=== PATIENT | male | born 1955 | race Caucasian/White ===

== ENCOUNTER → 2016-06-14 | Outpatient (CLI) | payer BC, OTHER ==
[~2016-06-14] MED LIST: ASPI81TA21 PO; BACL10TA PO; BUPR150T7 PO; CHOL100010 PO; CLOP1TAB15 PO; CYCL10TA6 PO; DOXE10CA PO; FAMO1TAB71 PO; HYDR-4079 PO; LOSA1TAB38 PO; LOSA50TA6 PO; LSN5 PO; METO50TA7 PO; MULTTAB58 PO; NTRGSL/4 UT; SIMV80TA2 PO
== END | disposition home or self-care (01) ==
LOC: C.RDSM 08:50
PROVIDERS: ATTEND Orthopaedic Surgery
DX: R52 Pain, unspecified (principal)

== ENCOUNTER 2016-10-24 07:43 | Inpatient (IN) | payer OTHER, BC ==
[~2016-10-24] VITALS: Ht 167.6 cm; Wt 72.9 kg
[~2016-10-24 07:43] MED LIST changes: -LOSA1TAB38 PO; -LOSA50TA6 PO
[2016-10-24] MEDS ORDERED: NITROGLYCERIN OINT 2% 1GM PACKET EXT STA (08:14)
[2016-10-24] MEDS ORDERED: ASPIRIN 81 MG CHEW PO STA (08:14)
[2016-10-24] MEDS ORDERED: NITROGLYCERIN OINT 2% 1GM PACKET ONE (08:19)
--- NOTE | 2016-10-24 08:21 | EMERGENCY ROOM VISIT NOTE ---
History Report prepared by Pete: Kathy England Under the Supervision of: Dr. Jaswant Payne M.D. First contact with patient: 07:56 Chief Complaint: CHEST PAIN Stated Complaint: CHEST PAINS Nursing Triage Summary: left sided chest pain > 1 week, evaluated by Dr Zamora with Cardiology for this - thought to be angina and given nitro. Took yesterday with some relief. No other symptoms with pain. Rating chest pain 3/10 at this time. On daily aspirin. hx HTN and 3 cardiac stents placed in January 2016, and one stent to leg in 2012 (Dr Fairchild) Quit smoking 1 month ago, has nicotene patch on back. History of Present Illness The patient is a 61 year old male who presents to the Emergency Room with complaints of chest pain that began over 1 week ago. The patient rates the pain at a 3/10. He reports that the pain waxes and wanes and that one time he felt relief from Nitroglycerin. The patient reports that exertion does not exacerbate his pain. He states that he is on Plavix and has [address] Source of History: patient Onset: over 1 week ago Position: chest Symptom Intensity: rated at a 3/10 Timing: waxes/wanes Modifying Factors (Relieving): other (nitroglycerin) Review of Systems See HPI for pertinent positives & negatives. A total of 10 systems reviewed and were otherwise negative. Past Medical & Surgical Medical Problems: (1) Angina pectoris (2) Arterial blockages (3) Benign hypertension (4) C. difficile colitis (5) coronary heart disease (6) Dupuytren's contracture of hand (7) Hypertension (8) Hypolipidemia Surgical Problems: (1) History of heart artery stent Family History Abdominal pain FH: heart disease FH: lung disease FHx: gallbladder disease Hypertension Social History Smoking Status: Former Smoker Alcohol Use: occasionally Marital Status: Housing Status: lives with significant other Occupation Status: employed Current/Historical Medications Scheduled Aspirin Enteric Coated (Ecotrin Or Generic), 81 MG PO DAILY Baclofen (Lioresal), 10 MG PO TID Bupropion Hcl (Wellbutrin Sr), 150 MG PO BID Cholecalciferol (Vitamin D), 2,000 INTER.UNIT PO DAILY Clopidogrel (Plavix), 75 MG PO DAILY Cyclobenzaprine Hcl (Flexeril), 10 MG PO DAILY Famotidine (Pepcid), 20 MG PO BID Losartan Potassium (Cozaar), 50 MG PO DAILY Metoprolol Succ (Toprol Xl) (Toprol-Xl), 50 MG PO DAILY Multiple Vitamin (Multivitamin), 1 TABLET PO DAILY Nitroglycerin (Nitrostat), 0.4 MG UT PRN Simvastatin (Zocor), 80 MG PO QPM Scheduled PRN Hydrocodone/Acetaminophen 10MG/325MG ([place] 10MG/325MG), 1 TABLET PO Q4H PRN for Pain Allergies Coded Allergies: Penicillins (Verified Allergy, Severe, "CIRCULATORY SHUTDOWN", 10/24/16) Physical Exam Vital Signs Date Time Temp Pulse Resp B/P (MAP) Pulse Ox O2 Delivery O2 Flow Rate FiO2 10/24/16 10:07 66 18 147/88 98 Room Air 10/24/16 09:05 71 18 136/73 98 Room Air 10/24/16 08:28 98 Room Air 10/24/16 08:28 98 Room Air 10/24/16 08:11 62 10/24/16 08:02 Room Air 10/24/16 07:51 36.9 66 19 181/83 99 Room Air Physical Exam GENERAL: Patient is a healthy-appearing well-nourished male HEAD: Normocephalic atraumatic EYES: Ocular movements intact pupils equal and react to light OROPHARYNX mucous membranes are moist no exudates present no erythema or edema present NECK: Supple no nuchal rigidity CHEST: Good equal expansion LUNGS: Clear and equal to auscultation CARDIAC: Normal S1 and S2 ABDOMEN: Soft nontender no guarding BACK: No CVA tenderness EXTREMITIES: No pain upon palpation normal muscle strength in all groups no clubbing cyanosis or edema NEURO: Patient is following commands and answering questions appropriately. Alert and oriented x3 Cranial Nerves 2-12 grossly intact Medical Decision & Procedures ER Provider Diagnostic Interpretation: X-ray results as stated below per interpretation by me and the radiologist: CHEST ONE VIEW PORTABLE CLINICAL HISTORY: 61 years-old Male presenting with CHEST PAIN. TECHNIQUE: Portable upright AP view of the chest was obtained. COMPARISON: 09/17/2012. FINDINGS: Atherosclerosis of aortic arch. Normal cardiac silhouette. Lungs and pleural spaces clear. Osseous structures normal. Upper abdomen normal. IMPRESSION: 1. No acute cardiopulmonary disease. Electronically signed by: Sudeep Cooper M.D. 10/24/2016 8:19 AM Dictated Date/Time: 10/24/2016 8:18 AM Laboratory Results 10/24/16 08:05 Red Blood Count 4.43, Mean Corpuscular Volume 92.6, Mean Corpuscular Hemoglobin 32.5, Mean Corpuscular Hemoglobin Concent 35.1, Mean Platelet Volume 10.0, Neutrophils (%) (Auto) 73.4, Lymphocytes (%) (Auto) 14.7, Monocytes (%) (Auto) 9.6, Eosinophils (%) (Auto) 1.5, Basophils (%) (Auto) 0.6, Neutrophils # (Auto) 10.27, Lymphocytes # (Auto) 2.05, Monocytes # (Auto) 1.35, Eosinophils # (Auto) 0.21, Basophils # (Auto) 0.08 10/24/16 08:05 Test 10/24/16 08:05 10/24/16 09:55 White Blood Count 13.99 K/uL (4.8-10.8) Red Blood Count 4.43 M/uL (4.7-6.1) Hemoglobin 14.4 g/dL (14.0-18.0) Hematocrit 41.0 % (42-52) Mean Corpuscular Volume 92.6 fL (80-100) Mean Corpuscular Hemoglobin 32.5 pg (25-34) Mean Corpuscular Hemoglobin Concent 35.1 g/dl (32-36) Platelet Count 381 K/uL (130-400) Mean Platelet Volume 10.0 fL (7.4-10.4) Neutrophils (%) (Auto) 73.4 % Lymphocytes (%) (Auto) 14.7 % Monocytes (%) (Auto) 9.6 % Eosinophils (%) (Auto) 1.5 % Basophils (%) (Auto) 0.6 % Neutrophils # (Auto) 10.27 K/uL (1.4-6.5) Lymphocytes # (Auto) 2.05 K/uL (1.2-3.4) Monocytes # (Auto) 1.35 K/uL (0.11-0.59) Eosinophils # (Auto) 0.21 K/uL (0-0.5) Basophils # (Auto) 0.08 K/uL (0-0.2) RDW Standard Deviation 42.6 fL (36.4-46.3) RDW Coefficient of Variation 12.5 % (11.5-14.5) Immature Granulocyte % (Auto) 0.2 % Immature Granulocyte # (Auto) 0.03 K/uL (0.00-0.02) Anion Gap 8.0 mmol/L (3-11) Est Creatinine Clear Calc Drug Dose 88.6 ml/min Estimated GFR () 112.5 Estimated GFR (Non- 97.1 BUN/Creatinine Ratio 16.0 (10-20) Calcium Level 9.2 mg/dl (8.5-10.1) Total Bilirubin 0.5 mg/dl (0.2-1) Direct Bilirubin 0.2 mg/dl (0-0.2) Aspartate Amino Transf (AST/SGOT) 33 U/L (15-37) Alanine Aminotransferase (ALT/SGPT) 57 U/L (12-78) Alkaline Phosphatase 108 U/L (45-117) Total Creatine Kinase 68 U/L (39-308) Creatine Kinase MB 1.1 ng/ml (0.5-3.6) Creatine Kinase MB Ratio 1.6 (0-3.0) Troponin I 0.457 ng/ml (0-0.045) Total Protein 7.6 gm/dl (6.4-8.2) Albumin 3.6 gm/dl (3.4-5.0) Lipase 188 U/L (73-393) Prothrombin Time 10.5 SECONDS (9.0-12.0) Prothromb Time International Ratio 1.0 (0.9-1.1) Activated Partial Thromboplast Time 25.1 SECONDS (21.0-31.0) Partial Thromboplastin Ratio 1.0 Labs reviewed by ED physician. Medications Administered Medications (Trade) Dose Ordered Sig/Katheryn Route Start Time Stop Time Status Last Admin Dose Admin Nitroglycerin (Nitroglycerin 2% Oint) 1 inch NOW STAT EXT 10/24/16 08:14 10/24/16 08:16 DC 10/24/16 08:22 1 INCH Aspirin (Aspirin Chew) 243 mg NOW STAT PO 10/24/16 08:14 10/24/16 08:16 DC 10/24/16 08:21 243 MG ECG Indication: chest pain Rate (beats per minute): 64 Rhythm: normal sinus Findings: no acute ischemic change, no ectopy, other (old septal infarct) ED Course 0818: Past medical records reviewed. The patient was evaluated in room B2. A complete history and physical examination was performed. 0814: Ordered Aspirin 243 mg PO, Nitroglycerin 1 inch EXT. 912: Ordered Heparin Sodium/Dextrose 1 ea. 0916: I discussed the patient's case with Dr. Vanessa, she has agreed to evaluate the patient for further management and care. Medical Decision Differential diagnosis: Etiologies such as cardiac ischemia, aortic dissection, pulmonary embolism, pneumonia, pneumothorax, musculoskeletal, infections, pericarditis, myocarditis , esophageal rupture, gastrointestinal, as well as others were entertained. This is a 61-year-old male who presents emergency department complaining of chest discomfort that has been ongoing for the past week. The pain has been relieved by nitroglycerin at home. The patient has a history of [address] Upon arrival to the emergency department the patient is pain-free. His EKG shows no evidence of a STEMI however his troponin is elevated. He was given nitro paste in the emergency department and will be started on heparin. I did discuss the case with the hospitalist service who agreed to admit the patient. Medication Reconcilliation Current Medication List: was personally reviewed by me Blood Pressure Screening Patient's blood pressure: Elevated blood pressure Blood pressure disposition: Referred to PCP Consults Time Called: [phone] Consulting Physician: Dr. Vanessa, [facility] Hospitalist Returned Call: [phone] I discussed the patient's case with Dr. Vanessa, she has agreed to evaluate the patient for further management and care. Impression Primary Impression: Non-STEMI (non-ST elevated myocardial infarction) Scribe Attestation The scribe's documentation has been prepared under my direction and personally reviewed by me in its entirety. I confirm that the note above accurately reflects all work, treatment, procedures, and medical decision making performed by me. Departure Information Dispostion Being Evaluated By Hospitalist Referrals Chaka Rico II MD (PCP) Patient Instructions My [facility]
[2016-10-24 08:22] LABS: BASO % 0.6 %; BASO ABS # 0.08 K/uL (0-0.2); COMPLETE YES; EOS % 1.5 %; IG% 0.2 %; LYMPH % 14.7 %; LYMPH ABS # 2.05 K/uL (1.2-3.4); MEAN CELL VOLUME 92.6 fL (80-100); MEAN CORPUSCULAR HEMOGLOBIN 32.5 pg (25-34); MEAN CORPUSCULAR HGB CONC 35.1 g/dl (32-36); MONO % 9.6 %; NEUT % 73.4 %; PLATELET COUNT 381 K/uL (130-400); RED BLOOD COUNT 4.43 M/uL (4.7-6.1); WHITE BLOOD COUNT 13.99 K/uL (4.8-10.8)
[2016-10-24] MEDS ORDERED: LOSA50TA6 PO (08:40)
[2016-10-24 09:07] LABS: CALCIUM 9.2 mg/dl (8.5-10.1); CKMB/CK RATIO 1.6 (0-3.0); CREATININE 0.8 mg/dl (0.60-1.40); POTASSIUM 4.7 mmol/L (3.5-5.1)
[2016-10-24 10:00] VITALS: O2SAT 98; Ht 167.6 cm; Wt 72.9 kg
[2016-10-24 10:33] LABS: PROTHROMBIN TIME (PATIENT) 10.5 SECONDS (9.0-12.0)
[2016-10-24] MEDS ORDERED: HEPARIN 25000 UNIT/500 ML D5W ONE (10:52)
[2016-10-24] MEDS ORDERED: MoRPHine SULFATE 2 MG/ML CARP IV PRN (11:15)
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
[2016-10-24] MEDS ORDERED: HEPARIN IV BOLUS 5,000 UNIT in SYRINGE 0 ML IV SCH (12:30)
[2016-10-24] MEDS ORDERED: HEPARIN SOD 5000 UNIT/0.5 ML CARP IV ONE (12:30)
[2016-10-24 14:49] LABS: CKMB/CK RATIO 1.8 (0-3.0)
[2016-10-24] MEDS: SODIUM CHLORIDE 0.9% 1000ML 1,000 ML IV SCH (15:01)
[2016-10-24] MEDS: BACLOFEN 10 MG TAB PO SCH ×2 (15:34→19:56)
[2016-10-24] MEDS: HYDROCODONE/ACETAMI 10/325 TAB PO PRN ×2 (15:34→20:00)
[2016-10-24] MEDS: NITROGLYCERIN OINT 2% 1GM PACKET EXT SCH ×2 (15:35→21:11)
[2016-10-24 15:36] VITALS: PULSE 73; TEMP 37; O2SAT 99
[2016-10-24 15:44] VITALS: BP 172/84
[2016-10-24] MEDS: LOSARTAN POTASSIUM 50 MG TAB PO SCH ×2 (15:56→16:00)
[2016-10-24 16:00] VITALS: O2SAT 99
[2016-10-24 17:46] LABS: PARTIAL THROMBOPLASTIN RATIO 2.9
[2016-10-24] MEDS: HEPARIN 25,000 UNIT/500ML D5W 500 ML IV PRN (18:05)
--- NOTE | 2016-10-24 18:06 | ECHOCARDIOGRAM REPORT ---
*NOTICE TO RECEIVING REPUBLICAN AGENCY This information is strictly Confidential and protected under [place] law. [place] law prohibits you from making any further disclosure of this information unless further disclosure is expressly permitted by the written consent of the person to whom it pertains or is authorized by law. A general authorization for the release of medical or other information is not sufficient for this purpose. Hospital accepts no responsibility if the information is made available to any other person, INCLUDING THE PATIENT. Interpretation Summary * Name: MARIANNA ARMAS Study Date: 10/24/2016 02:59 PM BP: 147/88 mmHg * Patient Location: C.2T\S\S241\S\1 HR: 63 * : 1955 (M/d/yyyy) Gender: Male Height: 66 in * Age: 61 yrs Ethnicity: CA Weight: 156 lb * Ordering Physician: Mely Vanessa * Referring Physician: Self, Referred * Performed By: Margarette Gutierrez RCS * * Reason For Study: CHEST PAIN * BSA: 1.8 m2 * -- Conclusions -- * 1. Normal LV size. Mild concentric LVH. * 2. Normal LV systolic function. LVEF 60-65%. Hypokinesis of the inferior wall at the base. * 3. Normal RV size and function. * 4. Mild mitral regurgitation. * 5. Aortic valve sclerosis without stenosis. * 6. Compared with prior study on 01/26/2016: No significant change. Procedure Details * A complete two-dimensional transthoracic echocardiogram was performed (2D, M-mode, Doppler and color flow Doppler). * A saline contrast injection was performed to assess for cardiac shunting. * The injection was performed through an intravenous line in the right arm. * The attending nurse who injected the saline contrast was SHANNON VILLALOBOS RN. * A total of 20 cc of agitated saline was given. Left Ventricle * The left ventricle is grossly normal size. * There is mild concentric left ventricular hypertrophy. * Ejection Fraction = 60-65%. * Hypokinetic basilar inferiror wall Right Ventricle * The right ventricle is grossly normal size. * The right ventricular systolic function is normal as assessed by tricuspid annular plane systolic excursion (TAPSE) (normal >1.5 cm). Atria * The left atrium is mildly dilated. * Right atrial size is normal. * Injection of contrast documented no interatrial shunt. Mitral Valve * There is mild mitral annular calcification. * There is no mitral valve stenosis. * There is mild mitral regurgitation. Tricuspid Valve * The tricuspid valve is not well visualized, but is grossly normal. * There is no tricuspid stenosis. * There is trace tricuspid regurgitation. Aortic Valve * The aortic valve opens well. * Aortic valve sclerosis mild, without significant aortic valvular stenosis. * No hemodynamically significant valvular aortic stenosis. * There is no significant aortic regurgitation. Pulmonic Valve * The pulmonary valve is inadequately visualized, but the Doppler data is adequate for interpretation. * Pulmonic stenosis is absent. * There is no pulmonic valvular regurgitation. Great Vessels * The aortic root and proximal ascending aorta are normal sized. Pericardium/Pleural * There is no pericardial effusion. Great Vessels * IVC < 2.1, <50% change with respiration. Estimated RA 8 mmHg Left Ventricular Diastolic Function * Grade I diastolic dysfunction, (abnormal relaxation pattern). MMode 2D Measurements and Calculations IVSd 1.4 cm IVSs 1.8 cm LVIDd 3.6 cm LVIDs 2.2 cm LVPWd 1.3 cm LVPWs 1.7 cm IVS/LVPW 1.1 FS 38.3 % EDV(Teich) 55.7 ml ESV(Teich) 17.0 ml EF(Teich) 69.5 % EDV(cubed) 48.1 ml ESV(cubed) 11.3 ml EF(cubed) 76.5 % % IVS thick 26.1 % % LVPW thick 24.0 % LV mass(C)d 178.6 grams LV mass(C)dI 99.3 grams/m\S\2 LV mass(C)s 145.3 grams LV mass(C)sI 80.7 grams/m\S\2 SV(Teich) 38.7 ml SI(Teich) 21.5 ml/m\S\2 SV(cubed) 36.8 ml SI(cubed) 20.4 ml/m\S\2 Ao root diam 2.7 cm Ao root area 5.7 cm\S\2 LA dimension 4.1 cm LA/Ao 1.5 LVOT diam 2.0 cm LVOT area 3.0 cm\S\2 LVAd ap4 32.5 cm\S\2 LVLd ap4 8.1 cm EDV(MOD-sp4) 107.3 ml EDV(sp4-el) 110.1 ml LVAs ap4 19.2 cm\S\2 LVLs ap4 6.9 cm ESV(MOD-sp4) 44.5 ml ESV(sp4-el) 45.5 ml EF(MOD-sp4) 58.5 % EF(sp4-el) 58.7 % LVAd ap2 33.4 cm\S\2 LVLd ap2 7.9 cm EDV(MOD-sp2) 117.0 ml EDV(sp2-el) 120.3 ml LVAs ap2 19.4 cm\S\2 LVLs ap2 6.2 cm ESV(MOD-sp2) 51.7 ml ESV(sp2-el) 51.0 ml EF(MOD-sp2) 55.8 % EF(sp2-el) 57.6 % LVLd %diff -3.14 % EDV(MOD-bp) 112.1 ml LVLs %diff -10.50 % ESV(MOD-bp) 48.4 ml EF(MOD-bp) 56.8 % SV(MOD-sp4) 62.7 ml SI(MOD-sp4) 34.9 ml/m\S\2 SV(MOD-sp2) 65.2 ml SI(MOD-sp2) 36.2 ml/m\S\2 SV(MOD-bp) 63.7 ml SI(MOD-bp) 35.4 ml/m\S\2 SV(sp4-el) 64.6 ml SI(sp4-el) 35.9 ml/m\S\2 SV(sp2-el) 69.3 ml SI(sp2-el) 38.5 ml/m\S\2 Doppler Measurements and Calculations MV E max jerardo 77.6 cm/sec MV A max jerardo 97.6 cm/sec MV E/A 0.80 MV P1/2t max jerardo 90.6 cm/sec MV P1/2t 101.7 msec MVA(P1/2t) 2.2 cm\S\2 MV dec slope 261.0 cm/sec\S\2 MV dec time 0.27 sec MR max jerardo 578.2 cm/sec MR max PG 133.7 mmHg PA V2 max 110.6 cm/sec PA max PG 4.9 mmHg TR max jerardo 161.3 cm/sec
--- NOTE | 2016-10-24 19:22 | Cardiology Consultation ---
Cardiology Consultation Date of Consultation: Oct 24, 2016. Attending Physician: Otf Reason for Consultation: Chest Pain/NSTEMI Pt evaluation today including: conversation w/ patient, conversation w/ family , physical exam, chart review, lab review, review of studies, review of inpatient medication list, conversation w/ attending History of Present Illness Mr. Alcantara a pleasant 61-year-old man with a history of hypertension, hyperlipidemia, peripheral vascular disease with prior common iliac stent and coronary artery disease with known subtotally occluded RCA and status post multiple prior PCI to his circumflex artery most recently with SERENE in January of 2016 here today with complaints of worsening chest pain. Patient is followed by Dr. Zamora for his cardiovascular care and was last seen by him on October 10. At that time he noted stable typical anginal symptoms relieved with occasional sublingual nitroglycerin. Over the last 2-3 weeks patient endorses new chest tightness which radiates to his arms bilaterally. This pain can occur at any time has been most notable in the evenings. It has occurred at most 6 times a day, lasting sometimes for 15 minutes. Pain is partially relieved with slntg and is somewhat different than what he has experienced prior to previous stents but seems to be increasing more in frequency and intensity. 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 He received a nitroglycerin patch in the ED with resolution of pain. At time of interview patient chest pain-free. His initial EKG showed nonspecific ST abnormalities but noted new dynamic ST changes. His initial troponin was 0.46 and has trended up to 0.75. Echocardiogram this afternoon showed preserved LV function with what looked to be old basilar inferior wall hypokinesis. Past Medical/Surgical History PMH: CAD -- 09/2009--overlapping 2.5 by 20 millimeter, 2.25 x 12 millimeter Taxus SERENE 01/2016--2.75 x 12 millimeter resolute SERENE to proximal circumflex, post dilated to 3 millimeters HTN PAD with right common iliac stent per Dr. Granger in 2013 Recurrent C. difficile colitis Dupuytren's contracture of hand HL Chronic lower back pain with sciatica s/p traumatic accident Chronic opioid dependence PSH: RLE hematoma evacuation and wound debridement s/p trauma Left inguinal mass biopsy-benign Family History Abdominal pain FH: heart disease FH: lung disease FHx: gallbladder disease Hypertension Social History Smoking Status: Former Smoker (smoked 1 PPD x 40 yrs, quit 1 month ago) History of Alcohol Use: Yes (beer few cans/ week "occasionally" ) Review of Systems 10 point review of systems was completed and was otherwise negative unless stated in HPI All Other Systems: Reviewed and Negative Allergies Coded Allergies: Penicillins (Verified Allergy, Severe, "CIRCULATORY SHUTDOWN", 10/24/16) Medications Current Inpatient Medications Medications (Trade) Dose Ordered Sig/Katheryn Route Start Time Stop Time Status Last Admin Dose Admin Sodium Chloride 1,000 ml @ 75 mls/hr [id number] IV 10/24/16 11:06 11/23/16 11:05 10/24/16 15:01 75 MLS/HR Nitroglycerin (Nitroglycerin 2% Oint) 1 inch Q6H EXT 10/24/16 16:00 11/23/16 15:59 10/24/16 15:35 1 INCH Morphine Sulfate (MoRPHine SULFATE INJ) 2 mg Q30M PRN IV 10/24/16 11:15 11/07/16 11:14 Aspirin (Ecotrin Tab) 81 mg DAILY PO 10/25/16 09:00 11/24/16 08:59 Baclofen (Lioresal Tab) 10 mg TID PO 10/24/16 14:00 11/23/16 13:59 10/24/16 15:34 10 MG Bupropion HCl (Wellbutrin-Sr Tab) 150 mg BID PO 10/24/16 21:00 11/23/16 20:59 Cholecalciferol (Vitamin D Tab) 2,000 inter.unit DAILY PO 10/25/16 09:00 11/24/16 08:59 Clopidogrel Bisulfate (plAVix TAB) 75 mg DAILY PO 10/25/16 09:00 11/24/16 08:59 Cyclobenzaprine HCl (Flexeril Tab) 10 mg DAILY PRN PO 10/24/16 11:15 11/23/16 11:14 Famotidine (Pepcid Tab) 20 mg BID PO 10/24/16 21:00 11/23/16 20:59 Acetaminophen/ Hydrocodone Bitart ([place] 10/325 Tab) 1 tab Q4H PRN PO 10/24/16 11:15 11/07/16 11:14 10/24/16 15:34 1 TAB Losartan Potassium (coZAAR TAB) 50 mg DAILY PO 10/25/16 09:00 11/24/16 08:59 10/24/16 16:00 50 MG Metoprolol Succinate (Toprol Xl Tab) 50 mg DAILY PO 10/25/16 09:00 11/24/16 08:59 Multivitamins (Multivitamin Tab) 1 tab DAILY PO 10/25/16 09:00 11/24/16 08:59 Simvastatin (Zocor Tab) 80 mg QPM PO 10/24/16 21:00 11/23/16 20:59 Heparin Sodium/ Dextrose 500 ml @ 23 mls/hr [id number] PRN IV 10/24/16 12:00 11/23/16 11:59 10/24/16 18:05 23 MLS/HR Physical Exam Vital Signs Past 12 Hours Date Time Temp Pulse Resp B/P (MAP) Pulse Ox O2 Delivery O2 Flow Rate FiO2 10/24/16 16:00 99 Room Air 10/24/16 15:44 172/84 (113) 10/24/16 15:36 37.0 73 20 99 Room Air 10/24/16 13:11 73 18 98 10/24/16 13:01 70 18 140/73 97 Room Air 10/24/16 11:50 71 18 164/86 98 Room Air 10/24/16 11:30 68 10/24/16 10:07 66 18 147/88 98 Room Air 10/24/16 10:00 98 Room Air 10/24/16 09:05 71 18 136/73 98 Room Air 10/24/16 08:28 98 Room Air 10/24/16 08:28 98 Room Air 10/24/16 08:11 62 10/24/16 08:02 Room Air 10/24/16 07:51 36.9 66 19 181/83 99 Room Air General: Comfortable, no acute distress Eyes: Sclerae anicteric, extraocular movements intact HENT: Oropharynx clear mucous membranes moist Neck: Supple, no lymphadenopathy, no thyromegaly. Lungs: Clear to auscultation bilaterally, no rhonchi or wheezes Cardiac: Regular rate and rhythm, 2/6 systolic murmur at left upper sternal border, rubs or gallops. No JVD. No peripheral edema. Extremities well perfused. Vascular: Normal carotid upstrokes, no bruits. 2+ radial, femoral, DP and PT pulses. No varicosities. Abdomen: Soft, nontender, nondistended positive bowel sounds. No hepatosplenomegaly Musculoskeletal: Normal gait. No joint deformities Skin: No rashes or lesions. Neuro: Cranial nerves 2-12 grossly intact, remainder exam nonfocal Psych: Alert orient x3, normal affect and mood Data Laboratory Results: Last 24 Hours Test 10/24/16 08:05 10/24/16 09:55 10/24/16 13:52 10/24/16 16:53 White Blood Count 13.99 K/uL Red Blood Count 4.43 M/uL Hemoglobin 14.4 g/dL Hematocrit 41.0 % Mean Corpuscular Volume 92.6 fL Mean Corpuscular Hemoglobin 32.5 pg Mean Corpuscular Hemoglobin Concent 35.1 g/dl Platelet Count 381 K/uL Mean Platelet Volume 10.0 fL Neutrophils (%) (Auto) 73.4 % Lymphocytes (%) (Auto) 14.7 % Monocytes (%) (Auto) 9.6 % Eosinophils (%) (Auto) 1.5 % Basophils (%) (Auto) 0.6 % Neutrophils # (Auto) 10.27 K/uL Lymphocytes # (Auto) 2.05 K/uL Monocytes # (Auto) 1.35 K/uL Eosinophils # (Auto) 0.21 K/uL Basophils # (Auto) 0.08 K/uL RDW Standard Deviation 42.6 fL RDW Coefficient of Variation 12.5 % Immature Granulocyte % (Auto) 0.2 % Immature Granulocyte # (Auto) 0.03 K/uL Sodium Level 131 mmol/L Potassium Level 4.7 mmol/L Chloride Level 98 mmol/L Carbon Dioxide Level 25 mmol/L Anion Gap 8.0 mmol/L Blood Urea Nitrogen 13 mg/dl Creatinine 0.80 mg/dl Est Creatinine Clear Calc Drug Dose 88.6 ml/min Estimated GFR () 112.5 Estimated GFR (Non- 97.1 BUN/Creatinine Ratio 16.0 Random Glucose 75 mg/dl Calcium Level 9.2 mg/dl Total Bilirubin 0.5 mg/dl Direct Bilirubin 0.2 mg/dl Aspartate Amino Transf (AST/SGOT) 33 U/L Alanine Aminotransferase (ALT/SGPT) 57 U/L Alkaline Phosphatase 108 U/L Total Creatine Kinase 68 U/L 56 U/L Creatine Kinase MB 1.1 ng/ml 1.0 ng/ml Creatine Kinase MB Ratio 1.6 1.8 Troponin I 0.457 ng/ml 0.749 ng/ml Total Protein 7.6 gm/dl Albumin 3.6 gm/dl Lipase 188 U/L Prothrombin Time 10.5 SECONDS Prothromb Time International Ratio 1.0 Activated Partial Thromboplast Time 25.1 SECONDS 76.0 SECONDS Partial Thromboplastin Ratio 1.0 2.9 Imaging: Chest x-ray no acute cardiopulmonary process EKG: Sinus rhythm, nonspecific ST changes, questionable septal infarct Telemetry reviewed: No events Assessment & Plan 1. Suspected acute coronary syndrome 2. History of coronary artery disease status post multiple stents to circumflex most recently with SERENE to proximal segment in January of 2016 3. Peripheral artery disease status post common iliac stent 4. Hypertension 5.Dyslipidemia Patient here with worsened intermittent chest pain over the last 2-3 weeks. Elevated troponin trending up concerning for acute coronary syndrome. With unremarkable EKG concern for possible recurrent circumflex disease. For now patient is chest pain-free, hemodynamically and electrically stable. repeat echo unremarkable and no need for urgent intervention Going forward agree with continued heparin infusion, continue dual antiplatelet therapy with aspirin and Plavix. Continue nitro patch and home beta-anuja, ARB, statin. Will discuss case further with patient's chemical dependency professional, Dr. Zamora tomorrow but tentatively plan for additional risk stratification with cardiac catheterization tomorrow via right radial artery. Thank you for allowing us to participate in the care of this patient. Please contact with any questions.
[2016-10-24 19:40] VITALS: BP 143/75; PULSE 64; TEMP 37.1; O2SAT 96
[2016-10-24] MEDS: FAMOTIDINE 20 MG TAB PO SCH (19:55)
[2016-10-24] MEDS: SIMVASTATIN 80 MG TAB PO SCH (19:55)
[2016-10-24] MEDS: BuPROPion SR 150 MG TABCR PO SCH (19:56)
[2016-10-24 20:41] LABS: CKMB/CK RATIO 1.6 (0-3.0)
[2016-10-24] MEDS: CYCLOBENZAPRINE HCL 10 MG TAB PO PRN (21:09)
[2016-10-24 22:45] VITALS: BP 122/62; PULSE 65; TEMP 37; O2SAT 96
[2016-10-25] VITALS (11 sets, daily range): BP systolic 120–175; BP diastolic 64–90; PULSE 57–74; TEMP 36.5–37; O2SAT 96–98
[2016-10-25 01:14] LABS: PARTIAL THROMBOPLASTIN RATIO 1.9
[2016-10-25 02:23] LABS: CKMB/CK RATIO 1.4 (0-3.0)
[2016-10-25] MEDS: SODIUM CHLORIDE 0.9% 1000ML 1,000 ML IV SCH ×2 (02:37→15:02)
[2016-10-25] MEDS: NITROGLYCERIN OINT 2% 1GM PACKET EXT SCH ×4 (04:16→22:13)
[2016-10-25] MEDS: HYDROCODONE/ACETAMI 10/325 TAB PO PRN ×4 (07:46→23:54)
[2016-10-25] MEDS: METOPROLOL SUCC 50MG EXT REL TAB PO SCH (07:48)
[2016-10-25] MEDS: BuPROPion SR 150 MG TABCR PO SCH ×2 (07:48→19:43)
[2016-10-25] MEDS: CLOPIDOGREL BISULFATE 75 MG TAB PO SCH (07:49)
[2016-10-25] MEDS: CHOLECALCIFEROL 1000 INTER.UNIT TAB PO SCH (07:50)
[2016-10-25] MEDS: MULTIVITAMIN TAB PO SCH (07:50)
[2016-10-25] MEDS: ASPIRIN 81 MG ECTAB PO SCH (07:50)
[2016-10-25] MEDS: LOSARTAN POTASSIUM 50 MG TAB PO SCH (07:51)
[2016-10-25] MEDS: BACLOFEN 10 MG TAB PO SCH ×3 (07:51→19:42)
[2016-10-25] MEDS: FAMOTIDINE 20 MG TAB PO SCH ×2 (07:51→19:43)
[2016-10-25 08:15] LABS: BASO % 0.8 %; BASO ABS # 0.08 K/uL (0-0.2); COMPLETE YES; EOS % 4.9 %; IG% 0.3 %; LYMPH % 24.8 %; LYMPH ABS # 2.47 K/uL (1.2-3.4); MEAN CELL VOLUME 92.2 fL (80-100); MEAN CORPUSCULAR HEMOGLOBIN 32.5 pg (25-34); MEAN CORPUSCULAR HGB CONC 35.3 g/dl (32-36); MONO % 16.5 %; NEUT % 52.7 %; PLATELET COUNT 344 K/uL (130-400); RED BLOOD COUNT 4.34 M/uL (4.7-6.1); WHITE BLOOD COUNT 9.97 K/uL (4.8-10.8)
[2016-10-25 08:51] LABS: BUN/CREATININE RATIO 18.7 (10-20); CALCIUM 8.8 mg/dl (8.5-10.1); CREATININE 0.75 mg/dl (0.60-1.40); POTASSIUM 4.5 mmol/L (3.5-5.1)
--- NOTE | 2016-10-25 09:24 | CARDIOLOGY PROGRESS NOTE ---
DATE: 10/25/2016 SUBJECTIVE: Mr. Whitaker is resting comfortably in bed without complaints of chest pain or dyspnea. OBJECTIVE: VITAL SIGNS: Blood pressure 150/80 with a regular pulse of 60. Respiratory rate is 20. The patient is afebrile at 36.6 degrees Celsius. Saturation is 97% on 2 liters nasal cannula. NECK: Supple with full carotid upstrokes. No carotid bruits. Jugular venous pressure is flat at 90 degrees. There is no thyromegaly. CARDIOVASCULAR: Reveals a regular rhythm with normal S1 and S2. No S3, S4, or murmurs are noted. LUNGS: Clear without rales, rhonchi, or wheezes. ABDOMEN: Soft and nontender without bruits. EXTREMITIES: Reveal intact radial artery pulses bilaterally. There is no peripheral edema. DATA: CBC notes hemoglobin 14.1, hematocrit 40.0, white count 9.9, and platelet count 344,000. Electrolytes note a sodium of 142, potassium 4.5, chloride 109, bicarb 29, BUN 14, creatinine 0.75, and glucose 102. Troponin I level was 0.561 this morning, down from a peak of 0.749. CKs are normal. EKG notes normal sinus rhythm with an old septal infarction. No acute ST or T-wave changes identified. IMPRESSION AND PLAN: 1. Unstable angina pectoris -- the patient was seen in consultation by Dr. Uribe yesterday. Cardiac catheterization is planned for today. 2. Coronary artery disease -- the patient had drug-eluting stents to the LAD in September of 2009 and a drug-eluting stent placed in the proximal LCX in January 2016. 3. Hypertension -- borderline control. 4. Peripheral vascular disease -- status post right common iliac stent with Dr. Granger in 2012. 5. Hypercholesterolemia.
[2016-10-25] MEDS: HEPARIN 25,000 UNIT/500ML D5W 500 ML IV PRN (09:37)
[2016-10-25] MEDS ORDERED: HEPARIN SOD (PORCINE) 1000 UNIT/ML 10 ML VIAL ONE (15:05)
[2016-10-25] MEDS ORDERED: FENTANYL CITRATE INJ 50 MCG/1 ML 2 ML VIAL ONE ×2 (15:05→15:57)
[2016-10-25] MEDS ORDERED: NiCARDipine HCL INJ 2.5 MG/ML 10 ML AMP ONE (15:05)
[2016-10-25] MEDS ORDERED: NITROGLYCERIN/D5W 100MCG/ML 20ML SYR ONE (15:05)
[2016-10-25] MEDS ORDERED: MIDAZOLAM HCL 1 MG/ML 2ML VIAL ONE ×3 (15:05→16:13)
[2016-10-25] MEDS ORDERED: CLOPIDOGREL BISULFATE 300 MG TAB PO ONE (16:44)
--- NOTE | 2016-10-25 17:26 | Procedure Note ---
Post-Mod Sedation Assessment General Date of Moderate Sedation Oct 25, 2016. Vital Signs: Vital Signs Past 12 Hours Date Time Temp Pulse Resp B/P (MAP) Pulse Ox O2 Delivery O2 Flow Rate FiO2 10/25/16 16:55 60 18 145/91 (109) 95 Room Air 10/25/16 16:45 57 18 157/91 (113) 95 Room Air 10/25/16 12:12 175/80 (111) 10/25/16 12:00 98 Room Air 10/25/16 10:28 36.9 59 20 160/90 (113) 98 Room Air 10/25/16 08:00 97 Room Air 10/25/16 07:04 36.6 57 20 152/81 (104) 97 Room Air Review - Discharge Criteria Vital Signs Stable: Yes Alert/Oriented/Conversant: Yes Returned to Baseline Mental St: Yes Nausea Absent/Minimal: Yes Pain/Discomfort/Absent/Minimal: Yes Normal/Baseline Respirations: Yes Active Bleeding?: No Pt Received D/C Instructions: No Specific Proced. D/C Criteria Distal Pulses Present (Cardiac: Yes Groin site assessed-Card Cath: N/A Voided Prior To Discharge: N/A Discharged Patients Adult Escort/Transportation: Yes
--- NOTE | 2016-10-25 17:26 | Procedure Note ---
Pre-Mod Sedation Assessment General Date of Moderate Sedation: Oct 25, 2016. Vital Signs: Vital Signs Past 12 Hours Date Time Temp Pulse Resp B/P (MAP) Pulse Ox O2 Delivery O2 Flow Rate FiO2 10/25/16 16:55 60 18 145/91 (109) 95 Room Air 10/25/16 16:45 57 18 157/91 (113) 95 Room Air 10/25/16 12:12 175/80 (111) 10/25/16 12:00 98 Room Air 10/25/16 10:28 36.9 59 20 160/90 (113) 98 Room Air 10/25/16 08:00 97 Room Air 10/25/16 07:04 36.6 57 20 152/81 (104) 97 Room Air Review Cardiovascular: regular rate, rhythm, no edema Abdomen: normal bowel sounds, non tender Lungs: chest non-tender, lungs clear Airway Class: III Pre-Sedation Airway Assessment Oral Cavity: WNL Able to Visualize Vocal Cords: No Short Thick Neck: No Hx of Sleep Apnea: No Smoking Status: Former Smoker (smoked 1 PPD x 40 yrs, quit 1 month ago) Mallampati Classification: Class III ASA Classification: Class III Procedure Planning Contraindications-for Mod Sed: None Yes Notes The planned sedation has been discussed with the patient and consent obtained. I have identified the patient, determined the appropriateness of sedation and have assessed the patient immediately prior to the procedure. All medicine(s) and interventions are by my order.
--- NOTE | 2016-10-25 17:49 | Cardiac Catheterization ---
Procedure Note Procedure Date Oct 25, 2016. Pre-Procedure Diagnosis Non STEMI AUC Score 8 Post-Procedure Diagnosis Severe CAD, Successful PCI, Normal Intracardiac Pressures Procedure(s) Performed Coronary Angiography, Left Heart Cath, Drug Eluting Stent Brick Cleaner Rony Final Application Reviewer(s) Saman Estimated Blood Loss 15 Medication(s) Fentanyl, Heparin, Nitroglycerin, Versed, Lidocaine 1% Summary of Findings Indication: NSTEMI Access: 6Fr Right radial artery Catheters: [place]; EBU 3.5 guide Findings: LM - Angiographically normal LAD - 50% mid segment disease at 1st septal, distal segment tortuous with luminal irregularities to apex. Left to right collaterals. Circumflex - 90% ostial/proximal stenosis, patent prior stents with 40-50% instent restenosis in mid segment after take-off of OM2. Ramus - small vessel, with 95% ostial stenosis RCA - Dominant, 70% proximal stenosis, diffuse 60-70% mid segment disease, 95% distal RCA diffuse stenosis. Competitive flow in PDA LVEDP - 17 -- PCI -- Antithrombotic therapy: Heparin, Clopidogrel Procedure: LM cannulated with EBU 3.5 guide BMW wire passed across circumflex lesion into distal OM3 Whisper wire placed into distal ramus Ostial ramus lesion predilated with 2.0 compliant balloon Ostial circumflex lesion predilated with 2.0 compliant balloon Dilated circumflex lesion stented with 2.75 x 22 Soldier SERENE which overlapped distally with prior stent Stent post-dilated with stent balloon. IC vasodilators administered for spasm Post procedure DAYRON 3 flow, stent well expanded with minimal residual stenosis and no apparent cardiac complications. Arterial Closure: TR Band Summary: 1. Severe 2 vessel coronary artery disease - Acute 90% ostial circumflex stenosis. Small ramus with 95% ostial stenosis - Chronic subtotal distal RCA occlusion - Stable moderate 50% mid LAD stenosis. 2. Borderline intracardiac filling pressures 3. Successful PCI of ostial LAD with 2.75 x 22 Soldier SERENE. 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 Can consider holding plavix in 6 months for planned surgery on contractures. Continue statin and ASCVD risk factor modification including improved blood pressure control Consult cardiac Rehab Distal RCA subtotal occlusion appears potentially amenable to PCI. If refractory angina despite medical management as an outpatient can bring back for attempted intervention. Hemodynamics Rest Ao: 160/76/108 Final Ao: 143/64/93 LV: 173/17 Recommendations PCI without planned CABG Specimens None Radiation Exposure (mGy) 3345 Contrast (mls) 190 Visi Fluids (cc crystalloids) 138 Drains None Anesthesia Moderate Procedural Complication(s) None Disposition PCU ACC Data Cardiac Status Clinical evaluation leading to the procedure CAD Presntation: Non STEMI Anginal Classification: CCS IV Heart Failure: No, NYHA Class: CCS I Cardiogenic Shock w/in 24Hrs: No Cardiac Arrest w/in 24Hrs: No Imaging studies past 6 months: No Stress studies past 6 months: No Coronary Anatomy Dominant: Right Left Main (% Stenosis): Normal LAD (% Stenosis): Mid (50) Circumflex (% Stenosis): Ostial (90), Mid (40) RCA (% Stenosis): Proximal (70), Mid (60), Distal (95) Ramus (% Stenosis): Ostial (95) Closure Device Percutaneous Entry Location: Radial Closure Device: Radial Band Recommendations: PCI without planned CABG PCI Indication: PCI for high risk Non-STEMI Lesion Segment Name: Ostial circumflex Culprit Artery: Yes Stenosis Prior to Rx (%): 90 Chronic Total Occlusion: No IVUS: No FFR: No Pre-Procedure DAYRON Flow: 3 Previously Treated Lesion: No Lesion Complexity: Non-High/Non-C Lesion Length (mm): 15 Thrombus Present: Yes Bifurcation Lesion: No Guidewire Across Lesion: Yes Guidewire: Stenosis Post-Procedure (%): 0 Post-Procedure DAYRON Flow: 3 Device(s) Deployed: Yes Intraprocedure Events Significant Dissection: No Perforation: No
[2016-10-25] MEDS ORDERED: SODIUM CHLORIDE 0.9% 1000ML 1,000 ML IV SCH (18:00)
[2016-10-25] MEDS: SIMVASTATIN 80 MG TAB PO SCH (19:43)
--- NOTE | 2016-10-25 22:14 | Hospitalist Progress Note ---
Hospitalist Progress Note Date of Service Oct 25, 2016. Subjective Pt evaluation today including: conversation w/ patient, conversation w/ analysis consultant (Artificial Snow Making Machine Operator) Pt returned from earth science laboratory technician, had a SERENE placed in prox circumflex/ostium. Loaded with Plavix and now in room. Denies any chest pain, is feeling well. No SOB All Other Systems: Reviewed and Negative Objective Vital Signs Date Time Temp Pulse Resp B/P (MAP) Pulse Ox O2 Delivery O2 Flow Rate FiO2 10/25/16 21:00 36.8 68 20 143/78 (99) 96 Room Air 10/25/16 19:31 36.7 57 21 166/81 (109) 96 Room Air 10/25/16 16:55 60 18 145/91 (109) 95 Room Air 10/25/16 16:45 57 18 157/91 (113) 95 Room Air 10/25/16 16:30 98 Room Air 10/25/16 12:12 175/80 (111) 10/25/16 12:00 98 Room Air 10/25/16 10:28 36.9 59 20 160/90 (113) 98 Room Air 10/25/16 08:00 97 Room Air 10/25/16 07:04 36.6 57 20 152/81 (104) 97 Room Air 10/25/16 04:00 Nasal Cannula 2.0 10/25/16 03:37 36.5 58 16 120/64 (82) 96 Room Air 10/25/16 00:01 Nasal Cannula 2.0 10/24/16 22:45 37.0 65 16 122/62 (82) 96 Room Air Physical Exam General Appearance: WD/WN, no apparent distress Eyes: normal inspection, sclerae normal ENT: hearing grossly normal Neck: trachea midline Respiratory/Chest: lungs clear, normal breath sounds, no respiratory distress, no accessory muscle use Cardiovascular: regular rate, rhythm, no edema, no gallop, no murmur Abdomen: normal bowel sounds, non tender, soft, no organomegaly Extremities: non-tender, normal inspection, no pedal edema, no calf tenderness Neurologic/Psychiatric: alert, normal mood/affect, oriented x 3 Skin: normal color, warm/dry, no rash Laboratory Results Last 24 Hours Test 10/25/16 00:20 10/25/16 01:47 10/25/16 07:59 8/17/17 16:17 Activated Partial Thromboplast Time 49.0 SECONDS Partial Thromboplastin Ratio 1.9 Total Creatine Kinase 50 U/L Creatine Kinase MB 0.7 ng/ml Creatine Kinase MB Ratio 1.4 Troponin I 0.561 ng/ml White Blood Count 9.97 K/uL Red Blood Count 4.34 M/uL Hemoglobin 14.1 g/dL Hematocrit 40.0 % Mean Corpuscular Volume 92.2 fL Mean Corpuscular Hemoglobin 32.5 pg Mean Corpuscular Hemoglobin Concent 35.3 g/dl Platelet Count 344 K/uL Mean Platelet Volume 10.0 fL Neutrophils (%) (Auto) 52.7 % Lymphocytes (%) (Auto) 24.8 % Monocytes (%) (Auto) 16.5 % Eosinophils (%) (Auto) 4.9 % Basophils (%) (Auto) 0.8 % Neutrophils # (Auto) 5.25 K/uL Lymphocytes # (Auto) 2.47 K/uL Monocytes # (Auto) 1.65 K/uL Eosinophils # (Auto) 0.49 K/uL Basophils # (Auto) 0.08 K/uL RDW Standard Deviation 42.7 fL RDW Coefficient of Variation 12.6 % Immature Granulocyte % (Auto) 0.3 % Immature Granulocyte # (Auto) 0.03 K/uL Sodium Level 142 mmol/L Potassium Level 4.5 mmol/L Chloride Level 109 mmol/L Carbon Dioxide Level 29 mmol/L Anion Gap 4.0 mmol/L Blood Urea Nitrogen 14 mg/dl Creatinine 0.75 mg/dl Est Creatinine Clear Calc Drug Dose 94.5 ml/min Estimated GFR () 115.6 Estimated GFR (Non- 99.7 BUN/Creatinine Ratio 18.7 Random Glucose 102 mg/dl Calcium Level 8.8 mg/dl Magnesium Level 2.0 mg/dl Kaolin Activated Coagulation Time 224 SECONDS Assessment and Plan Pt is a 61 yo male with a h/o CAD s/p 3 total stents placed in LAD and Cx, most recent was SERENE 01/[address] Reynoso, HTN, HL, PAD with rt iliac stent , chronic back pain, h/o recurrent C. diff, and smoker with recent cessation 1 month ago, who presents with chest pain. He has been having stable angina which he reported to his Artificial Snow Making Machine Operator at last visit 2 weeks ago, but since then has developed CP even at rest that is substernal, radiates mostly to the left arm with numbness, sometimes to the right arm. It lasts 10-15 min and is relieved with NTG. He does think it is positional though and tends to be worse with lying flat and improves at times with sitting upright. It is a constant ache in description, and is a 9/10 in severity, associated with some diaphoresis and SOB , but no nausea. He thought maybe it was related to his recent switch to losartan (from lisinopril due to persistent cough) on 10/14 so he stopped the losartan 2 days ago. He does think that perhaps it is not as severe since stopping the losartan. In the ER, he had a stable ECG without ischemic changes acutely, and his Troponin was slightly elevated at 0.4. His pain was relieved with nitro and is currently chest pain-free with nitropatch on. He was admitted with unstable angina. 1) Unstable angina/CAD s/p SERENE/HTN/HL/PAD/Recent smoker--> ECG without ischemic changes, CXR without mediastinal widening or any other acute changes. Troponins remained mildly elevated but not trending upward. Was initiated on a heparin gtt and taken to earth science laboratory technician the next day. Cardiac cath showed: Severe 2 vessel coronary artery disease - Acute 90% ostial circumflex stenosis. Small ramus with 95% ostial stenosis - Chronic subtotal distal RCA occlusion - Stable moderate 50% mid LAD stenosis. Had successful PCI of ostial LAD with 2.75 x 22 Tito SERENE and POBA of small ramus ostium ECHO with normal EF, mild MR, hypokinesis of inferior wall at base unchanged from previous -Continue dual-antiplatelet therapy with ASA/Clopidogrel for 1 year. Can consider holding plavix in 6 months for planned surgery on contractures. -Continue statin and ASCVD risk factor modification including improved blood pressure control -continue Toprol XL, losartan -Consult cardiac Rehab -Distal RCA subtotal occlusion appears potentially amenable to PCI. If refractory angina despite medical management as an outpatient can bring back for attempted intervention. -continue telemetry monitoring -morphine prn pain -continue to encourage smoking cessation Chronic back pain, opioid dependence-stable -continue Linch, Baclofen, Flexeril prn Proph-heparin gtt, now stopped Dispo-to home in 1 day if stable FULL CODE
[2016-10-26] MEDS: CYCLOBENZAPRINE HCL 10 MG TAB PO PRN (01:34)
[2016-10-26] MEDS: SODIUM CHLORIDE 0.9% 1000ML 1,000 ML IV SCH ×2 (01:35→11:11)
[2016-10-26 04:00] VITALS: BP 128/78; PULSE 69; TEMP 36.6; O2SAT 96
[2016-10-26] MEDS: NITROGLYCERIN OINT 2% 1GM PACKET EXT SCH ×2 (04:02→10:15)
[2016-10-26 07:25] LABS: BASO % 0.6 %; BASO ABS # 0.06 K/uL (0-0.2); COMPLETE YES; EOS % 5.3 %; HEMATOCRIT 38.6 % (42-52); IG% 0.1 %; LYMPH % 21.4 %; MEAN CELL VOLUME 94.6 fL (80-100); MEAN CORPUSCULAR HEMOGLOBIN 31.9 pg (25-34); MEAN CORPUSCULAR HGB CONC 33.7 g/dl (32-36); MEAN PLATELET VOLUME 10.2 fL (7.4-10.4); MONO % 16.9 %; NEUT % 55.7 %; PLATELET COUNT 332 K/uL (130-400); RED BLOOD COUNT 4.08 M/uL (4.7-6.1); WHITE BLOOD COUNT 9.33 K/uL (4.8-10.8)
[2016-10-26] MEDS: ASPIRIN 81 MG ECTAB PO SCH (07:36)
[2016-10-26] MEDS: CLOPIDOGREL BISULFATE 75 MG TAB PO SCH (07:36)
[2016-10-26] MEDS: CHOLECALCIFEROL 1000 INTER.UNIT TAB PO SCH (07:37)
[2016-10-26] MEDS: BACLOFEN 10 MG TAB PO SCH ×2 (07:37→13:24)
[2016-10-26] MEDS: BuPROPion SR 150 MG TABCR PO SCH (07:37)
[2016-10-26] MEDS: METOPROLOL SUCC 50MG EXT REL TAB PO SCH (07:38)
[2016-10-26] MEDS: FAMOTIDINE 20 MG TAB PO SCH (07:40)
[2016-10-26] MEDS: MULTIVITAMIN TAB PO SCH (07:40)
[2016-10-26] MEDS: LOSARTAN POTASSIUM 50 MG TAB PO SCH (07:40)
[2016-10-26 07:41] VITALS: BP 174/78; PULSE 60; TEMP 36.5; O2SAT 97
[2016-10-26 07:57] LABS: BUN/CREATININE RATIO 17.4 (10-20); CALCIUM 8.2 mg/dl (8.5-10.1); CREATININE 0.8 mg/dl (0.60-1.40); MAGNESIUM 1.8 mg/dl (1.8-2.4); POTASSIUM 4.2 mmol/L (3.5-5.1)
[2016-10-26 08:02] VITALS: O2SAT 97
[2016-10-26] MEDS: HYDROCODONE/ACETAMI 10/325 TAB PO PRN (10:08)
[2016-10-26] MEDS ORDERED: NITROGLYCERIN 2% OINTMENT 30GM TUBE ONE (10:14)
[2016-10-26 10:52] VITALS: BP 144/84; PULSE 61; TEMP 37; O2SAT 97
[2016-10-26] MEDS ORDERED: LOSARTAN POTASSIUM 50 MG TAB PO ONE (11:30)
[2016-10-26] MEDS ORDERED: CYCL10TA6 PO (11:35)
[2016-10-26] MEDS ORDERED: LOSA1TAB38 PO (11:35)
[2016-10-26] MEDS ORDERED: NTRGSL/4 UT (11:35)
--- NOTE | 2016-10-26 11:37 | Discharge Instructions ---
Discharge Instructions Date of Service Oct 26, 2016. Admission Reason for Admission: Unstable Angina Discharge Discharge Diagnosis / Problem: Severe CAD, Cardiac stent placement Discharge Goals Goal(s): Improve disease control, Diagnostic testing, Therapeutic intervention Activity Recommendations Activity Limitations: as noted below Exercise/Sports Limitations: rest today, gradually increase as tolerated (as per Cardiac Rehab recommendations) Shower/Bathe: no limitations . Instructions / Follow-Up Instructions / Follow-Up Home Care: * Take your medications exactly as directed. Don't skip doses. * Remember that recovery after a heart attack takes time. Plan to rest for at lease 4-8 weeks while you recover. Then return to normal activity when your doctor says it's okay. * Ask your doctor about joining a heart rehabilitation program. * Tell your doctor if you are feeling depressed. Feelings of sadness are common after a heart attack, but it is important that you speak to someone if you are feeling overwhelmed by these feelings. * If you are having chest pain, call 911 for an ambulance. Do NOT drive yourself to the hospital. * Ask your family members to learn CPR. * Learn to take your own blood pressure and pulse. Keep a record of your results. Ask your doctor when you should seek emergency medical attention. He or she will tell you which blood pressure reading is dangerous. Lifestyle Changes: * Maintain a healthy weight. Get help to lose any extra pounds. * Cut back on salt. * Limit canned, dried, packaged, and fast foods. * Don't add salt to your food. * Season foods with herbs instead of salt when you cook. * Break the smoking habit. Enroll in a stop-smoking program to improve your chances of success. * Limit fatty foods. * Ask your doctor about having your lipid levels checked regularly. * Build up your activity according to your doctor's recommendation. * Ask your doctor when it's okay to resume sexual activity. * Tell your doctor about any erectile dysfunction (ED) medication you are taking. Some ED medications are not safe if you take certain heart medications. * Try to manage stress. Follow Up: It is important for you to keep your follow up appointments with your medical provider. Current Hospital Diet Patient's current hospital diet: AHA Diet (Heart Healthy) Discharge Diet Recommended Diet: AHA Diet (Heart Healthy) Procedures Procedures Performed: Cardiac catheterization Echocardiogram Chest xray Pending Studies Studies pending at discharge: no Medical Emergencies . Who to Call and When: Medical Emergencies: If at any time you feel your situation is an emergency, please call 911 immediately. Call 911 immediately or go to your nearest Emergency Room if you experience any of the following: Warning Signs and Symptoms of a Heart Attack * Chest pain that is not relieved by medication * Shortness of breath . Non-Emergent Contact Non-Emergency issues call your: Primary Care Provider, Manager Shop Call Non-Emergent contact if: your pain is not controlled, your pain is worsening, your pain is unusual for you, your pain is concerning you, wound has increased drainage, wound has increased redness, wound has increased pain, you have any medication questions . . "Provider Documentation" section prepared by Mely Vanessa. . AMI Core Measures Reason no ASA as I/P: Treatment provided - N/A Reason no ASA at D/C: Treatment provided - N/A Reason no statin as I/P: Treatment provided - N/A Reason no statin at D/C: Treatment provided - N/A VTE Core Measure Inpt VTE Proph given/why not?: Unfractionated heparin SQ
[2016-10-26 12:00] VITALS: O2SAT 97
[2016-10-26 13:02] VITALS: BP 144/84; PULSE 61; TEMP 37; O2SAT 97
--- NOTE | 2016-10-26 13:18 | Cardiology Follow-Up ---
Subjective Subjective Date of Service: Oct 26, 2016. Pt evaluation today including: conversation w/ family, physical exam, chart review, lab review, review of studies, review of inpatient medication list Additional Details: Patient feeling well today. No recurrent chest pain, tightness. No significant shortness of breath. No apparent access site complications. No events on telemetry Problem List Medical Problems: (1) Non-STEMI (non-ST elevated myocardial infarction) Status: Acute Review of Systems Constitutional: No fever, No chills Respiratory: No cough, No sputum Abdomen: No pain, No nausea Heme: No abnormal bleeding/bruising Skin: No rash Objective Vital Signs Last Vital Signs Documentation Date Time Temp Pulse Resp B/P (MAP) Pulse Ox O2 Delivery O2 Flow Rate FiO2 10/26/16 13:02 37.0 61 18 97 Room Air 10/26/16 10:52 144/84 (104) 10/25/16 04:00 2.0 Physical Exam: General Appearance: no apparent distress ENT: hearing grossly normal Neck: trachea midline Respiratory/Chest: lungs clear, normal breath sounds Cardiovascular: regular rate, rhythm, no edema, no gallop, no murmur Abdomen: normal bowel sounds, non tender, soft Extremities: no pedal edema, no calf tenderness, + pertinent finding (Right radial artery access site, no hematoma, ecchymosis. Intact distal pulses and sensation) Neurologic/Psychiatric: alert, normal mood/affect, oriented x 3 Skin: normal color, warm/dry, no rash Assessment and Plan 1. NSTEMI status post PCI with drug-eluting stent to ostial circumflex 2. Hypertension 3. Dyslipidemia 4. Peripheral artery disease Patient is chest pain-free, hemodynamically and electrically stable overnight. No apparent access site complications. From a cardiac standpoint okay for discharge today Continue on dual antiplatelet therapy with aspirin and Plavix for at least 1 year Continue current ARB, beta-anuja and statin on discharge. Follow up with Cardiology in 2-3 weeks. Recurrent angina as an outpatient consider distal RCA intervention. Medications: Current Inpatient Medications Medications (Trade) Dose Ordered Sig/Katheryn Route Start Time Stop Time Status Last Admin Dose Admin Sodium Chloride 1,000 ml @ 75 mls/hr [id number] IV 10/24/16 11:06 11/23/16 11:05 10/26/16 11:11 75 MLS/HR Nitroglycerin (Nitroglycerin 2% Oint) 1 inch Q6H EXT 10/24/16 16:00 11/23/16 15:59 10/26/16 10:15 1 INCH Morphine Sulfate (MoRPHine SULFATE INJ) 2 mg Q30M PRN IV 10/24/16 11:15 11/07/16 11:14 10/24/16 23:49 2 MG Aspirin (Ecotrin Tab) 81 mg DAILY PO 10/25/16 09:00 11/24/16 08:59 10/26/16 07:36 81 MG Baclofen (Lioresal Tab) 10 mg TID PO 10/24/16 14:00 11/23/16 13:59 10/26/16 07:37 10 MG Bupropion HCl (Wellbutrin-Sr Tab) 150 mg BID PO 10/24/16 21:00 11/23/16 20:59 10/26/16 07:37 150 MG Cholecalciferol (Vitamin D Tab) 2,000 inter.unit DAILY PO 10/25/16 09:00 11/24/16 08:59 10/26/16 07:37 2,000 INTER.UNIT Clopidogrel Bisulfate (plAVix TAB) 75 mg DAILY PO 10/25/16 09:00 11/24/16 08:59 10/26/16 07:36 75 MG Cyclobenzaprine HCl (Flexeril Tab) 10 mg DAILY PRN PO 10/24/16 11:15 11/23/16 11:14 10/26/16 01:34 10 MG Famotidine (Pepcid Tab) 20 mg BID PO 10/24/16 21:00 11/23/16 20:59 10/26/16 07:40 20 MG Acetaminophen/ Hydrocodone Bitart ([place] 10/325 Tab) 1 tab Q4H PRN PO 10/24/16 11:15 11/07/16 11:14 10/26/16 10:08 1 TAB Losartan Potassium (coZAAR TAB) 50 mg DAILY PO 10/25/16 09:00 11/24/16 08:59 10/26/16 07:40 50 MG Metoprolol Succinate (Toprol Xl Tab) 50 mg DAILY PO 10/25/16 09:00 11/24/16 08:59 10/26/16 07:38 50 MG Multivitamins (Multivitamin Tab) 1 tab DAILY PO 10/25/16 09:00 11/24/16 08:59 10/26/16 07:40 1 TAB Simvastatin (Zocor Tab) 80 mg QPM PO 10/24/16 21:00 11/23/16 20:59 10/25/16 19:43 80 MG
--- NOTE | 2016-10-26 19:47 | Discharge Summary ---
Discharge Summary Date of Service Oct 26, 2016. Discharge Summary Admission Date: Oct 24, 2016 at 11:21 Discharge Date: Oct 26, 2016 Discharge Disposition: Home Principal Diagnosis: NSTEMI, Unstable Angina, s/p SERENE placement Problems/Secondary Diagnoses: CAD HTN HL PAD with rt iliac stent Chronic back pain H/o recurrent C. difficile infection History of smoking Mild Mitral regurgitation Opioid dependence Immunizations: Have You Had Influenza Vaccine: Unknown Influenza Vaccine Date: Feb 03, 2012 History of Tetanus Vaccine?: Yes History of Pneumococcal: Yes Pneumococcal Date: Feb 03, 2012 History of Hepatitis B Vaccine: Unknown Procedures: Cardiac catheterization ECHO Chest xray Consultations: Cardiology Medication Reconciliation New Medications: Losartan Potassium (Cozaar) 100 Mg Tab 1 TAB PO DAILY for 30 Days, #30 TAB 0 Refills Changed Medications: Cyclobenzaprine Hcl (Flexeril) 10 Mg Tab 10 MG PO DAILY PRN for muscle spasm for 30 Days (Medication details modified) Nitroglycerin (Nitrostat) 0.4 Mg Tab 0.4 MG UT UD, #1 BTL (Changed from: PRN) 1 tab every 5 min as needed for chest pain and call 911 Continued Medications: Aspirin Enteric Coated (Ecotrin Or Generic) 81 Mg Tab 81 MG PO DAILY, TAB Baclofen (Lioresal) 10 Mg Tab 10 MG PO TID, TAB Bupropion Hcl (Wellbutrin Sr) 150 Mg Tab 150 MG PO BID, TAB Cholecalciferol (Vitamin D) 1,000 Inter.unit Tab 2000 INTER.UNIT PO DAILY, 0 Refills Clopidogrel (Plavix) 75 Mg Tab 75 MG PO DAILY, 0 Refills Famotidine (Pepcid) 20 Mg Tab 20 MG PO BID, TAB Hydrocodone/Acetaminophen 10MG/325MG ([place] 10MG/325MG) Tab 1 TABLET PO Q4H PRN for Pain, TAB NEEDED FOR PAIN. Metoprolol Succ (Toprol Xl) (Toprol-Xl) 50 Mg Tabcr 50 MG PO DAILY, 0 Refills Multiple Vitamin (Multivitamin) 1 Tab Tab 1 TABLET PO DAILY, TAB Simvastatin (Zocor) 80 Mg Tab 80 MG PO QPM, 0 Refills Discontinued Medications: Losartan Potassium (Cozaar) 50 Mg Tab 50 MG PO DAILY Discharge Exam DOing well, BPs elevated. No CP, no SOB, eating and ready for discharge Physical Exam General Appearance: WD/WN, no apparent distress Eyes: normal inspection, sclerae normal ENT: hearing grossly normal Neck: trachea midline Respiratory/Chest: lungs clear, normal breath sounds, no respiratory distress, no accessory muscle use Cardiovascular: regular rate, rhythm, no edema, no gallop, no murmur Abdomen: normal bowel sounds, non tender, soft, no organomegaly Extremities: non-tender, normal inspection, no pedal edema, no calf tenderness Neurologic/Psychiatric: alert, normal mood/affect, oriented x 3 Skin: normal color, warm/dry, no rash Review of Systems: Constitutional: No fever Eyes: No problem reported ENT: No problem reported Respiratory: No shortness of breath, No problem reported Cardiovascular: No chest pain Abdomen: No pain, No nausea, No vomiting Musculoskeletal: No problem reported Genitourinary - Male: No problem reported Neurologic: No problem reported Psychiatric: No problem reported Endocrine: No problem reported Hematologic / Lymphatic: No problem reported Integumentary: No problem reported Hospital Course Pt is a 61 yo male with a h/o CAD s/p 3 total stents placed in LAD and Cx, most recent was SERENE 01/[address] Reynoso, HTN, HL, PAD with rt iliac stent , chronic back pain, h/o recurrent C. diff, and smoker with recent cessation 1 month ago, who presents with chest pain. He has been having stable angina which he reported to his Warehouse Driver at last visit 2 weeks ago, but since then has developed CP even at rest that is substernal, radiates mostly to the left arm with numbness, sometimes to the right arm. It lasts 10-15 min and is relieved with NTG. He does think it is positional though and tends to be worse with lying flat and improves at times with sitting upright. It is a constant ache in description, and is a 9/10 in severity, associated with some diaphoresis and SOB , but no nausea. He thought maybe it was related to his recent switch to losartan (from lisinopril due to persistent cough) on 10/14 so he stopped the losartan 2 days ago. He does think that perhaps it is not as severe since stopping the losartan. In the ER, he had a stable ECG without ischemic changes acutely, and his Troponin was slightly elevated at 0.4. His pain was relieved with nitro and is currently chest pain-free with nitropatch on. He was admitted with unstable angina. 1) Unstable angina/CAD s/p SERENE/HTN/HL/PAD/Recent smoker--> ECG without ischemic changes, CXR without mediastinal widening or any other acute changes. Troponins remained mildly elevated but not trending upward. Was initiated on a heparin gtt and taken to labor representative the next day. Cardiac cath showed: Severe 2 vessel coronary artery disease - Acute 90% ostial circumflex stenosis. Small ramus with 95% ostial stenosis - Chronic subtotal distal RCA occlusion - Stable moderate 50% mid LAD stenosis. Had successful PCI of ostial LAD with 2.75 x 22 Tito SERENE and POBA of small ramus ostium ECHO with normal EF, mild MR, hypokinesis of inferior wall at base unchanged from previous BPs remain uncontrolled throughout hospitalization No events on telemetry -Continue dual-antiplatelet therapy with ASA/Clopidogrel for 1 year. Can consider holding plavix in 6 months for planned surgery on Dupuytren's contractures. -Continue statin and ASCVD risk factor modification including improved blood pressure control -continue Toprol XL, losartan but increase dose of losartan to 100mg for uncontrolled HTN -Consult cardiac Rehab -Distal RCA subtotal occlusion appears potentially amenable to PCI. If refractory angina despite medical management as an outpatient can bring back for attempted intervention. -continue to encourage smoking cessation Chronic back pain, opioid dependence-stable -continue [place], Baclofen, Flexeril prn Proph-heparin gtt, now stopped Dispo-to home FULL CODE Total Time Spent: Greater than 30 minutes This includes examination of the patient, discharge planning, medication reconciliation, and communication with other providers. Discharge Instructions Please refer to the electronic Patient Visit Report (Discharge Instructions) for additional information. Follow-Up PCP within 1 week Cardiology within 2 weeks Additional Copies To Jose G Zamora M.D.; Chaka Rico II MD
== END 2016-10-26 13:40 | disposition home or self-care (01) | DRG 247 ==
LOC: C.EDB 07:44 → C.2T 11:21 → ENRESERV 12:12
PROVIDERS: ADMIT Family Medicine; ATTEND Family Medicine
PROC: B2151ZZ Fluoroscopy of Left Heart using Low Osmolar Contrast (ICD-10-PCS; principal; 2016-10-25 15:49)
PROC: 4A023N7 Measurement of Cardiac Sampling and Pressure, Left Heart, Percutaneous Approach (ICD-10-PCS; principal; 2016-10-25 15:49)
PROC: B2111ZZ Fluoroscopy of Multiple Coronary Arteries using Low Osmolar Contrast (ICD-10-PCS; principal; 2016-10-25 15:49)
PROC: 027034Z Dilation of Coronary Artery, One Artery with Drug-eluting Intraluminal Device, Percutaneous Approach (ICD-10-PCS; principal; 2016-10-25 15:49)
DX: I21.4 Non-ST elevation (NSTEMI) myocardial infarction (principal); F11.20 Opioid dependence, uncomplicated; I25.10 Atherosclerotic heart disease of native coronary artery without angina pectoris; I34.0 Nonrheumatic mitral (valve) insufficiency; I10 Essential (primary) hypertension; E78.00 Pure hypercholesterolemia, unspecified; E78.5 Hyperlipidemia, unspecified; I73.9 Peripheral vascular disease, unspecified; G89.29 Other chronic pain; M54.40 Lumbago with sciatica, unspecified side; M72.0 Palmar fascial fibromatosis [Dupuytren]; T40.2X5A Adverse effect of other opioids, initial encounter; Z95.5 Presence of coronary angioplasty implant and graft; Z95.820 Peripheral vascular angioplasty status with implants and grafts; Z87.891 Personal history of nicotine dependence; Z82.49 Family history of ischemic heart disease and other diseases of the circulatory system; Z79.02 Long term (current) use of antithrombotics/antiplatelets; Z79.82 Long term (current) use of aspirin; Z79.899 Other long term (current) drug therapy

== ENCOUNTER 2019-02-21 15:34 | Inpatient (IN) ==
[2019-02-21] MEDS ORDERED: MoRPHine SULFATE 4 MG/ML 1 ML CARP\\VIAL IV STA (15:57)
[2019-02-21] MEDS ORDERED: ONDANSETRON INJ 2 MG/ML 2 ML VIAL IV STA (15:57)
[2019-02-21 16:33] LABS: Basophils # (auto) 0.03 K/uL (0-0.2); Basophils % (auto) 0.2 %; Eosinophils # (auto) 0.08 K/uL (0-0.5); Eosinophils % (auto) 0.5 %; Hematocrit (blood only) 40.5 % (42-52); Hemoglobin 14.4 g/dL (14.0-18.0); Immature Granulocytes # (auto) 0.04 K/uL (0.00-0.02); Immature Granulocytes % (auto) 0.3 %; Lymphocytes # (auto) 1.12 K/uL (1.2-3.4); Lymphocytes % (auto) 7.1 %; Mean Corpuscular Hgb Conc 35.6 g/dL (32-36); Mean Corpuscular Volume 92.7 fL (80-100); Mean Platelet Volume 10.5 fL (7.4-10.4); Monocytes # (auto) 0.98 K/uL (0.11-0.59); Monocytes % (auto) 6.2 %; Neutrophils # (auto) 13.46 K/uL (1.4-6.5); Neutrophils % (auto) 85.7 %; Platelet Count 492 K/uL (130-400); RDW Coefficient of Variation 12.9 % (11.5-14.5); RDW Standard Deviation 43.7 fL (36.4-46.3); Red Blood Count 4.37 M/uL (4.7-6.1); White Blood Count 15.71 K/uL (4.8-10.8)
[2019-02-21 16:53] LABS: Albumin Level 3.9 gm/dl (3.4-5.0); BUN Creatinine Ratio 13.8 (10-20); Calcium 9.5 mg/dl (8.5-10.1); Creatinine Clr Calc Pharmacy 47.6 ml/min; Est GFR (Non-African American) 53.5; Potassium 4.1 mmol/L (3.5-5.1)
[2019-02-21 16:56] LABS: Albumin Globulin Ratio 0.9 (0.9-2); Bilirubin,Total 0.4 mg/dl (0.2-1); Globulin 4.3 gm/dl (2.5-4.0); Total Protein 8.2 gm/dl (6.4-8.2)
--- NOTE | 2019-02-21 17:18 | CT Scan Report ---
CT OF THE HEAD WITHOUT CONTRAST CLINICAL HISTORY: Confusion. Evaluate for bleed. COMPARISON STUDY: Head CT November 13, 2017. CT DOSE: 2941.17 mGy.cm TECHNIQUE: Helical axial images of the head were obtained without IV contrast. Automated exposure con trol was utilized for the study. A dose lowering technique was utilized adhering to the principles o f ALARA. FINDINGS: This exam is mildly compromised by motion artifact. No acute intracranial hemorrhage, midli ne shift or mass effect is present. Ventricular system is normal. Basilar cisterns are patent. There are no extra axial collections. There are no findings to suggest acute dural sinus thrombosis or acut e territorial infarct. A polyp versus mucous retention cyst within the posterior left ethmoid air lalit ls is unchanged. There is mild ethmoid sinus mucosal thickening. IMPRESSION: No acute intracranial findings. Exam mildly compromised by motion artifact. Electronically signed by: Otilio Marvin M.D. 02/21/2019 5:16 PM
--- NOTE | 2019-02-21 17:33 | CT Scan Report ---
CT OF THE ABDOMEN AND PELVIS WITHOUT CONTRAST CLINICAL HISTORY: Left lower quadrant pain. Evaluate for acute diverticulitis. COMPARISON STUDY: CT of the abdomen November 26, 2017. CTA of the abdomen and pelvis February 19. TECHNIQUE: Axial images of the abdomen and pelvis were obtained without IV contrast. Images were revi ewed in the axial, sagittal, and coronal planes. Automated exposure control was utilized for the ruby dy. A dose lowering technique was utilized adhering to the principles of ALARA. FINDINGS: Lung bases are unremarkable. The heart is mildly enlarged. No pneumatosis, free air or port al venous gas is present. Right hepatic lobe hemangiomas shown on prior MRI are not well visualized o n this unenhanced CT. There is moderate gallbladder distention without pericholecystic infiltration. Unenhanced images of the spleen, adrenal glands, kidneys. There is no biliary or pancreatic ductal di latation dictation. There is no evidence for a bowel obstruction. There is sigmoid diverticulosis. Th ere is mild adjacent infiltration. No free air or abscess is present. The appendix is normal. Right c ommon iliac artery stent is in place. No suspicious osseous lesions are noted. Old L4 compression fra ctures present. IMPRESSION: 1. Sigmoid diverticulosis with minimal adjacent infiltration. Mild acute sigmoid diverticulitis is fa vored. No free air or abscess. 2. Moderate gallbladder distention. No pericholecystic fluid. If right upper quadrant pain, a right u pper quadrant ultrasound is recommended. 3. Moderate amount of stool within the colon. Electronically signed by: Otilio Marvin M.D. 02/21/2019 5:31 PM
[2019-02-21] MEDS ORDERED: metroNIDAZOLE 500 MG TAB PO STA (18:09)
[2019-02-21] MEDS ORDERED: CIPROFLOXACIN 400 MG/200 ML BAG IV STA (18:09)
[2019-02-21] MEDS ORDERED: MoRPHine SULFATE 4 MG/ML 1 ML CARP\\VIAL IV PRN (20:24)
[2019-02-21] MEDS ORDERED: ONDANSETRON INJ 2 MG/ML 2 ML VIAL IV PRN (20:24)
[2019-02-21] MEDS ORDERED: ACETAMINOPHEN 325 MG TAB PO PRN (20:24)
[2019-02-21] MEDS: SODIUM CHLORIDE 0.9% 1000ML 1,000 ML IV SCH (20:49)
--- NOTE | 2019-02-21 20:58 | History & Physical Report ---
Date of Service February 21, 2019 Assessment & Plan (1) Sigmoid diverticulitis: Admit GMF IV Flagyl IV Cipro Full liquid diet Pain and nausea control IVF DVT prophylaxis = Lovenox and SCDs. (2) Hypertension: Continue amlodipine and losartan (3) Leukocytosis: Will monitor [place] to be due to acute diverticulitis (4) CAD (coronary artery disease): Continue aspirin, Plavix, simvastatin, metoprolol and prn NTG. History of Present Illness 63 y/o male presented to the ED with a 3 day history of lower abdominal pain and nausea. He has also noted feeling "a bit confused" over the past 24 hours. He tells me that he feels like his legs are restless. He has a history of C.diff colitis and is worried about receiving antibiotics. As I saw the patient he is feeling hungry. No Chest pain, SOB, cough, Vomiting, or diarrhea. Primary Care Provider: Lloyd Rosenthal MD Allergies Allergy/AdvReac Type Severity Reaction Status Date / Time Penicillins Allergy Severe "CIRCULATORY Verified 02/21/19 17:34 SHUTDOWN" Home Medications Home Medications Medication Instructions Recorded Confirmed Type baclofen 10 mg PO TID 11/13/17 02/21/19 History hydrocodone-acetaminophen 1 tab PO Q4H PRN 11/13/17 02/21/19 History aspirin 81 mg PO QAM 02/18/18 02/21/19 History cholecalciferol (vitamin D3) 5,000 unit PO QAM 02/18/18 02/21/19 History [Vitamin D3] lidocaine 1 patch TOPICAL DAILY PRN 02/18/18 02/21/19 History multivitamin 1 tab PO QAM 02/18/18 02/21/19 History nitroglycerin 1 dose SUBLINGUAL UD PRN 02/18/18 02/21/19 History clopidogrel 75 mg tablet 75 mg PO QAM #90 tab 11/11/18 02/21/19 Rx losartan 100 mg tablet 100 mg PO QAM #90 tab 11/11/18 02/21/19 Rx metoprolol tartrate 100 mg tablet 100 mg PO QAM #90 tab 11/11/18 02/21/19 Rx simvastatin 80 mg tablet 80 mg PO PM #90 tab 11/11/18 02/21/19 Rx amlodipine 10 mg PO QAM 01/29/19 02/21/19 History Past Med/Surg History Medical History Anxiety BPH (benign prostatic hyperplasia) Chronic back pain GERD (gastroesophageal reflux disease) Hx of Clostridium difficile infection Hyperlipidemia Hypertension On anticoagulant therapy plavix d/t stents Surgical History History of cardiac cath x3 @ [facility] follow with Dr. Zamora History of hand surgery x6 (4 on right, 2 on left) d/t Dupuytren's History of heart artery stent 2009 x2, 2015 x1, 2017 x1--@ [facility] History of intravascular stent placement RIGHT LEG History of procedure for peripheral vascular disease 2012 Dr. Granger History of removal of cyst from groin History of surgery RIGHT LEG R/T TRAUMA History of tooth extraction wisdom teeth Family History Sister Family history of reaction to anesthesia difficulty waking and nausea Mother Family history of reaction to anesthesia difficulty waking and nausea Social History Preferred Language: Salvadorean Communication Ability: Effective Pressure Testing Technician Required: No Beliefs That Will Affect Care: None Current Living Situation: Spouse Other Information That Helps Us Care for You: No Feels Safe at Home: Yes Smoking Status: Former smoker Tobacco Type: cigarettes ; Do You Dip or Chew Tobacco: No ; Second Hand Exposure: No ; Tobacco Cessation Education Requested by Patient: No Hx Alcohol Use: Yes Alcohol type: beer Hx Substance Use: No Review of Systems Review of Systems: Constitutional- no fever; no weight loss Eyes- no acute visual changes ENT- no sinus drainage; no pharyngitis Pulmonary- no cough, no wheezing, no shortness of breath Cardiac- no chest pain, no palpitations, no orthopnea, no dependent edema GI- As in HPI - no dysuria, no hematuria Musculoskeletal- no arthralgias, no myalgias Derm- no rashes, no new skin lesions. Hematologic- no unusual bruising, no unusual bleeding Lymphatics- no adenopathy Endocrine- no polyuria or polydipsia; no heat or cold intolerance Neuro- no headaches, no focal neurologic symptoms Psych- no anxiety, no depression Physical Exam Physical Exam: General- adult male, NAD Head- atraumatic Eyes- PERRL, EOMI, anicteric ENT- oropharynx clear Neck- supple, no JVD, no adenopathy, no thyromegaly. Lungs- CTA b/l no R/R/W. Heart- regular rhythm; no murmur, no gallop, no rub appreciated Abdomen- normal bowel sounds, soft, Tender to palpation in the LLQ, + BS. Extremities- no pretibial edema, no calf tenderness; peripheral pulses intact Neuro- alert, oriented x 3; PERRL, EOMI; eye surgeon II-XII grossly intact, non-focal. Skin- warm & dry Results & Data Vital Signs (Past 12 Hours) Vital Signs Temp Pulse Pulse Resp BP BP Pulse Ox 02/21/19 20:26 36.4 C L 63 20 128/67 92 02/21/19 19:00 59 L 20 96 02/21/19 18:30 61 19 02/21/19 18:00 62 15 117/60 98 02/21/19 17:30 25 H 99 02/21/19 17:29 22 120/57 L 96 02/21/19 17:01 64 20 120/57 L 96 02/21/19 17:00 62 13 98 02/21/19 16:59 58 L 13 97 02/21/19 16:56 64 17 123/65 96 02/21/19 15:35 36.4 C L 70 18 150/75 H 98 Laboratory Results Laboratory Results WBC 15.71 K/uL (4.8-10.8) H 02/21/19 16:15 RBC 4.37 M/uL (4.7-6.1) L 02/21/19 16:15 Hgb 14.4 g/dL (14.0-18.0) 02/21/19 16:15 Hct 40.5 % (42-52) L 02/21/19 16:15 MCV 92.7 fL (80-100) 02/21/19 16:15 MCH 33.0 pg (25-34) 02/21/19 16:15 MCHC 35.6 g/dL (32-36) 02/21/19 16:15 RDW Std Deviation 43.7 fL (36.4-46.3) 02/21/19 16:15 RDW Coeff of [place] 12.9 % (11.5-14.5) 02/21/19 16:15 Plt Count 492 K/uL (130-400) H 02/21/19 16:15 MPV 10.5 fL (7.4-10.4) H 02/21/19 16:15 Immature Gran % (Auto) 0.3 % 02/21/19 16:15 Neut % (Auto) 85.7 % 02/21/19 16:15 Lymph % (Auto) 7.1 % 02/21/19 16:15 Falls % (Auto) 6.2 % 02/21/19 16:15 Eos % (Auto) 0.5 % 02/21/19 16:15 Baso % (Auto) 0.2 % 02/21/19 16:15 Immature Gran # (Auto) 0.04 K/uL (0.00-0.02) H 02/21/19 16:15 Neut # (Auto) 13.46 K/uL (1.4-6.5) H 02/21/19 16:15 Lymph # (Auto) 1.12 K/uL (1.2-3.4) L 02/21/19 16:15 Falls # (Auto) 0.98 K/uL (0.11-0.59) H 02/21/19 16:15 Eos # (Auto) 0.08 K/uL (0-0.5) 02/21/19 16:15 Baso # (Auto) 0.03 K/uL (0-0.2) 02/21/19 16:15 Sodium 133 mmol/L (136-145) L 02/21/19 16:15 Potassium 4.1 mmol/L (3.5-5.1) 02/21/19 16:15 Chloride 103 mmol/L (98-107) 02/21/19 16:15 Carbon Dioxide 22 mmol/L (21-32) 02/21/19 16:15 Anion Gap 8.0 (3-11) 02/21/19 16:15 BUN 19 mg/dl (7-18) H 02/21/19 16:15 Creatinine 1.40 mg/dl (0.6-1.4) 02/21/19 16:15 Est Cr Clr Drug Dosing 47.6 ml/min 02/21/19 16:15 Est GFR ( Amer) 62.0 02/21/19 16:15 Est GFR (Non-Af Amer) 53.5 02/21/19 16:15 BUN/Creatinine Ratio 13.8 (10-20) 02/21/19 16:15 Glucose 91 mg/dl (70-99) 02/21/19 16:15 Calcium 9.5 mg/dl (8.5-10.1) 02/21/19 16:15 Total Bilirubin 0.4 mg/dl (0.2-1) 02/21/19 16:15 AST 23 U/L (15-37) 02/21/19 16:15 ALT 26 U/L (12-78) 02/21/19 16:15 Alkaline Phosphatase 107 U/L (45-117) 02/21/19 16:15 Ammonia 21.2 umol/L (11-32) 02/21/19 16:15 Total Protein 8.2 gm/dl (6.4-8.2) 02/21/19 16:15 Albumin 3.9 gm/dl (3.4-5.0) 02/21/19 16:15 Globulin 4.3 gm/dl (2.5-4.0) H 02/21/19 16:15 Albumin/Globulin Ratio 0.9 (0.9-2) 02/21/19 16:15 Lipase 84 U/L (73-393) 02/21/19 16:15 Ethyl Alcohol mg/dL < 3.0 mg/dl (0-3) 02/21/19 16:15 Diagnostic Findings [facility], [place] [phone] CT Scan Report Patient: MARIANNA ARMAS Date: 02/21/19 MR#: [id number] [facility] [address] Acct ID:[id number]: Date: 1955[facility] Zip: [place] [id number] Age: 63Location: ED Sex: M Room/Bed: Att Phy:Diagnosis: STOMACH PAINS - DISORIENTED - TIRED Ghazal Phy: Melecio Rosenthal, MDService Date: 02/21/19 Fam Phy:Interpreting Phy: Otilio Marvin MD Admit Phy: Ordering Phy: Blaise Grimaldo MD cc: ~ CT OF THE ABDOMEN AND PELVIS WITHOUT CONTRAST CLINICAL HISTORY: Left lower quadrant pain. Evaluate for acute diverticulitis. COMPARISON STUDY: CT of the abdomen November 26, 2017. CTA of the abdomen and pelvis February 19, 2019. TECHNIQUE: Axial images of the abdomen and pelvis were obtained without IV contrast. Images were reviewed in the axial, sagittal, and coronal planes. Automated exposure control was utilized for the study. A dose lowering technique was utilized adhering to the principles of ALARA. FINDINGS: Lung bases are unremarkable. The heart is mildly enlarged. No pneumatosis, free air or portal venous gas is present. 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 There is moderate gallbladder distention without pericholecystic infiltration. Unenhanced images of the spleen, adrenal glands, kidneys. There is no biliary or pancreatic ductal dilatation dictation. There is no evidence for a bowel obstruction. There is sigmoid diverticulosis. There is mild adjacent infiltration. No free air or abscess is present. The appendix is normal. Right common iliac artery stent is in place. No suspicious osseous lesions are noted. Old L4 compression fractures present. IMPRESSION: 1. Sigmoid diverticulosis with minimal adjacent infiltration. Mild acute sigmoid diverticulitis is favored. No free air or abscess. 2. Moderate gallbladder distention. No pericholecystic fluid. If right upper quadrant pain, a right upper quadrant ultrasound is recommended. 3. Moderate amount of stool within the colon. Electronically signed by: Otilio Marvin M.D. 02/21/2019 5:31 PM Dictated: 02/21/19 1721 Transcribed: 02/21/19 1721 Code Status & VTE Plan VTE Prophylaxis Plan VTE Prophylaxis will be ordered: Yes PG Care Time/CCT Total # of Minutes Spent Total Time Spent: 55 Total Time Spent with Patient: Total time spent is greater than 50% in coordination of care (as documented) at patient's floor/unit and/or counseling patient:
[2019-02-21] MEDS: ENOXAPARIN INJ 40 MG/0.4 ML SYR SQ SCH (21:19)
[2019-02-21] MEDS: SIMVASTATIN 80 MG TAB PO SCH (21:21)
[2019-02-21] MEDS: BACLOFEN 10 MG TAB PO SCH (21:21)
[2019-02-21] MEDS: FAMOTIDINE 20 MG TAB PO SCH (21:22)
--- NOTE | 2019-02-21 22:00 | Emergency Department Note ---
Entered by Trang Lopez acting as a scribe for Blaise Grimaldo MD History of Present Illness General Chief complaint: Abdominal Pain Stated complaint: STOMACH PAINS - DISORIENTED - TIRED Time Seen by Provider: 02/21/19 15:42 Source: patient, family and old records reviewed History of Present Illness Onset (ago): day(s) 4 Location: abdomen (diffuse lower) Severity: severe (per pt) Pain Consistency: + constant Maximum Pain Intensity: 3 Quality: + other (cramping) Associated symptoms: + denies other symptoms (diarrhea, urinary sx, hematochez ia) and + other (loose "flaky" stool, tiredness, family reports pt seems "off"); no fever/chills and no headaches The patient is a 63 year old male with a history of diverticulitis, C-diff, low back pain, elevated ammonia levels, and confusion who presents to the Emergency Room with complaints of abdominal pain. The patient began to experience diffuse lower abdominal pain 4 days ago. Additionally he has been experiencing loose (states not diarrhea) and "flaky" stool associated with "severe" abdominal cr amping during bowel movements. The patient has been taking Imodium 2-3 times per day for relief. Family also reports that he does not seem himself today and seems "off". The patient states that he feels very tired and that he had a fall a few days ago but did not his his head. He states that he hurt his back during the fall. Of note, family states that today he is acting similar to the way he did when his ammonia levels were elevated over 1 year ago. He denies fever, urinary sx, headache, hematochezia, and recent antibiotic use. The patient offers no additional concerns at this time. Home Medications Home Medications Medication Instructions Recorded Confirmed Type baclofen 10 mg PO TID 11/13/17 02/21/19 History hydrocodone-acetaminophen 1 tab PO Q4H PRN 11/13/17 02/21/19 History aspirin 81 mg PO QAM 02/18/18 02/21/19 History cholecalciferol (vitamin D3) 5,000 unit PO QAM 02/18/18 02/21/19 History [Vitamin D3] lidocaine 1 patch TOPICAL DAILY PRN 02/18/18 02/21/19 History multivitamin 1 tab PO QAM 02/18/18 02/21/19 History nitroglycerin 1 dose SUBLINGUAL UD PRN 02/18/18 02/21/19 History clopidogrel 75 mg tablet 75 mg PO QAM #90 tab 11/11/18 02/21/19 Rx losartan 100 mg tablet 100 mg PO QAM #90 tab 11/11/18 02/21/19 Rx metoprolol tartrate 100 mg tablet 100 mg PO QAM #90 tab 11/11/18 02/21/19 Rx simvastatin 80 mg tablet 80 mg PO PM #90 tab 11/11/18 02/21/19 Rx amlodipine 10 mg PO QAM 01/29/19 02/21/19 History Allergies Allergy/AdvReac Type Severity Reaction Status Date / Time Penicillins Allergy Severe "CIRCULATORY Verified 02/21/19 17:34 SHUTDOWN" Past Med/Surg History Medical History Anxiety BPH (benign prostatic hyperplasia) CAD (coronary artery disease) Chronic back pain GERD (gastroesophageal reflux disease) Hx of Clostridium difficile infection Hyperlipidemia Hypertension On anticoagulant therapy plavix d/t stents Surgical History History of cardiac cath x3 @ [facility] follow with Dr. Zamora History of hand surgery x6 (4 on right, 2 on left) d/t [facility] History of heart artery stent 2009 x2, 2016 x1, 2017 x1--@ [facility] History of intravascular stent placement RIGHT LEG History of procedure for peripheral vascular disease 2012 Dr. Granger History of removal of cyst from groin History of surgery RIGHT LEG R/T TRAUMA History of tooth extraction wisdom teeth Family History Sister Family history of reaction to anesthesia difficulty waking and nausea Mother Family history of reaction to anesthesia difficulty waking and nausea Social History Preferred Language: Thai Communication Ability: Effective Community Mental Health Social Worker Required: No Beliefs That Will Affect Care: None Current Living Situation: Spouse Other Information That Helps Us Care for You: No Feels Safe at Home: Yes Smoking Status: Former smoker Tobacco Type: cigarettes ; Do You Dip or Chew Tobacco: No ; Second Hand Exposure: No ; Tobacco Cessation Education Requested by Patient: No Hx Alcohol Use: Yes Alcohol type: beer Hx Substance Use: No Review of Systems See HPI for pertinent positives & negatives. and A total of 10 systems reviewed and were otherwise negative Physical Exam Vital Signs Vital Signs - 24 hr 02/21/19 15:35 02/21/19 16:56 02/21/19 16:59 Temperature 36.4 C L Temperature Source Oral Pulse Rate 70 64 58 L Pulse Rate from SpO2 Sensor 64 59 L Respiratory Rate 18 17 13 Respiratory Effort / Characteristics Non-Labored Respiratory Depth Normal Blood Pressure 150/75 H 123/65 Blood Pressure Mean 100 71 Pulse Oximetry 98 96 97 Oxygen Delivery Method Room Air Sepsis Recent Fever Within 48 Hours No Sepsis Action Taken by Nursing No Action Required 02/21/19 17:00 02/21/19 17:01 02/21/19 17:29 Temperature Temperature Source Pulse Rate 62 64 Pulse Rate from SpO2 Sensor 63 65 71 Respiratory Rate 13 20 22 Respiratory Effort / Characteristics Respiratory Depth Blood Pressure 120/57 L 120/57 L Blood Pressure Mean 76 76 Pulse Oximetry 98 96 96 Oxygen Delivery Method Sepsis Recent Fever Within 48 Hours Sepsis Action Taken by Nursing 02/21/19 17:30 02/21/19 18:00 02/21/19 18:30 Temperature Temperature Source Pulse Rate 62 61 Pulse Rate from SpO2 Sensor 69 62 Respiratory Rate 25 H 15 19 Respiratory Effort / Characteristics Respiratory Depth Blood Pressure 117/60 Blood Pressure Mean 67 Pulse Oximetry 99 98 Oxygen Delivery Method Sepsis Recent Fever Within 48 Hours Sepsis Action Taken by Nursing Constitutional: Vital signs reviewed. Eyes: Pupils are equal round reactive to light. Conjunctiva are noninjected. ENT: Pharynx is clear without erythema or exudate. Mucous membranes are moist. Neck supple without meningeal signs. Respiratory: Clear to auscultation bilaterally. Breath sounds are equal bilaterally. Cardiovascular: Regular rate and rhythm. No rubs or gallops. GI: Soft, nondistended. Mild LLQ tenderness. No guarding. Bowel sounds are present. Musculoskeletal: No peripheral edema. No lower extremity tenderness. Integumentary: No cyanosis. Neurological: The patient is awake and alert. Cranial nerves II-XII are intact. Motor is 5 out of 5 all extremities. Sensation is intact to light touch all extremities. Normal speech. No pronator drift. Psychiatric: Normal affect. No asterixis. Course Course 1545: Past medical records reviewed. The patient was evaluated in room B06. A complete history and physical exam was performed. 180: I talked to the patient and his about test results. After discussion, his states that he still appears confused. The patient is agreeable to hospitalization for IV antibiotics. [facility]. The patient verbally expre ssed understanding and agreement of the treatment plan. The patient will be evaluated for further treatment. Administered Medications Baclofen (Lioresal) 10 mg PO TID ALAN Stop: 03/23/19 20:59 Last Admin: 02/21/19 21:21 Dose: 10 mg Documented by: [id number] Enoxaparin Sodium (Lovenox) 40 mg SQ Q24H ALAN Stop: 03/23/19 20:59 Last Admin: 02/21/19 21:19 Dose: 40 mg Documented by: [id number] Famotidine (Pepcid) 20 mg PO BID ALAN Stop: 03/23/19 20:59 Last Admin: 02/21/19 21:22 Dose: 20 mg Documented by: [id number] Sodium Chloride (Nss 1000ml) 1,000 mls @ 125 mls/hr IV .Q8H ALAN Stop: 03/23/19 20:34 Last Admin: 02/21/19 20:49 Dose: 125 mls/hr Documented by: [id number] Simvastatin (Zocor) 80 mg PO PM ALAN Stop: 03/23/19 20:59 Last Admin: 02/21/19 21:21 Dose: 80 mg Documented by: [id number] Discontinued Medications Ciprofloxacin (Cipro) 400 mg in 200 mls @ 200 mls/hr IV NOW STA Stop: 02/21/19 19:08 Last Infusion: 02/21/19 19:56 Dose: 0 mls/hr Documented by: [id number] Admin: 02/21/19 18:44 Dose: 200 mls/hr Documented by: [id number] Metronidazole (Flagyl) 500 mg PO NOW STA Stop: 02/21/19 18:10 Last Admin: 02/21/19 18:44 Dose: 500 mg Documented by: [id number] Morphine Sulfate (Morphine Sulfate) 4 mg IV NOW STA Stop: 02/21/19 15:58 Last Admin: 02/21/19 16:24 Dose: 4 mg Documented by: [id number] Ondansetron HCl (Zofran) 4 mg IV NOW STA Stop: 02/21/19 15:58 Last Admin: 02/21/19 16:24 Dose: 4 mg Documented by: [id number] Medical Decision Making Differential Diagnosis Differential diagnosis includes but is not limited to diverticulitis, colitis, UTI, kidney stone, fatigue, ICH, encephalopathy. Medical Records Attestation: I reviewed the patient's medical records. The patient was seen on 01/13/19 by pain management for lower back pain. He was also seen here in the ED in November 2017 for confusion and was noted to have a slightly elevated ammonia level at 50 then discharged. Home Medications Current Medication List: was personally reviewed by me Laboratory Data Attestation: I reviewed the patient's lab results. Result diagrams: 02/21/19 16:15 02/21/19 16:15 Lab Results 02/21/19 02/21/19 02/21/19 Range/Units 16:15 16:15 16:15 WBC (4.8-10.8) K/uL RBC (4.7-6.1) M/uL Hgb (14.0-18.0) g/dL Hct (42-52) % MCV (80-100) fL MCH (25-34) pg MCHC (32-36) g/dL RDW Std Deviation (36.4-46.3) fL RDW Coeff of [place] (11.5-14.5) % Plt Count (130-400) K/uL MPV (7.4-10.4) fL Immature Gran % (Auto) % Neut % (Auto) % Lymph % (Auto) % [place] % (Auto) % Eos % (Auto) % Baso % (Auto) % Immature Gran # (Auto) (0.00-0.02) K/uL Neut # (Auto) (1.4-6.5) K/uL Lymph # (Auto) (1.2-3.4) K/uL [place] # (Auto) (0.11-0.59) K/uL Eos # (Auto) (0-0.5) K/uL Baso # (Auto) (0-0.2) K/uL Sodium 133 L (136-145) mmol/L Potassium 4.1 (3.5-5.1) mmol/L Chloride 103 (98-107) mmol/L Carbon Dioxide 22 (21-32) mmol/L Anion Gap 8.0 (3-11) BUN 19 H (7-18) mg/dl Creatinine 1.40 (0.6-1.4) mg/dl Est Cr Clr Drug Dosing 47.6 ml/min Est GFR ( Amer) 62.0 Est GFR (Non-Af Amer) 53.5 BUN/Creatinine Ratio 13.8 (10-20) Glucose 91 (70-99) mg/dl Calcium 9.5 (8.5-10.1) mg/dl Total Bilirubin 0.4 (0.2-1) mg/dl AST 23 (15-37) U/L ALT 26 (12-78) U/L Alkaline Phosphatase 107 (45-117) U/L Ammonia 21.2 (11-32) umol/L Total Protein 8.2 (6.4-8.2) gm/dl Albumin 3.9 (3.4-5.0) gm/dl Globulin 4.3 H (2.5-4.0) gm/dl Albumin/Globulin Ratio 0.9 (0.9-2) Lipase 84 (73-393) U/L Ethyl Alcohol mg/dL < 3.0 (0-3) mg/dl 02/21/19 Range/Units 16:15 WBC 15.71 H (4.8-10.8) K/uL RBC 4.37 L (4.7-6.1) M/uL Hgb 14.4 (14.0-18.0) g/dL Hct 40.5 L (42-52) % MCV 92.7 (80-100) fL MCH 33.0 (25-34) pg MCHC 35.6 (32-36) g/dL RDW Std Deviation 43.7 (36.4-46.3) fL RDW Coeff of [place] 12.9 (11.5-14.5) % Plt Count 492 H (130-400) K/uL MPV 10.5 H (7.4-10.4) fL Immature Gran % (Auto) 0.3 % Neut % (Auto) 85.7 % Lymph % (Auto) 7.1 % [place] % (Auto) 6.2 % Eos % (Auto) 0.5 % Baso % (Auto) 0.2 % Immature Gran # (Auto) 0.04 H (0.00-0.02) K/uL Neut # (Auto) 13.46 H (1.4-6.5) K/uL Lymph # (Auto) 1.12 L (1.2-3.4) K/uL [place] # (Auto) 0.98 H (0.11-0.59) K/uL Eos # (Auto) 0.08 (0-0.5) K/uL Baso # (Auto) 0.03 (0-0.2) K/uL Sodium (136-145) mmol/L Potassium (3.5-5.1) mmol/L Chloride (98-107) mmol/L Carbon Dioxide (21-32) mmol/L Anion Gap (3-11) BUN (7-18) mg/dl Creatinine (0.6-1.4) mg/dl Est Cr Clr Drug Dosing ml/min Est GFR ( Amer) Est GFR (Non-Af Amer) BUN/Creatinine Ratio (10-20) Glucose (70-99) mg/dl Calcium (8.5-10.1) mg/dl Total Bilirubin (0.2-1) mg/dl AST (15-37) U/L ALT (12-78) U/L Alkaline Phosphatase (45-117) U/L Ammonia (11-32) umol/L Total Protein (6.4-8.2) gm/dl Albumin (3.4-5.0) gm/dl Globulin (2.5-4.0) gm/dl Albumin/Globulin Ratio (0.9-2) Lipase (73-393) U/L Ethyl Alcohol mg/dL (0-3) mg/dl Imaging Data Radiologist's Impression: Radiology results as stated below per my review and the radiologist's interpretation: CT OF THE ABDOMEN AND PELVIS WITHOUT CONTRAST CLINICAL HISTORY: Left lower quadrant pain. Evaluate for acute diverticulitis. COMPARISON STUDY: CT of the abdomen November 26, 2017. CTA of the abdomen and pelvis February 19, 2019. TECHNIQUE: Axial images of the abdomen and pelvis were obtained without IV contrast. Images were reviewed in the axial, sagittal, and coronal planes. Automated exposure control was utilized for the study. A dose lowering techniqu e was utilized adhering to the principles of ALARA. FINDINGS: Lung bases are unremarkable. The heart is mildly enlarged. No pneumatosis, free air or portal venous gas is present. 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 There is moderate gallbladder distention without pericholecystic infiltration. Unenhanced images of the spleen, adrenal glands, kidneys. There is no biliary or pancreatic ductal dilatation dictation. There is no evidence for a bowel obstruction. There is sigmoid diverticulosis. There is mild adjacent infiltration. No free air or abscess is present. The appendix is normal. Right common iliac artery stent is in place. No suspicious osseous lesions are noted. Old L4 compression fractures present. IMPRESSION: 1. Sigmoid diverticulosis with minimal adjacent infiltration. Mild acute sigmoid diverticulitis is favored. No free air or abscess. 2. Moderate gallbladder distention. No pericholecystic fluid. If right upper quadrant pain, a right upper quadrant ultrasound is recommended. 3. Moderate amount of stool within the colon. Electronically signed by: Otilio Marvin M.D. 02/21/2019 5:[address] OF THE HEAD WITHOUT CONTRAST CLINICAL HISTORY: Confusion. Evaluate for bleed. COMPARISON STUDY: Head CT November 13, 2017. CT DOSE: 2941.17 mGy.cm TECHNIQUE: Helical axial images of the head were obtained without IV contrast. Automated exposure control was utilized for the study. A dose lowering technique was utilized adhering to the principles of ALARA. FINDINGS: This exam is mildly compromised by motion artifact. No acute intracranial hemorrhage, midline shift or mass effect is present. Ventricular system is normal. Basilar cisterns are patent. There are no extra axial collections. There are no findings to suggest acute dural sinus thrombosis or acute territorial infarct. A polyp versus mucous retention cyst within the posterior left ethmoid air cells is unchanged. There is mild ethmoid sinus mucosal thickening. IMPRESSION: No acute intracranial findings. Exam mildly compromised by motion artifact. Electronically signed by: Otilio Marvin M.D. 02/21/2019 5:16 PM Blood Pressure Blood Pressure Findings: Elevated blood pressure Blood Pressure Disposition: further management by hospitalist JULIANNA Dumont I did evaluate the patient as noted above. The patient is presenting with change in mental status as well as abdominal pain. The patient is alert and oriented x4 here but seems not quite himself according to his . He seems confused at times and he does answer questions that I do not ask him at times but overall seems to understand what is going on. He did have a previous elevated ammonia level in 2018 when he came in for change in mental status. Nothing was done about this and it resolved spontaneously. He does not have any liver disease that he knows of. IV access was established. The patient was placed on a continuous campus monitor. I did treat him with IV morphine and Zo mike. I did order a urine analysis. I did order and review the patient's blood work as noted in the electronic medical record. His white blood cell count is over 15,000. Electrolytes showed mild hyponatremia but is otherwise unremarkable. Serum ammonia is 21. I did order a CT of the head and abdomen and pelvis. I did review the images myself as well as the radiology report as described above. The patient does have sigmoid diverticulitis. There is no free air or abscess. No acute intracranial process. I did discuss the test results with the patient and his . His states that he still appears confused. He does complain of flulike symptoms and I was concerned about the possibility of bacteremia given his elevated white count and confusion. I did convince them to have antibiotic treatment. He was reluctant initially because of his previous episode of C. difficile. I therefore treated him with Cipro and Flagyl IV. I did order blood cultures prior to this. I did discuss case with the hospitalist and test case developer. Impression & Plan Acute diverticulitis, AMS (altered mental status) Discharge Plan Visit Data *Final* Discharge Date/Time: 02/21/19 20:01 Chief Complaint: Abdominal Pain Stated Complaint: STOMACH PAINS - DISORIENTED - TIRED ED Provider: Blaise Grimaldo Discharge Problem: Acute diverticulitis, AMS (altered mental status) Patient Disposition: Admitted As Inpatient Discharge Instructions Interventions: ED Discharge Assessment Last Done: 02/21/19 20:01 Discharge Problem: AMS (altered mental status) Qualifiers: Altered mental status type: unspecified Qualified Code(s): R41.82 - Altered mental status, unspecified The deirdreibtayler's documentation has been prepared under my direction and personally reviewed by me in its entirety. I confirm that the note above accurately reflects all work, treatment, procedures, and medical decision making performed by me.
[2019-02-22] MEDS: HYDROCODONE/ACETAMINOPHEN 10/325 TAB PO PRN ×4 (00:20→22:36)
[2019-02-22] MEDS: metroNIDAZOLE 500 MG/100 ML BAG IV SCH ×3 (03:43→18:56)
[2019-02-22 04:05] LABS: Appearance Urine Slightly Cloudy (Clear); Bilirubin Urine Negative (Negative); Blood Urine Negative (Negative); Color Urine Yellow; Glucose Urine UA Negative (Negative); Ketones Urine 1+ (Negative); Leukocyte Esterase Urine Negative (Negative); Nitrite Urine Negative (Negative); Protein Urine Negative (Negative); Urobilinogen Urine Negative (Negative)
[2019-02-22 04:33] LABS: Amphetamines+Metham, Urine Neg (Neg); Barbiturates, Urine Neg (Neg); Benzodiazepine, Urine Neg (Neg); Cocaine, Urine Neg (Neg); MDMA (Ecstacy), Urine Pos (Neg); Methadone, Urine Neg (Neg); Opiate, Urine Pos (Neg); Phencyclidine, Urine Neg (Neg)
[2019-02-22] MEDS: CIPROFLOXACIN 400 MG/200 ML BAG IV SCH ×2 (05:47→18:49)
[2019-02-22] MEDS: SODIUM CHLORIDE 0.9% 1000ML 1,000 ML IV SCH ×2 (05:47→16:41)
[2019-02-22 06:29] LABS: Hematocrit (blood only) 37.3 % (42-52); Hemoglobin 12.8 g/dL (14.0-18.0); Mean Corpuscular Hemoglobin 32.2 pg (25-34); Mean Corpuscular Hgb Conc 34.3 g/dL (32-36); Mean Corpuscular Volume 93.7 fL (80-100); Mean Platelet Volume 10.6 fL (7.4-10.4); Platelet Count 451 K/uL (130-400); RDW Coefficient of Variation 12.9 % (11.5-14.5); RDW Standard Deviation 44.7 fL (36.4-46.3); Red Blood Count 3.98 M/uL (4.7-6.1); White Blood Count 14.35 K/uL (4.8-10.8)
[2019-02-22 07:12] LABS: BUN Creatinine Ratio 13.9 (10-20); Calcium 8.5 mg/dl (8.5-10.1); Creatinine Clr Calc Pharmacy 66.6 ml/min; Est GFR (African American) 93.1; Est GFR (Non-African American) 80.3
[2019-02-22] MEDS: LOSARTAN POTASSIUM 50 MG TAB PO SCH (08:36)
[2019-02-22] MEDS: BACLOFEN 10 MG TAB PO SCH ×3 (08:37→22:16)
[2019-02-22] MEDS: FAMOTIDINE 20 MG TAB PO SCH ×2 (08:37→22:16)
[2019-02-22] MEDS: AMLODIPINE BESYLATE 5 MG TAB PO SCH (08:37)
[2019-02-22] MEDS: METOPROLOL TARTRATE 100 MG TAB PO SCH (08:37)
[2019-02-22] MEDS: ASPIRIN 81 MG ECTAB PO SCH (08:37)
[2019-02-22] MEDS: MULTIVITAMIN TAB PO SCH (08:37)
[2019-02-22] MEDS: CHOLECALCIFEROL 1,000 UNITS 25 MCG TAB PO SCH (08:38)
[2019-02-22] MEDS: CLOPIDOGREL BISULFATE 75 MG TAB PO SCH (08:38)
--- NOTE | 2019-02-22 17:10 | Hospitalist Progress Note ---
Date of Service February 22, 2019 Assessment & Plan (1) Sigmoid diverticulitis: - CT - sigmoid diverticulosis with minimal adjacent infiltration suggesting mild acute diverticulitis - no free air/abscess; moderate stool within colon -- Moderate GB distention without pericholecystic fluid - very mild pain on assessment and neg Gloria's sign but will obtain RUQ U/S - Continue Cipro 400 mg IV BID and Flagyl 500 mg TID - given good response can likely convert to po medications tomorrow to complete 10 day course - Documented mild confusion and not acting his normal self - has had elevated ammonia levels with elevated LFTs approx. one year ago but ammonia normal on admission - back to baseline mentation per -- Possibly infection vs dehydration related - Can continue fluid tonight but given so far diet tolerance can D/C tomorrow - Will advance to low fiber diet and monitor tolerance (2) Hypertension: - Amlodipine 10 mg daily, Losartan 100 mg daily, and Metoprolol 100 mg daily (3) CAD (coronary artery disease): - ASA 81 mg daily and Plavix 75 mg daily; Simvastatin 80 mg HS (4) C. difficile colitis: - H/O approx. 1-2 years ago but not active infection - He reports requiring prolonged treatment/taper with po Vanc; per Case considering fecal transplant if recurrence occurs DVT: Lovenox Disposition: Advance to low fiber diet and if tolerating could convert to po antibiotics to finish 10 day course and possible D/C home tomorrow. Updated per patient request Supervising Physician Co-Signing Physician Notes I have seen and examined patient with Miriam Eubanks PA-C and I agree with assessment and plan. Physical Exam Constitutional: WD/WN, vitals as above Eyes: PERRLA, EOMI, + anicteric sclerae ENMT: Ears: no hearing impairment Neck: trachea midline Respiratory: normal respiratory effort, lungs clear to auscultation Cardiovascular: RRR, no murmur, no edema Gastrointestinal (Abdomen): Inspection/Auscultation: normal bowel sounds Percussion/Palpation: + abdomen tender (mild LLQ; very mild in RUQ but neg Gloria's sign) and abdomen soft Musculoskeletal: Head/Neck/Chest: normocephalic and head atraumatic Skin: no rashes, warm and dry Neurologic: moves all extremities Psychiatric: A+Ox3, euthymic affect Subjective Reports feeling better today. States he feels a bit bloated but pain is better. States it was going on a couple days but didn't get it checked out. He is nervous about antibiotics given his H/O C. Diff. Discussed his GB findings but denies symptoms. Did have some mild discomfort when pressing in RUQ but neg Gloria's sign. Mentation is back to baseline per . Appetite is good and would like to try a low fiber diet. Verbalizes no new complaints. Review of Systems Constitutional: no fever and no chills Respiratory: no cough and no dyspnea Cardiovascular: no chest pain, no palpitations, no lightheadedness and no edema Gastrointestinal: + diarrhea/loose stools; no abdominal pain, no nausea, no vomiting and no constipation Genitourinary: no dysuria Musculoskeletal: no body aches Integumentary: no rash Neurologic: no generalized weakness, no headache(s) and no confusion Physical Exam Constitutional: WD/WN, vitals as above Eyes: + anicteric sclerae ENMT: Ears: no hearing impairment Neck: trachea midline Respiratory: normal respiratory effort, lungs clear to auscultation Cardiovascular: RRR, no murmur, no edema Gastrointestinal (Abdomen): Inspection/Auscultation: normal bowel sounds Percussion/Palpation: + abdomen tender (mild LLQ; very mild in RUQ but neg Gloria's sign) and abdomen soft Musculoskeletal: Head/Neck/Chest: normocephalic and head atraumatic Skin: no rashes, warm and dry Neurologic: moves all extremities Psychiatric: A+Ox3, euthymic affect Results & Data Vital Signs (Past 12 Hours) Vital Signs Temp Pulse Resp BP BP Pulse Ox 02/22/19 15:16 36.4 C L 53 L 16 121/66 96 02/22/19 07:37 36.4 C L 61 16 137/69 99 PG Care Time/CCT Total # of Minutes Spent Total Time Spent with Patient: Total time spent is greater than 50% in coordination of care (as documented) at patient's floor/unit and/or counseling patient:
--- NOTE | 2019-02-22 22:05 | Ultrasound Report ---
US gallbladder CLINICAL HISTORY: 63 years-old Male presenting with Distended; mild pain on palpation. TECHNIQUE: Real-time grayscale and limited color Doppler ultrasound imaging of the abdomen limited to the right upper quadrant was performed. COMPARISON: CT from yesterday. FINDINGS: Pancreas: Largely obscured due to overlying bowel gas. Liver: Normal echogenicity and echotexture. The liver measures 14.6 cm in maximal sagittal dimension. No sonographic evidence of hepatic mass. Main portal vein patent with normal directional flow. Biliary: No intrahepatic biliary ductal dilatation. Common bile duct measures up to 5 mm in diameter. Gallbladder: The gallbladder is distended. No evidence of gallstones, gallbladder wall thickening, or pericholecystic fluid or inflammatory change. Sonographic Gloria's sign negative. Right kidney: Normal in appearance without evidence of hydronephrosis. Ascites: None. Other: None. IMPRESSION: Gallbladder distention. No cholelithiasis or biliary ductal dilatation. The degree of gallbladder dis tention is at the upper limits of physiologic. Consider further evaluation with HIDA scan. Electronically signed by: Sudeep Cooper M.D. 02/22/2019 10:03 PM
[2019-02-22] MEDS: SACCHAROMYCES BOULARDII 250 MG CAP PO SCH (22:16)
[2019-02-22] MEDS: ENOXAPARIN INJ 40 MG/0.4 ML SYR SQ SCH (22:16)
[2019-02-22] MEDS: SIMVASTATIN 80 MG TAB PO SCH (22:16)
[2019-02-23] MEDS: SODIUM CHLORIDE 0.9% 1000ML 1,000 ML IV SCH ×3 (02:06→13:57)
[2019-02-23] MEDS: metroNIDAZOLE 500 MG/100 ML BAG IV SCH ×2 (02:09→10:48)
[2019-02-23] MEDS: CIPROFLOXACIN 400 MG/200 ML BAG IV SCH (05:52)
[2019-02-23 05:56] LABS: Hematocrit (blood only) 35.9 % (42-52); Mean Corpuscular Hemoglobin 31.8 pg (25-34); Mean Corpuscular Hgb Conc 33.4 g/dL (32-36); Mean Corpuscular Volume 95.2 fL (80-100); Mean Platelet Volume 10.2 fL (7.4-10.4); Platelet Count 395 K/uL (130-400); RDW Coefficient of Variation 12.9 % (11.5-14.5); Red Blood Count 3.77 M/uL (4.7-6.1); White Blood Count 9.15 K/uL (4.8-10.8)
[2019-02-23 06:24] LABS: Alanine Aminotransferase 26 U/L (12-78); Albumin Level 2.6 gm/dl (3.4-5.0); Aspartate Aminotransferase 21 U/L (15-37); BUN Creatinine Ratio 11.6 (10-20); Bilirubin Direct < 0.1 mg/dl (0-0.2); Blood Urea Nitrogen 11 mg/dl (7-18); Calcium 8.1 mg/dl (8.5-10.1); Carbon Dioxide 25 mmol/L (21-32); Chloride 113 mmol/L (98-107); Creatinine Clr Calc Pharmacy 73.2 ml/min; Est GFR (African American) 104.3; Glucose 96 mg/dl (70-99); Potassium 4.1 mmol/L (3.5-5.1); Sodium 139 mmol/L (136-145)
[2019-02-23 06:29] LABS: Alkaline Phosphatase 79 U/L (45-117); Bilirubin,Total 0.2 mg/dl (0.2-1); Total Protein 5.8 gm/dl (6.4-8.2)
[2019-02-23 07:08] VITALS: PULSE 58; TEMP 98.4; O2SAT 97
[2019-02-23] MEDS: CHOLECALCIFEROL 1,000 UNITS 25 MCG TAB PO SCH (07:35)
[2019-02-23] MEDS: BACLOFEN 10 MG TAB PO SCH (07:35)
[2019-02-23] MEDS: AMLODIPINE BESYLATE 5 MG TAB PO SCH (07:35)
[2019-02-23] MEDS: HYDROCODONE/ACETAMINOPHEN 10/325 TAB PO PRN (07:35)
[2019-02-23] MEDS: CLOPIDOGREL BISULFATE 75 MG TAB PO SCH (07:36)
[2019-02-23] MEDS: MULTIVITAMIN TAB PO SCH (07:36)
[2019-02-23] MEDS: ASPIRIN 81 MG ECTAB PO SCH (07:36)
[2019-02-23] MEDS: FAMOTIDINE 20 MG TAB PO SCH (07:36)
[2019-02-23] MEDS: METOPROLOL TARTRATE 100 MG TAB PO SCH (07:36)
[2019-02-23] MEDS: SACCHAROMYCES BOULARDII 250 MG CAP PO SCH (07:37)
[2019-02-23] MEDS: LOSARTAN POTASSIUM 50 MG TAB PO SCH (07:37)
--- NOTE | 2019-02-23 08:43 | Hospitalist Progress Note ---
Date of Service February 23, 2019 Assessment & Plan (1) Sigmoid diverticulitis: -Abdominal pain caused by sigmoid diverticulitis is improving. Patient requested to go home. He does not complain of any right upper quadrant pain and he states that he can follow-up with GI as an outpatient with HIDA scan. Discussed gallbladder distention that was seen on ultrasound of the gallbladder. No cholelithiasis or biliary ductal dilatation. The degree of gallbladder distention is at the upper limits of physiologic. Consider further evaluation with HIDA scan. Patient is willing to follow-up with GI in 1 week and address their this problem if his pain persists. - CT - sigmoid diverticulosis with minimal adjacent infiltration suggesting mild acute diverticulitis - no free air/abscess; moderate stool within colon - Continue Cipro 500 mg twice daily and Flagyl 500 mg 3 times a day for total 10 days, followed by vancomycin 125 mg p.o. every 6 hours for 10 days to prevent possibility of C. difficile since patient had that before on several occasions. Tolerating diet well-GI soft. Follow-up with PCP within 1 week and follow-up with GI within 1-2 weeks with HIDA scan, if determined to be necessary. (2) Hypertension: - Amlodipine 10 mg daily, Losartan 100 mg daily, and Metoprolol 100 mg daily (3) CAD (coronary artery disease): - ASA 81 mg daily and Plavix 75 mg daily; Simvastatin 80 mg HS (4) C. difficile colitis: - H/O approx. 1-2 years ago but not active infection - He reports requiring prolonged treatment/taper with po Vanc; per Dr. Evans considering fecal transplant if recurrence occurs DVT: Lovenox Disposition: Home Subjective Patient seen and examined at the bedside. He reports doing much better and his abdominal pain is improved. He reports having bouts of C. difficile usually after use of antibiotics of any kind. Patient was anxious to go home without additional dose of vancomycin p.o. that he would start after he complete therapy for diverticulitis. Patient denies fever, chills, chest pain, shortness of breath, nausea, vomiting, abdominal pain, frequency, urgency, melena, hematuria, dysuria. Patient has good p.o. intake. Afebrile. Review of Systems Review of Systems: All systems reviewed & are unremarkable except as noted in HPI & below Physical Exam Constitutional: WD/WN, vitals as above Eyes: + anicteric sclerae ENMT: Ears: no hearing impairment Neck: trachea midline Respiratory: normal respiratory effort, lungs clear to auscultation Cardiovascular: RRR, no murmur, no edema Gastrointestinal (Abdomen): Inspection/Auscultation: normal bowel sounds Percussion/Palpation: + abdomen tender (mild LLQ; very mild in RUQ but neg Gloria's sign) and abdomen soft Musculoskeletal: Head/Neck/Chest: normocephalic and head atraumatic Skin: no rashes, warm and dry Neurologic: moves all extremities Psychiatric: A+Ox3, euthymic affect Results & Data Vital Signs (Past 12 Hours) Vital Signs Temp Pulse Resp BP BP Pulse Ox 02/23/19 07:05 36.9 C 58 L 18 156/75 H 97 02/22/19 23:15 36.8 C 59 L 16 115/68 98 PG Care Time/CCT Total # of Minutes Spent Total Time Spent with Patient: Total time spent is greater than 50% in coordination of care (as documented) at patient's floor/unit and/or counseling patient:
[2019-02-23 13:28] VITALS: BP 115/68
--- NOTE | 2019-02-23 19:15 | Discharge Summary ---
Date of Service February 23, 2019 Principal Diagnosis none Discharge Exam Constitutional WD/WN, vitals as above Eyes + anicteric sclerae ENMT Ears: no hearing impairment Neck trachea midline Respiratory normal respiratory effort, lungs clear to auscultation Cardiovascular RRR, no murmur, no edema Gastrointestinal (Abdomen) Inspection/Auscultation: normal bowel sounds Percussion/Palpation: + abdomen tender (mild LLQ; very mild in RUQ but neg Gloria's sign) and abdomen soft Musculoskeletal Head/Neck/Chest: normocephalic and head atraumatic Skin no rashes, warm and dry Neurologic moves all extremities Psychiatric A+Ox3, euthymic affect Discharge Data Allergies Allergy/AdvReac Type Severity Reaction Status Date / Time Penicillins Allergy Severe "CIRCULATORY Verified 02/21/19 17:34 SHUTDOWN" Consultations 02/21/19 18:09 ED Decision to Admit Stat Ordered Studies 02/21/19 15:57 CT abd pelvis wo con Stat CT head/brain wo con Stat 02/22/19 16:31 US gallbladder Routine Hospital Course (1) Sigmoid diverticulitis: -Abdominal pain caused by sigmoid diverticulitis is improving. Patient requested to go home. He does not complain of any right upper quadrant pain and he states that he can follow-up with GI as an outpatient with HIDA scan. Discussed gallbladder distention that was seen on ultrasound of the gallbladder. No cholelithiasis or biliary ductal dilatation. The degree of gallbladder distention is at the upper limits of physiologic. Consider further evaluation with HIDA scan. Patient is willing to follow-up with GI in 1 week and address their this problem if his pain persists. - CT - sigmoid diverticulosis with minimal adjacent infiltration suggesting mild acute diverticulitis - no free air/abscess; moderate stool within colon - Continue Cipro 500 mg twice daily and Flagyl 500 mg 3 times a day for total 10 days, followed by vancomycin 125 mg p.o. every 6 hours for 10 days to prevent possibility of C. difficile since patient had that before on several occasions. Tolerating diet well-GI soft. Follow-up with PCP within 1 week and follow-up with GI within 1-2 weeks with HIDA scan, if determined to be necessary. (2) Hypertension: - Amlodipine 10 mg daily, Losartan 100 mg daily, and Metoprolol 100 mg daily (3) CAD (coronary artery disease): - ASA 81 mg daily and Plavix 75 mg daily; Simvastatin 80 mg HS (4) C. difficile colitis: - H/O approx. 1-2 years ago but not active infection - He reports requiring prolonged treatment/taper with po Vanc; per Dr. Evans considering fecal transplant if recurrence occurs DVT: Lovenox Disposition: Home Total Time Total Time Spent Total Time Spent (In Minutes): over 30 min Discharge Plan Discharge Items Patient Disposition: Home - Self-Care Reason For Visit: DIVERTICULITIS Discharge Diagnosis: Diverticulitis Condition on Discharge: Good Activity: Resume your previous activity Non-emergency contact: Primary Care Provider Call non-emergency contact if: you have any medication questions, your symptoms worsen, your pain is not controlled, your pain is worsening, your pain is unusual for you, your pain is concerning for you, you have a fever, your temperature is above 101 and your temperature is above 101.5 Follow-up/Referrals: Lloyd Rosenthal MD [Primary Care Provider] - 03/02/19 1:30 pm (Please, follow up at Dr. Rosenthal's office with his associate, Dr. De Paz, on SaturdayMarch 02 at 1:30 pm. *If you need to change this appointment, call the office at [phone].) Diet: Heart Healthy Addtl Attending Provider Instructions: Continue taking Ciprofloxacin 500 mg PO twice daily for 8 days and metronidazole 500 mg 3 times a day for 8 days. Followed by vancomycin per mouth for 10 additional days to prevent C. difficile.Schedule follow up appointment with gastroenterology within a 2 weeks for distended gallbladder and possibly need for HIDA scan. Would consult strength neurology first as outpatient to determine if HIDA scan necessary. Gallbladder distended within physiological limits. Pending Studies at Discharge: No Stand-Alone Forms: Call Back Authorization, [facility], Smoking Cessation Medications and DC Order Prescriptions: New Florastor 250 mg Capsule 250 mg PO DAILY Qty: 30 RF: 0 ciprofloxacin HCl 500 mg tablet 500 mg PO BID Qty: 16 RF: 0 metronidazole 500 mg tablet 500 mg PO TID Qty: 24 RF: 0 vancomycin 125 mg capsule 125 mg PO Q6H Qty: 40 RF: 0 Continued clopidogrel [Plavix] 75 mg tablet 75 mg PO QAM Qty: 90 RF: 3 losartan 100 mg tablet 100 mg PO QAM Qty: 90 RF: 3 metoprolol tartrate 100 mg tablet 100 mg PO QAM Qty: 90 RF: 3 simvastatin 80 mg tablet 80 mg PO PM Qty: 90 RF: 3 aspirin 81 mg Tablet,Delayed Release (Dr/Ec) 81 mg PO QAM RF: 0 lidocaine 5 % Adhesive Patch,Medicated 1 patch TOPICAL DAILY PRN (Reason: Pain) RF: 0 nitroglycerin 0.4 mg Tablet, Sublingual 1 dose Sublingual UD PRN (Reason: Angina) RF: 0 cholecalciferol (vitamin D3) [Vitamin D3] 5,000 unit Tablet 5,000 unit PO QAM RF: 0 multivitamin Tablet 1 tab PO QAM RF: 0 amlodipine 10 mg tablet 10 mg PO QAM RF: 0 baclofen 10 mg Tablet 10 mg PO TID RF: 0 hydrocodone-acetaminophen 10-325 mg Tablet 1 tab PO Q4H PRN (Reason: Pain) RF: 0 Discharge Orders: Discharge Order (Routine); Ordered 02/23/19 Ordered By: Vladislav Wise/Other Patient Handouts: Diet Low Residue, Diverticulosis Diverticulitis, DASH Plan Eat Heart Healthy Food Admission Data Admit Date/Time: 02/21/19 18:41 Attending Provider: Vladislav Veronica Admit Provider: Armando Thomason Primary Care Provider: Lloyd Rosenthal Other Providers: Armando Thomason Other Interventions: Discharge Summary Assessment (RN) Last Done: 02/23/19 13:27 DC Date/Time DO NOT enter until pt leaves facility: 02/23/19 14:24
[2019-02-25 11:29] LABS: Codeine Urine NEGATIVE ng/mL (<50); Hydrocodone Urine 451 ng/mL (<50); Hydromor Urine NEGATIVE ng/mL (<50); MDA negative; MDEA negative; MDMA (Ecstasy) Urine, Confirm negative; Morphine Urine 633 ng/mL (<50); Norhydrocodone Conf Ur 400 ng/mL (<50); Noroxycodone Urine NEGATIVE ng/mL (<50); Oxycodone Urine NEGATIVE ng/mL (<50); Oxymorph Urine NEGATIVE ng/mL (<50)
== END 2019-02-23 14:24 | disposition home or self-care (01) | DRG 392 ==
LOC: ED 15:34 → 3N 18:41 → SUATTDRO 18:41 → 3N 20:01

== ENCOUNTER 2019-07-11 05:49 | Inpatient (IN) ==
[2019-07-11] MEDS ORDERED: PANTOprazole 40 MG in SYRINGE 0 ML IV ONE (06:11)
[2019-07-11] MEDS ORDERED: ONDANSETRON INJ 2 MG/ML 2 ML VIAL IV STA (06:11)
[2019-07-11] MEDS ORDERED: SODIUM CHLORIDE 0.9% 1000ML 2,000 ML IV SCH (06:15)
[2019-07-11 06:20] LABS: Hematocrit (blood only) 28.9 % (42-52); Hemoglobin 9.8 g/dL (14.0-18.0); Mean Corpuscular Hgb Conc 33.9 g/dL (32-36); Mean Corpuscular Volume 94.4 fL (80-100); Mean Platelet Volume 11.2 fL (7.4-10.4); Platelet Count 332 K/uL (130-400); RDW Standard Deviation 44.6 fL (36.4-46.3); Red Blood Count 3.06 M/uL (4.7-6.1); White Blood Count 16.87 K/uL (4.8-10.8)
[2019-07-11 06:29] LABS: INR 1.1 (0.9-1.1); Partial Thromboplastin Ratio 0.8; Partial Thromboplastin Time 21.7 Seconds (21.0-31.0); Prothrombin Time 11.4 Seconds (9.0-12.0)
[2019-07-11 06:33] LABS: iSTAT Creatinine 1.2 mg/dl (0.6-1.3); iSTAT Hemoglobin 10.2 g/dl (14.0-18.0); iSTAT Ionized Calcium 1.18 mmol/l (1.12-1.32); iSTAT Potassium 4.4 mmol/L (3.3-5.0)
[2019-07-11 06:37] LABS: Alanine Aminotransferase 27 U/L (12-78); Albumin Level 3.2 gm/dl (3.4-5.0); Aspartate Aminotransferase 13 U/L (15-37); BUN Creatinine Ratio 57.6 (10-20); Blood Urea Nitrogen 70 mg/dl (7-18); Calcium 8.4 mg/dl (8.5-10.1); Carbon Dioxide 21 mmol/L (21-32); Chloride 106 mmol/L (98-107); Est GFR (African American) 72.7; Est GFR (Non-African American) 62.7; Glucose 215 mg/dl (70-99); Potassium 4.4 mmol/L (3.5-5.1); Sodium 138 mmol/L (136-145)
[2019-07-11 06:42] LABS: Alkaline Phosphatase 83 U/L (45-117); Bilirubin,Total 0.2 mg/dl (0.2-1); Globulin 3.3 gm/dl (2.5-4.0); Total Protein 6.5 gm/dl (6.4-8.2); Troponin I < 0.015 ng/ml (0-0.045)
--- NOTE | 2019-07-11 06:48 | Emergency Department Note ---
Impression & Plan Acute GI bleeding, Acute blood loss anemia, Acute hypotension, Pancolitis ED Provider Note NAME: MARIANNA ARMAS AGE: 64 SEX: M ARRIVES VIA: Walk-In INFORMANT: Patient ED PROVIDER(S): Blanca Willams DO CHIEF COMPLAINT: GI bleeding PLAN: Disposition: Admitted to [facility] Condition: Guarded MEDICAL DECISION MAKING: This is a 64-year-old male patient who presents to the emergency department with GI bleeding and hypotension. The patient was in his usual state of health today when he developed some epigastric abdominal pain, hematemesis and melena. The patient has a history of cardiac stents and takes aspirin and Plavix. The patient presented to the emergency department very weak and was found to be hypotensive. He was bolused with IV crystalloid therapy. He was typed and screened. He was bolused with Protonix. His blood pressure rebounded and he was hemodynamically stable. On CT scan, the patient had evidence of colonic thickening consistent with a pancolitis. In reviewing the patient's medical records, he does have a history of C. difficile. Of note, the patient's hemoglobin had dropped approximately 3 g from February 2019 until now. He denies any specific history of GI bleeding that he was aware of over the past couple of months. He does state that he has been taking some NSAIDs for back pain. Triage Nursing notes reviewed and agree them. Prior medical records reviewed Vital Signs: reviewed and remarkable for hypotension Differential diagnosis: Diverticulitis, GI bleeding, hypovolemic shock, dehydration ER treatment provided: IV fluid resuscitation; IV Protonix Diagnostics interpreted by me: ECG:Normal sinus rhythm at a rate of 86. There is no ischemia or ectopy. There is no ST segment elevation or T wave inversion. Cardiac Monitoring: Normal sinus rhythm at a rate of 75 Laboratory studies: See below Imaging studies: CT abd pelvis IV con only CLINICAL HISTORY: Lower abdominal pain. Suspected diverticulitis. COMPARISON STUDY: 02/21/2019, ultrasound dated 02/22/2019, CT scan dated 06/25/2012 TECHNIQUE: The patient was scanned in a dynamic helical fashion during intravenous administration of 94 cc of Optiray 320. A dose lowering technique was utilized adhering to the principles of ALARA. CT DOSE: 327.37 mGy.cm FINDINGS: Lower chest: The heart is normal in size and configuration, without pericardial effusion. The lung bases and pleural spaces are clear. Liver: There is a stable 3 cm hypervascular right hepatic lobe mass. The lack of change since the prior 2013 study, indicates a benign lesions as a hemangioma. There is also a stable 14 mm left lobe hepatic cyst. Gallbladder: Unremarkable. Spleen: There are several hypodense splenic lesions, the largest of which measures 7 mm. There is only minimal interval growth when compared the prior 2013 study, finding which favors a benign process. Pancreas: Unremarkable. Adrenal glands: Unremarkable. Kidneys: There is symmetric renal cortical enhancement. The kidneys are normal in size without hydronephrosis. Bowel: There are no transition zones indicate bowel obstruction. There is colonic diverticulosis. There is mild daniels colonic thickening consistent with pancolitis. The appendix appears normal.. Peritoneum: There is no intraperitoneal free air or abdominal ascites. Vasculature: There is no evidence of abdominal aortic aneurysm. There are aortoiliac atheromatous changes. There is a right common iliac artery stent. Adenopathy: None. Pelvic viscera: The bladder, and pelvic viscera are unremarkable. Skeletal structures: There are old ischio pubic ring fractures. There are old T12, L1 and L4 compression deformities. IMPRESSION: 1. No evidence of bowel obstruction. No evidence of free air 2. Diverticulosis. No evidence of acute diverticulitis. 3. Diffuse colonic wall thickening, indicative of a pancolitis. 4. Normal appendix HPI: 64/M arrives for evaluation of GI bleeding. This is a 64-year-old male patient who presents to the emergency department with extreme weakness after developing crampy abdominal pain, black tarry stools and dark-colored vomit. The patient had extreme weakness this morning. His drove him here to the hospital and he had difficulty making it from the car to the waiting room. He denies ever having symptoms like this in the past. He does have routine colonoscopies which have been unremarkable according to the patient. He does have a history of C. difficile. The patient does take aspirin antiplatelet therapy because of a history of cardiac stents. ROS: See above HPI for pertinent positives & negatives. A total of 10 systems reviewed and were otherwise negative. PAST MEDICAL HISTORY:See Below PAST SURGICAL HISTORY:See Below FAMILY HISTORY:See Below SOCIAL HISTORY:See Below HOME MEDICATIONS:list ALLERGIES:See Below VITALS:See Below PHYSICAL EXAMINATION: HEENT: Head - normocephalic and atraumatic Pupils are equal, round, and reactive to light. Extraocular eye muscles are intact, and sclera are anicteric. Nose - moist nasal mucosa without discharge. Mouth - moist buccal mucosa. Oropharynx is nonerythematous and there is no tonsillar exudate or edema noted. Neck: Supple; no JVD, nuchal rigidity, cervical lymphadenopathy Heart: Regular rate and rhythm. There is a normal S1 and S2 with no murmurs, clicks, or gallops appreciated. Lungs: Clear to auscultation bilaterally with no wheezes, rales, or rhonchi. Abdomen: Soft, mild tenderness to palpation in the epigastrium, nondistended, with good bowel sounds. There are no palpable pulsatile masses or hepatosplenom egaly. There is no guarding, rigidity, or rebound noted. Extremities: No evidence of cyanosis, clubbing, or edema. There are easily palpable peripheral pulses. Skin: Pale, harden, and dry with good turgor and no rashes. ED COURSE: Times/Reassessments: 0600: The patient was evaluated in room a 9. A complete history and physical was performed. Nursing staff was securing 2 large-bore IVs as the patient was significantly hypotensive. An order was placed for continuous cardiac monitoring. The patient was in a normal sinus rhythm at a rate of 83. A twelve-lead EKG was obtained. The patient was typed and screened. He was bolused with 2 L of normal saline solution which brought his blood pressure up to 108/67. 0615: The patient was more hemodynamically stable and his overall skin color improved. Nursing staff were preparing to take the patient for CT scan of the abdomen/pelvis. Patient was given a 40 mg bolus of IV Protonix. I reviewed the results of the labs and CT scan with the patient. I discussed the case with the hospitalist service I have personally spent greater than 50 minutes of critical care time in the direct management of this patient. This includes bedside care, interpretation of diagnostic studies, and testing, discussion with consultants, patient, and family members, and other required patient management activities. This 50 minutes is in excess of all separately billable procedures. Blanca Willams DO Past Med/Surg History Medical History AMS (altered mental status) (Inactive) Anxiety BPH (benign prostatic hyperplasia) BPH with obstruction/lower urinary tract symptoms (Inactive) CAD (coronary artery disease) Chronic back pain Dupuytren's contracture of hand (Resolved) GERD (gastroesophageal reflux disease) Hx of Clostridium difficile infection Hyperlipidemia Hypertension Left ventricular hypertrophy (Inactive) Methicillin susceptible Staphylococcus aureus infection (Inactive) On anticoagulant therapy plavix d/t stents Peripheral neuropathy (Inactive) Sigmoid diverticulitis Vitamin D deficiency (Inactive) Surgical History History of cardiac cath x3 @ [facility] follow with Dr. Zamora History of hand surgery x6 (4 on right, 2 on left) d/t Dupuytren's History of heart artery stent 2009 x2, 2015 x1, 2017 x1--@ [facility] History of intravascular stent placement RIGHT LEG History of procedure for peripheral vascular disease 2012 Dr. 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 Beliefs That Will Affect Care: None Current Living Situation: Family Feels Safe at Home: Yes Smoking Status: Former smoker Tobacco Type: cigarettes ; Second Hand Exposure: No ; Hx Alcohol Use: Yes Alcohol type: beer Hx Substance Use: No Allergies Allergies Allergy/AdvReac Type Severity Reaction Status Date / Time Penicillins Allergy Severe "CIRCULATORY Verified 07/11/19 06:31 SHUTDOWN" Home Meds Home Medications Medication Instructions Recorded Confirmed baclofen 20 mg PO TID 11/13/17 07/11/19 hydrocodone-acetaminophen 1 tab PO Q4H PRN 11/13/17 07/11/19 aspirin 81 mg PO QAM 02/18/18 07/11/19 cholecalciferol (vitamin D3) 5,000 unit PO QAM 02/18/18 07/11/19 [Vitamin D3] lidocaine 1 patch TOPICAL DAILY PRN 02/18/18 07/11/19 multivitamin 1 tab PO QAM 02/18/18 07/11/19 nitroglycerin 1 dose SUBLINGUAL UD PRN 02/18/18 07/11/19 amlodipine 10 mg PO QAM 01/29/19 07/11/19 famotidine 20 mg PO DAILY 07/11/19 07/11/19 Previous Rx's Medication Instructions Recorded clopidogrel 75 mg tablet 75 mg PO QAM #90 tab 11/11/18 losartan 100 mg tablet 100 mg PO QAM #90 tab 11/11/18 metoprolol tartrate 100 mg tablet 100 mg PO QAM #90 tab 11/11/18 simvastatin 80 mg tablet 80 mg PO PM #90 tab 11/11/18 Saccharomyces boulardii [Florastor] 250 mg PO DAILY #30 cap 02/23/19 Results & Data (ED) Vital Signs Vital Signs - 24 hr 07/11/19 05:55 07/11/19 06:15 07/11/19 06:31 Temperature 36.4 C L Temperature Source Oral Pulse Rate 87 Pulse Rate [Left Finger] 82 83 Respiratory Rate 22 20 20 Respiratory Depth Normal Blood Pressure 73/52 L Blood Pressure [Left Arm] 81/62 L 108/67 Blood Pressure Mean 59 Blood Pressure Mean [Left Arm] 68 80 Pulse Oximetry 100 100 100 Oxygen Delivery Method Room Air Room Air Room Air Sepsis Recent Fever Within 48 Hours No Sepsis New/Unexplained Change in Mental Status No Sepsis Action Taken by Nursing No Action Required 07/11/19 07:44 Temperature Temperature Source Pulse Rate Pulse Rate [Left Finger] 86 Respiratory Rate 16 Respiratory Depth Blood Pressure Blood Pressure [Left Arm] 131/84 Blood Pressure Mean Blood Pressure Mean [Left Arm] 99 Pulse Oximetry 100 Oxygen Delivery Method Room Air Sepsis Recent Fever Within 48 Hours Sepsis New/Unexplained Change in Mental Status Sepsis Action Taken by Nursing Laboratory Data Result diagrams: 07/11/19 20:11 07/11/19 06:08 Lab Results 07/11/19 07/11/19 07/11/19 Range/Units 06:08 06:08 06:08 WBC 16.87 H (4.8-10.8) K/uL RBC 3.06 L (4.7-6.1) M/uL Hgb 9.8 L (14.0-18.0) g/dL POC Hgb (14.0-18.0) g/dl Hct 28.9 L (42-52) % POC Hct (42-52) % MCV 94.4 (80-100) fL MCH 32.0 (25-34) pg MCHC 33.9 (32-36) g/dL RDW Std Deviation 44.6 (36.4-46.3) fL RDW Coeff of [place]our[place] 13.0 (11.5-14.5) % Plt Count 332 (130-400) K/uL MPV 11.2 H (7.4-10.4) fL Immature Gran % (Auto) 0.2 % Neut % (Auto) 76.2 % Lymph % (Auto) 15.6 % [place] % (Auto) 7.6 % Eos % (Auto) 0.2 % Baso % (Auto) 0.2 % Immature Gran # (Auto) 0.04 H (0.00-0.02) K/uL Neut # (Auto) 12.84 H (1.4-6.5) K/uL Lymph # (Auto) 2.63 (1.2-3.4) K/uL [place] # (Auto) 1.29 H (0.11-0.59) K/uL Eos # (Auto) 0.04 (0-0.5) K/uL Baso # (Auto) 0.03 (0-0.2) K/uL RBC Morphology Unremarkable PT 11.4 (9.0-12.0) Seconds INR 1.1 (0.9-1.1) APTT 21.7 (21.0-31.0) Seconds PTT Ratio 0.8 POC Sodium (135-144) mmol/L Sodium 138 (136-145) mmol/L POC Potassium (3.3-5.0) mmol/L Potassium 4.4 (3.5-5.1) mmol/L POC Chloride (101-112) mmol/L Chloride 106 (98-107) mmol/L Carbon Dioxide 21 (21-32) mmol/L POC Total CO2 (24-31) mEq/l Anion Gap 11.0 (3-11) POC Anion Gap (16-25) mmol/L POC BUN (7-18) mg/dl BUN 70 H (7-18) mg/dl Creatinine 1.22 (0.6-1.4) mg/dl POC Creatinine (0.6-1.3) mg/dl Est Cr Clr Drug Dosing Not Reportable Est GFR ( Amer) 72.7 Est GFR (Non-Af Amer) 62.7 BUN/Creatinine Ratio 57.6 H (10-20) Glucose 215 H (70-99) mg/dl POC Glucose (other) (70-99) mg/dl Calcium 8.4 L (8.5-10.1) mg/dl POC Ioniz Calcium Uriel (1.12-1.32) mmol/l Total Bilirubin 0.2 (0.2-1) mg/dl AST 13 L (15-37) U/L ALT 27 (12-78) U/L Alkaline Phosphatase 83 (45-117) U/L Troponin I < 0.015 (0-0.045) ng/ml Total Protein 6.5 (6.4-8.2) gm/dl Albumin 3.2 L (3.4-5.0) gm/dl Globulin 3.3 (2.5-4.0) gm/dl Albumin/Globulin Ratio 1.0 (0.9-2) POC Stool Occult Blood (Negative) Blood Type Antibody Screen Crossmatch 07/11/19 07/11/19 07/11/19 Range/Units 06:08 06:20 06:29 WBC (4.8-10.8) K/uL RBC (4.7-6.1) M/uL Hgb (14.0-18.0) g/dL POC Hgb 10.2 L (14.0-18.0) g/dl Hct (42-52) % POC Hct 30 L (42-52) % MCV (80-100) fL MCH (25-34) pg MCHC (32-36) g/dL RDW Std Deviation (36.4-46.3) fL RDW Coeff of [place]our[place] (11.5-14.5) % Plt Count (130-400) K/uL MPV (7.4-10.4) fL Immature Gran % (Auto) % Neut % (Auto) % Lymph % (Auto) % [place] % (Auto) % Eos % (Auto) % Baso % (Auto) % Immature Gran # (Auto) (0.00-0.02) K/uL Neut # (Auto) (1.4-6.5) K/uL Lymph # (Auto) (1.2-3.4) K/uL [place] # (Auto) (0.11-0.59) K/uL Eos # (Auto) (0-0.5) K/uL Baso # (Auto) (0-0.2) K/uL RBC Morphology PT (9.0-12.0) Seconds INR (0.9-1.1) APTT (21.0-31.0) Seconds PTT Ratio POC Sodium 137 (135-144) mmol/L Sodium (136-145) mmol/L POC Potassium 4.4 (3.3-5.0) mmol/L Potassium (3.5-5.1) mmol/L POC Chloride 105 (101-112) mmol/L Chloride (98-107) mmol/L Carbon Dioxide (21-32) mmol/L POC Total CO2 20 L (24-31) mEq/l Anion Gap (3-11) POC Anion Gap 18.0 (16-25) mmol/L POC BUN 73 H (7-18) mg/dl BUN (7-18) mg/dl Creatinine (0.6-1.4) mg/dl POC Creatinine 1.2 (0.6-1.3) mg/dl Est Cr Clr Drug Dosing Est GFR ( Amer) Est GFR (Non-Af Amer) BUN/Creatinine Ratio (10-20) Glucose (70-99) mg/dl POC Glucose (other) 204 H (70-99) mg/dl Calcium (8.5-10.1) mg/dl POC Ioniz Calcium Uriel 1.18 (1.12-1.32) mmol/l Total Bilirubin (0.2-1) mg/dl AST (15-37) U/L ALT (12-78) U/L Alkaline Phosphatase (45-117) U/L Troponin I (0-0.045) ng/ml Total Protein (6.4-8.2) gm/dl Albumin (3.4-5.0) gm/dl Globulin (2.5-4.0) gm/dl Albumin/Globulin Ratio (0.9-2) POC Stool Occult Blood Positive A (Negative) Blood Type O Positive Antibody Screen NEGATIVE Crossmatch See Detail Administered Medications Hydrocodone Bitart/Acetaminophen (Abrams 10/325) 1 tab PO Q4H PRN PRN Reason: Pain Stop: 07/25/19 09:44 Last Admin: 07/11/19 21:06 Dose: 1 tab Documented by: [id number] Admin: 07/11/19 11:38 Dose: 1 tab Documented by: [id number] Sodium Chloride (Nss 1000ml) 1,000 mls @ 80 mls/hr IV .[id number] [facility] Stop: 08/10/19 09:44 Last Infusion: 07/11/19 21:40 Dose: 0 mls/hr Documented by: [id number] Admin: 07/11/19 10:28 Dose: 80 mls/hr Documented by: [id number] Pantoprazole Sodium 40 mg/ (Syringe) 10 mls @ 5 mls/min IV BID ALAN Stop: 08/10/19 20:59 Last Admin: 07/11/19 21:03 Dose: 5 mls/min Documented by: [id number] Sodium Chloride (Nss) 250 mls @ 15 mls/hr IV .[id number] PRN PRN Reason: For Transfusion Stop: 07/12/19 06:59 Last Infusion: 07/12/19 00:24 Dose: 0 mls/hr Documented by: [id number] Admin: 07/11/19 21:39 Dose: 15 mls/hr Documented by: [id number] Miscellaneous (Remove Lidoderm Patch) 1 ea N/A DAILY@2100 [facility] Stop: 08/10/19 20:59 Last Admin: 07/11/19 21:05 Dose: Not Given Documented by: [id number] Discontinued Medications Epinephrine HCl (Epinephrine) Confirm Administered Dose 1 mg IV .STK-MED ONE Stop: 07/11/19 14:00 Last Admin: 07/11/19 15:52 Dose: Not Given Documented by: [id number] Sodium Chloride (Nss 1000ml) 2,000 mls @ 999 mls/hr IV .Q2H1M ALAN Stop: 07/11/19 08:15 Last Infusion: 07/11/19 08:12 Dose: 0 mls/hr Documented by: [id number] Admin: 07/11/19 06:19 Dose: 999 mls/hr Documented by: [id number] Pantoprazole Sodium 40 mg/ (Syringe) 10 mls @ 5 mls/min IV NOW ONE Stop: 07/11/19 06:12 Last Admin: 07/11/19 06:40 Dose: 5 mls/min Documented by: [id number] Pantoprazole Sodium 40 mg/ (Dextrose) 100 mls @ 20 mls/hr IV Q5H ALAN Stop: 08/10/19 10:29 Last Infusion: 07/11/19 16:54 Dose: 0 mg/hr, 0 mls/hr Documented by: [id number] Admin: 07/11/19 15:53 Dose: 8 mg/hr, 20 mls/hr Documented by: [id number] Infusion: 07/11/19 15:31 Dose: 8 mg/hr, 20 mls/hr Documented by: [id number] Admin: 07/11/19 10:31 Dose: 8 mg/hr, 20 mls/hr Documented by: [id number] Ioversol (Optiray 320 100ml) 94 ml IV ONCE PRN PRN Reason: Interaction Checking Stop: 07/15/19 07:23 Last Admin: 07/11/19 07:25 Dose: 94 ml Documented by: [id number] Metoclopramide HCl (Reglan) 10 mg IV NOW STA Stop: 07/11/19 13:19 Last Admin: 07/11/19 16:08 Dose: Not Given Documented by: [id number] Ondansetron HCl (Zofran) 4 mg IV ONE STA Stop: 07/11/19 06:12 Last Admin: 07/11/19 06:23 Dose: 4 mg Documented by: [id number] Discharge Plan Visit Data *Final* Discharge Date/Time: 07/11/19 09:30 Chief Complaint: GI Assessment Stated Complaint: vomiting blood,tired,RECTAL BLEEDING ED Provider: Blanca Willams Discharge Problem: Acute GI bleeding, Acute blood loss anemia, Acute hypotension, Pancolitis Patient Disposition: Admitted As Inpatient Discharge Instructions Interventions: ED Discharge Assessment Last Done: 07/11/19 09:30
[2019-07-11 06:56] LABS: Basophils # (auto) 0.03 K/uL (0-0.2); Basophils % (auto) 0.2 %; Eosinophils # (auto) 0.04 K/uL (0-0.5); Eosinophils % (auto) 0.2 %; Immature Granulocytes # (auto) 0.04 K/uL (0.00-0.02); Immature Granulocytes % (auto) 0.2 %; Lymphocytes # (auto) 2.63 K/uL (1.2-3.4); Lymphocytes % (auto) 15.6 %; Monocytes # (auto) 1.29 K/uL (0.11-0.59); Monocytes % (auto) 7.6 %; Neutrophils # (auto) 12.84 K/uL (1.4-6.5); Neutrophils % (auto) 76.2 %; RBC Morphology Unremarkable
[2019-07-11] MEDS ORDERED: IOVERSOL 100ml IV PRN (07:24)
--- NOTE | 2019-07-11 07:44 | CT Scan Report ---
CT abd pelvis IV con only CLINICAL HISTORY: Lower abdominal pain. Suspected diverticulitis. COMPARISON STUDY: 02/21/2019, ultrasound dated 02/22/2019, CT scan dated 06/25/2012 TECHNIQUE: The patient was scanned in a dynamic helical fashion during intravenous administration of 94 cc of Optiray 320. A dose lowering technique was utilized adhering to the principles of ALARA. CT DOSE: 327.37 mGy.cm FINDINGS: Lower chest: The heart is normal in size and configuration, without pericardial effusion. The lung ba ses and pleural spaces are clear. Liver: There is a stable 3 cm hypervascular right hepatic lobe mass. The lack of change since the or 2012 study, indicates a benign lesions as a hemangioma. There is also a stable 14 mm left lobe hep atic cyst. Gallbladder: Unremarkable. Spleen: There are several hypodense splenic lesions, the largest of which measures 7 mm. There is onl y minimal interval growth when compared the prior 2012 study, finding which favors a benign process. Pancreas: Unremarkable. Adrenal glands: Unremarkable. Kidneys: There is symmetric renal cortical enhancement. The kidneys are normal in size without hydron ephrosis. Bowel: There are no transition zones indicate bowel obstruction. There is colonic diverticulosis. The re is mild daniels colonic thickening consistent with pancolitis. The appendix appears normal.. Peritoneum: There is no intraperitoneal free air or abdominal ascites. Vasculature: There is no evidence of abdominal aortic aneurysm. There are aortoiliac atheromatous shaan nges. There is a right common iliac artery stent. Adenopathy: None. Pelvic viscera: The bladder, and pelvic viscera are unremarkable. Skeletal structures: There are old ischio pubic ring fractures. There are old T12, L1 and L4 compress ion deformities. IMPRESSION: 1. No evidence of bowel obstruction. No evidence of free air 2. Diverticulosis. No evidence of acute diverticulitis. 3. Diffuse colonic wall thickening, indicative of a pancolitis. 4. Normal appendix ACT 112: Negative or not required by law. Electronically signed by: Darvin Mckenzie M.D. 07/11/2019 7:43 AM
--- NOTE | 2019-07-11 08:32 | History & Physical Report ---
Date of Service July 11, 2019 Assessment & Plan (1) Upper GI bleed: Likely NSAID-induced worsened by ASA/Plavix for his CAD. - Protonix gtt - Serial H&H - Already has T&S -> Willing to have transfusion if needed - GI consulted -> Discussed with Dr. Eavns who will see him. Self-isolated, no cough, shortness of breath, loss of smell/taste. Low Covid risk. (2) History of Clostridioides difficile colitis: History of recurrent C. diff infections with thought of fecal transplant if he has another. CT a/p on admission showed pancolitis, though until this morning, he was having no symptoms of C. diff infection. - Will test stool for C. diff and consider treatment if positive (3) CAD (coronary artery disease): History of multiple PCI, last in 2016. No present chest pain to indicate cardiac ischemia. - Hold ASA/Plavix in setting of concern for active bleed - Hold beta-anuja for now given initial hypotension (SBP ~60 per ED provider), but re-institute as able. (4) Hypertension: Presently more concerned with hypotension. - Hold HTN meds; restart as needed (5) Chronic back pain: On chronic [place] and ibuprofen. Due to prior injury. - Continue pain regimen without any NSAID (6) DVT prophylaxis: SCDs - No heparin in the setting of GI bleed History of Present Illness Primary Care Provider: Lloyd Rosenthal MD 64yo M w/ hx of CAD s/p stents (last in 2016), HTN, diverticulitis, recurrent C. diff, and chronic lower back pain who presents with likely upper GI bleed. Has been on ibuprofen 800 mg daily x 1 year for his lower back pain. Was in normal state of health until around 1am this morning when he had nausea and 3-4 bouts of black, tarry diarrhea. Around 5am, he also had 2 episodes of coffee grounds emesis. [place] lightheaded and dizzy, and was brought to the ED by his . In the ED, his systolic BP was as low as 60 but responded to 2L IV fluids. Presently, he does not feel lightheaded or dizzy. No abdominal pain. No further emesis or dark stools. No nausea or vomiting. He and his have been self- isolating and do not have any signs/symptoms of Covid. Allergies Allergy/AdvReac Type Severity Reaction Status Date / Time Penicillins Allergy Severe "CIRCULATORY Verified 07/11/19 06:31 SHUTDOWN" Home Medications Home Medications Medication Instructions Recorded Confirmed Type baclofen 20 mg PO TID 11/13/17 07/11/19 History hydrocodone-acetaminophen 1 tab PO Q4H PRN 11/13/17 07/11/19 History aspirin 81 mg PO QAM 02/18/18 07/11/19 History cholecalciferol (vitamin D3) 5,000 unit PO QAM 02/18/18 07/11/19 History [Vitamin D3] lidocaine 1 patch TOPICAL DAILY PRN 02/18/18 07/11/19 History multivitamin 1 tab PO QAM 02/18/18 07/11/19 History nitroglycerin 1 dose SUBLINGUAL UD PRN 02/18/18 07/11/19 History clopidogrel 75 mg tablet 75 mg PO QAM #90 tab 11/11/18 07/11/19 Rx losartan 100 mg tablet 100 mg PO QAM #90 tab 11/11/18 07/11/19 Rx metoprolol tartrate 100 mg tablet 100 mg PO QAM #90 tab 11/11/18 07/11/19 Rx simvastatin 80 mg tablet 80 mg PO PM #90 tab 11/11/18 07/11/19 Rx amlodipine 10 mg PO QAM 01/29/19 07/11/19 History Saccharomyces boulardii [Florastor] 250 mg PO DAILY #30 cap 02/23/19 07/11/19 Rx famotidine 20 mg PO DAILY 07/11/19 07/11/19 History Past Med/Surg History Medical History AMS (altered mental status) (Inactive) Anxiety BPH (benign prostatic hyperplasia) BPH with obstruction/lower urinary tract symptoms (Inactive) CAD (coronary artery disease) Chronic back pain Dupuytren's contracture of hand (Resolved) GERD (gastroesophageal reflux disease) Hx of Clostridium difficile infection Hyperlipidemia Hypertension Left ventricular hypertrophy (Inactive) Methicillin susceptible Staphylococcus aureus infection (Inactive) On anticoagulant therapy plavix d/t stents Peripheral neuropathy (Inactive) Sigmoid diverticulitis Vitamin D deficiency (Inactive) Surgical History History of cardiac cath x3 @ [facility] follow with Dr. Zamora History of hand surgery x6 (4 on right, 2 on left) d/t Dupuytren's History of heart artery stent 2009 x2, 2016 x1, 2017 x1--@ [facility] History of intravascular stent placement RIGHT LEG History of procedure for peripheral vascular disease 2012 Dr. Granger History of removal of cyst from groin History of surgery RIGHT LEG R/T TRAUMA History of tooth extraction wisdom teeth Family History Sister Family history of reaction to anesthesia difficulty waking and nausea Mother Family history of reaction to anesthesia difficulty waking and nausea Social History Preferred Language: Ukrainian Communication Ability: Effective Geomorphologist Required: No Beliefs That Will Affect Care: None Current Living Situation: Family Feels Safe at Home: Yes Smoking Status: Former smoker Tobacco Type: cigarettes ; Second Hand Exposure: No ; Hx Alcohol Use: Yes Alcohol type: beer Hx Substance Use: No Review of Systems Review of Systems: All systems reviewed & are unremarkable except as noted in HPI & below Physical Exam Constitutional: WD/WN, vitals as above + acute distress Eyes: EOM intact bilaterally; no conjunctival abnormality ENMT: external ear and nose normal, oropharynx normal Neck: trachea midline, no thyromegaly normal visual inspection Respiratory: normal respiratory effort, lungs clear to auscultation no respiratory distress Cardiovascular: RRR, no murmur, no edema Gastrointestinal (Abdomen): Inspection/Auscultation: abdomen normal to inspection and normal bowel sounds; abdomen not distended Percussion/Palpation: abdomen soft; abdomen nontender, no guarding and abdomen not rigid Musculoskeletal: no cyanosis or clubbing, extremities motor strength 5/5 Skin: no rashes, warm and dry Neurologic: moves all extremities and awake Psychiatric: Orientation: alert, oriented to person and cooperative Results & Data Results & Data ([facility]) Vital Signs (Past 12 Hours) Vital Signs Temp Pulse Pulse Resp BP BP Pulse Ox 07/11/19 07:44 86 16 131/84 100 07/11/19 06:31 83 20 108/67 100 07/11/19 06:15 82 20 81/62 L 100 07/11/19 05:55 36.4 C L 87 22 73/52 L 100 Code Status & VTE Plan VTE Prophylaxis Plan VTE Prophylaxis will be ordered: Yes PG Care Time/CCT Total # of Minutes Spent Total Time Spent with Patient: Total time spent is greater than 50% in coordination of care (as documented) at patient's floor/unit and/or counseling patient: Coding Level of Care Code 26386 Initial Inpt Care Lvl 3 Diagnoses Upper GI bleed K92.2 History of Clostridioides difficile colitis Z86.19 CAD (coronary artery disease) I25.10 Hypertension I10 Chronic back pain M54.9; G89.29 DVT prophylaxis Z29.9
--- NOTE | 2019-07-11 09:39 | History & Physical Report ---
Date of Service July 11, 2019 Assessment & Plan (1) Upper GI bleed: (2) Abdominal pain: (3) History of Clostridioides difficile colitis: (4) Acute blood loss anemia: At present, he is hemodynamically stable. I would recommend a Protonix gtt at 8 mg/hour following an 80 mg bolus Continue IVF Transfuse PRN as per hospitalist team to maintain H/H around 10/30 If he remains hemodynamically stable, I would hold off on EGD as long as he does not have any further hematemesis and remains hemodynamically stable. I would also recommend holding off on EGD until negative C-diff testing Clear liquid diet now History of Present Illness Chief Complaint: Acute blood loss anemia Upper GI bleed Primary Care Provider: Lloyd Rosenthal MD Deshawn Whitaker is a 64 yo CM with a PMHx of CAD, PVD, Chronic antiplatelet therapy, Chronic back pain with NSAID use, Diverticulitis and recurrent C-diff who presented to the ER early this AM with abdominal pain, nausea and reported hematemesis. He states that last evening he developed abdominal pain in the epigastric area, 6/10 in intensity, non-radiating with associated nausea. He states that he developed bloody vomiting, prompting his arrival to the ER. He states that up until yesterday, he was feeling fine. On arrival to the ER, his H/H was noted to be 9.8 and 28.9. His Hgb had fallen by almost 3 g from his hospitalization in February for Diverticulitis. He states that he does take Aspirin, Plavix and approximately [id number] mg of Ibuprofen daily for back pain. He does take Pepcid 20 mg by mouth daily at home, but had not been having worsening symptoms in the prior days-weeks. A CT scan in the ER showed diffuse colonic wall thickening indicative of pancolitis. On questioning, he reports approximately 4-5 loose stools over the past 12 hours. He is hemodynamically stable at present, and will be admitted on a protonix gtt. He has no further complaints. Allergies Allergy/AdvReac Type Severity Reaction Status Date / Time Penicillins Allergy Severe "CIRCULATORY Verified 07/11/19 06:31 SHUTDOWN" Home Medications Home Medications Medication Instructions Recorded Confirmed Type baclofen 20 mg PO TID 11/13/17 07/11/19 History hydrocodone-acetaminophen 1 tab PO Q4H PRN 11/13/17 07/11/19 History aspirin 81 mg PO QAM 02/18/18 07/11/19 History cholecalciferol (vitamin D3) 5,000 unit PO QAM 02/18/18 07/11/19 History [Vitamin D3] lidocaine 1 patch TOPICAL DAILY PRN 02/18/18 07/11/19 History multivitamin 1 tab PO QAM 02/18/18 07/11/19 History nitroglycerin 1 dose SUBLINGUAL UD PRN 02/18/18 07/11/19 History clopidogrel 75 mg tablet 75 mg PO QAM #90 tab 11/11/18 07/11/19 Rx losartan 100 mg tablet 100 mg PO QAM #90 tab 11/11/18 07/11/19 Rx metoprolol tartrate 100 mg tablet 100 mg PO QAM #90 tab 11/11/18 07/11/19 Rx simvastatin 80 mg tablet 80 mg PO PM #90 tab 11/11/18 07/11/19 Rx amlodipine 10 mg PO QAM 01/29/19 07/11/19 History Saccharomyces boulardii [Florastor] 250 mg PO DAILY #30 cap 02/23/19 07/11/19 Rx famotidine 20 mg PO DAILY 07/11/19 07/11/19 History Past Med/Surg History Medical History AMS (altered mental status) (Inactive) Anxiety BPH (benign prostatic hyperplasia) BPH with obstruction/lower urinary tract symptoms (Inactive) CAD (coronary artery disease) Chronic back pain Dupuytren's contracture of hand (Resolved) GERD (gastroesophageal reflux disease) Hx of Clostridium difficile infection Hyperlipidemia Hypertension Left ventricular hypertrophy (Inactive) Methicillin susceptible Staphylococcus aureus infection (Inactive) On anticoagulant therapy plavix d/t stents Peripheral neuropathy (Inactive) Sigmoid diverticulitis Vitamin D deficiency (Inactive) Surgical History History of cardiac cath x3 @ [facility] follow with Dr. Zamora History of hand surgery x6 (4 on right, 2 on left) d/t Dupuytren's History of heart artery stent 2009 x2, 2015 x1, 2017 x1--@ [facility] History of intravascular stent placement RIGHT LEG History of procedure for peripheral vascular disease 2012 Dr. Granger History of removal of cyst from groin History of surgery RIGHT LEG R/T TRAUMA History of tooth extraction wisdom teeth Family History Sister Family history of reaction to anesthesia difficulty waking and nausea Mother Family history of reaction to anesthesia difficulty waking and nausea Social History Preferred Language: Belarusian Communication Ability: Effective Turner Machine Required: No Beliefs That Will Affect Care: None Current Living Situation: Spouse Feels Safe at Home: Yes Smoking Status: Former smoker Tobacco Type: cigarettes ; Second Hand Exposure: No ; Hx Alcohol Use: Yes Alcohol type: beer Hx Substance Use: No Review of Systems All systems reviewed & are unremarkable except as noted in HPI & below Physical Exam Constitutional: WD/WN, vitals as above Eyes: PERRL, conjunctivae normal, anicteric sclerae ENMT: external ear and nose normal, oropharynx normal Neck: trachea midline, no thyromegaly Respiratory: normal respiratory effort, lungs clear to auscultation Cardiovascular: RRR, no murmur, no edema Gastrointestinal (Abdomen): normal bowel sounds, soft, nontender, no hepatosplenomegaly Skin: no rashes, warm and dry Psychiatric: A+Ox3, euthymic affect Results & Data Vital Signs (Past 12 Hours) Vital Signs Temp Pulse Pulse Resp BP BP Pulse Ox 07/11/19 07:44 86 16 131/84 100 07/11/19 06:31 83 20 108/67 100 07/11/19 06:15 82 20 81/62 L 100 07/11/19 05:55 36.4 C L 87 22 73/52 L 100 Code Status & VTE Plan VTE Prophylaxis Plan VTE Prophylaxis will be ordered: Yes Coding Level of Care Code 54521 Initial Inpt Care Lvl 3 Diagnoses Upper GI bleed K92.2 Abdominal pain R10.9 History of Clostridioides difficile colitis Z86.19 Acute blood loss anemia D62 Time Spent (min) 35
[2019-07-11] MEDS ORDERED: BACLOFEN 10 MG TAB PO PRN (09:45)
[2019-07-11] MEDS ORDERED: LIDOCAINE 5% 1 PATCH TD PRN (09:45)
[2019-07-11] MEDS ORDERED: ONDANSETRON INJ 2 MG/ML 2 ML VIAL IV PRN (09:45)
[2019-07-11 10:25] LABS: Hematocrit (blood only) 25.1 % (42-52); Hemoglobin 8.5 g/dL (14.0-18.0)
[2019-07-11] MEDS: SODIUM CHLORIDE 0.9% 1000ML 1,000 ML IV SCH (10:28)
[2019-07-11] MEDS: PANTOprazole 40 MG in DEXTROSE 5% 100 ML IV SCH ×2 (10:31→15:53)
[2019-07-11] MEDS: HYDROCODONE/ACETAMINOPHEN 10/325 TAB PO PRN ×2 (11:38→21:06)
[2019-07-11] MEDS ORDERED: METOCLOPRAMIDE HCL INJ 5 MG/ML 2 ML VIAL IV STA (13:18)
[2019-07-11] MEDS ORDERED: PROPOFOL IV EMULSION 10 MG/ML 20 ML VIAL IV ONE (13:52)
[2019-07-11] MEDS ORDERED: LIDOCAINE HCL 2% 2 ML VIAL/AMP(20MG/ML) INFIL ONE (13:52)
[2019-07-11] MEDS ORDERED: SUCCINYLCHOLINE CHLORIDE 20 MG/ML 10 ML VIAL ONE (13:52)
[2019-07-11] MEDS ORDERED: LARYING-O-JET KIT (LTA) ONE (13:52)
[2019-07-11] MEDS ORDERED: DEXAMETHASONE SOD INJ 4 MG/ML VIAL ONE (13:52)
[2019-07-11] MEDS ORDERED: fentaNYL citrate 100 MCG/2 ML VIAL ONE (13:52)
[2019-07-11] MEDS ORDERED: ONDANSETRON INJ 2 MG/ML 2 ML VIAL ONE (13:52)
[2019-07-11] MEDS ORDERED: SODIUM CHLORIDE 0.9% 250 ML IV PRN ×3 (14:05→20:59)
--- NOTE | 2019-07-11 14:07 | Anesthesiology Consultation ---
Date of Service July 11, 2019 Assessment & Plan (1) Encounter for pre-operative examination: Chart Review Chart Review: Acceptable Risk for Surgery and Patient NOT seen in Pre Admission Testing Consults Requested none ASA [id number] Proposed Anesthesia Anesthesia Type: General Risk / Benefits Reviewed With: PT / POA / Parent / Guardian, Accepts Plan and Informed Consent Obtained History Surgery Operation Date: 07/11/19 13:55 Proposed Procedures p Esophagogastroduodenoscopy - Stephen G. Case, DO Height/Weight Height: 5 ft 6 in Weight: 67.2 kg Allergies Allergy/AdvReac Type Severity Reaction Status Date / Time Penicillins Allergy Severe "CIRCULATORY Verified 07/11/19 06:31 SHUTDOWN" Medications Home Medications Medication Instructions Recorded Confirmed Last Taken baclofen 20 mg PO TID 11/13/17 07/11/19 07/10/19 hydrocodone-acetaminophen 1 tab PO Q4H PRN 11/13/17 07/11/19 02/23/18 08:00 aspirin 81 mg PO QAM 02/18/18 07/11/19 07/10/19 cholecalciferol (vitamin D3) 5,000 unit PO QAM 02/18/18 07/11/19 07/10/19 [Vitamin D3] lidocaine 1 patch TOPICAL DAILY PRN 02/18/18 07/11/19 07/10/19 multivitamin 1 tab PO QAM 02/18/18 07/11/19 07/10/19 nitroglycerin 1 dose SUBLINGUAL UD PRN 02/18/18 07/11/19 Unknown clopidogrel 75 mg tablet 75 mg PO QAM #90 tab 11/11/18 07/11/19 07/10/19 losartan 100 mg tablet 100 mg PO QAM #90 tab 11/11/18 07/11/19 07/10/19 metoprolol tartrate 100 mg tablet 100 mg PO QAM #90 tab 11/11/18 07/11/19 07/10/19 simvastatin 80 mg tablet 80 mg PO PM #90 tab 11/11/18 07/11/19 07/10/19 amlodipine 10 mg PO QAM 01/29/19 07/11/19 07/10/19 Saccharomyces boulardii [Florastor] 250 mg PO DAILY #30 cap 02/23/19 07/11/19 07/10/19 famotidine 20 mg PO DAILY 07/11/19 07/11/19 07/10/19 Active Medications Generic Name Dose Route Start Last Admin Trade Name Freq PRN Reason Stop Dose Admin Hydrocodone Bitart/Acetaminophen 1 tab 07/11/19 09:45 07/11/19 11:38 [place] 10/325 PO 07/25/19 09:44 1 tab Q4H PRN Administration Pain Sodium Chloride 1,000 mls @ 80 mls/hr 07/11/19 09:45 07/11/19 10:28 Nss 1000ml IV 08/10/19 09:44 80 mls/hr .[id number] ALAN Administration Pantoprazole Sodium 40 mg/ 100 mls @ 20 mls/hr 07/11/19 10:30 07/11/19 10:31 Dextrose IV 08/10/19 10:29 8 mg/hr Q5H ALAN 20 mls/hr Administration 8 MG/HR NPO Date Last Intake of Fluids: 07/11/19 Time Last Intake of Fluids: 01:00 Date Last Intake of Solids: 07/10/19 Time Last Intake of Solids: 18:00 Past Medical History Medical History AMS (altered mental status) (Inactive) Anxiety BPH (benign prostatic hyperplasia) BPH with obstruction/lower urinary tract symptoms (Inactive) CAD (coronary artery disease) Chronic back pain Dupuytren's contracture of hand (Resolved) GERD (gastroesophageal reflux disease) Hx of Clostridium difficile infection Hyperlipidemia Hypertension Left ventricular hypertrophy (Inactive) Methicillin susceptible Staphylococcus aureus infection (Inactive) On anticoagulant therapy plavix d/t stents Peripheral neuropathy (Inactive) Sigmoid diverticulitis Vitamin D deficiency (Inactive) Exercise / Class Metabolic Activity III < 4 Walking/Shop/Light housework Negative for chest pain or shortness of breath. Past Family History Family History Sister Family history of reaction to anesthesia difficulty waking and nausea Mother Family history of reaction to anesthesia difficulty waking and nausea Past Surgical History Surgical History History of cardiac cath x3 @ [facility] follow with Dr. Zamora History of hand surgery x6 (4 on right, 2 on left) d/t Dupuytren's History of heart artery stent 2010 x2, 2016 x1, 2017 x1--@ [facility] History of intravascular stent placement RIGHT LEG History of procedure for peripheral vascular disease 2012 Dr. Granger History of removal of cyst from groin History of surgery RIGHT LEG R/T TRAUMA History of tooth extraction wisdom teeth Past Anesthesia History No Hx of Anesthesia Complications History of PONV No Hx of PONV Social History Smoking Status: Former smoker tobacco type: cigarettes Hx Alcohol Use: Yes Alcohol type: beer alcohol intake frequency: a few times a week Hx Substance Use: No substance use type: does not use Review of Systems Positive for nausea and vomiting blood Physical Exam Vital Signs Last Vital Signs Temp 37.2 C 07/11/19 12:18 Pulse 85 07/11/19 12:18 Resp 18 07/11/19 12:18 BP 133/66 07/11/19 12:18 Pulse Ox 98 07/11/19 12:18 ENMT Mouth: no TMJ abnormality and oral opening not small Neck normal visual inspection; neck extension not limited Respiratory normal respiratory effort Auscultation: lungs clear to auscultation bilaterally Cardiovascular Rate/Rhythm: regular rate and regular rhythm Heart Sounds: no murmur Neurologic moves all extremities Psychiatric Orientation: alert and oriented x 3 Testing Laboratory Results 07/11/19 10:14 07/11/19 06:08 PT 11.4 Seconds (9.0-12.0) 07/11/19 06:08 INR 1.1 (0.9-1.1) 07/11/19 06:08 APTT 21.7 Seconds (21.0-31.0) 07/11/19 06:08 Blood Type O Positive 07/11/19 06:08 Antibody Screen NEGATIVE 07/11/19 06:08 07/11/19 06:20 POC Glucose (other) 204 H
--- NOTE | 2019-07-11 14:59 | GI REPORT ---
Patient Name: Deshawn Whitaker Procedure Date: 07/11/2019 2:29 PM Date of : 1955 Admit Type: Inpatient Age: 64 Gender: Male Attending MD: Stephen Evans DO Procedure: Upper GI endoscopy Providers: Stephen Evans DO Referring MD: Say Cornell Md Indications: Acute post hemorrhagic anemia, Hematemesis Medicines: General Anesthesia Complications: No immediate complications. Estimated Blood Loss: Estimated blood loss: none. Procedure: Pre-Anesthesia Assessment: - Prior to the procedure, a History and Physical was performed, and patient medications and allergies were reviewed. The patient's tolerance of previous anesthesia was also reviewed. The risks and benefits of the procedure and the sedation options and risks were discussed with the patient. All questions were answered, and informed consent was obtained. Prior Anticoagulants: The patient last took aspirin 1 day, ibuprofen 1 day and Plavix (clopidogrel) 1 day prior to the procedure. ASA Grade Assessment: E - Emergency. After reviewing the risks and benefits, the patient was deemed in satisfactory condition to undergo the procedure. After obtaining informed consent, the endoscope was passed under direct vision. Throughout the procedure, the patient's blood pressure, pulse, and oxygen saturations were monitored continuously. The Endoscope was introduced through the mouth, and advanced to the second part of duodenum. The upper GI endoscopy was accomplished without difficulty. The patient tolerated the procedure well. Findings: The esophagus was normal. A small hiatal hernia was present. Localized severe inflammation characterized by erosions and erythema was found in the gastric antrum. Biopsies were taken with a cold forceps for histology. Two non-bleeding cratered gastric ulcers with no stigmata of bleeding were found in the gastric antrum. The largest lesion was 15 mm in largest dimension. The examined duodenum was normal. Impression: - Normal esophagus. - Small hiatal hernia. - Gastritis. Biopsied. - Non-bleeding gastric ulcers with no stigmata of bleeding. - Normal examined duodenum. Recommendation: - Return patient to [facility] for ongoing care. - Clear liquid diet. - Resume aspirin in 5 days, ibuprofen in 2 weeks and Plavix (clopidogrel) in 5 days at prior doses. - Use Protonix (pantoprazole) 40 mg PO BID. - Await pathology results. - Repeat upper endoscopy in 8 weeks to check healing. Stephen Evans DO 07/11/2019 2:59:05 PM This report has been signed electronically. Note Initiated On: 07/11/2019 2:29 PM Number of Addenda: 0 I attest to the content of the Intraoperative Record and orders documented therein, exceptions below {[id number]}
[2019-07-11] MEDS ORDERED: ePHEDrine sulfate 50 MG/ML AMP IV PRN (15:25)
[2019-07-11] MEDS ORDERED: ATROPINE SULFATE 0.1 MG/ML 10ML SYR IV PRN (15:25)
--- NOTE | 2019-07-11 15:26 | Anesthesiology Progress Note ---
Date of Service July 11, 2019 Anesthesia Post Procedure Vital Signs Vital Signs: Temp Pulse Pulse Resp BP BP Pulse Ox 07/11/19 15:20 79 16 137/63 100 07/11/19 15:13 36.4 C L 87 16 155/83 H 100 07/11/19 14:07 37.0 C 87 16 135/71 97 07/11/19 12:18 37.2 C 85 18 133/66 98 07/11/19 09:45 36.6 C 89 16 153/77 H 100 07/11/19 09:30 86 16 151/78 H 98 07/11/19 09:05 82 16 123/88 97 07/11/19 07:44 86 16 131/84 100 07/11/19 06:31 83 20 108/67 100 07/11/19 06:15 82 20 81/62 L 100 07/11/19 05:55 36.4 C L 87 22 73/52 L 100 Pain Intensity Bilateral Abdomen: Pain Intensity: 3 Transfer of Care Handoff Completed per policy Notes Mental Status: alert / awake / arousable and participated in evaluation Patient Amnestic to Procedure: Yes Nausea / Vomiting: adequately controlled Pain: adequately controlled Airway Patency, RR, SpO2: stable & adequate BP & HR: stable & adequate Hydration State: stable & adequate Anesthetic Complications: no major complications apparent and Pt Satisfied with anesthetic care
[2019-07-11 16:22] LABS: Hematocrit (blood only) 22.1 % (42-52); Hemoglobin 7.5 g/dL (14.0-18.0)
[2019-07-11 20:50] LABS: Hematocrit (blood only) 19.8 % (42-52); Hemoglobin 6.8 g/dL (14.0-18.0)
[2019-07-11] MEDS: PANTOprazole 40 MG in SYRINGE 0 ML IV SCH (21:03)
[2019-07-12] MEDS: SODIUM CHLORIDE 0.9% 1000ML 1,000 ML IV SCH ×2 (01:57→03:31)
[2019-07-12 07:12] LABS: Hemoglobin 9.2 g/dL (14.0-18.0); Mean Corpuscular Hemoglobin 31.3 pg (25-34); Mean Corpuscular Hgb Conc 34.1 g/dL (32-36); Mean Corpuscular Volume 91.8 fL (80-100); Mean Platelet Volume 10.9 fL (7.4-10.4); Platelet Count 221 K/uL (130-400); RDW Coefficient of Variation 13.8 % (11.5-14.5); RDW Standard Deviation 45.4 fL (36.4-46.3); Red Blood Count 2.94 M/uL (4.7-6.1); White Blood Count 9.67 K/uL (4.8-10.8)
[2019-07-12] MEDS ORDERED: IRON SUCROSE 300 MG in SODIUM CHLORIDE 0.9% 250 ML IV STA (07:24)
[2019-07-12 07:44] LABS: BUN Creatinine Ratio 34.4 (10-20); Calcium 7.6 mg/dl (8.5-10.1); Creatinine Clr Calc Pharmacy 84.2 ml/min; Est GFR (African American) 109.6; Est GFR (Non-African American) 94.6; Magnesium 1.8 mg/dl (1.8-2.4); Potassium 3.6 mmol/L (3.5-5.1)
[2019-07-12] MEDS: PANTOprazole 40 MG in SYRINGE 0 ML IV SCH (08:02)
[2019-07-12] MEDS: HYDROCODONE/ACETAMINOPHEN 10/325 TAB PO PRN (08:12)
--- NOTE | 2019-07-12 08:51 | Electrocardiogram Report ---
Test Reason : Blood Pressure : / mmHG Vent. Rate : 086 BPM Atrial Rate : 086 BPM P-R Int : 136 ms QRS Dur : 082 ms QT Int : 374 ms P-R-T Axes : 048 031 046 degrees QTc Int : 447 ms Normal sinus rhythm Normal ECG When compared with ECG of 13-NOV-2017 18:14, Vent. rate has increased BY 39 BPM Criteria for Septal infarct are no longer Present QT has lengthened Confirmed by Bruno Dodge ([id number]) on 07/12/2019 8:51:24 AM Referred By: REFERRED SELF Confirmed By:Bruno Dodge
--- NOTE | 2019-07-12 15:20 | Discharge Summary ---
Date of Service July 12, 2019 Admission HPI Per Admitting Provider Deshawn Whitaker is a 64 yo CM with a PMHx of CAD, PVD, Chronic antiplatelet therapy, Chronic back pain with NSAID use, Diverticulitis and recurrent C-diff who presented to the ER early this AM with abdominal pain, nausea and reported hematemesis. He states that last evening he developed abdominal pain in the epigastric area, 6/10 in intensity, non-radiating with associated nausea. He states that he developed bloody vomiting, prompting his arrival to the ER. He states that up until yesterday, he was feeling fine. On arrival to the ER, his H/H was noted to be 9.8 and 28.9. His Hgb had fallen by almost 3 g from his hospitalization in February for Diverticulitis. He states that he does take Aspirin, Plavix and approximately 1433-5148 mg of Ibuprofen daily for back pain. He does take Pepcid 20 mg by mouth daily at home, but had not been having worsening symptoms in the prior days-weeks. A CT scan in the ER showed diffuse colonic wall thickening indicative of pancolitis. On questioning, he reports approximately 4-5 loose stools over the past 12 hours. He is hemodynamically stable at present, and will be admitted on a protonix gtt. He has no further complaints. Principal Diagnosis Upper GI bleed Discharge Exam Constitutional WD/WN, vitals as above + acute distress Eyes EOM intact bilaterally; no conjunctival abnormality ENMT external ear and nose normal, oropharynx normal Neck trachea midline, no thyromegaly normal visual inspection Respiratory normal respiratory effort, lungs clear to auscultation no respiratory distress Cardiovascular RRR, no murmur, no edema Gastrointestinal (Abdomen) Inspection/Auscultation: abdomen normal to inspection and normal bowel sounds; abdomen not distended Percussion/Palpation: abdomen soft; abdomen nontender, no guarding and abdomen not rigid Musculoskeletal no cyanosis or clubbing, extremities motor strength 5/5 Skin no rashes, warm and dry Neurologic moves all extremities and awake Psychiatric Orientation: alert, oriented to person and cooperative Discharge Data Allergies Allergy/AdvReac Type Severity Reaction Status Date / Time Penicillins Allergy Severe "CIRCULATORY Verified 07/11/19 06:31 SHUTDOWN" Consultations 07/11/19 07:54 ED Decision to Admit Stat Procedures Performed Operation Date: 07/11/19 13:55 Actual Procedures p Esophagogastroduodenoscopy(Not Applicable) - Stephen Evans DO Ordered Studies 07/11/19 06:35 CT abd pelvis IV con only Stat Hospital Course (1) Upper GI bleed: EGD on 07/11 showed two ulcers in the stomach. No active bleeding during the scope. - Required 2 units of blood overnight, but hgb stable in the morning. - Put on PPI PO BID x 4-6 weeks. Will need repeat EGD in 8 weeks to assess healing. - Told to wait on ASA/Plavix x 5 days, and ibuprofen at least 2 weeks. (2) History of Clostridioides difficile colitis: History of recurrent C. diff infections with thought of fecal transplant if he has another. CT a/p on admission showed pancolitis, though he had no symptoms of C. diff infection. - No diarrhea during admission, so no C. diff test could be sent. - He felt completely fine on day of discharge. Unsure why he had the pancolitis other than irritation from the upper GI bleeding. Will need to follow up with PCP or GI if he has any symptoms. (3) CAD (coronary artery disease): History of multiple PCI, last in 2017. No present chest pain to indicate cardiac ischemia. - Hold ASA/Plavix x 5 days. - Held beta-anuja initially, but BP had returned to normal by discharge, so he was advised to restart home BP meds. (4) Hypertension: Presently more concerned with hypotension. - Held HTN meds; restart on discharge. (5) Chronic back pain: On chronic [place] and ibuprofen. Due to prior injury. - Continue pain regimen without any NSAID (6) DVT prophylaxis: SCDs - No heparin in the setting of GI bleed Total Time Total Time Spent Total Time Spent (In Minutes): 35 Discharge Plan Discharge Items Patient Disposition: Home - Self-Care Reason For Visit: UPPER GI BLEED Discharge Diagnosis: Stomach ulcer causing GI bleed Activity: Resume your previous activity Non-emergency contact: Primary Care Provider and Home Health Aide Call non-emergency contact if: your symptoms worsen Follow-up/Referrals: Stephen Evans DO [Physician] - (Please see Dr. Evans in 4 weeks to follow up.) Lloyd Rosenthal MD [Primary Care Provider] - Diet: Regular Addtl Attending Provider Instructions: You were admitted for GI bleeding from a stomach ulcer. You need to take the pantoprazole (Protonix) 2 times per day. You can stop taking your famotidine. You can also take an iron tablet every other day (you don't need to do it every day). For foods, please avoid alcohol for at least 1 week, and avoid acidic foods such as spicy foods for 1 week as well. You can restart your aspirin and Plavix on Saturday, July 16. You can restart taking ibuprofen (but try to stick with 1 or 2 pills per day instead of 4) in 2 weeks on Saturday, July 31. In the meantime, you can continue to use the [place] and lidocaine patches. You can also speak with your PCP about Voltaren gel which does not absorb into the bloodstream and is safe for you. Pending Studies at Discharge: No Stand-Alone Forms: [facility] C[facility] Medications and DC Order Prescriptions: New pantoprazole 40 mg tablet,delayed release (DR/EC) 40 mg PO BID Qty: 60 RF: 1 ferrous gluconate 240 mg (27 mg iron) tablet 240 mg PO DAILY Qty: 30 RF: 0 Continued losartan 100 mg tablet 100 mg PO QAM Qty: 90 RF: 3 metoprolol tartrate 100 mg tablet 100 mg PO QAM Qty: 90 RF: 3 simvastatin 80 mg tablet 80 mg PO PM Qty: 90 RF: 3 lidocaine 5 % Adhesive Patch,Medicated 1 patch TOPICAL DAILY PRN (Reason: Pain) RF: 0 nitroglycerin 0.4 mg Tablet, Sublingual 1 dose Sublingual UD PRN (Reason: Angina) RF: 0 cholecalciferol (vitamin D3) [Vitamin D3] 5,000 unit Tablet 5,000 unit PO QAM RF: 0 multivitamin Tablet 1 tab PO QAM RF: 0 amlodipine 10 mg tablet 10 mg PO QAM RF: 0 Florastor 250 mg Capsule 250 mg PO DAILY Qty: 30 RF: 0 baclofen 10 mg Tablet 20 mg PO TID RF: 0 hydrocodone-acetaminophen 10-325 mg Tablet 1 tab PO Q4H PRN (Reason: Pain) RF: 0 Discontinued clopidogrel [Plavix] 75 mg tablet 75 mg PO QAM Qty: 90 RF: 3 aspirin 81 mg Tablet,Delayed Release (Dr/Ec) 81 mg PO QAM RF: 0 famotidine 20 mg Tablet 20 mg PO DAILY RF: 0 Discharge Orders: Discharge Order (Routine); Ordered 07/12/19 Ordered By: Say Cornell Admission Data Admit Date/Time: 07/11/19 08:26 Attending Provider: Say Cornell Admit Provider: Say Cornell Primary Care Provider: Lloyd Rosenthal Other Providers: Say Cornell Other Interventions: Discharge Summary Assessment (RN) Last Done: 07/12/19 11:50 DC Date/Time DO NOT enter until pt leaves facility: 07/12/19 12:48 Coding Level of Care Code D/C Day Management >30 mins Diagnoses Upper GI bleed K92.2 History of Clostridioides difficile colitis Z86.19 CAD (coronary artery disease) I25.10 Hypertension I10 Chronic back pain M54.9; G89.29 DVT prophylaxis Z29.9
== END 2019-07-12 12:48 | disposition home or self-care (01) | DRG 378 ==
LOC: ED 05:49 → 2S 08:26

== ENCOUNTER 2019-07-13 12:39 | Inpatient (IN) ==
[2019-07-13] MEDS ORDERED: PANTOPRAZOLE BOLUS/DRIP 1 EA IV STA (12:58)
[2019-07-13] MEDS ORDERED: PANTOprazole 80 MG in DEXTROSE 5% 100 ML IV ONE (12:58)
--- NOTE | 2019-07-13 13:05 | Emergency Department Note ---
Impression & Plan Acute GI bleeding, Gastric ulcer, Abdominal pain, Leukocytosis ED Provider Note NAME: MARIANNA ARMAS AGE: 64 SEX: M : 1955 ARRIVES VIA: Walk-In INFORMANT: Patient ED PROVIDER(S): Imer Scott DO CHIEF COMPLAINT: Abdominal pain with dark tarry stools HPI: Patient is a 64-year-old male who presents the ER for abdominal pain associated with dark tarry stools which has been present for the past 24 hours. He notes he was recently admitted this past weekend and had a scope and had 2 gastric ulcers which were nonbleeding. This was performed by Dr. Evans. He believes that the ulcers were from taking ibuprofen. He denies any chest pain shortness of breath vomiting or diarrhea. He notes feeling real weak tired and rundown. No other complaints at this time. No other exacerbating or remitting factors. Used to take Plavix but does not take it anymore. He was recently started on oral iron as well. ROS: See above HPI for pertinent positives & negatives. A total of 10 systems reviewed and were otherwise negative. PAST MEDICAL HISTORY:See Below PAST SURGICAL HISTORY:See Below FAMILY HISTORY:See Below SOCIAL HISTORY:See Below HOME MEDICATIONS:See Below ALLERGIES:See Below VITALS:See Below PHYSICAL EXAMINATION: GENERAL: Sitting up in bed, alert, well appearing, well nourished, no distress, non-toxic EYE EXAM: normal conjunctiva. OROPHARYNX: no exudate, no erythema, lips, buccal mucosa, and tongue normal and mucous membranes are moist NECK: supple, no nuchal rigidity, no adenopathy, non-tender LUNGS: Clear to auscultation. Normal chest wall mechanics HEART: no murmurs, S1 normal and S2 normal ABDOMEN: abdomen soft, non-tender, normo-active bowel sounds, no masses, no rebound or guarding. BACK: Back is symmetrical on inspection and there is no deformity, no midline tenderness, no CVA tenderness. SKIN: no rashes and no bruising UPPER EXTREMITIES: upper extremities are grossly normal. LOWER EXTREMITIES: No pitting edema. NEURO EXAM: Normal sensorium, cranial nerves II-XII grossly intact, normal speech, no gross weakness of arms, no gross weakness of legs. MEDICAL DECISION MAKING: Patient is a 64-year-old male who presents the ER with dark tarry stools associated with abdominal pain. He was seen by Dr. Evans after admission this past weekend and was scoped and found to have 2 gastric ulcers. He was transfused 2 units of PRBCs throughout his stay and was discharged home. He has stopped his Plavix. IV was established blood was obtained and showed a leukocytosis of 21,000. Hemoglobin was 9.9 up from 9.2 after his discharge. INR was unremarkable. BMP with a slightly elevated chloride. BUN was unremarkable as well as bilirubin LFTs troponin. Lipase was unremarkable. Patient was typed and crossed. Chest x-ray without any acute disease. He was given IV Protonix bolus and drip. He was given IV fluids. He was discussed with gastroenterology. Rectal was heme positive. Do question if this is left over blood in combination with the iron making stools dark versus recurrence of his GI bleed. GI did recommend admission n.p.o. after midnight. Discussed with Dr. Carter and patient was admitted. Of note patient did complain of some chest pain when he started receiving the Protonix drip and bolus but notes he gets this anytime he gets an IV and acid. I reevaluated him 5 minutes later and he notes that he has no chest pain and that was not the case. Repeat EKG was unremarkable. His troponin was negative. Triage Nursing notes reviewed. Prior medical records reviewed Vital Signs: reviewed and remarkable for hypertension. Differential diagnosis: Differential diagnosis includes etiologies such as diverticulitis, divert iculosis, AVM, coagulopathy, colitis, inflammatory bowel disease, malignancy, Kamryn-Howard tear, esophagitis, peptic ulcer disease, variceal bleed, gastritis, epistaxis, fissure, hemorrhoids, as well as others were entertained. ER treatment provided: See below Diagnostics interpreted by me: ECG: EK Sinus rhythm rate of 70 Normal axis No PVCs normal QTC EKG #2 Sinus rhythm rate of 73 Normal axis Normal QTC No PVCs Cardiac Monitoring: An order was placed for continuous cardiac monitoring. The monitor shows a rate of 71 with sinus rhythm. Laboratory studies: As stated above and show below. Imaging studies: Portable AP upright 1 view of the chest shows no focal infiltrate or pneumo thorax Consultation(s): Discussed with Dr. Evans who recommends admission and n.p.o. for possible scope tomorrow. Discussed with Dr. Carter for admission ED COURSE: Procedures: none Critical Care: None Past Med/Surg History Social History Preferred Language: Azeri Communication Ability: Effective Sap Bw Bi Developer Required: No Beliefs That Will Affect Care: None Current Living Situation: Family Feels Safe at Home: Yes Smoking Status: Former smoker Tobacco Type: cigarettes ; Second Hand Exposure: No ; Hx Alcohol Use: Yes Alcohol type: beer Hx Substance Use: No Allergies Allergies Allergy/AdvReac Type Severity Reaction Status Date / Time Penicillins Allergy Severe "CIRCULATORY Verified 07/13/19 14:07 SHUTDOWN" Home Meds Home Medications Medication Instructions Recorded Confirmed baclofen 20 mg PO TID 11/13/17 07/13/19 hydrocodone-acetaminophen 1 tab PO Q4H PRN 11/13/17 07/13/19 cholecalciferol (vitamin D3) 5,000 unit PO QAM 02/18/18 07/13/19 [Vitamin D3] lidocaine 1 patch TOPICAL DAILY PRN 02/18/18 07/13/19 multivitamin 1 tab PO QAM 02/18/18 07/13/19 nitroglycerin 1 dose SUBLINGUAL UD PRN 02/18/18 07/13/19 amlodipine 10 mg PO QAM 01/29/19 07/13/19 Florastor 250 mg PO QAM 07/13/19 07/13/19 bupropion HCl 100 mg PO BID 07/13/19 07/13/19 ferrous gluconate 240 mg PO QAM 07/13/19 07/13/19 Previous Rx's Medication Instructions Recorded losartan 100 mg tablet 100 mg PO QAM #90 tab 11/11/18 metoprolol tartrate 100 mg tablet 100 mg PO QAM #90 tab 11/11/18 simvastatin 80 mg tablet 80 mg PO PM #90 tab 11/11/18 pantoprazole 40 mg PO BID #60 tab 07/12/19 Results & Data (ED) Vital Signs Vital Signs - 24 hr 07/13/19 12:45 07/13/19 13:08 07/13/19 13:25 Temperature 36.5 C Temperature Source Oral Pulse Rate 69 71 Pulse Rate [Right Finger] Pulse Rate from SpO2 Sensor 71 Pulse Rhythm Regular Pulse Strength Normal Respiratory Rate 16 26 H Respiratory Effort / Characteristics Non-Labored Respiratory Depth Normal Respiratory Pattern Regular Blood Pressure 122/62 109/58 L Blood Pressure [Right Arm] Blood Pressure Mean 82 59 Blood Pressure Mean [Right Arm] Blood Pressure Position Sitting Pulse Oximetry 99 96 98 Oxygen Delivery Method Room Air Room Air Sepsis Recent Fever Within 48 Hours No Sepsis Action Taken by Nursing No Action Required 07/13/19 13:30 07/13/19 14:08 07/13/19 14:09 Temperature Temperature Source Pulse Rate 69 74 Pulse Rate [Right Finger] 72 Pulse Rate from SpO2 Sensor 69 73 Pulse Rhythm Pulse Strength Respiratory Rate 14 14 21 Respiratory Effort / Characteristics Non-Labored Respiratory Depth Normal Respiratory Pattern Blood Pressure 119/59 L 130/66 Blood Pressure [Right Arm] 130/66 Blood Pressure Mean 73 87 Blood Pressure Mean [Right Arm] 87 Blood Pressure Position Pulse Oximetry 98 99 98 Oxygen Delivery Method Room Air Sepsis Recent Fever Within 48 Hours Sepsis Action Taken by Nursing 07/13/19 15:09 Temperature Temperature Source Pulse Rate 78 Pulse Rate [Right Finger] Pulse Rate from SpO2 Sensor Pulse Rhythm Pulse Strength Respiratory Rate 23 Respiratory Effort / Characteristics Respiratory Depth Respiratory Pattern Blood Pressure 132/66 Blood Pressure [Right Arm] Blood Pressure Mean 74 Blood Pressure Mean [Right Arm] Blood Pressure Position Pulse Oximetry 96 Oxygen Delivery Method Sepsis Recent Fever Within 48 Hours Sepsis Action Taken by Nursing Laboratory Data Result diagrams: 07/13/19 13:13 07/13/19 13:13 Lab Results 07/13/19 07/13/19 07/13/19 Range/Units 13:13 13:13 13:13 WBC 21.07 H (4.8-10.8) K/uL RBC 3.13 L (4.7-6.1) M/uL Hgb 9.9 L (14.0-18.0) g/dL Hct 29.0 L (42-52) % MCV 92.7 (80-100) fL MCH 31.6 (25-34) pg MCHC 34.1 (32-36) g/dL RDW Std Deviation 47.6 H (36.4-46.3) fL RDW Coeff of [place] 14.2 (11.5-14.5) % Plt Count 257 (130-400) K/uL MPV 11.4 H (7.4-10.4) fL Immature Gran % (Auto) 0.3 % Neut % (Auto) 79.6 % Lymph % (Auto) 10.0 % [place] % (Auto) 9.3 % Eos % (Auto) 0.7 % Baso % (Auto) 0.1 % Immature Gran # (Auto) 0.07 H (0.00-0.02) K/uL Neut # (Auto) 16.76 H (1.4-6.5) K/uL Lymph # (Auto) 2.11 (1.2-3.4) K/uL [place] # (Auto) 1.95 H (0.11-0.59) K/uL Eos # (Auto) 0.15 (0-0.5) K/uL Baso # (Auto) 0.03 (0-0.2) K/uL PT 10.4 (9.0-12.0) Seconds INR 1.0 (0.9-1.1) APTT 25.4 (21.0-31.0) Seconds PTT Ratio 0.9 Sodium (136-145) mmol/L Potassium (3.5-5.1) mmol/L Chloride (98-107) mmol/L Carbon Dioxide (21-32) mmol/L Anion Gap (3-11) BUN (7-18) mg/dl Creatinine (0.6-1.4) mg/dl Est Cr Clr Drug Dosing ml/min Est GFR ( Amer) Est GFR (Non-Af Amer) BUN/Creatinine Ratio (10-20) Glucose (70-99) mg/dl Calcium (8.5-10.1) mg/dl Total Bilirubin (0.2-1) mg/dl AST (15-37) U/L ALT (12-78) U/L Alkaline Phosphatase (45-117) U/L Troponin I (0-0.045) ng/ml Total Protein (6.4-8.2) gm/dl Albumin (3.4-5.0) gm/dl Globulin (2.5-4.0) gm/dl Albumin/Globulin Ratio (0.9-2) Lipase (73-393) U/L Blood Type O Positive Antibody Screen NEGATIVE Crossmatch See Detail 07/13/19 07/13/19 Range/Units 13:13 13:13 WBC (4.8-10.8) K/uL RBC (4.7-6.1) M/uL Hgb (14.0-18.0) g/dL Hct (42-52) % MCV (80-100) fL MCH (25-34) pg MCHC (32-36) g/dL RDW Std Deviation (36.4-46.3) fL RDW Coeff of [place] (11.5-14.5) % Plt Count (130-400) K/uL MPV (7.4-10.4) fL Immature Gran % (Auto) % Neut % (Auto) % Lymph % (Auto) % [place] % (Auto) % Eos % (Auto) % Baso % (Auto) % Immature Gran # (Auto) (0.00-0.02) K/uL Neut # (Auto) (1.4-6.5) K/uL Lymph # (Auto) (1.2-3.4) K/uL [place] # (Auto) (0.11-0.59) K/uL Eos # (Auto) (0-0.5) K/uL Baso # (Auto) (0-0.2) K/uL PT (9.0-12.0) Seconds INR (0.9-1.1) APTT (21.0-31.0) Seconds PTT Ratio Sodium 141 (136-145) mmol/L Potassium 4.2 D (3.5-5.1) mmol/L Chloride 112 H (98-107) mmol/L Carbon Dioxide 21 (21-32) mmol/L Anion Gap 8.0 (3-11) BUN 11 D (7-18) mg/dl Creatinine 1.06 (0.6-1.4) mg/dl Est Cr Clr Drug Dosing 64.4 ml/min Est GFR ( Amer) 86.1 Est GFR (Non-Af Amer) 74.3 BUN/Creatinine Ratio 10.4 (10-20) Glucose 84 (70-99) mg/dl Calcium 8.4 L (8.5-10.1) mg/dl Total Bilirubin 0.4 (0.2-1) mg/dl AST 23 (15-37) U/L ALT 24 (12-78) U/L Alkaline Phosphatase 78 (45-117) U/L Troponin I < 0.015 (0-0.045) ng/ml Total Protein 6.5 (6.4-8.2) gm/dl Albumin 3.2 L (3.4-5.0) gm/dl Globulin 3.3 (2.5-4.0) gm/dl Albumin/Globulin Ratio 1.0 (0.9-2) Lipase 105 (73-393) U/L Blood Type Antibody Screen Crossmatch Administered Medications Pantoprazole Sodium 40 mg/ (Dextrose) 100 mls @ 20 mls/hr IV Q5H ALAN Stop: 08/12/19 12:59 Last Admin: 07/13/19 14:28 Dose: 20 mls/hr Documented by: [id number] Potassium Chloride/Dextrose/Sod Cl (D5nss + 20meq Kcl) 20 meq in 1,000 mls @ 100 mls/hr IV .Q10H ALAN Stop: 08/12/19 15:29 Last Admin: 07/13/19 16:52 Dose: 100 mls/hr Documented by: [id number] Discontinued Medications Pantoprazole Sodium (Protonix Bolus/Drip) 0 mls @ 1 mls/hr IV ONE STA Stop: 07/13/19 12:59 Last Admin: 07/13/19 14:07 Dose: 1 mls/hr Documented by: [id number] Pantoprazole Sodium 80 mg/ (Dextrose) 120 mls @ 400 mls/hr IV NOW ONE Stop: 07/13/19 13:15 Last Infusion: 07/13/19 14:28 Dose: 0 mls/hr Documented by: [id number] Admin: 07/13/19 14:07 Dose: 400 mls/hr Documented by: [id number] Discharge Plan Visit Data *Final* Discharge Date/Time: 07/13/19 16:41 Chief Complaint: Abdominal Pain Stated Complaint: STOMACH ULCER ED Provider: Imer Scott Discharge Problem: Acute GI bleeding, Gastric ulcer, Abdominal pain, Leukocytosis Patient Disposition: Admitted As Inpatient Discharge Instructions Interventions: ED Discharge Assessment Last Done: 07/13/19 16:41 Discharge Problem: Gastric ulcer Qualifiers: Gastric ulcer chronicity: acute Gastric ulcer complication status: unspecified whether hemorrhage or perforation present Qualified Code(s): K25.3 - Acute gastric ulcer without hemorrhage or perforation Abdominal pain Qualifiers: Abdominal location: unspecified location Qualified Code(s): R10.9 - Unspecified abdominal pain Leukocytosis Qualifiers: Leukocytosis type: other Qualified Code(s): D72.828 - Other elevated white blood cell count
[2019-07-13] MEDS ORDERED: SODIUM CHLORIDE 0.9% 250 ML IV PRN ×2 (13:08→16:46)
--- NOTE | 2019-07-13 13:16 | XRay Report ---
XR chest 1V portable CLINICAL HISTORY: weak COMPARISON STUDY: Chest radiograph November 13, 2017. FINDINGS: Lung volumes are at the lower limits of normal. Lungs are clear. There is no pneumothorax o r pleural effusion. Cardiac size is normal. Mediastinal contours are normal. There is no evidence for pulmonary edema. Incidental note is made of multiple old left rib fractures. IMPRESSION: No acute cardiopulmonary findings. ACT 112: Negative or not required by law. Electronically signed by: Otilio Marvin M.D. 07/13/2019 1:15 PM
[2019-07-13 13:47] LABS: Hemoglobin 9.9 g/dL (14.0-18.0); Mean Corpuscular Hemoglobin 31.6 pg (25-34); Mean Corpuscular Hgb Conc 34.1 g/dL (32-36); Mean Corpuscular Volume 92.7 fL (80-100); Mean Platelet Volume 11.4 fL (7.4-10.4); Platelet Count 257 K/uL (130-400); RDW Coefficient of Variation 14.2 % (11.5-14.5); RDW Standard Deviation 47.6 fL (36.4-46.3); Red Blood Count 3.13 M/uL (4.7-6.1); White Blood Count 21.07 K/uL (4.8-10.8)
[2019-07-13 13:53] LABS: Partial Thromboplastin Ratio 0.9; Partial Thromboplastin Time 25.4 Seconds (21.0-31.0); Prothrombin Time 10.4 Seconds (9.0-12.0)
[2019-07-13 14:06] LABS: Basophils # (auto) 0.03 K/uL (0-0.2); Basophils % (auto) 0.1 %; Eosinophils # (auto) 0.15 K/uL (0-0.5); Eosinophils % (auto) 0.7 %; Immature Granulocytes # (auto) 0.07 K/uL (0.00-0.02); Immature Granulocytes % (auto) 0.3 %; Lymphocytes # (auto) 2.11 K/uL (1.2-3.4); Monocytes # (auto) 1.95 K/uL (0.11-0.59); Monocytes % (auto) 9.3 %; Neutrophils # (auto) 16.76 K/uL (1.4-6.5); Neutrophils % (auto) 79.6 %
[2019-07-13 14:16] LABS: Alanine Aminotransferase 24 U/L (12-78); Albumin Level 3.2 gm/dl (3.4-5.0); BUN Creatinine Ratio 10.4 (10-20); Bilirubin,Total 0.4 mg/dl (0.2-1); Blood Urea Nitrogen 11 mg/dl (7-18); Calcium 8.4 mg/dl (8.5-10.1); Carbon Dioxide 21 mmol/L (21-32); Chloride 112 mmol/L (98-107); Creatinine Clr Calc Pharmacy 64.4 ml/min; Est GFR (African American) 86.1; Est GFR (Non-African American) 74.3; Globulin 3.3 gm/dl (2.5-4.0); Glucose 84 mg/dl (70-99); Potassium 4.2 mmol/L (3.5-5.1); Sodium 141 mmol/L (136-145); Total Protein 6.5 gm/dl (6.4-8.2)
[2019-07-13] MEDS: PANTOprazole 40 MG in DEXTROSE 5% 100 ML IV SCH ×3 (14:28→22:48)
[2019-07-13 14:38] LABS: Alkaline Phosphatase 78 U/L (45-117); Aspartate Aminotransferase 23 U/L (15-37); Troponin I < 0.015 ng/ml (0-0.045)
--- NOTE | 2019-07-13 14:53 | History & Physical Report ---
Date of Service July 13, 2019 Assessment & Plan (1) Leukocytosis: On 07/11/[address] abd/pelvis showing pancolitis. During that visit etiology was uncertain. He apparently had had no lower abd pain or diarrhea. Patient does have h/o recurrent c. diff infection by report. Patient had copious liquid stool this am (melanotic). He now has leukocytosis and lower abdominal pain. Concerning for recurrent c.diff colitis. Will send c. diff now and treat appropriately. Other possibility is that he has ischemic colitis from recent hypotension in the setting of his GI bleed. NPO. IV fluids. C diff testing as above. Obtain abdominal x-rays. Low threshold for repeat CT abd/pelvis. Dr Evans to see in consult tomorrow. Check lipase to be complete. LFTs noted to be normal. (2) Acute GI bleeding: Recent upper GI bleed 2nd to gastric ulcers. Pathology from his EGD is pending. He presents again with recurrent melena but interestingly his H/H are actually higher than yesterday. [id number] will keep NPO, IV fluids, PPI drip, and I have asked Dr Evans to see in consult. Check H/H's q6h. Repeat EGD in am? (3) Acute blood loss anemia: 2nd to GI bleeding. see above. (4) Gastric ulcer: as seen on EGD 07/10. clean-based ulcers x 2. thought to be NSAID related. biopsies pending for h. pylori. (5) Chest pain: Symptoms this am were exertional and in the setting of his severe melena stools. Symptoms were similar to past episodes of angina. EKG and troponin along with cxr are wnl. In light of symptoms will have low threshold for PRBC infusion. Obtain serial troponins. Telemetry. Unfortunately need to hold asa/plavix in setting of GI bleeding. (6) CAD (coronary artery disease): see discussion above in "chest pain" (7) Hyperlipidemia: in light of significant CAD would continue statin agent. (8) PVD (peripheral vascular disease): prior lower extremity work by Dr Granger. resume asa/plavix when safe to do so from bleeding standpoint. cont statin. no leg symptoms at this time. (9) Pancolitis: seen on CT dated 07/10. infectious? (c diff) ischemic (was hypotensive upon presentation on 07/10). appears to be having symptoms from this - lower abd pain, cramps, liquid stools, leukocytosis. see discussion above. c diff testing. low threshold for repeat CT. abd x-ray in meantime. (10) Hypertension: hold amlodipine and losartan due to potential for hypotension in the setting of recurrent GI bleeding continue beta anuja given his CAD and chest pain episode this am (11) DVT prophylaxis: SCDs chemical means contraindicated in light of melena/GI bleeding IVF - D5NS with KCL at 100cc/hr repeat labs am History of Present Illness Chief Complaint: melena stools, abdominal pain Primary Care Provider: Lloyd Rosenthal MD 64yo male with h/o CAD, previous tobacco use, and chronic pain syndrome who presents as readmission due to melena stools and abdominal pain. He was hospitalized on 07/10 and 07/11 for upper GI bleeding with acute blood loss anemia 2nd to gastric ulcers x 2. These were thought 2nd to motrin use in setting of chronic asa and plavix for his CAD. Was discharged home yesterday in stable condition on PPI twice daily. Last pm he admitted to eating [employer] and slaw. Did not take his asa or plavix. This am he then developed 6-7 episodes of black, tarry, liquid stool. Developed crampy abdominal pain in the lower abdomen as well this morning. During my admission assessment that was his largest complaint. The patient also reported an episode of left-sided chest pain with taking the recycling outside this morning. Resolved after 3-4 minutes. He did not take any SL nitro or other medications for such. The pain was similar to past episodes of angina. Denies fevers or chills. Denies dysuria. Allergies Allergy/AdvReac Type Severity Reaction Status Date / Time Penicillins Allergy Severe "CIRCULATORY Verified 07/13/19 14:07 SHUTDOWN" Home Medications Home Medications Medication Instructions Recorded Confirmed Type baclofen 20 mg PO TID 11/13/17 07/13/19 History hydrocodone-acetaminophen 1 tab PO Q4H PRN 11/13/17 07/13/19 History cholecalciferol (vitamin D3) 5,000 unit PO QAM 02/18/18 07/13/19 History [Vitamin D3] lidocaine 1 patch TOPICAL DAILY PRN 02/18/18 07/13/19 History multivitamin 1 tab PO QAM 02/18/18 07/13/19 History nitroglycerin 1 dose SUBLINGUAL UD PRN 02/18/18 07/13/19 History losartan 100 mg tablet 100 mg PO QAM #90 tab 11/11/18 07/13/19 Rx metoprolol tartrate 100 mg tablet 100 mg PO QAM #90 tab 11/11/18 07/13/19 Rx simvastatin 80 mg tablet 80 mg PO PM #90 tab 11/11/18 07/13/19 Rx amlodipine 10 mg PO QAM 01/29/19 07/13/19 History pantoprazole 40 mg PO BID #60 tab 07/12/19 07/13/19 Rx Florastor 250 mg PO QAM 07/13/19 07/13/19 History bupropion HCl 100 mg PO BID 07/13/19 07/13/19 History ferrous gluconate 240 mg PO QAM 07/13/19 07/13/19 History Past Med/Surg History Medical History (Updated 07/13/19 @ 17:52 by Abner Carter) AMS (altered mental status) (Inactive) Anxiety BPH (benign prostatic hyperplasia) BPH with obstruction/lower urinary tract symptoms (Inactive) CAD (coronary artery disease) Chronic back pain Dupuytren's contracture of hand (Resolved) Gastric ulcer (Acute) EGD - Dr Evans - 07/11/2019 GERD (gastroesophageal reflux disease) Hx of Clostridium difficile infection Hyperlipidemia Hypertension Left ventricular hypertrophy (Inactive) Methicillin susceptible Staphylococcus aureus infection (Inactive) On anticoagulant therapy plavix d/t stents Peripheral neuropathy (Inactive) Sigmoid diverticulitis Vitamin D deficiency (Inactive) Surgical History History of cardiac cath x3 @ [facility] follow with Dr. Zamora History of hand surgery x6 (4 on right, 2 on left) d/t Dupuytren's History of heart artery stent 2009 x2, 2015 x1, 2017 x1--@ [facility] History of intravascular stent placement RIGHT LEG History of procedure for peripheral vascular disease 2012 Dr. 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 Other Information That Helps Us Care for You: No Feels Safe at Home: Yes Safety Concerns: Feels Safe At This Time Smoking Status: Former smoker Tobacco Type: cigarettes ; packs per day: 1 ; Years Smoked: 30 ; Second Hand Exposure: No ; Hx Alcohol Use: Yes Alcohol type: beer Alcohol Intake Frequency: Weekly Alcohol Intake Frequency Comment: 6-pack every 1-2 weeks Hx Substance Use: No Review of Systems Constitutional: + fatigue and + anorexia (today only); no fever and no chills Eyes: no worsening vision Ear, Nose, Mouth, Throat: no nasal congestion and no sore throat Respiratory: + cough; no dyspnea Cardiovascular: as per Subjective / HPI and + chest pain; no orthopnea, no paroxysmal nocturnal dyspnea and no edema Gastrointestinal: + abdominal pain, + bloating, + nausea, + diarrhea/loose stools and + melena; no vomiting Genitourinary: no dysuria Musculoskeletal: + back pain (chronic) and + joint pain (right hip - chronic ) Integumentary: no rash Neurologic: no localized weakness Psychiatric: no anxiety Endocrine: denies diabetes Hematologic / Lymphatic: no easy bleeding and no easy bruising Physical Exam Constitutional: well developed and well nourished; no acute distress and no altered mental status Eyes: + anicteric sclerae and PERRL ENMT: external ear and nose normal, oropharynx normal Neck: trachea midline, no thyromegaly Respiratory: normal respiratory effort, lungs clear to auscultation Cardiovascular: Rate/Rhythm: regular rate and regular rhythm Heart Sounds: normal S1 and normal S2; no murmur Vessels: posterior tibial pulses present and dorsalis pedis pulses present; no JVD Extremities: no edema Gastrointestinal (Abdomen): Inspection/Auscultation: normal bowel sounds; abdomen not distended Percussion/Palpation: + abdomen tender (b/l lower quadrants ) and abdomen soft; no guarding and no hepatosplenomegaly Musculoskeletal: clubbing of fingernails Skin: + pallor Neurologic: deep tendon reflexes 2+ bilaterally and moves all extremities; no focal motor deficits Psychiatric: A+Ox3, euthymic affect Lymphatic: no cervical lymphadenopathy Results & Data Results & Data ([facility]) Vital Signs (Past 12 Hours) Vital Signs Temp Pulse Pulse Resp BP BP Pulse Ox 07/13/19 14:08 72 14 130/66 99 07/13/19 12:45 36.5 C 69 16 122/62 99 Laboratory Results Laboratory Results - last 24 hr 07/13/19 07/13/19 07/13/19 13:13 13:13 13:13 WBC 21.07 H RBC 3.13 L Hgb 9.9 L Hct 29.0 L MCV 92.7 MCH 31.6 MCHC 34.1 RDW Std Deviation 47.6 H RDW Coeff of [place] 14.2 Plt Count 257 MPV 11.4 H Immature Gran % (Auto) 0.3 Neut % (Auto) 79.6 Lymph % (Auto) 10.0 Towns % (Auto) 9.3 Eos % (Auto) 0.7 Baso % (Auto) 0.1 Immature Gran # (Auto) 0.07 H Neut # (Auto) 16.76 H Lymph # (Auto) 2.11 Towns # (Auto) 1.95 H Eos # (Auto) 0.15 Baso # (Auto) 0.03 PT 10.4 INR 1.0 APTT 25.4 PTT Ratio 0.9 Sodium Potassium Chloride Carbon Dioxide Anion Gap BUN Creatinine Est Cr Clr Drug Dosing Est GFR ( Amer) Est GFR (Non-Af Amer) BUN/Creatinine Ratio Glucose Calcium Total Bilirubin AST ALT Alkaline Phosphatase Troponin I Total Protein Albumin Globulin Albumin/Globulin Ratio Lipase Stl C. diff Tox B Gene Blood Type O Positive Antibody Screen NEGATIVE Crossmatch See Detail 07/13/19 07/13/19 07/13/19 13:13 13:13 Unknown WBC RBC Hgb Hct MCV MCH MCHC RDW Std Deviation RDW Coeff of [place] Plt Count MPV Immature Gran % (Auto) Neut % (Auto) Lymph % (Auto) Towns % (Auto) Eos % (Auto) Baso % (Auto) Immature Gran # (Auto) Neut # (Auto) Lymph # (Auto) Towns # (Auto) Eos # (Auto) Baso # (Auto) PT INR APTT PTT Ratio Sodium 141 Potassium 4.2 D Chloride 112 H Carbon Dioxide 21 Anion Gap 8.0 BUN 11 D Creatinine 1.06 Est Cr Clr Drug Dosing 64.4 Est GFR ( Amer) 86.1 Est GFR (Non-Af Amer) 74.3 BUN/Creatinine Ratio 10.4 Glucose 84 Calcium 8.4 L Total Bilirubin 0.4 AST 23 ALT 24 Alkaline Phosphatase 78 Troponin I < 0.015 Total Protein 6.5 Albumin 3.2 L Globulin 3.3 Albumin/Globulin Ratio 1.0 Lipase 105 Stl C. diff Tox B Gene Pending Blood Type Antibody Screen Crossmatch Diagnostic Findings cxr - no acute findings EKG - NSR, no ST changes Code Status & VTE Plan Code Status full VTE Prophylaxis Plan VTE Prophylaxis will be ordered: Yes PG Care Time/CCT Total # of Minutes Spent Total Time Spent with Patient: Total time spent is greater than 50% in co ordination of care (as documented) at patient's floor/unit and/or counseling patient: Coding Level of Care Code 59404 Initial Inpt Care Lvl 3 Diagnoses Leukocytosis D72.829 Leukocytosis type: unspecified Acute GI bleeding K92.2 Acute blood loss anemia D62 Gastric ulcer K25.3 Gastric ulcer chronicity: acute Gastric ulcer complication status: unspecified whether hemorrhage or perforation present Chest pain R07.9 Chest pain type: unspecified CAD (coronary artery disease) I25.119 Coronary Disease-Associated Artery/Lesion type: unspecified vessel or lesion type [place] vs. transplanted heart: [place] heart Associated angina: with unspecified angina Hyperlipidemia E78.2 Hyperlipidemia type: mixed hyperlipidemia PVD (peripheral vascular disease) I73.9 Pancolitis K51.00 Hypertension I10 Hypertension type: essential hypertension DVT prophylaxis Z29.9 (1) CAD (coronary artery disease) Coronary Disease-Associated Artery/Lesion type: unspecified vessel or lesion type [place] vs. transplanted heart: [place] heart Associated angina: with unspecified angina Qualified Code(s): I25.119 - Atherosclerotic heart disease of [place] coronary artery with unspecified angina pectoris (2) Hyperlipidemia Hyperlipidemia type: mixed hyperlipidemia Qualified Code(s): E78.2 - Mixed hyperlipidemia (3) Leukocytosis Leukocytosis type: unspecified Qualified Code(s): D72.829 - Elevated white blood cell count, unspecified (4) Gastric ulcer Gastric ulcer chronicity: acute Gastric ulcer complication status: unspecified whether hemorrhage or perforation present Qualified Code(s): K25.3 - Acute gastric ulcer without hemorrhage or perforation (5) Chest pain Chest pain type: unspecified Qualified Code(s): R07.9 - Chest pain, unspecified (6) Hypertension Hypertension type: essential hypertension Qualified Code(s): I10 - Essential (primary) hypertension
--- NOTE | 2019-07-13 16:23 | Electrocardiogram Report ---
Test Reason : Blood Pressure : / mmHG Vent. Rate : 070 BPM Atrial Rate : 070 BPM P-R Int : 142 ms QRS Dur : 088 ms QT Int : 420 ms P-R-T Axes : 037 008 023 degrees QTc Int : 453 ms Normal sinus rhythm Normal ECG When compared with ECG of 11-JUL-2019 06:04, No significant change was found Confirmed by Adeel Hall ([id number]) on 07/13/2019 4:22:31 PM Referred By: Stephen Case Confirmed By:Adeel Hall
--- NOTE | 2019-07-13 16:27 | Electrocardiogram Report ---
Test Reason : Blood Pressure : / mmHG Vent. Rate : 073 BPM Atrial Rate : 073 BPM P-R Int : 150 ms QRS Dur : 086 ms QT Int : 402 ms P-R-T Axes : 052 009 027 degrees QTc Int : 442 ms Normal sinus rhythm Normal ECG When compared with ECG of 13-JUL-2019 13:37, No significant change was found Confirmed by Adeel Hall ([id number]) on 07/13/2019 4:26:48 PM Referred By: Stephen Case Confirmed By:Adeel Hall
[2019-07-13] MEDS ORDERED: NITROGLYCERIN SL 0.4 MG/TAB TAB SL PRN (16:46)
[2019-07-13] MEDS ORDERED: ONDANSETRON INJ 2 MG/ML 2 ML VIAL IV PRN (16:46)
[2019-07-13] MEDS ORDERED: LIDOCAINE 5% 1 PATCH TD PRN (16:46)
[2019-07-13] MEDS: D5NSS + 20MEQ KCL 20 MEQ/1,000 ML BAG IV SCH (16:52)
--- NOTE | 2019-07-13 18:00 | XRay Report ---
XR abdomen min 2V CLINICAL HISTORY: abd pain pain COMPARISON STUDY: CT 07/11/2019 FINDINGS: The soft tissues, psoas shadows, renal outlines and intestinal gas pattern appear normal. T here is no evidence for bowel obstruction. There is no evidence for free intraperitoneal air. No abno rmal abdominal calcifications are seen. Old healed fracture left pubic ring IMPRESSION: No acute process. ACT 112: Negative or not required by law. The above report was generated using voice recognition software. It may contain grammatical, syntax or spelling errors. Electronically signed by: Jamar Moreno M.D. 07/13/2019 5:59 PM
[2019-07-13] MEDS: MoRPHine SULFATE 2 MG/ML CARP IV PRN (18:22)
[2019-07-13 18:34] LABS: Hematocrit (blood only) 28.1 % (42-52); Hemoglobin 9.5 g/dL (14.0-18.0)
[2019-07-13 19:05] LABS: Cdiff Antigen Positive
[2019-07-13 19:07] LABS: Cdiff Toxin A+B Positive Cdiff Toxin (Negative)
[2019-07-13] MEDS: BACLOFEN 10 MG TAB PO SCH ×2 (20:05→20:26)
[2019-07-13] MEDS: HYDROCODONE/ACETAMOPHEN 5/325MG TAB PO PRN (20:25)
[2019-07-13] MEDS: BuPROPion SR 100 MG TABCR PO SCH (20:26)
[2019-07-13] MEDS: SIMVASTATIN 80 MG TAB PO SCH (20:27)
[2019-07-13] MEDS: RASPBERRY SYRUP 5 ML UDP PO SCH (20:27)
[2019-07-13] MEDS: VANCOMYCIN HCL 125 MG/2.5ML SOLN PO SCH (20:27)
[2019-07-13 23:10] LABS: Hematocrit (blood only) 25.9 % (42-52); Hemoglobin 8.9 g/dL (14.0-18.0)
[2019-07-14] MEDS: D5NSS + 20MEQ KCL 20 MEQ/1,000 ML BAG IV SCH ×3 (00:23→22:49)
[2019-07-14] MEDS: MoRPHine SULFATE 2 MG/ML CARP IV PRN ×2 (00:23→21:13)
[2019-07-14] MEDS: PANTOprazole 40 MG in DEXTROSE 5% 100 ML IV SCH ×4 (03:01→19:42)
[2019-07-14 07:11] LABS: Basophils # (auto) 0.02 K/uL (0-0.2); Basophils % (auto) 0.2 %; Eosinophils # (auto) 0.16 K/uL (0-0.5); Eosinophils % (auto) 1.7 %; Hematocrit (blood only) 24.8 % (42-52); Hemoglobin 8.5 g/dL (14.0-18.0); Immature Granulocytes # (auto) 0.02 K/uL (0.00-0.02); Immature Granulocytes % (auto) 0.2 %; Lymphocytes # (auto) 1.54 K/uL (1.2-3.4); Lymphocytes % (auto) 16.4 %; Mean Corpuscular Hemoglobin 32.3 pg (25-34); Mean Corpuscular Hgb Conc 34.3 g/dL (32-36); Mean Corpuscular Volume 94.3 fL (80-100); Mean Platelet Volume 10.2 fL (7.4-10.4); Monocytes # (auto) 1.77 K/uL (0.11-0.59); Monocytes % (auto) 18.8 %; Neutrophils # (auto) 5.89 K/uL (1.4-6.5); Neutrophils % (auto) 62.7 %; Platelet Count 211 K/uL (130-400); RDW Coefficient of Variation 14.2 % (11.5-14.5); RDW Standard Deviation 48.3 fL (36.4-46.3); Red Blood Count 2.63 M/uL (4.7-6.1)
[2019-07-14 07:22] LABS: BUN Creatinine Ratio 9.1 (10-20); Calcium 7.6 mg/dl (8.5-10.1); Creatinine Clr Calc Pharmacy 94.8 ml/min; Est GFR (African American) 115.1; Est GFR (Non-African American) 99.3; Potassium 3.5 mmol/L (3.5-5.1)
--- NOTE | 2019-07-14 09:06 | Gastrointestinal Consultation ---
Date of Consultation July 14, 2019 Assessment & Plan (1) Acute GI bleeding: (2) Acute blood loss anemia: (3) Pancolitis: (4) Gastric ulcer: Recommend continuing Protonix gtt at 8 mg/hour Repeat EGD now secondary to recent gastric ulcer with recurrent melena. Clean based gastric ulcers, have <5% risk of rebleeding. His bleeding could simply be due to C-diff colitis. Further recommendations to follow. History of Present Illness Reason for Consultation: Upper GI bleeding Attending Physician: Julius Sargent History of Present Illness Deshawn Whitaker is a 64 yo CM who was admitted on 07/10/2019 with acute blood loss anemia. He was noted to have pancolitis on CT imaging, however, he did not receive PO contrast. He was admitted, his Aspirin, Plavix and Ibuprofen were held. He was started on a Protonix gtt, and underwent an EGD on 07/11/2019 and was noted to have severe gastritis and a clean based ulcer in the gastric antrum. Biopsies were obtained to evaluate for H. pylori and are pending. Following his EGD, he was switched to twice daily Pantoprazole by mouth, his diet was advanced, he had no further bleeding, and he was discharged to home on 07/12/2019. He returned to the ER on 07/13/2019 with complaints of multiple episodes of melena, as well as lower abdominal pain. He was admitted, kept NPO, and started on a protonix gtt. At the time that I saw the patient this morning, he was continuing to have melenic stools. He states he is having up to 6 BM's per day. He did just have a confirmatory test for C-diff return this AM and is on PO Vancomycin. He complains of bilateral LQ abdominal pain, described as an ache 4/10 in intensity, non-radiating without alleviating or exacerbating factors. He has no further complaints. Allergies Allergy/AdvReac Type Severity Reaction Status Date / Time Penicillins Allergy Severe "CIRCULATORY Verified 07/13/19 14:07 SHUTDOWN" Home Medications Home Medications Medication Instructions Recorded Confirmed Type baclofen 20 mg PO TID 11/13/17 07/13/19 History hydrocodone-acetaminophen 1 tab PO Q4H PRN 11/13/17 07/13/19 History cholecalciferol (vitamin D3) 5,000 unit PO QAM 02/18/18 07/13/19 History [Vitamin D3] lidocaine 1 patch TOPICAL DAILY PRN 02/18/18 07/13/19 History multivitamin 1 tab PO QAM 02/18/18 07/13/19 History nitroglycerin 1 dose SUBLINGUAL UD PRN 02/18/18 07/13/19 History losartan 100 mg tablet 100 mg PO QAM #90 tab 11/11/18 07/13/19 Rx metoprolol tartrate 100 mg tablet 100 mg PO QAM #90 tab 11/11/18 07/13/19 Rx simvastatin 80 mg tablet 80 mg PO PM #90 tab 11/11/18 07/13/19 Rx amlodipine 10 mg PO QAM 01/29/19 07/13/19 History pantoprazole 40 mg PO BID #60 tab 07/12/19 07/13/19 Rx Florastor 250 mg PO QAM 07/13/19 07/13/19 History bupropion HCl 100 mg PO BID 07/13/19 07/13/19 History ferrous gluconate 240 mg PO QAM 07/13/19 07/13/19 History Patient History Medical History AMS (altered mental status) (Inactive) Anxiety BPH (benign prostatic hyperplasia) BPH with obstruction/lower urinary tract symptoms (Inactive) CAD (coronary artery disease) Chronic back pain Dupuytren's contracture of hand (Resolved) Gastric ulcer (Acute) EGD - Dr Evans - 07/11/2019 GERD (gastroesophageal reflux disease) Hx of Clostridium difficile infection Hyperlipidemia Hypertension Left ventricular hypertrophy (Inactive) Methicillin susceptible Staphylococcus aureus infection (Inactive) On anticoagulant therapy plavix d/t stents Peripheral neuropathy (Inactive) Sigmoid diverticulitis Vitamin D deficiency (Inactive) Surgical History History of cardiac cath x3 @ [facility] follow with Dr. Zamora History of hand surgery x6 (4 on right, 2 on left) d/t Dupuytren's History of heart artery stent 2009 x2, 2015 x1, 2017 x1--@ [facility] History of intravascular stent placement RIGHT LEG History of procedure for peripheral vascular disease 2012 Dr. 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 Other Information That Helps Us Care for You: No Feels Safe at Home: Yes Safety Concerns: Feels Safe At This Time Smoking Status: Former smoker Tobacco Type: cigarettes ; packs per day: 1 ; Years Smoked: 30 ; Second Hand Exposure: No ; Hx Alcohol Use: Yes Alcohol type: beer Alcohol Intake Frequency: Weekly Alcohol Intake Frequency Comment: 6-pack every 1-2 weeks Hx Substance Use: No Review of Systems Review of Systems: All systems reviewed & are unremarkable except as noted in HPI & below Physical Exam Constitutional: WD/WN, vitals as above Eyes: PERRL, conjunctivae normal, anicteric sclerae ENMT: external ear and nose normal, oropharynx normal Neck: trachea midline, no thyromegaly Respiratory: normal respiratory effort, lungs clear to auscultation Cardiovascular: RRR, no murmur, no edema Gastrointestinal (Abdomen): normal bowel sounds, soft, nontender, no hepatosplenomegaly Skin: no rashes, warm and dry Psychiatric: A+Ox3, euthymic affect Results & Data ([facility]) Vital Signs (Past 12 Hours) Vital Signs Temp Pulse Resp BP Pulse Ox 07/14/19 07:41 36.3 C L 70 132/62 96 07/14/19 04:23 37.3 C 76 18 114/68 99 07/14/19 00:24 37.4 C 71 17 127/64 99 PG Care Time/CCT Total # of Minutes Spent Total Time Spent with Patient: Total time spent is greater than 50% in coordination of care (as documented) at patient's floor/unit and/or counseling patient: Coding Level of Care Code 09359 Inpt Consult Level 3 Diagnoses Acute GI bleeding K92.2 Acute blood loss anemia D62 Pancolitis K51.00 Gastric ulcer K25.3 Gastric ulcer chronicity: acute Gastric ulcer complication status: unspecified whether hemorrhage or perforation present Time Spent (min) 25 (1) Gastric ulcer Gastric ulcer chronicity: acute Gastric ulcer complication status: unspecified whether hemorrhage or perforation present Qualified Code(s): K25.3 - Acute gastric ulcer without hemorrhage or perforation
[2019-07-14] MEDS: BACLOFEN 10 MG TAB PO SCH ×3 (09:26→21:48)
[2019-07-14] MEDS: SACCHAROMYCES BOULARDII 250 MG CAP PO SCH (09:27)
[2019-07-14] MEDS: METOPROLOL TARTRATE 100 MG TAB PO SCH (09:27)
[2019-07-14] MEDS: BuPROPion SR 100 MG TABCR PO SCH ×2 (09:27→21:04)
[2019-07-14] MEDS: VANCOMYCIN HCL 125 MG/2.5ML SOLN PO SCH ×4 (09:27→21:13)
[2019-07-14] MEDS: RASPBERRY SYRUP 5 ML UDP PO SCH ×4 (09:27→21:13)
[2019-07-14] MEDS: HYDROCODONE/ACETAMOPHEN 5/325MG TAB PO PRN ×2 (09:30→17:26)
[2019-07-14 10:01] LABS: Appearance Urine Clear (Clear); Bilirubin Urine Negative (Negative); Blood Urine Negative (Negative); Color Urine Yellow; Glucose Urine UA Negative (Negative); Ketones Urine Negative (Negative); Leukocyte Esterase Urine Negative (Negative); Nitrite Urine Negative (Negative); Protein Urine Negative (Negative); Specific Gravity Urine 1.008 (1.000-1.030); Urobilinogen Urine Negative (Negative)
--- NOTE | 2019-07-14 11:01 | Anesthesiology Consultation ---
Date of Service July 14, 2019 Assessment & Plan Chart Review Chart Review: Acceptable Risk for Surgery Consults Requested none ASA ASA4 Proposed Anesthesia Anesthesia Type: MAC Risk / Benefits Reviewed With: PT / POA / Parent / Guardian, Accepts Plan and Informed Consent Obtained Additional Comments: pt accepts risks of [place]/CV[place] consent signed History Surgery Operation Date: 07/14/19 12:30 Proposed Procedures p Esophagogastroduodenoscopy Dr Evans - Stephen Zapata Case, DO Height/Weight Height: 5 ft 6 in Weight: 69.6 kg Allergies Allergy/AdvReac Type Severity Reaction Status Date / Time Penicillins Allergy Severe "CIRCULATORY Verified 07/13/19 14:07 SHUTDOWN" Medications Home Medications Medication Instructions Recorded Confirmed Last Taken baclofen 20 mg PO TID 11/13/17 07/13/19 07/13/19 hydrocodone-acetaminophen 1 tab PO Q4H PRN 11/13/17 07/13/19 07/13/19 07:00 cholecalciferol (vitamin D3) 5,000 unit PO QAM 02/18/18 07/13/19 07/13/19 [Vitamin D3] lidocaine 1 patch TOPICAL DAILY PRN 02/18/18 07/13/19 07/10/19 multivitamin 1 tab PO QAM 02/18/18 07/13/19 07/13/19 nitroglycerin 1 dose SUBLINGUAL UD PRN 02/18/18 07/13/19 Unknown losartan 100 mg tablet 100 mg PO QAM #90 tab 11/11/18 07/13/19 07/13/19 metoprolol tartrate 100 mg tablet 100 mg PO QAM #90 tab 11/11/18 07/13/19 07/13/19 simvastatin 80 mg tablet 80 mg PO PM #90 tab 11/11/18 07/13/19 07/12/19 amlodipine 10 mg PO QAM 01/29/19 07/13/19 07/13/19 pantoprazole 40 mg PO BID #60 tab 07/12/19 07/13/19 07/13/19 Florastor 250 mg PO QAM 07/13/19 07/13/19 07/13/19 bupropion HCl 100 mg PO BID 07/13/19 07/13/19 07/13/19 ferrous gluconate 240 mg PO QAM 07/13/19 07/13/19 07/13/19 Active Medications Generic Name Dose Route Start Last Admin Trade Name Freq PRN Reason Stop Dose Admin Hydrocodone Bitart/Acetaminophen 1 tab 07/13/19 18:12 07/14/19 09:30 Meno 5/325 PO 07/27/19 18:11 1 tab Q6H PRN Administration Pain Baclofen 20 mg 07/13/19 21:00 07/14/19 09:26 Lioresal PO 08/12/19 20:59 20 mg TID ALAN Administration Bupropion HCl 100 mg 07/13/19 21:00 07/14/19 09:27 Wellbutrin-Sr PO 08/12/19 20:59 100 mg BID ALAN Administration Pantoprazole Sodium 40 mg/ 100 mls @ 20 mls/hr 07/13/19 13:00 07/14/19 08:31 Dextrose IV 08/12/19 12:59 20 mls/hr Q5H ALAN Administration Potassium Chloride/Dextrose/Sod Cl 20 meq in 1,000 mls @ 100 mls/hr 07/13/19 15:30 07/14/19 00:23 D5nss + 20meq Kcl IV 08/12/19 15:29 100 mls/hr .Q10H ALAN Administration Metoprolol Tartrate 100 mg 07/14/19 09:00 07/14/19 09:27 Lopressor PO 08/13/19 08:59 100 mg QAM ALAN Administration Miscellaneous 1 ea 07/13/19 21:00 07/13/19 20:06 Remove Lidoderm Patch N/A 08/12/19 20:59 Not Given DAILY@2100 ALAN Morphine Sulfate 2 mg 07/13/19 16:46 07/14/19 00:23 Morphine Sulfate IV 07/27/19 16:45 2 mg Q3H PRN Administration Pain Raspberry 5 ml 07/13/19 20:00 07/14/19 09:27 Raspberry PO 07/27/19 19:59 5 ml QID ALAN Administration Saccharomyces Boulardii 250 mg 07/14/19 09:00 07/14/19 09:27 Florastor PO 08/13/19 08:59 250 mg QAM ALAN Administration Simvastatin 80 mg 07/13/19 21:00 07/13/19 20:27 Zocor PO 08/12/19 20:59 80 mg PM ALAN Administration Vancomycin HCl 125 mg 07/13/19 20:00 07/14/19 09:27 Vancomycin Hcl PO 07/23/19 19:59 125 mg QID ALAN Administration NPO Date Last Intake of Fluids: 07/14/19 Time Last Intake of Fluids: 05:00 Date Last Intake of Solids: 07/13/19 Time Last Intake of Solids: 17:00 Past Medical History Medical History AMS (altered mental status) (Inactive) Anxiety BPH (benign prostatic hyperplasia) BPH with obstruction/lower urinary tract symptoms (Inactive) CAD (coronary artery disease) Chronic back pain Dupuytren's contracture of hand (Resolved) Gastric ulcer (Acute) EGD - Dr Evans - 07/11/2019 GERD (gastroesophageal reflux disease) Hx of Clostridium difficile infection Hyperlipidemia Hypertension Left ventricular hypertrophy (Inactive) Methicillin susceptible Staphylococcus aureus infection (Inactive) On anticoagulant therapy plavix d/t stents Peripheral neuropathy (Inactive) Sigmoid diverticulitis Vitamin D deficiency (Inactive) no recent CP/SOB/CHF active c diff Exercise / Class Metabolic Activity II 4-5 Yardwork/Stairs/Walk up hill Past Family History Family History Sister Family history of reaction to anesthesia difficulty waking and nausea Mother Family history of reaction to anesthesia difficulty waking and nausea Peptic ulcer disease Father , in his 40s Cerebral aneurysm Past Surgical History Surgical History History of cardiac cath x3 @ [facility] follow with Dr. Zamora History of hand surgery x6 (4 on right, 2 on left) d/t Dupuytren's History of heart artery stent 2009 x2, 2015 x1, 2017 x1--@ [facility] History of intravascular stent placement RIGHT LEG History of procedure for peripheral vascular disease 2012 Dr. Granger History of removal of cyst from groin History of surgery RIGHT LEG R/T TRAUMA History of tooth extraction wisdom teeth Past Anesthesia History No Hx of Anesthesia Complications and No Family Hx of Anesthesia Complications History of PONV No Hx of PONV and No Hx of Motion Sickness Social History Smoking Status: Former smoker tobacco type: cigarettes Hx Alcohol Use: Yes Alcohol type: beer alcohol intake frequency: a few times a week Hx Substance Use: No substance use type: does not use Physical Exam Vital Signs Last Vital Signs Temp 36.3 C L 07/14/19 07:41 Pulse 70 07/14/19 07:41 Resp 18 07/14/19 04:23 BP 132/62 07/14/19 07:41 Pulse Ox 96 07/14/19 07:41 ENMT Mouth: no TMJ abnormality Thyromental Distance: > or= 3.5 Finger Breadths Mallampati Class: II Neck normal visual inspection and trachea midline; neck extension not limited Respiratory normal respiratory effort Auscultation: lungs clear to auscultation bilaterally Cardiovascular Rate/Rhythm: regular rate and regular rhythm Heart Sounds: no murmur Musculoskeletal Spine: normal cervical ROM Extremities: full ROM of extremities Neurologic moves all extremities Psychiatric Orientation: alert and oriented x 3 Testing Laboratory Results 07/14/19 06:27 07/14/19 06:27 PT 10.4 Seconds (9.0-12.0) 07/13/19 13:13 INR 1.0 (0.9-1.1) 07/13/19 13:13 APTT 25.4 Seconds (21.0-31.0) 07/13/19 13:13 Urine Color Yellow 07/14/19 09:36 Urine Appearance Clear (Clear) 07/14/19 09:36 Urine pH 7.0 (4.5-7.5) 07/14/19 09:36 Ur Specific [place] 1.008 (1.000-1.030) 07/14/19 09:36 Urine Protein Negative (Negative) 07/14/19 09:36 Urine Glucose (UA) Negative (Negative) 07/14/19 09:36 Urine Ketones Negative (Negative) 07/14/19 09:36 Urine Nitrite Negative (Negative) 07/14/19 09:36 Ur Leukocyte Esterase Negative (Negative) 07/14/19 09:36 Blood Type O Positive 07/13/19 13:13 Antibody Screen NEGATIVE 07/13/19 13:13
--- NOTE | 2019-07-14 11:31 | GI REPORT ---
Patient Name: Deshawn Whitaker Procedure Date: 07/14/2019 11:04 AM Date of : 1955 Admit Type: Inpatient Age: 64 Gender: Male Attending MD: Stephen Evans DO Procedure: Upper GI endoscopy Providers: Stephen Evans DO Referring MD: Julius Sargent M.d. Indications: Melena Medicines: Monitored Anesthesia Care Complications: No immediate complications. Estimated Blood Loss: Estimated blood loss: none. Procedure: Pre-Anesthesia Assessment: - Prior to the procedure, a History and Physical was performed, and patient medications and allergies were reviewed. The patient's tolerance of previous anesthesia was also reviewed. The risks and benefits of the procedure and the sedation options and risks were discussed with the patient. All questions were answered, and informed consent was obtained. Prior Anticoagulants: The patient last took aspirin 4 days and Plavix (clopidogrel) 4 days prior to the procedure. ASA Grade Assessment: IV - A patient with severe systemic disease that is a constant threat to life. After reviewing the risks and benefits, the patient was deemed in satisfactory condition to undergo the procedure. After obtaining informed consent, the endoscope was passed under direct vision. Throughout the procedure, the patient's blood pressure, pulse, and oxygen saturations were monitored continuously. The Endoscope was introduced through the mouth, and advanced to the second part of duodenum. The patient tolerated the procedure well. The upper GI endoscopy was accomplished without difficulty. Findings: The esophagus was normal. A small hiatal hernia was present. Localized moderate inflammation characterized by erythema was found in the gastric antrum. Two non-bleeding cratered gastric ulcers with no stigmata of bleeding were found in the gastric antrum. The largest lesion was 15 mm in largest dimension. The examined duodenum was normal. Impression: - Normal esophagus. - Small hiatal hernia. - Gastritis. - Non-bleeding gastric ulcers with no stigmata of bleeding. - Normal examined duodenum. - No specimens collected. Recommendation: - Return patient to [facility] for [facility] care. - Advance diet as tolerated. - Continue present medications. Stephen Evans DO 07/14/2019 11:30:46 AM This report has been signed electronically. Note Initiated On: 07/14/2019 11:04 AM Number of Addenda: 0 I attest to the content of the Intraoperative Record and orders documented therein, exceptions below {[id number]}
--- NOTE | 2019-07-14 11:47 | Anesthesiology Progress Note ---
Date of Service July 14, 2019 Anesthesia Post Procedure Vital Signs Vital Signs: Temp Pulse Pulse Resp BP BP Pulse Ox 07/14/19 11:37 59 L 20 101/51 L 98 07/14/19 11:22 61 18 100/65 100 07/14/19 10:59 36.6 C 55 L 18 111/67 98 07/14/19 07:41 36.3 C L 70 132/62 96 07/14/19 04:23 37.3 C 76 18 114/68 99 07/14/19 00:24 37.4 C 71 17 127/64 99 07/13/19 19:13 37.0 C 66 19 120/69 97 07/13/19 16:48 36.6 C 77 20 149/72 H 94 07/13/19 16:24 75 15 132/72 99 07/13/19 16:00 76 17 121/52 L 07/13/19 15:30 70 18 129/62 07/13/19 15:09 78 23 132/66 96 07/13/19 14:09 74 21 130/66 98 07/13/19 14:08 72 14 130/66 99 07/13/19 13:30 69 14 119/59 L 98 07/13/19 13:25 71 26 H 109/58 L 98 07/13/19 13:08 96 07/13/19 12:45 36.5 C 69 16 122/62 99 Pain Intensity Abdomen: Pain Intensity: 5 Transfer of Care Handoff Completed per policy Notes Mental Status: alert / awake / arousable and participated in evaluation Nausea / Vomiting: adequately controlled Pain: adequately controlled Airway Patency, RR, SpO2: stable & adequate BP & HR: stable & adequate Hydration State: stable & adequate Anesthetic Complications: no major complications apparent and Pt Satisfied with anesthetic care
[2019-07-14] MEDS ORDERED: PROPOFOL IV EMULSION 10 MG/ML 20 ML VIAL IV ONE (13:24)
[2019-07-14] MEDS ORDERED: LIDOCAINE HCL 2% 2 ML VIAL/AMP(20MG/ML) INFIL ONE (13:24)
[2019-07-14] MEDS: SIMVASTATIN 80 MG TAB PO SCH (21:04)
--- NOTE | 2019-07-14 22:57 | Hospitalist Progress Note ---
Date of Service July 14, 2019 Assessment & Plan (1) Leukocytosis: C. diff colitis On 07/11/[address] abd/pelvis showing pancolitis. During that visit etiology was uncertain. He apparently had had no lower abd pain or diarrhea. Patient does have h/o recurrent c. diff infection by report. He now has leukocytosis and lower abdominal pain. Stools are now harder but "pebble" like. will continue with vancomycin. will try to set up with outside facility to for fecal transplant at [facility]. Appreciate input from Dr. Evans. (2) Acute GI bleeding: Recent upper GI bleed 2nd to gastric ulcers. Pathology from his EGD is pending. Hemoglobin appears stable. Will monitor. no bleeding noted on upper EGD. (3) Acute blood loss anemia: 2nd to GI bleeding. see above. (4) Gastric ulcer: as seen on EGD 07/10. clean-based ulcers x 2. thought to be NSAID related. biopsies pending for h. pylori. (5) Chest pain: Symptoms this am were exertional and in the setting of his severe melena stools. Symptoms were similar to past episodes of angina. EKG and troponin along with cxr are wnl. In light of symptoms will have low threshold for PRBC infusion. Obtain serial troponins. Telemetry. Unfortunately need to hold asa/plavix in setting of GI bleeding. (6) CAD (coronary artery disease): see discussion above in "chest pain" (7) Hyperlipidemia: in light of significant CAD would continue statin agent. (8) PVD (peripheral vascular disease): prior lower extremity work by Dr Granger. resume asa/plavix when safe to do so from bleeding standpoint. cont statin. no leg symptoms at this time. (9) Pancolitis: seen on CT dated 07/10. infectious? (c diff) ischemic (was hypotensive upon presentation on 07/10). appears to be having symptoms from this - lower abd pain, cramps, liquid stools, leukocytosis. see discussion above. c diff testing. low threshold for repeat CT. abd x-ray in meantime. (10) Hypertension: hold amlodipine and losartan due to potential for hypotension in the setting of recurrent GI bleeding continue beta anuja given his CAD and chest pain episode this am (11) DVT prophylaxis: SCDs chemical means contraindicated in light of melena/GI bleeding Admission and Anticipated Discharge Date Admission Date: July 13, 2019 Subjective 64 yo male reports his diarrhea has improved, however he continues to have sever e abdominal pain. He denies any bright red blood in his stool. He states his stools have been dark in color. He reports this is his 7th relapse and is interested in fecal transplant. Review of Systems Constitutional: + fatigue and + anorexia (today only); no fever and no chills Respiratory: + cough; no dyspnea Cardiovascular: as per Subjective / HPI and + chest pain; no orthopnea, no paroxysmal nocturnal dyspnea and no edema Gastrointestinal: + abdominal pain, + bloating, + nausea, + diarrhea/loose s tools and + melena; no vomiting Musculoskeletal: + back pain (chronic) and + joint pain (right hip - chronic ) Endocrine: denies diabetes Physical Exam Physical Exam: Constitutional: well developed and well nourished; no acute distress and no altered mental status Eyes: + anicteric sclerae and PERRL ENMT: external ear and nose normal, oropharynx normal Neck: trachea midline, no thyromegaly Respiratory: normal respiratory effort, lungs clear to auscultation Cardiovascular: Rate/Rhythm: regular rate and regular rhythm Heart Sounds: normal S1 and normal S2; no murmur Vessels: posterior tibial pulses present and dorsalis pedis pulses present; no JVD Extremities: no edema Gastrointestinal (Abdomen): Inspection/Auscultation: normal bowel sounds; abdomen not distended Percussion/Palpation: + abdomen tender (b/l lower quadrants ) and abdomen soft; no guarding and no hepatosplenomegaly Musculoskeletal: clubbing of fingernails Skin: + pallor Neurologic: moves all extremities; no focal motor deficits Psychiatric: A+Ox3, euthymic affect Lymphatic: no cervical lymphadenopathy Results & Data Results & Data ([facility]) Vital Signs (Past 12 Hours) Vital Signs Temp Pulse Pulse Resp BP Pulse Ox 07/14/19 19:53 36.5 C 71 18 154/77 H 97 07/14/19 16:16 37.1 C 68 19 132/69 98 07/14/19 14:58 65 07/14/19 11:52 59 L 20 106/56 L 97 07/14/19 11:37 59 L 20 101/51 L 98 07/14/19 11:22 61 18 100/65 100 07/14/19 10:59 36.6 C 55 L 18 111/67 98 PG Care Time/CCT Total # of Minutes Spent Total Time Spent with Patient: Total time spent is greater than 50% in coordination of care (as documented) at patient's floor/unit and/or counseling patient: Coding Level of Care Code 60517 Subseq Hosp Care Lvl 3 Diagnoses Leukocytosis D72.829 Leukocytosis type: unspecified Acute GI bleeding K92.2 Acute blood loss anemia D62 Gastric ulcer K25.3 Gastric ulcer chronicity: acute Gastric ulcer complication status: unspecified whether hemorrhage or perforation present Chest pain R07.9 Chest pain type: unspecified CAD (coronary artery disease) I25.119 Associated angina: with unspecified angina Coronary Disease-Associated Artery/Lesion type: unspecified vessel or lesion type [place] vs. transplanted heart: [place] heart Hyperlipidemia E78.2 Hyperlipidemia type: mixed hyperlipidemia PVD (peripheral vascular disease) I73.9 Pancolitis K51.00 Hypertension I10 Hypertension type: essential hypertension DVT prophylaxis Z29.9 Time Spent (min) 35 (1) CAD (coronary artery disease) Associated angina: with unspecified angina Coronary Disease-Associated Artery/Lesion type: unspecified vessel or lesion type [place] vs. transplanted heart: [place] heart Qualified Code(s): I25.119 - Atherosclerotic heart disease of [place] coronary artery with unspecified angina pectoris (2) Hyperlipidemia Hyperlipidemia type: mixed hyperlipidemia Qualified Code(s): E78.2 - Mixed hyperlipidemia (3) Leukocytosis Leukocytosis type: unspecified Qualified Code(s): D72.829 - Elevated white blood cell count, unspecified (4) Gastric ulcer Gastric ulcer chronicity: acute Gastric ulcer complication status: unspecified whether hemorrhage or perforation present Qualified Code(s): K25.3 - Acute gastric ulcer without hemorrhage or perforation (5) Chest pain Chest pain type: unspecified Qualified Code(s): R07.9 - Chest pain, unspecified (6) Hypertension Hypertension type: essential hypertension Qualified Code(s): I10 - Essential (primary) hypertension
[2019-07-15] MEDS: PANTOprazole 40 MG in DEXTROSE 5% 100 ML IV SCH ×5 (00:19→20:52)
[2019-07-15] MEDS: HYDROCODONE/ACETAMOPHEN 5/325MG TAB PO PRN ×4 (00:21→20:21)
[2019-07-15] MEDS: VANCOMYCIN HCL 125 MG/2.5ML SOLN PO SCH ×4 (08:43→20:20)
[2019-07-15] MEDS: SACCHAROMYCES BOULARDII 250 MG CAP PO SCH (08:44)
[2019-07-15] MEDS: METOPROLOL TARTRATE 100 MG TAB PO SCH (08:44)
[2019-07-15] MEDS: RASPBERRY SYRUP 5 ML UDP PO SCH ×4 (08:44→20:20)
[2019-07-15] MEDS: BuPROPion SR 100 MG TABCR PO SCH ×2 (08:45→20:20)
[2019-07-15] MEDS: D5NSS + 20MEQ KCL 20 MEQ/1,000 ML BAG IV SCH ×2 (09:34→19:12)
[2019-07-15] MEDS: BACLOFEN 10 MG TAB PO SCH ×3 (10:54→20:20)
--- NOTE | 2019-07-15 11:22 | Gastroenterology Progress Note ---
Date of Service July 15, 2019 Assessment & Plan (1) Acute blood loss anemia: (2) Gastric ulcer: (3) C. difficile colitis: Continue Pantoprazole 40 mg by mouth twice daily Repeat EGD in 8 weeks to ensure ulcer healing Continue Vancomycin 125 PO QID x 10 days, then Rifaximin 400 mg TID for 20 days and will try to set patient up for FMT at [facility] Continue supportive care Advance diet to low fiber as tolerated. Admission and Anticipated Discharge Date Admission Date: July 13, 2019 Subjective I had the pleasure of seeing Deshawn Whitaker today at his bedside. He is feeling a little better today, however, he does have bilateral lower quadrant abdominal pain, which he describes as chronic, achy, 4/10 in intensity, non-radiating without alleviating or exacerbating factors. He has continued to have multiple BM's, however, he states that the black stools have stopped. He does inquire about advancing his diet, as well as undergoing a fecal transplant at [facility], due to recurrent C-diff. He denies any fevers, chills, nausea, vomiting, hematemesis, hematochezia, lightheadedness or dizziness. He has no further complaints. Review of Systems Review of Systems: All systems reviewed & are unremarkable except as noted in HPI & below Physical Exam Constitutional: WD/WN, vitals as above Eyes: PERRL, conjunctivae normal, anicteric sclerae ENMT: external ear and nose normal, oropharynx normal Neck: trachea midline, no thyromegaly Respiratory: normal respiratory effort; no respiratory distress and no labored breathing Cardiovascular: RRR, no murmur, no edema Gastrointestinal (Abdomen): normal bowel sounds, soft, nontender, no hepatosplenomegaly Skin: no rashes, warm and dry Psychiatric: A+Ox3, euthymic affect Results & Data Results & Data ([facility]) Vital Signs (Past 12 Hours) Vital Signs Temp Pulse Resp BP Pulse Ox 07/15/19 07:40 36.7 C 67 16 131/67 98 07/14/19 23:24 36.6 C 70 16 131/67 98 PG Care Time/CCT Total # of Minutes Spent Total Time Spent with Patient: Total time spent is greater than 50% in coordination of care (as documented) at patient's floor/unit and/or counseling patient: Coding Level of Care Code 25729 Subseq Hosp Care Lvl 3 Diagnoses Acute blood loss anemia D62 Gastric ulcer K25.3 Gastric ulcer chronicity: acute Gastric ulcer complication status: unspecified whether hemorrhage or perforation present C. difficile colitis A04.72 (1) Gastric ulcer Gastric ulcer chronicity: acute Gastric ulcer complication status: unspecified whether hemorrhage or perforation present Qualified Code(s): K25.3 - Acute gastric ulcer without hemorrhage or perforation
[2019-07-15] MEDS: SIMVASTATIN 80 MG TAB PO SCH (20:21)
--- NOTE | 2019-07-15 23:28 | Hospitalist Progress Note ---
Date of Service July 15, 2019 Assessment & Plan (1) Leukocytosis: C. diff colitis On 07/11/[address] abd/pelvis showing pancolitis. During that visit etiology was uncertain. He apparently had had no lower abd pain or diarrhea. Patient does have h/o recurrent c. diff infection by report. He now has leukocytosis and lower abdominal pain. Stools are now harder but "pebble" like. will continue with vancomycin. will try to set up with outside facility to for fecal transplant at [place] as insurance does not accept [facility]. Appreciate input from Dr. Evans. (2) Acute GI bleeding: Recent upper GI bleed 2nd to gastric ulcers. Pathology from his EGD is pending. Hemoglobin appears stable. Will monitor. no bleeding noted on upper EGD. (3) Acute blood loss anemia: 2nd to GI bleeding. see above. (4) Gastric ulcer: as seen on EGD 07/10. clean-based ulcers x 2. thought to be NSAID related. biopsies pending for h. pylori. (5) Chest pain: Symptoms this am were exertional and in the setting of his severe melena stools. Symptoms were similar to past episodes of angina. EKG and troponin along with cxr are wnl. In light of symptoms will have low threshold for PRBC infusion. Obtain serial troponins. Telemetry. Unfortunately need to hold asa/plavix in setting of GI bleeding. (6) CAD (coronary artery disease): see discussion above in "chest pain" (7) Hyperlipidemia: in light of significant CAD would continue statin agent. (8) PVD (peripheral vascular disease): prior lower extremity work by Dr Granger. resume asa/plavix when safe to do so from bleeding standpoint. cont statin. no leg symptoms at this time. (9) Pancolitis: seen on CT dated 07/10. infectious? (c diff) ischemic (was hypotensive upon presentation on 07/10). appears to be having symptoms from this - lower abd pain, cramps, liquid stools, leukocytosis. see discussion above. c diff testing. low threshold for repeat CT. abd x-ray in meantime. (10) Hypertension: hold amlodipine and losartan due to potential for hypotension in the setting of recurrent GI bleeding continue beta anuja given his CAD and chest pain episode this am (11) DVT prophylaxis: SCDs chemical means contraindicated in light of melena/GI bleeding Admission and Anticipated Discharge Date Admission Date: July 13, 2019 Subjective Patient reports no new blood in his stool. Review of Systems Review of Systems: All systems reviewed & are unremarkable except as noted in HPI & below Physical Exam Physical Exam: Constitutional: well developed and well nourished; no acute distress and no altered mental status Eyes: + anicteric sclerae and PERRL ENMT: external ear and nose normal, oropharynx normal Neck: trachea midline, no thyromegaly Respiratory: normal respiratory effort, lungs clear to auscultation Cardiovascular: Rate/Rhythm: regular rate and regular rhythm Heart Sounds: normal S1 and normal S2; no murmur Vessels: posterior tibial pulses present and dorsalis pedis pulses present; no JVD Extremities: no edema Gastrointestinal (Abdomen): Inspection/Auscultation: normal bowel sounds; abdomen not distended Percussion/Palpation: + abdomen tender (b/l lower quadrants ) and abdomen soft; no guarding and no hepatosplenomegaly Musculoskeletal: clubbing of fingernails Skin: + pallor Neurologic: moves all extremities; no focal motor deficits Psychiatric: A+Ox3, euthymic affect Lymphatic: no cervical lymphadenopathy Results & Data Results & Data ([facility]) Vital Signs (Past 12 Hours) Vital Signs Temp Pulse Resp BP Pulse Ox 07/15/19 15:00 36.9 C 56 L 16 133/67 96 PG Care Time/CCT Total # of Minutes Spent Total Time Spent with Patient: Total time spent is greater than 50% in coordination of care (as documented) at patient's floor/unit and/or counseling patient: Coding Level of Care Code 18470 Subseq Hosp Care Lvl 2 Diagnoses Leukocytosis D72.829 Leukocytosis type: unspecified Acute GI bleeding K92.2 Acute blood loss anemia D62 Gastric ulcer K25.3 Gastric ulcer chronicity: acute Gastric ulcer complication status: unspecified whether hemorrhage or perforation present Chest pain R07.9 Chest pain type: unspecified CAD (coronary artery disease) I25.119 Associated angina: with unspecified angina Coronary Disease-Associated Artery/Lesion type: unspecified vessel or lesion type [place] vs. transplanted heart: [place] heart Hyperlipidemia E78.2 Hyperlipidemia type: mixed hyperlipidemia PVD (peripheral vascular disease) I73.9 Pancolitis K51.00 Hypertension I10 Hypertension type: essential hypertension DVT prophylaxis Z29.9 Time Spent (min) 25 (1) CAD (coronary artery disease) Associated angina: with unspecified angina Coronary Disease-Associated Artery/Lesion type: unspecified vessel or lesion type [place] vs. transplanted heart: [place] heart Qualified Code(s): I25.119 - Atherosclerotic heart disease of [place] coronary artery with unspecified angina pectoris (2) Hyperlipidemia Hyperlipidemia type: mixed hyperlipidemia Qualified Code(s): E78.2 - Mixed hyperlipidemia (3) Leukocytosis Leukocytosis type: unspecified Qualified Code(s): D72.829 - Elevated white blood cell count, unspecified (4) Gastric ulcer Gastric ulcer chronicity: acute Gastric ulcer complication status: unspecified whether hemorrhage or perforation present Qualified Code(s): K25.3 - Acute gastric ulcer without hemorrhage or perforation (5) Chest pain Chest pain type: unspecified Qualified Code(s): R07.9 - Chest pain, unspecified (6) Hypertension Hypertension type: essential hypertension Qualified Code(s): I10 - Essential (primary) hypertension
[2019-07-16] MEDS: MoRPHine SULFATE 2 MG/ML CARP IV PRN (00:22)
[2019-07-16] MEDS: PANTOprazole 40 MG in DEXTROSE 5% 100 ML IV SCH ×5 (02:09→20:44)
[2019-07-16] MEDS: HYDROCODONE/ACETAMOPHEN 5/325MG TAB PO PRN ×3 (02:09→16:11)
[2019-07-16] MEDS: D5NSS + 20MEQ KCL 20 MEQ/1,000 ML BAG IV SCH ×2 (05:41→14:33)
[2019-07-16 06:09] LABS: Hematocrit (blood only) 26.1 % (42-52); Hemoglobin 8.8 g/dL (14.0-18.0); Mean Corpuscular Hemoglobin 32.2 pg (25-34); Mean Corpuscular Hgb Conc 33.7 g/dL (32-36); Mean Corpuscular Volume 95.6 fL (80-100); Mean Platelet Volume 10.8 fL (7.4-10.4); Platelet Count 260 K/uL (130-400); RDW Coefficient of Variation 14.2 % (11.5-14.5); RDW Standard Deviation 48.8 fL (36.4-46.3); Red Blood Count 2.73 M/uL (4.7-6.1); White Blood Count 8.84 K/uL (4.8-10.8)
[2019-07-16 06:43] LABS: Potassium 3.9 mmol/L (3.5-5.1)
[2019-07-16 06:44] LABS: BUN Creatinine Ratio 6.4 (10-20); Calcium 7.7 mg/dl (8.5-10.1); Creatinine Clr Calc Pharmacy 83.2 ml/min; Est GFR (African American) 109.1; Est GFR (Non-African American) 94.1
[2019-07-16] MEDS: BuPROPion SR 100 MG TABCR PO SCH ×2 (08:59→20:46)
[2019-07-16] MEDS: BACLOFEN 10 MG TAB PO SCH ×3 (08:59→20:46)
[2019-07-16] MEDS: SACCHAROMYCES BOULARDII 250 MG CAP PO SCH (09:22)
[2019-07-16] MEDS: METOPROLOL TARTRATE 100 MG TAB PO SCH (09:22)
[2019-07-16] MEDS: RASPBERRY SYRUP 5 ML UDP PO SCH ×4 (09:23→20:46)
[2019-07-16] MEDS: VANCOMYCIN HCL 125 MG/2.5ML SOLN PO SCH ×4 (09:29→20:46)
[2019-07-16] MEDS: SIMVASTATIN 80 MG TAB PO SCH (20:46)
--- NOTE | 2019-07-16 23:24 | Hospitalist Progress Note ---
Date of Service July 16, 2019 Assessment & Plan (1) Leukocytosis: C. diff colitis On 07/11/[address] abd/pelvis showing pancolitis. During that visit etiology was uncertain. He apparently had had no lower abd pain or diarrhea. Patient does have h/o recurrent c. diff infection by report. He now has leukocytosis and lower abdominal pain. Stools are now harder but "pebble" like. will continue with vancomycin. will try to set up with outside facility to for fecal transplant at [place] as [facility]. Appreciate input from Dr. Evans. Plan to discharge tomorrow. (2) Acute GI bleeding: Recent upper GI bleed 2nd to gastric ulcers. Pathology from his EGD is pending. Hemoglobin appears stable. Will monitor. no bleeding noted on upper EGD. (3) Acute blood loss anemia: 2nd to GI bleeding. see above. Hemoglobin has been stable. (4) Gastric ulcer: as seen on EGD 07/10. clean-based ulcers x 2. thought to be NSAID related. biopsies pending for h. pylori. (5) Chest pain: Symptoms this am were exertional and in the setting of his severe melena stools. Symptoms were similar to past episodes of angina. EKG and troponin along with cxr are wnl. In light of symptoms will have low threshold for PRBC infusion. Obtain serial troponins. Telemetry. Unfortunately need to hold asa/plavix in setting of GI bleeding. (6) CAD (coronary artery disease): see discussion above in "chest pain" (7) Hyperlipidemia: in light of significant CAD would continue statin agent. (8) PVD (peripheral vascular disease): prior lower extremity work by Dr Granger. resume asa/plavix when safe to do so from bleeding standpoint. cont statin. no leg symptoms at this time. (9) Pancolitis: seen on CT dated 07/10. infectious? (c diff) ischemic (was hypotensive upon presentation on 07/10). appears to be having symptoms from this - lower abd pain, cramps, liquid stools, leukocytosis. see discussion above. c diff testing. low threshold for repeat CT. abd x-ray in meantime. (10) Hypertension: hold amlodipine and losartan due to potential for hypotension in the setting of recurrent GI bleeding continue beta anuja given his CAD and chest pain episode this am (11) DVT prophylaxis: SCDs chemical means contraindicated in light of melena/GI bleeding Admission and Anticipated Discharge Date Admission Date: July 13, 2019 Subjective 64 yo male is feeling better. No longer having diarrhea. Review of Systems Review of Systems: All systems reviewed & are unremarkable except as noted in HPI & below Physical Exam Physical Exam: Constitutional: well developed and well nourished; no acute distress and no altered mental status Eyes: + anicteric sclerae and PERRL ENMT: external ear and nose normal, oropharynx normal Neck: trachea midline, no thyromegaly Respiratory: normal respiratory effort, lungs clear to auscultation Cardiovascular: Rate/Rhythm: regular rate and regular rhythm Heart Sounds: normal S1 and normal S2; no murmur Vessels: posterior tibial pulses present and dorsalis pedis pulses present; no JVD Extremities: no edema Gastrointestinal (Abdomen): Inspection/Auscultation: normal bowel sounds; abdomen not distended Percussion/Palpation: + abdomen mildly tender (b/l lower quadrants ) and abdomen soft; no guarding and no hepatosplenomegaly Musculoskeletal: clubbing of fingernails Skin: + pallor Neurologic: moves all extremities; no focal motor deficits Psychiatric: A+Ox3, euthymic affect Lymphatic: no cervical lymphadenopathy Results & Data Results & Data ([facility]) Vital Signs (Past 12 Hours) Vital Signs Temp Pulse Resp BP Pulse Ox 07/16/19 15:24 36.6 C 65 16 147/75 H 94 PG Care Time/CCT Total # of Minutes Spent Total Time Spent with Patient: Total time spent is greater than 50% in coordination of care (as documented) at patient's floor/unit and/or counseling patient: Coding Level of Care Code 75703 Subseq Hosp Care Lvl 3 Diagnoses Leukocytosis D72.829 Leukocytosis type: unspecified Acute GI bleeding K92.2 Acute blood loss anemia D62 Gastric ulcer K25.3 Gastric ulcer chronicity: acute Gastric ulcer complication status: unspecified whether hemorrhage or perforation present Chest pain R07.9 Chest pain type: unspecified CAD (coronary artery disease) I25.119 Associated angina: with unspecified angina Coronary Disease-Associated Artery/Lesion type: unspecified vessel or lesion type [place] vs. transplanted heart: [place] heart Hyperlipidemia E78.2 Hyperlipidemia type: mixed hyperlipidemia PVD (peripheral vascular disease) I73.9 Pancolitis K51.00 Hypertension I10 Hypertension type: essential hypertension DVT prophylaxis Z29.9 Time Spent (min) 35 (1) CAD (coronary artery disease) Associated angina: with unspecified angina Coronary Disease-Associated Artery/Lesion type: unspecified vessel or lesion type [place] vs. transplanted heart: [place] heart Qualified Code(s): I25.119 - Atherosclerotic heart disease of [place] coronary artery with unspecified angina pectoris (2) Hyperlipidemia Hyperlipidemia type: mixed hyperlipidemia Qualified Code(s): E78.2 - Mixed hyperlipidemia (3) Leukocytosis Leukocytosis type: unspecified Qualified Code(s): D72.829 - Elevated white blood cell count, unspecified (4) Gastric ulcer Gastric ulcer chronicity: acute Gastric ulcer complication status: unspecified whether hemorrhage or perforation present Qualified Code(s): K25.3 - Acute gastric ulcer without hemorrhage or perforation (5) Chest pain Chest pain type: unspecified Qualified Code(s): R07.9 - Chest pain, unspecified (6) Hypertension Hypertension type: essential hypertension Qualified Code(s): I10 - Essential (primary) hypertension
[2019-07-17] MEDS: D5NSS + 20MEQ KCL 20 MEQ/1,000 ML BAG IV SCH ×2 (00:14→09:48)
[2019-07-17] MEDS: HYDROCODONE/ACETAMOPHEN 5/325MG TAB PO PRN ×2 (00:17→07:40)
[2019-07-17] MEDS: PANTOprazole 40 MG in DEXTROSE 5% 100 ML IV SCH ×2 (02:17→07:05)
[2019-07-17] MEDS: BuPROPion SR 100 MG TABCR PO SCH (07:41)
[2019-07-17] MEDS: SACCHAROMYCES BOULARDII 250 MG CAP PO SCH (07:41)
[2019-07-17] MEDS: BACLOFEN 10 MG TAB PO SCH (07:42)
[2019-07-17] MEDS: RASPBERRY SYRUP 5 ML UDP PO SCH (07:42)
[2019-07-17] MEDS: METOPROLOL TARTRATE 100 MG TAB PO SCH (07:43)
[2019-07-17] MEDS: VANCOMYCIN HCL 125 MG/2.5ML SOLN PO SCH (07:43)
[2019-07-17 08:19] VITALS: TEMP 97.7; O2SAT 98
[2019-07-17] MEDS ORDERED: LOSARTAN POTASSIUM 50 MG TAB PO SCH (09:00)
[2019-07-17 10:22] VITALS: BP 183/77; PULSE 65
--- NOTE | 2019-07-22 18:56 | Discharge Summary ---
Date of Service July 17, 2019 Admission HPI Per Admitting Provider 64yo male with h/o CAD, previous tobacco use, and chronic pain syndrome who presents as readmission due to melena stools and abdominal pain. He was hospitalized on 07/10 and 07/11 for upper GI bleeding with acute blood loss a nemia 2nd to gastric ulcers x 2. These were thought 2nd to motrin use in setting of chronic asa and plavix for his CAD. Was discharged home yesterday in stable condition on PPI twice daily. Last pm he admitted to eating [employer] and slaw. Did not take his asa or plavix. This am he then developed 6-7 episodes of black, tarry, liquid stool. Developed crampy abdominal pain in the lower abdomen as well this morning. During my admission assessment that was his largest complaint. The patient also reported an episode of left-sided chest pain with taking the recycling outside this morning. Resolved after 3-4 minutes. He did not take any SL nitro or other medications for such. The pain was similar to past episodes of angina. Denies fevers or chills. Denies dysuria. Principal Diagnosis Acute c. diff colitis Discharge Exam Constitutional: well developed and well nourished; no acute distress and no altered mental status Eyes: + anicteric sclerae and PERRL ENMT: external ear and nose normal, oropharynx normal Neck: trachea midline, no thyromegaly Respiratory: normal respiratory effort, lungs clear to auscultation Cardiovascular: Rate/Rhythm: regular rate and regular rhythm Heart Sounds: normal S1 and normal S2; no murmur Vessels: posterior tibial pulses present and dorsalis pedis pulses present; no JVD Extremities: no edema Gastrointestinal (Abdomen): Inspection/Auscultation: normal bowel sounds; abdomen not distended Percussion/Palpation: abdomen nontender and abdomen soft; no guarding and no hepatosplenomegaly Musculoskeletal: clubbing of fingernails Neurologic: moves all extremities; no focal motor deficits Psychiatric: A+Ox3, euthymic affect Lymphatic: no cervical lymphadenopathy Discharge Data Allergies Allergy/AdvReac Type Severity Reaction Status Date / Time Penicillins Allergy Severe "CIRCULATORY Verified 07/13/19 14:07 SHUTDOWN" Consultations 07/13/19 14:50 ED Decision to Admit Stat 07/13/19 16:46 Consult Gastroenterology Routine Procedures Performed Operation Date: 07/14/19 12:30 Actual Procedures p Esophagogastroduodenoscopy - Stephen Evans, DO Hospital Course (1) Leukocytosis: C. diff colitis On 07/11/[address] abd/pelvis showing pancolitis. During that visit etiology was uncertain. He apparently had had no lower abd pain or diarrhea. Patient does have h/o recurrent c. diff infection by report. He now has leukocytosis and lower abdominal pain. Stools are now harder but "pebble" like. will continue with vancomycin. will try to set up with outside facility to for fecal transplant at [place] as insurance does not accept [facility]. Appreciate input from Dr. Evans. Planned to discharge on rifaxmin and vanco. Once discharge was completed, called patient and informed hi of change of plan due to expense of vanco. He will be on a taper dose of vanco. QID odse to complete 10 days, then TID for 1 week, then BID for 1 week, then once daily for a week. Patient showed understanding. settup up outside facility for fecal transplant. (2) Acute GI bleeding: Recent upper GI bleed 2nd to gastric ulcers. Pathology from his EGD is pending. Hemoglobin appears stable. Will monitor. no bleeding noted on upper EGD. (3) Acute blood loss anemia: 2nd to GI bleeding. see above. Hemoglobin has been stable. (4) Gastric ulcer: as seen on EGD 07/10. clean-based ulcers x 2. thought to be NSAID related. biopsies pending for h. pylori. (5) Chest pain: Symptoms this am were exertional and in the setting of his severe melena stools. Symptoms were similar to past episodes of angina. EKG and troponin along with cxr are wnl. In light of symptoms will have low threshold for PRBC infusion. Obtain serial troponins. Telemetry. Held ASA plavix during hospital stay. will resume plavix on discharge. May consider rechecking hgb level if stools become dark again. (6) CAD (coronary artery disease): see discussion above in "chest pain" (7) Hyperlipidemia: in light of significant CAD would continue statin agent. (8) PVD (peripheral vascular disease): prior lower extremity work by Dr Granger. resume asa/plavix when safe to do so from bleeding standpoint. cont statin. no leg symptoms at this time. (9) Pancolitis: seen on CT dated 07/10. infectious? (c diff) ischemic (was hypotensive upon presentation on 07/10). appears to be having symptoms from this - lower abd pain, cramps, liquid stools, leukocytosis. see discussion above. c diff testing. low threshold for repeat CT. abd x-ray in meantime. (10) Hypertension: hold amlodipine and losartan due to potential for hypotension in the sett ing of recurrent GI bleeding continue beta anuja given his CAD and chest pain episode this am (11) DVT prophylaxis: SCDs chemical means contraindicated in light of melena/GI bleeding Total Time Total Time Spent Total Time Spent (In Minutes): 45 Discharge Plan Discharge Items Patient Disposition: Home - Self-Care Reason For Visit: UPPER GI BLEEDING Discharge Diagnosis: Upper GI bleeding Activity: Resume your previous activity Non-emergency contact: Primary Care Provider Call non-emergency contact if: you have any medication questions Follow-up/Referrals: Lloyd Rosenthal MD [Primary Care Provider] - 07/21/19 1:30 pm Diet: Regular Addtl Attending Provider Instructions: Finish the vancomycin medication. Once completed then transition to rifaximin. You will also be called by Dr. Evans' team to discuss options for a fecal transplant.I changed your metoprolol to twice a day as it is a twice a day medicine. And switching your amlodipine will be taken in the night. Pending Studies at Discharge: No Stand-Alone Forms: My [facility] [place], Smoking Cessation Medications and DC Order Prescriptions: New rifaximin 200 mg tablet 400 mg PO TID 20 Days Qty: 120 RF: 0 vancomycin 1,000 mg Recon Soln 125 mg PO QID Qty: 26 RF: 0 raspberry Syrup See Rx Instructions .ROUTE .COMPLEX Qty: 500 RF: 0 clopidogrel [Plavix] 75 mg tablet 75 mg PO DAILY Qty: 90 RF: 0 pantoprazole 40 mg tablet,delayed release (DR/EC) 40 mg PO BID Qty: 60 RF: 0 pantoprazole 40 mg tablet,delayed release (DR/EC) 40 mg PO BID 14 Days Qty: 28 RF: 0 Continued losartan 100 mg tablet 100 mg PO QAM Qty: 90 RF: 3 simvastatin 80 mg tablet 80 mg PO PM Qty: 90 RF: 3 lidocaine 5 % Adhesive Patch,Medicated 1 patch TOPICAL DAILY PRN (Reason: Pain) RF: 0 nitroglycerin 0.4 mg Tablet, Sublingual 1 dose Sublingual UD PRN (Reason: Angina) RF: 0 cholecalciferol (vitamin D3) [Vitamin D3] 5,000 unit Tablet 5,000 unit PO QAM RF: 0 multivitamin Tablet 1 tab PO QAM RF: 0 pantoprazole 40 mg tablet,delayed release (DR/EC) 40 mg PO BID Qty: 60 RF: 1 baclofen 10 mg Tablet 20 mg PO TID RF: 0 hydrocodone-acetaminophen 10-325 mg Tablet 1 tab PO Q4H PRN (Reason: Pain) RF: 0 bupropion HCl 100 mg tablet sustained-release 12 hr 100 mg PO BID RF: 0 ferrous gluconate 240 mg (27 mg iron) tablet 240 mg PO QAM RF: 0 Florastor 250 mg capsule 250 mg PO QAM RF: 0 Changed amlodipine 10 mg tablet 10 mg PO QPM Qty: 0 RF: 0 metoprolol tartrate 100 mg tablet 50 mg PO BID Qty: 90 RF: 3 Discharge Orders: Discharge Order (Routine); Ordered 07/17/19 Ordered By: Julius Wise/Other Patient Handouts: C Diff Admission Data Admit Date/Time: 07/13/19 15:29 Attending Provider: Julius Sargent Admit Provider: Abner Carter Primary Care Provider: Lloyd Rosenthal Other Providers: Stephen Evans Other Interventions: Discharge Summary Assessment (RN) Last Done: 07/17/19 10:20 DC Date/Time DO NOT enter until pt leaves facility: 07/17/19 12:03 Coding Level of Care Code D/C Day Management >30 mins Diagnoses Leukocytosis D72.829 Leukocytosis type: unspecified Acute GI bleeding K92.2 Acute blood loss anemia D62 Gastric ulcer K25.3 Gastric ulcer chronicity: acute Gastric ulcer complication status: unspecified whether hemorrhage or perforation present Chest pain R07.9 Chest pain type: unspecified CAD (coronary artery disease) I25.119 Associated angina: with unspecified angina Coronary Disease-Associated Artery/Lesion type: unspecified vessel or lesion type [place] vs. transplanted heart: [place] heart Hyperlipidemia E78.2 Hyperlipidemia type: mixed hyperlipidemia PVD (peripheral vascular disease) I73.9 Pancolitis K51.00 Hypertension I10 Hypertension type: essential hypertension DVT prophylaxis Z29.9
== END 2019-07-17 12:03 | disposition home or self-care (01) | DRG 371 ==
LOC: ED 12:39 → 2S 15:29 → SUATTDRO 15:29 → 2S 16:41 → 3E 07-14 18:09

== ENCOUNTER 2021-08-30 18:30 | Inpatient (IN) ==
[2021-08-30] MEDS ORDERED: ASPIRIN CHEW 324 MG PO STA (18:42)
[2021-08-30] MEDS ORDERED: MoRPHine SULFATE 4 MG/ML 1 ML CARP\\VIAL IV STA ×2 (18:54→20:00)
[2021-08-30] MEDS ORDERED: NITROGLYCERIN SL 0.4 MG/TAB TAB SL STA ×2 (18:54→20:00)
[2021-08-30 18:55] LABS: Basophils # (auto) 0.04 K/uL (0-0.2); Basophils % (auto) 0.4 %; Eosinophils # (auto) 0.43 K/uL (0-0.5); Eosinophils % (auto) 4.1 %; Hematocrit (blood only) 36.1 % (42-52); Hemoglobin 12.6 g/dL (14.0-18.0); Immature Granulocytes # (auto) 0.03 K/uL (0.00-0.02); Immature Granulocytes % (auto) 0.3 %; Lymphocytes # (auto) 3.37 K/uL (1.2-3.4); Lymphocytes % (auto) 31.8 %; Mean Corpuscular Hemoglobin 32.1 pg (25-34); Mean Corpuscular Hgb Conc 34.9 g/dL (32-36); Mean Corpuscular Volume 92.1 fL (80-100); Mean Platelet Volume 10.1 fL (7.4-10.4); Monocytes # (auto) 1.01 K/uL (0.11-0.59); Monocytes % (auto) 9.5 %; Neutrophils # (auto) 5.71 K/uL (1.4-6.5); Neutrophils % (auto) 53.9 %; Platelet Count 420 K/uL (130-400); RDW Coefficient of Variation 12.8 % (11.5-14.5); RDW Standard Deviation 43.4 fL (36.4-46.3); Red Blood Count 3.92 M/uL (4.7-6.1); White Blood Count 10.59 K/uL (4.8-10.8)
--- NOTE | 2021-08-30 18:58 | Emergency Department Note ---
Impression & Plan Chest pain, History of heart artery stent, Acute hyponatremia ED Provider Note Provider: Malachi Khan MD DATE OF SERVICE: 08/30/2021 CHIEF COMPLAINT: Chest pressure, shortness of breath HISTORY OF PRESENT ILLNESS: Patient is a 66-year-old gentleman history of CAD status post multiple stents, chronic back pain, C. difficile colitis, PVD, and GI bleed presenting here today reporting onset an hour and a half ago waking her from sleep of chest pressure across his chest. States it does extend little bit to his right arm. Denies nausea or abdominal symptoms. Patient states he is little short of breath. 8 out of 10 pain and pressure that has improved to 5 out of 10 doses of nitroglycerin at home. Is on Plavix at home. Not taking aspirin currently. Patient denies leg swelling. States he was recently in [place] last week and got back 2 days ago. Patient states he was having in creased anginal symptoms over the past week pain with exertion. Patient denies significant headache. REVIEW OF SYSTEMS: A total of 10 review of systems was obtained and negative except as stated above in the HPI. PAST MEDICAL HISTORY: As noted above MEDICATIONS: Reviewed home medication list SOCIAL HISTORY: Former smoker, , regular alcohol use PHYSICAL EXAM: GENERAL: alert and oriented in no acute distress on stretcher Head: normocephalic and atraumatic EYES: No injection, discharge or icterus. PERRL NECK: Trachea midline. Supple. ENT: Mucous membranes pink and moist. LUNGS: Airway patent. No retractions. Breath sounds clear with good air entry bilaterally. HEART: Regular rate and rhythm. Minimal chest wall tenderness. No rash appreciated. ABDOMEN: Soft and non-tender, without guarding or rebound. SKIN: Acyanotic, warm, dry, without rashes EXTREMITIES: Without swelling, tenderness or deformity NEUROLOGICAL: No focal deficits. No aphasia. No facial droop or slurred speech. Ambulatory. EK bpm sinus bradycardia. No PVC or PAC. No acute ST segment elevation noted with a QTC of 410. Compared to previous from March 11 of this year significant change. EK bpm normal sinus rhythm. No PVC or PAC. QTc 430. No acute ST segment ST depression noted. In comparison to previous from earlier tonight no significant change. CONTINUOUS CARDIAC MONITORING: was ordered and showed a heart rate of 50s-60s bpm in sinus bradycardia and normal sinus rhythm Patient's laboratory studies and imaging reviewed. Differential includes Cardiac ischemia, aortic dissection, pulmonary embolism, pneumothorax, pneumonia, pericarditis, myocarditis, esophageal rupture, GERD, cholecystitis, pancreatitis, musculoskeletal, as well as other pathologies. IMPRESSION/MEDICAL DECISION MAKING: Patient with significant cardiac history on Plavix mild improvement of pain with 4 doses of nitro prior to arrival. EKG without significant change here. Given some aspirin as well as morphine and additional nitroglycerin. Blood pressure is elevated. Significant recent travel but not hypoxic here. No fever reported. COVID test was sent as well as blood work and troponin. Discussed with the patient excluding cardiac etiology as well as pulmonary etiology such as PE given the recent travel. No evidence of heart failure on clinical exam. Patient's worsening "angina symptoms "that he reports over the past week are concerning for cardiac etiology. Does admit to drinking some alcohol regularly. Hyponatremia is noted on blood work. Given a small amount of IV fluid. Lipase not elevated. Initial troponin here is not elevated either. Negative COVID. No significant cytosis. X-ray not horribly impressive. After nitro and morphine and aspirin patient had some increased pressure across his chest as well as some numbness and odd sensation in his right arm. Good movement however. We will complete a CTA of the chest to exclude obvious dissection or pulmonary embolism. CTA report per radiology was reassuring. Patient's pain begins to wane some before receiving additional medications. Repeat troponin without significant change. Discussed with the patient given history and worsened and continued pain believe further care here at the hospital would be indicated. DIAGNOSIS: Chest pain, hyponatremia DISPOSITION: Hospitalist will evaluate Patient was agreeable with this plan. Past Med/Surg History Medical History Alcohol use Anxiety BPH (benign prostatic hyperplasia) CAD (coronary artery disease) Chronic back pain Chronic prescription opiate use Diverticulosis Dupuytren's contracture of hand GERD (gastroesophageal reflux disease) History of Clostridioides difficile colitis Hx of gastric ulcer Hyperlipidemia Hypertension Left ventricular hypertrophy On anticoagulant therapy plavix d/t stents Peripheral neuropathy Surgical History History of cardiac cath x3 @ [facility] follow with Dr. Zamora History of hand surgery x6 (4 on right, 2 on left) d/t Dupuytren's History of heart artery stent 2010 x2, 2016 x1, 2017 x1--@ [facility] History of intravascular stent placement RIGHT LEG History of procedure for peripheral vascular disease 2012 Dr. Granger History of removal of cyst from groin History of surgery RIGHT LEG R/T TRAUMA [place] teeth removed Family History Sister Family history of reaction to anesthesia difficulty waking and nausea Mother Family history of reaction to anesthesia difficulty waking and nausea Peptic ulcer disease Father , in his 40s Cerebral aneurysm Social History Smoking Status: Never smoker packs per day: 1; Years Smoked: 30; Second Hand Exposure: No; Hx Alcohol Use: Yes Alcohol type: beer Alcohol Intake Frequency Comment: 6-pack every 1-2 weeks Preferred Language: Danish Communication Ability: Effective Manager Credit Collections Required: No Beliefs That Will Affect Care: None Current Living Situation: Spouse current occupational status: 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 Feels Safe at Home: Yes Assistive Devices: None Allergies Allergies Allergy/AdvReac Type Severity Reaction Status Date / Time Penicillins Allergy Severe "CIRCULATORY Verified 08/30/21 19:44 SHUTDOWN" Home Meds Home Medications Medication Instructions Recorded Confirmed baclofen 10 mg tablet 20 mg PO TID 11/13/17 08/30/21 hydrocodone 10 mg-acetaminophen 1 tab PO Q4H PRN 11/13/17 08/30/21 325 mg tablet cholecalciferol (vitamin D3) 125 5,000 unit PO QAM 02/18/18 08/30/21 mcg (5,000 unit) tablet (Vitamin D3) lidocaine 5 % topical patch 1 patch TOPICAL DAILY PRN 02/18/18 08/30/21 multivitamin 1 tab PO QAM 02/18/18 08/30/21 Saccharomyces boulardii 250 mg 250 mg PO QAM 07/13/19 08/30/21 capsule (Florastor) bupropion HCl 100 mg tablet,12 hr 100 mg PO BID 07/13/19 08/30/21 sustained-release Previous Rx's Medication Instructions Recorded pantoprazole 40 mg tablet,delayed 40 mg PO BID #60 tab 07/17/19 release amlodipine 10 mg tablet 10 mg PO QPM #90 tab 05/20/20 losartan 100 mg tablet 100 mg PO QAM #90 tab 05/20/20 simvastatin 80 mg tablet 80 mg PO PM #90 tab 05/20/20 clopidogrel 75 mg tablet (Plavix) 75 mg PO DAILY #90 tab 05/29/21 metoprolol tartrate 100 mg tablet 50 mg PO BID #90 tab 05/29/21 nitroglycerin 0.4 mg sublingual 0.4 mg SUBLINGUAL UD PRN #30 tab 08/08/21 tablet Results & Data (ED) Vital Signs Vital Signs - 24 hr 08/30/21 18:31 08/30/21 18:44 08/30/21 18:50 Temperature 36.4 C L Temperature Source Temporal Artery Scan Pulse Rate 58 L 60 Pulse Rate [Apical] 60 Pulse Rate from SpO2 Sensor Pulse Rhythm Regular Pulse Strength Normal Respiratory Rate 20 20 20 Respiratory Effort / Characteristics Non-Labored Spontaneous Non-Labored Respiratory Depth Normal Normal Normal Respiratory Pattern Regular Regular Blood Pressure 159/83 H Blood Pressure [Left Arm] 170/88 H Blood Pressure Mean 108 Blood Pressure Mean [Left Arm] 115 Blood Pressure Position Sitting Blood Pressure Position [Left Arm] Lying Pulse Oximetry 94 97 96 Oxygen Delivery Method Room Air Room Air Room Air Sepsis Recent Fever Within 48 Hours No Sepsis New/Unexplained Change in Mental Status No Sepsis Action Taken by Nursing No Action Required 08/30/21 19:00 08/30/21 19:05 08/30/21 19:30 Temperature Temperature Source Pulse Rate 56 L 56 L 55 L Pulse Rate [Apical] Pulse Rate from SpO2 Sensor 56 L 56 L Pulse Rhythm Pulse Strength Respiratory Rate 17 19 18 Respiratory Effort / Characteristics Respiratory Depth Respiratory Pattern Blood Pressure 134/76 146/74 H 136/81 Blood Pressure [Left Arm] Blood Pressure Mean 95 98 99 Blood Pressure Mean [Left Arm] Blood Pressure Position Blood Pressure Position [Left Arm] Pulse Oximetry 96 96 Oxygen Delivery Method Sepsis Recent Fever Within 48 Hours Sepsis New/Unexplained Change in Mental Status Sepsis Action Taken by Nursing 08/30/21 20:02 08/30/21 20:57 08/30/21 20:59 Temperature Temperature Source Pulse Rate 60 64 Pulse Rate [Apical] Pulse Rate from SpO2 Sensor 64 65 Pulse Rhythm Pulse Strength Respiratory Rate 15 15 Respiratory Effort / Characteristics Respiratory Depth Respiratory Pattern Blood Pressure 157/68 H 131/70 Blood Pressure [Left Arm] Blood Pressure Mean 97 90 Blood Pressure Mean [Left Arm] Blood Pressure Position Blood Pressure Position [Left Arm] Pulse Oximetry 95 96 Oxygen Delivery Method Sepsis Recent Fever Within 48 Hours Sepsis New/Unexplained Change in Mental Status Sepsis Action Taken by Nursing 08/30/21 21:00 08/30/21 21:28 08/30/21 22:00 Temperature Temperature Source Pulse Rate 64 62 59 L Pulse Rate [Apical] Pulse Rate from SpO2 Sensor 64 Pulse Rhythm Pulse Strength Respiratory Rate 16 14 16 Respiratory Effort / Characteristics Respiratory Depth Respiratory Pattern Blood Pressure 132/72 138/44 L Blood Pressure [Left Arm] Blood Pressure Mean 92 75 Blood Pressure Mean [Left Arm] Blood Pressure Position Blood Pressure Position [Left Arm] Pulse Oximetry 95 Oxygen Delivery Method Sepsis Recent Fever Within 48 Hours Sepsis New/Unexplained Change in Mental Status Sepsis Action Taken by Nursing 08/30/21 22:30 08/30/21 22:52 Temperature Temperature Source Pulse Rate 63 Pulse Rate [Apical] Pulse Rate from SpO2 Sensor 63 Pulse Rhythm Pulse Strength Respiratory Rate 17 Respiratory Effort / Characteristics Respiratory Depth Respiratory Pattern Blood Pressure Blood Pressure [Left Arm] 115/60 Blood Pressure Mean Blood Pressure Mean [Left Arm] 78 Blood Pressure Position Blood Pressure Position [Left Arm] Pulse Oximetry 94 Oxygen Delivery Method Sepsis Recent Fever Within 48 Hours Sepsis New/Unexplained Change in Mental Status Sepsis Action Taken by Nursing Laboratory Data Result diagrams: 08/30/21 18:41 08/30/21 18:41 Lab Results 08/30/21 08/30/21 08/30/21 Range/Units 18:41 18:41 18:41 WBC 10.59 (4.8-10.8) K/uL RBC 3.92 L (4.7-6.1) M/uL Hgb 12.6 L (14.0-18.0) g/dL Hct 36.1 L (42-52) % MCV 92.1 (80-100) fL MCH 32.1 (25-34) pg MCHC 34.9 (32-36) g/dL RDW Std Deviation 43.4 (36.4-46.3) fL RDW Coeff of [place] 12.8 (11.5-14.5) % Plt Count 420 H (130-400) K/uL MPV 10.1 (7.4-10.4) fL Immature Gran % (Auto) 0.3 % Neut % (Auto) 53.9 % Lymph % (Auto) 31.8 % Hardy % (Auto) 9.5 % Eos % (Auto) 4.1 % Baso % (Auto) 0.4 % Neut # (Auto) 5.71 (1.4-6.5) K/uL Lymph # (Auto) 3.37 (1.2-3.4) K/uL Hardy # (Auto) 1.01 H (0.11-0.59) K/uL Eos # (Auto) 0.43 (0-0.5) K/uL Baso # (Auto) 0.04 (0-0.2) K/uL Immature Gran # (Auto) 0.03 H (0.00-0.02) K/uL PT 10.2 (9.0-12.0) Seconds INR 1.0 (0.9-1.1) APTT 29.3 (21.0-31.0) Seconds PTT Ratio 1.1 Sodium 125 L (136-145) mmol/L Potassium 4.5 (3.5-5.1) mmol/L Chloride 94 L (98-107) mmol/L Carbon Dioxide 23 (21-32) mmol/L Anion Gap 8 (3-11) BUN 13 (6-23) mg/dl Creatinine 0.74 (0.6-1.4) mg/dl Est Cr Clr Drug Dosing 86.6 ml/min Est GFR ( Amer) 112.2 ml/min Est GFR (Non-Af Amer) 96.8 ml/min BUN/Creatinine Ratio 17.6 (10-20) Glucose 81 (70-99(Fasting)) mg/dl Osmolality (280-300) mOsm/kg Calcium 8.8 (8.5-10.1) mg/dl Total Bilirubin 0.4 (0.2-1.0) mg/dl AST 31 (13-39) U/L ALT 30 (7-52) U/L Alkaline Phosphatase 79 (34-104) U/L Troponin I High Sens 4.1 (0-20) pg/ml Total Protein 7.3 (6.0-8.3) gm/dl Albumin 4.2 (3.4-5.0) gm/dl Globulin 3.1 (2.5-4.0) gm/dl Albumin/Globulin Ratio 1.4 (0.9-2) Lipase 43 (11-82) U/L TSH (0.300-4.500) uIu/ml Urine Osmolality (500-800) mOsm/kg SARS-CoV-2, RNA, NAAT (NEGATIVE) 08/30/21 08/30/21 08/30/21 Range/Units 19:01 20:05 20:05 WBC (4.8-10.8) K/uL RBC (4.7-6.1) M/uL Hgb (14.0-18.0) g/dL Hct (42-52) % MCV (80-100) fL MCH (25-34) pg MCHC (32-36) g/dL RDW Std Deviation (36.4-46.3) fL RDW Coeff of [place] (11.5-14.5) % Plt Count (130-400) K/uL MPV (7.4-10.4) fL Immature Gran % (Auto) % Neut % (Auto) % Lymph % (Auto) % Hardy % (Auto) % Eos % (Auto) % Baso % (Auto) % Neut # (Auto) (1.4-6.5) K/uL Lymph # (Auto) (1.2-3.4) K/uL Hardy # (Auto) (0.11-0.59) K/uL Eos # (Auto) (0-0.5) K/uL Baso # (Auto) (0-0.2) K/uL Immature Gran # (Auto) (0.00-0.02) K/uL PT (9.0-12.0) Seconds INR (0.9-1.1) APTT (21.0-31.0) Seconds PTT Ratio Sodium (136-145) mmol/L Potassium (3.5-5.1) mmol/L Chloride (98-107) mmol/L Carbon Dioxide (21-32) mmol/L Anion Gap (3-11) BUN (6-23) mg/dl Creatinine (0.6-1.4) mg/dl Est Cr Clr Drug Dosing ml/min Est GFR ( Amer) ml/min Est GFR (Non-Af Amer) ml/min BUN/Creatinine Ratio (10-20) Glucose (70-99(Fasting)) mg/dl Osmolality 298 (280-300) mOsm/kg Calcium (8.5-10.1) mg/dl Total Bilirubin (0.2-1.0) mg/dl AST (13-39) U/L ALT (7-52) U/L Alkaline Phosphatase (34-104) U/L Troponin I High Sens (0-20) pg/ml Total Protein (6.0-8.3) gm/dl Albumin (3.4-5.0) gm/dl Globulin (2.5-4.0) gm/dl Albumin/Globulin Ratio (0.9-2) Lipase (11-82) U/L TSH 1.343 (0.300-4.500) uIu/ml Urine Osmolality (500-800) mOsm/kg SARS-CoV-2, RNA, NAAT NEGATIVE (NEGATIVE) 08/30/21 08/30/21 Range/Units 20:05 21:50 WBC (4.8-10.8) K/uL RBC (4.7-6.1) M/uL Hgb (14.0-18.0) g/dL Hct (42-52) % MCV (80-100) fL MCH (25-34) pg MCHC (32-36) g/dL RDW Std Deviation (36.4-46.3) fL RDW Coeff of [place] (11.5-14.5) % Plt Count (130-400) K/uL MPV (7.4-10.4) fL Immature Gran % (Auto) % Neut % (Auto) % Lymph % (Auto) % Hardy % (Auto) % Eos % (Auto) % Baso % (Auto) % Neut # (Auto) (1.4-6.5) K/uL Lymph # (Auto) (1.2-3.4) K/uL Hardy # (Auto) (0.11-0.59) K/uL Eos # (Auto) (0-0.5) K/uL Baso # (Auto) (0-0.2) K/uL Immature Gran # (Auto) (0.00-0.02) K/uL PT (9.0-12.0) Seconds INR (0.9-1.1) APTT (21.0-31.0) Seconds PTT Ratio Sodium (136-145) mmol/L Potassium (3.5-5.1) mmol/L Chloride (98-107) mmol/L Carbon Dioxide (21-32) mmol/L Anion Gap (3-11) BUN (6-23) mg/dl Creatinine (0.6-1.4) mg/dl Est Cr Clr Drug Dosing ml/min Est GFR ( Amer) ml/min Est GFR (Non-Af Amer) ml/min BUN/Creatinine Ratio (10-20) Glucose (70-99(Fasting)) mg/dl Osmolality (280-300) mOsm/kg Calcium (8.5-10.1) mg/dl Total Bilirubin (0.2-1.0) mg/dl AST (13-39) U/L ALT (7-52) U/L Alkaline Phosphatase (34-104) U/L Troponin I High Sens 4.4 (0-20) pg/ml Total Protein (6.0-8.3) gm/dl Albumin (3.4-5.0) gm/dl Globulin (2.5-4.0) gm/dl Albumin/Globulin Ratio (0.9-2) Lipase (11-82) U/L TSH (0.300-4.500) uIu/ml Urine Osmolality 146 L (500-800) mOsm/kg SARS-CoV-2, RNA, NAAT (NEGATIVE) Administered Medications Discontinued Medications Aspirin (Aspirin Chew 324 Mg) 324 mg PO NOW STA Stop: 08/30/21 18:43 Last Admin: 08/30/21 19:03 Dose: 324 mg Documented by: [id number] Lactated Ringer's (Lr) 250 mls @ 999 mls/hr IV .Q16M ONE Stop: 08/30/21 20:40 Last Infusion: 08/30/21 22:09 Dose: 0 mls/hr Documented by: [id number] Admin: 08/30/21 21:35 Dose: 999 mls/hr Documented by: [id number] Ioversol (Optiray 320 125ml) 119 ml IV ONCE ONE Stop: 08/30/21 20:51 Last Admin: 08/30/21 20:52 Dose: 119 ml Documented by: [id number] Morphine Sulfate (Morphine Sulfate 4 Mg/Ml 1 Ml Carp\\Vial) 4 mg IV NOW STA Stop: 08/30/21 18:55 Last Admin: 08/30/21 19:03 Dose: 4 mg Documented by: [id number] Morphine Sulfate (Morphine Sulfate 4 Mg/Ml 1 Ml Carp\\Vial) 4 mg IV NOW STA Stop: 08/30/21 20:01 Last Admin: 08/30/21 21:35 Dose: 4 mg Documented by: [id number] Nitroglycerin (Nitroglycerin Sl 0.4 Mg/Tab Tab) 0.4 mg SL NOW STA Stop: 08/30/21 18:55 Last Admin: 08/30/21 19:04 Dose: 0.4 mg Documented by: [id number] Nitroglycerin (Nitroglycerin Sl 0.4 Mg/Tab Tab) 0.4 mg SL NOW STA Stop: 08/30/21 20:01 Last Admin: 08/30/21 21:35 Dose: 0.4 mg Documented by: [id number] Imaging Data Radiologist's Impression: Chest X-Ray 08/30/21 18:42 XR chest 1V portable CLINICAL HISTORY: Chest Pain. COMPARISON STUDY: 03/11/2021 TECHNIQUE: 1 view of the chest FINDINGS: Single frontal view of the chest demonstrates the cardiomediastinal silhouette to be within normal limits. There is a decreased inspiratory effort with elevation of the hemidiaphragms and crowding of the bronchovascular markings at the lung bases and centrally. The lungs are clear of alveolar opacities. There is no evidence for pleural effusion. There is no evidence for vascular congestion. There is no acute osseous pathology. IMPRESSION: 1. There is a decreased inspiratory effort with otherwise no acute chest disease. ACT 112: Negative or not required by law. Electronically signed by: Clovis Arita M.D. 08/30/2021 7:29 PM Chest CTA 08/30/21 19:54 CT angio chest PE protocol CLINICAL HISTORY: Midsternal chest pain and shortness of breath COMPARISON STUDY: Portable chest from 08/30/2021 CT DOSE: 326.49 mGy.cm TECHNIQUE: CT Angio of the chest was performed.followed by image post processing with coronal, and sagittal MIP reformats. Contrast Volume: Optiray 320, 119 ml FINDINGS: Vasculature: There is homogeneous perfusion of the pulmonary vasculature bilaterally. No intraluminal filling defects or evidence for pulmonary embolus is seen. Airway: The airway is clear. No endobronchial lesion is identified. Lungs: The lungs are clear of acute alveolar opacities, air bronchograms or pulmonary nodules. Pleura: There is no evidence for pleural effusion. There is no evidence for pneumothorax. Mediastinum: There is no evidence for pathologic adenopathy. The heart size is w ithin normal limits. Extensive coronary artery calcification is present. The thoracic aorta is within normal limits. There is no evidence for pericardial effusion. Upper abdomen:The adrenal glands are normal bilaterally. Osseous structures: There is no acute osseous pathology. Impression: 1. No CTA evidence for pulmonary embolus. 2. No acute chest disease. 3. Extensive coronary artery calcification. ACT 112: Negative or not required by law. Electronically signed by: Clovis Arita M.D. 08/30/2021 9:08 PM Discharge Plan Visit Data Chief Complaint: Chest Pain Stated Complaint: CHEST PAIN, DIZZINESS ED Provider: Malachi Khan Discharge Problem: Chest pain, History of heart artery stent, Acute hyponatremia Patient Disposition: Being Evaluated by Hospitalist Forms Stand Alone Forms: My [facility] Prescriptions Prescriptions: No Action amlodipine 10 mg tablet 10 mg PO QPM Qty: 90 RF: 3 losartan 100 mg tablet 100 mg PO QAM Qty: 90 RF: 3 simvastatin 80 mg tablet 80 mg PO PM Qty: 90 RF: 3 clopidogrel [Plavix] 75 mg tablet 75 mg PO DAILY Qty: 90 RF: 3 metoprolol tartrate 100 mg tablet 50 mg PO BID Qty: 90 RF: 3 nitroglycerin 0.4 mg tablet, sublingual 0.4 mg Sublingual UD PRN (Reason: Angina) Qty: 30 RF: 3 lidocaine 5 % Adhesive Patch,Medicated 1 patch TOPICAL DAILY PRN (Reason: Pain) RF: 0 cholecalciferol (vitamin D3) [Vitamin D3] 5,000 unit Tablet 5,000 unit PO QAM RF: 0 multivitamin Tablet 1 tab PO QAM RF: 0 baclofen 10 mg Tablet 20 mg PO TID RF: 0 hydrocodone-acetaminophen 10-325 mg Tablet 1 tab PO Q4H PRN (Reason: Pain) RF: 0 bupropion HCl 100 mg tablet sustained-release 12 hr 100 mg PO BID RF: 0 Saccharomyces boulardii [Florastor] 250 mg capsule 250 mg PO QAM RF: 0 pantoprazole 40 mg tablet,delayed release (DR/EC) 40 mg PO BID Qty: 60 RF: 0 Referrals Referrals: Lloyd Rosenthal MD [Primary Care Provider] -
[2021-08-30 19:26] LABS: Troponin I High Sensitivity 4.1 pg/ml (0-20)
[2021-08-30 19:29] LABS: Partial Thromboplastin Ratio 1.1; Partial Thromboplastin Time 29.3 Seconds (21.0-31.0); Prothrombin Time 10.2 Seconds (9.0-12.0)
--- NOTE | 2021-08-30 19:30 | XRay Report ---
XR chest 1V portable CLINICAL HISTORY: Chest Pain. COMPARISON STUDY: 03/11/2021 TECHNIQUE: 1 view of the chest FINDINGS: Single frontal view of the chest demonstrates the cardiomediastinal silhouette to be within normal li mits. There is a decreased inspiratory effort with elevation of the hemidiaphragms and crowding of th e bronchovascular markings at the lung bases and centrally. The lungs are clear of alveolar opacities . There is no evidence for pleural effusion. There is no evidence for vascular congestion. There is n o acute osseous pathology. IMPRESSION: 1. There is a decreased inspiratory effort with otherwise no acute chest disease. ACT 112: Negative or not required by law. Electronically signed by: Clovis Arita M.D. 08/30/2021 7:29 PM
[2021-08-30 19:37] LABS: Albumin Globulin Ratio 1.4 (0.9-2); Albumin Level 4.2 gm/dl (3.4-5.0); BUN Creatinine Ratio 17.6 (10-20); Bilirubin,Total 0.4 mg/dl (0.2-1.0); Calcium 8.8 mg/dl (8.5-10.1); Creatinine Clr Calc Pharmacy 86.6 ml/min; Est GFR (African American) 112.2 ml/min; Est GFR (Non-African American) 96.8 ml/min; Globulin 3.1 gm/dl (2.5-4.0); Potassium 4.5 mmol/L (3.5-5.1); Total Protein 7.3 gm/dl (6.0-8.3)
[2021-08-30] MEDS ORDERED: LACTATED RINGER'S 250 ML IV ONE (20:25)
[2021-08-30] MEDS ORDERED: OPTIRAY 320 125ml IV ONE (20:50)
--- NOTE | 2021-08-30 21:11 | CT Scan Report ---
CT angio chest PE protocol CLINICAL HISTORY: Midsternal chest pain and shortness of breath COMPARISON STUDY: Portable chest from 08/30/2021 CT DOSE: 326.49 mGy.cm TECHNIQUE: CT Angio of the chest was performed.followed by image post processing with coronal, and s agittal MIP reformats. Contrast Volume: Optiray 320, 119 ml FINDINGS: Vasculature: There is homogeneous perfusion of the pulmonary vasculature bilaterally. No intraluminal filling defects or evidence for pulmonary embolus is seen. Airway: The airway is clear. No endobronchial lesion is identified. Lungs: The lungs are clear of acute alveolar opacities, air bronchograms or pulmonary nodules. Pleura: There is no evidence for pleural effusion. There is no evidence for pneumothorax. Mediastinum: There is no evidence for pathologic adenopathy. The heart size is within normal limits. Extensive coronary artery calcification is present. The thoracic aorta is within normal limits. There is no evidence for pericardial effusion. Upper abdomen:The adrenal glands are normal bilaterally. Osseous structures: There is no acute osseous pathology. Impression: 1. No CTA evidence for pulmonary embolus. 2. No acute chest disease. 3. Extensive coronary artery calcification. ACT 112: Negative or not required by law. Electronically signed by: Clovis Arita M.D. 08/30/2021 9:08 PM
--- NOTE | 2021-08-30 22:02 | History & Physical Report ---
Date of Service August 30, 2021 Assessment & Plan (1) Unstable angina: (2) Acute hyponatremia: (3) Hypertension: (4) Gastric ulcer: (5) Hyperlipidemia: (6) CAD (coronary artery disease): (7) Chronic prescription opiate use: (8) Chronic back pain: (9) Hypercholesterolemia: (10) Anemia: (11) Alcohol use: Plan: 66-year-old male past medical history significant for CAD status post stent x4, hyperlipidemia, hypertension, chronic back pain with chronic opiate use, GERD, alcohol use admitted for acute hyponatremia and unstable angina without resolution with sublingual nitro. Unstable angina, HLD, HTN: History of CAD s/p stent; Mid LCx SERENE, 100% mid RCA September 2009, proximal LCx SERENE January 2016, ostial LCx SERENE October 2016. Presents with several weeks of angina with activity and rest, with worsening of symptoms today as compared to the last 2 weeks. Troponin x2 negative; will trend every 6 hours. Daily EKG; no significant change at this time. Given improvement of symptoms with sublingual nitro, will place patient on Nitropaste. Will start heparin gtt. Received aspirin 324 mg; continue aspirin 81 mg daily as well as home Plavix. Continue beta-anuja, ARB, statin. Echocardiogram and Cardiology consult ordered for the morning; anticipate possible need for cardiac catheterization while patient is in-house. A1c and lipid panel pending; patient had good control of hyperlipidemia on last check in 03/2020. Acute hyponatremia, alcohol use: Presents to ER with sodium of 125 with Serum Osm 298, UOsm 146. This suggests tea and toast diet vs. potomania. 1500cc fluid restriction ordered. Repeat BMP in AM. Unknown amount of alcohol use at baseline; patient reports 1-2 beers daily but admits to having 4 beers today. AWSS at-risk protocol ordered. No active withdrawal symptoms at this time. Chronic back pain, chronic opiate use: Takes [place] 10-325mg BID, will continue. GERD: History of. Continue PPI BID. Chronic anemia: History of chronic normocytic anemia with Hgb at baseline on admission. B12, folate, iron studies pending. CODE STATUS: Full code FEN: Heart healthy with 1500 mL fluid restriction; NPO at midnight DVT prophylaxis: Heparin gtt Dispo: Med/Surg with Telemetry History of Present Illness Chief Complaint: chest pain Primary Care Provider: Lloyd Rosenthal MD 66-year-old male past medical history significant for CAD status post stent x4, hyperlipidemia, hypertension, chronic back pain with chronic opiate use, GERD, alcohol use presented to the ER for acute worsening of his left-sided chest pain with associated shortness of breath. He reports that over the last 2 weeks he has been having anginal chest pain with activity, and sometimes with rest but today pain seemed worse with some radiation into the shoulder and worsening of trouble breathing. He denies nausea or vomiting, abdominal pain, fevers or chills he was ill with a viral infection about 3 weeks ago and has a lingering cough intermittently due to this. While EMS were on route patient took several nitro SL with improvement in his pain though not complete resolution. On route he received aspirin 324mg. In the ER patient was noted to have negative troponin x2, EKG without ST elevations. Sodium 125 with serum osmolality 298 and urine osmolality 146, COVID-19 negative. Chest CTA without evidence of pneumonia or PE. As patient's pain was not completely resolved and very characteristic of anginal chest pain, hospital service was consulted for admission for both chest pain evaluation and hyponatremia. Allergies Allergy/AdvReac Type Severity Reaction Status Date / Time Penicillins Allergy Severe "CIRCULATORY Verified 08/30/21 19:44 SHUTDOWN" Home Medications Medication Instructions Recorded Confirmed Type baclofen 10 mg tablet 20 mg PO TID 11/13/17 08/30/21 History hydrocodone 10 mg-acetaminophen 1 tab PO Q4H PRN 11/13/17 08/30/21 History 325 mg tablet cholecalciferol (vitamin D3) 125 5,000 unit PO QAM 02/18/18 08/30/21 History mcg (5,000 unit) tablet (Vitamin D3) lidocaine 5 % topical patch 1 patch TOPICAL DAILY PRN 02/18/18 08/30/21 History multivitamin 1 tab PO QAM 02/18/18 08/30/21 History Saccharomyces boulardii 250 mg 250 mg PO QAM 07/13/19 08/30/21 History capsule (Florastor) bupropion HCl 100 mg tablet,12 hr 100 mg PO BID 07/13/19 08/30/21 History sustained-release pantoprazole 40 mg tablet,delayed 40 mg PO BID #60 tab 07/17/19 08/30/21 Rx release amlodipine 10 mg tablet 10 mg PO QPM #90 tab 05/20/20 08/30/21 Rx losartan 100 mg tablet 100 mg PO QAM #90 tab 05/20/20 08/30/21 Rx simvastatin 80 mg tablet 80 mg PO PM #90 tab 05/20/20 08/30/21 Rx clopidogrel 75 mg tablet (Plavix) 75 mg PO DAILY #90 tab 05/29/21 08/30/21 Rx metoprolol tartrate 100 mg tablet 50 mg PO BID #90 tab 05/29/21 08/30/21 Rx nitroglycerin 0.4 mg sublingual 0.4 mg SUBLINGUAL UD PRN #30 tab 08/08/21 08/30/21 Rx tablet Past Med/Surg History Medical History (Updated 08/31/21 @ 13:35 by Yon Ellis MD) Alcohol use Anxiety BPH (benign prostatic hyperplasia) CAD (coronary artery disease) Chronic back pain Chronic prescription opiate use Diverticulosis Dupuytren's contracture of hand GERD (gastroesophageal reflux disease) History of Clostridioides difficile colitis Hx of gastric ulcer Hyperlipidemia Hypertension Left ventricular hypertrophy On anticoagulant therapy plavix d/t stents Peripheral neuropathy Surgical History History of cardiac cath x3 @ [facility] follow with Dr. Zamora History of hand surgery x6 (4 on right, 2 on left) d/t Dupuytren's History of heart artery stent 2009 x2, 2015 x1, 2017 x1--@ [facility] History of intravascular stent placement RIGHT LEG History of procedure for peripheral vascular disease 2012 Dr. Granger History of removal of cyst from groin History of surgery RIGHT LEG R/T TRAUMA [place] teeth removed Family History Sister Family history of reaction to anesthesia difficulty waking and nausea Mother Family history of reaction to anesthesia difficulty waking and nausea Peptic ulcer disease Father , in his 40s Cerebral aneurysm Social History Smoking Status: Never smoker packs per day: 1; Years Smoked: 30; Second Hand Exposure: No; Hx Alcohol Use: Yes Alcohol type: beer Alcohol Intake Frequency Comment: 6-pack every 1-2 weeks Preferred Language: Divehi Communication Ability: Effective Recreation Attendant Required: No Beliefs That Will Affect Care: None marital status: Current Living Situation: Spouse current occupational status: retired 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 Feels Safe at Home: Yes Assistive Devices: None Review of Systems Review of Systems: All systems reviewed & are unremarkable except as noted in HPI & below Constitutional: + malaise; no fever and no chills Respiratory: no cough and no dyspnea Cardiovascular: + chest pain; no palpitations and no edema Gastrointestinal: no abdominal pain, no constipation and no diarrhea/loose stools Physical Exam Constitutional: WD/WN, vitals as above Eyes: PERRL, conjunctivae normal, anicteric sclerae ENMT: external ear and nose normal, oropharynx normal Neck: normal visual inspection Respiratory: normal respiratory effort, lungs clear to auscultation Cardiovascular: RRR, no murmur, no edema Gastrointestinal (Abdomen): normal bowel sounds, soft, nontender, no hepatosplenomegaly Musculoskeletal: no cyanosis or clubbing, extremities motor strength 5/5 Skin: no rashes, warm and dry Neurologic: AAOx3, normal speech. Bilateral UE, LE, and face without sensory or motor deficits. Psychiatric: A+Ox3, euthymic affect Results & Data Results & Data ([facility]) Vital Signs (Past 12 Hours) Vital Signs Temp Pulse Pulse Resp BP BP Pulse Ox 08/30/21 19:30 55 L 18 136/81 08/30/21 19:05 56 L 19 146/74 H 96 08/30/21 19:00 56 L 17 134/76 96 08/30/21 18:50 60 20 170/88 H 96 08/30/21 18:44 60 20 97 08/30/21 18:31 36.4 C L 58 L 20 159/83 H 94 Supervising Physician Co-Signing Physician Notes Attending addendum: I have physically seen this patient, have supervised the medical residents activities, and agree with the H&P unless as otherwise noted. Assessment and Plan: Unstable angina/hypertension/CAD/history of stent- The patient will be admitted to telemetry for serial cardiac enzymes, serial EKG's, cardiac rhythm monitoring and a 2-D echocardiogram with Dopplers. Continue amlodipine, clopidogrel, losartan, metoprolol tartrate, nitroglycerin sublingual Start heparin drip Consult cardiology Hyponatremia- Sodium 125 on admission Serum osmolality 298, urine osmolality 146 Likely [place]/excessive fluid intake 1500 cc fluid restriction Sodium chloride 1 g p.o. twice daily Recheck laboratories in a.m. Alcohol use- AWSS protocol Remaining orders and notations as noted Resident Activity Tracking Resident Involvement: Resident Care Provided Care Provided: Adult Hospital Medicine (1) CAD (coronary artery disease) Associated angina: with unspecified angina Coronary Disease-Associated Artery/Lesion type: unspecified vessel or lesion type [place] vs. transplanted heart: [place] heart Qualified Code(s): I25.119 - Atherosclerotic heart disease of [place] coronary artery with unspecified angina pectoris (2) Hyperlipidemia Hyperlipidemia type: mixed hyperlipidemia Qualified Code(s): E78.2 - Mixed hyperlipidemia (3) Gastric ulcer Gastric ulcer chronicity: acute Gastric ulcer complication status: unspecified whether hemorrhage or perforation present Qualified Code(s): K25.3 - Acute gastric ulcer without hemorrhage or perforation (4) Hypertension Hypertension type: essential hypertension Qualified Code(s): I10 - Essential (primary) hypertension
[2021-08-30] MEDS ORDERED: MoRPHine SULFATE 4 MG/ML 1 ML CARP\\VIAL IV PRN (22:39)
[2021-08-30] MEDS ORDERED: Heparin IV Adult Wt-Based Standard *NO* Bolus Protocol ONE (22:43)
[2021-08-30] MEDS ORDERED: HEPARIN SODIUM/DEXTROSE 25,000 UNITS/500 ML BAG IV SCH (23:00)
[2021-08-30] MEDS: METOPROLOL TARTRATE 100 MG TAB PO SCH (23:51)
[2021-08-30] MEDS: SIMVASTATIN 80 MG TAB PO SCH (23:51)
[2021-08-31] MEDS ORDERED: LORazepam 1 MG TAB PO PRN (00:31)
[2021-08-31] MEDS ORDERED: ONDANSETRON INJ 2 MG/ML 2 ML VIAL IV PRN (00:31)
[2021-08-31] MEDS ORDERED: LIDOCAINE 5% 1 PATCH TD PRN (00:31)
[2021-08-31] MEDS ORDERED: ACETAMINOPHEN 325 MG TAB PO PRN (00:31)
[2021-08-31] MEDS: NITROGLYCERIN 2% OINTMENT 30GM TUBE EXT SCH ×3 (00:45→12:09)
[2021-08-31 03:00] LABS: Ferritin 43.6 ng/ml (8-388)
[2021-08-31 03:23] LABS: Folate (Folic Acid) > 22.30 ng/ml (>5.38)
[2021-08-31 03:24] LABS: Vitamin B12 355 pg/ml (180-914)
[2021-08-31 06:32] LABS: Basophils # (auto) 0.05 K/uL (0-0.2); Basophils % (auto) 0.6 %; Eosinophils # (auto) 0.41 K/uL (0-0.5); Eosinophils % (auto) 5.1 %; Hematocrit (blood only) 36.2 % (42-52); Hemoglobin 12.2 g/dL (14.0-18.0); Immature Granulocytes # (auto) 0.02 K/uL (0.00-0.02); Immature Granulocytes % (auto) 0.2 %; Lymphocytes # (auto) 2.16 K/uL (1.2-3.4); Lymphocytes % (auto) 26.8 %; Mean Corpuscular Hemoglobin 30.5 pg (25-34); Mean Corpuscular Hgb Conc 33.7 g/dL (32-36); Mean Corpuscular Volume 90.5 fL (80-100); Mean Platelet Volume 10.4 fL (7.4-10.4); Monocytes # (auto) 1.25 K/uL (0.11-0.59); Monocytes % (auto) 15.5 %; Neutrophils # (auto) 4.18 K/uL (1.4-6.5); Neutrophils % (auto) 51.8 %; Platelet Count 427 K/uL (130-400); RDW Standard Deviation 43.1 fL (36.4-46.3); White Blood Count 8.07 K/uL (4.8-10.8)
[2021-08-31 07:35] LABS: BUN Creatinine Ratio 17.9 (10-20); Calcium 8.9 mg/dl (8.5-10.1); Creatinine Clr Calc Pharmacy 95.6 ml/min; Est GFR (African American) 116.9 ml/min; Est GFR (Non-African American) 100.8 ml/min
[2021-08-31 08:03] LABS: Troponin I High Sensitivity 5.3 pg/ml (0-20)
[2021-08-31] MEDS: CLOPIDOGREL BISULFATE 75 MG TAB PO SCH (08:37)
[2021-08-31] MEDS: PANTOprazole 40 MG TAB PO SCH ×2 (08:38→20:10)
[2021-08-31] MEDS: SACCHAROMYCES BOULARDII 250 MG CAP PO SCH (08:38)
[2021-08-31] MEDS: LOSARTAN POTASSIUM 50 MG TAB PO SCH (08:38)
[2021-08-31] MEDS: MULTIVITAMIN TAB PO SCH (08:38)
[2021-08-31] MEDS: BACLOFEN 20 MG TAB PO SCH ×3 (08:39→20:09)
[2021-08-31] MEDS: buPROPion SR 100 MG TABCR PO SCH ×2 (08:39→20:09)
[2021-08-31] MEDS: METOPROLOL TARTRATE 100 MG TAB PO SCH ×2 (08:40→20:09)
--- NOTE | 2021-08-31 08:52 | Hospitalist Progress Note ---
Date of Service August 31, 2021 Assessment & Plan (1) Unstable angina: Plan: 66-year-old male past medical history significant for CAD status post stent x4, hyperlipidemia, hypertension, chronic back pain with chronic opiate use, GERD, alcohol use admitted for angina without resolution with sublingual nitro and acute hyponatremia. ()Angina -Hx. HLD, HTN, History of CAD s/p stent; Mid LCx SERENE, 100% mid RCA September 2009, proximal LCx SERENE January 2016, ostial LCx SERENE October 2016. -Presents with several weeks of angina with activity and rest, with worsening of symptoms on admit as compared to the last 2 weeks. -Troponin x3 negative -EKG unremarkable, ordered daily ekgs -symptoms improved with sublingual nitro, started on Nitropaste. -started start heparin gtt. -given aspirin 324 mg; continue aspirin 81 mg daily as well as home Plavix. -Continue beta-anuja, ARB, statin. -HA1c 5.7 mildly pre-diabetic, lipid panel wnl -Echocardiogram ordered -Cardiology consulted: Determined more likely acute pericarditis. Start colchicine bid and high-dose aspirin. Colchicine can be continued for 3 months while aspirin can be reduced to 81 mg once daily. Patient upset catheterization not recommended. Case to follow with Dr. Zamora tomorrow. ()Acute hyponatremia, alcohol use: Resolved -sodium of 125 with Serum Osm 298, UOsm 146. -may be 2/2 to alcohol use -1500cc fluid restriction ordered.- -Unknown amount of alcohol use at baseline; patient reports 1-2 beers daily but admits to having 4 beers today. -AWSS at-risk protocol ordered. No active withdrawal symptoms at this time. -Na recheck 135 ()Chronic back pain, chronic opiate use: -Takes [place] 10-325mg BID, will continue. ()GERD: -Continue PPI BID. ()Chronic anemia: -History of chronic normocytic anemia with Hgb at baseline on admission. -B12, folate, iron studies wnl CODE STATUS: Full code FEN: Heart healthy with 1500 mL fluid restriction DVT prophylaxis: Heparin gtt Dispo: Med/Surg with Telemetry (2) Acute hyponatremia: (3) Hypertension: (4) Gastric ulcer: (5) Hyperlipidemia: (6) CAD (coronary artery disease): (7) Chronic prescription opiate use: (8) Chronic back pain: (9) Hypercholesterolemia: (10) Anemia: (11) Alcohol use: Admission and Anticipated Discharge Date Admission Date: August 30, 2021 Supervising Physician Co-Signing Physician Notes I personally examined the patient and verified all oden points of history and exam, discussed case, and agree with decision making with Dr Momin. Very worried about anginanotes that even before he got sick with a viral illness he was starting to notice some dyspnea on exertion. He got sick with a viral illnesshis granddaughter had hanna was sick with for about 3 weeksbut then notes [facility] weeks ag[place]henever [place] was [place] noted a lot of dyspnea on exertion, did take a good bit of nitro, notes that at times with his dyspnea on exertion he is getting chest pressure and heaviness. To clarify, he uses the word sharp to describe a pressure where he pantomimes somebody pushing on his chestand to specifically clarify he notes that he is not using sharp to intend a stabbing or knifelike sensation. Also notes that his chest pressure has not been continuous over 14 hours, but rather came and went in short bursts intermittently but at times it was a 0. Vitals noted, in general he is awake and alert pleasant no distress. HEENT normocephalic atraumatic mucous membranes moist. Breathing unlabored no accessory muscle use good effort. Skin shows no rashes no pallor or icterus. Neuro without focal deficits. Chest pressurehe is a little bit of a difficult historian given his choice of words, and his unique definition of the word sharp, as well as the fact that it took a lot of clarifying to discern that his 14 hours of chest pressure were absolutely not continuous. Continue to monitor, walk through the halls, have cardiology follow-up in the morning, continue med management. Even if this is angina, given his prior cath, it might be more amenable to med management, and repeat intervention only if he fails that, but will discuss with cardiology further based on how he is doing overnight and tomorrow. Subjective Patient seen at bedside, calm comfortable cooperative. He states 2 weeks ago he was in [facility], walking around in heat which he believes set off his chest pain, he returned to hotel room applied nitroglycerin pain improved. Recently he has also been experiencing chest pain at rest so he came to the hospital. He describes majority of pain on left side of chest improved with nitropaste. He denies SOB headache dizziness, states some numbness along right arm. Patient has easy access to his medication list and is compliant with medications. 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 Patient states he had a difficult time getting his CAD diagnosed initially, states he had to push for a stress echo and eventually catheterization to find his 70% stenosis. Review of Systems Review of Systems: Chest pain, numbness along right arm Negative fever chills Negative headache dizziness Negative palpitations SOB Negative nausea vomitting diarrhea constipation abd pain Negative rash swelling Physical Exam Constitutional: WD/WN, vitals as above Eyes: PERRL, conjunctivae normal, anicteric sclerae ENMT: external ear and nose normal, oropharynx normal Neck: trachea midline, no thyromegaly Respiratory: normal respiratory effort, lungs clear to auscultation Cardiovascular: RRR, no murmur, no edema Chest (Breasts): Chest: normal inspection of chest Gastrointestinal (Abdomen): normal bowel sounds, soft, nontender, no hepatosplenomegaly Skin: no rashes, warm and dry Psychiatric: A+Ox3, euthymic affect Results & Data Results & Data ([facility]) Vital Signs (Past 12 Hours) Vital Signs Temp Pulse Pulse Pulse Resp BP BP 08/31/21 07:39 36.9 C 72 20 158/75 H 08/31/21 05:16 143/77 H 08/31/21 04:19 36.5 C 57 L 20 148/68 H 08/31/21 00:54 36.8 C 63 18 152/73 H 08/31/21 00:39 61 08/31/21 00:31 36.8 C 63 18 152/73 H 08/31/21 00:00 60 13 128/76 08/30/21 23:49 63 14 150/75 H 08/30/21 23:00 64 15 08/30/21 22:52 63 14 115/60 115/60 08/30/21 22:30 63 17 08/30/21 22:00 59 L 16 08/30/21 21:28 62 14 138/44 L 08/30/21 21:00 64 16 132/72 08/30/21 20:59 64 15 131/70 08/30/21 20:57 Pulse Ox Pulse Ox 08/31/21 07:39 92 08/31/21 05:16 08/31/21 04:19 93 08/31/21 00:54 95 08/31/21 00:39 08/31/21 00:31 95 95 08/31/21 00:00 08/30/21 23:49 08/30/21 23:00 91 08/30/21 22:52 92 08/30/21 22:30 94 08/30/21 22:00 08/30/21 21:28 08/30/21 21:00 95 08/30/21 20:59 96 08/30/21 20:57 95 Diagnostic Findings Laboratory Results WBC 8.07 K/uL (4.8-10.8) 08/31/21 05:45 RBC 4.00 M/uL (4.7-6.1) L 08/31/21 05:45 Hgb 12.2 g/dL (14.0-18.0) L 08/31/21 05:45 Hct 36.2 % (42-52) L 08/31/21 05:45 MCV 90.5 fL (80-100) 08/31/21 05:45 MCH 30.5 pg (25-34) 08/31/21 05:45 MCHC 33.7 g/dL (32-36) 08/31/21 05:45 RDW Std Deviation 43.1 fL (36.4-46.3) 08/31/21 05:45 RDW Coeff of [place] 13.0 % (11.5-14.5) 08/31/21 05:45 Plt Count 427 K/uL (130-400) H 08/31/21 05:45 MPV 10.4 fL (7.4-10.4) 08/31/21 05:45 Immature Gran % (Auto) 0.2 % 08/31/21 05:45 Neut % (Auto) 51.8 % 08/31/21 05:45 Lymph % (Auto) 26.8 % 08/31/21 05:45 [place]alls % (Auto) 15.5 % 08/31/21 05:45 Eos % (Auto) 5.1 % 08/31/21 05:45 Baso % (Auto) 0.6 % 08/31/21 05:45 Neut # (Auto) 4.18 K/uL (1.4-6.5) 08/31/21 05:45 Lymph # (Auto) 2.16 K/uL (1.2-3.4) 08/31/21 05:45 Ralls # (Auto) 1.25 K/uL (0.11-0.59) H 08/31/21 05:45 Eos # (Auto) 0.41 K/uL (0-0.5) 08/31/21 05:45 Baso # (Auto) 0.05 K/uL (0-0.2) 08/31/21 05:45 Immature Gran # (Auto) 0.02 K/uL (0.00-0.02) 08/31/21 05:45 PT 10.2 Seconds (9.0-12.0) 08/30/21 18:41 INR 1.0 (0.9-1.1) 08/30/21 18:41 APTT 47.9 Seconds (21.0-31.0) H* 08/31/21 05:45 PTT Ratio 1.7 08/31/21 05:45 Sodium 135 mmol/L (136-145) L D 08/31/21 06:03 Potassium 4.0 mmol/L (3.5-5.1) 08/31/21 06:03 Chloride 103 mmol/L (98-107) 08/31/21 06:03 Carbon Dioxide 25 mmol/L (21-32) 08/31/21 06:03 Anion Gap 7 (3-11) 08/31/21 06:03 BUN 12 mg/dl (6-23) 08/31/21 06:03 Creatinine 0.67 mg/dl (0.6-1.4) 08/31/21 06:03 Est Cr Clr Drug Dosing 95.6 ml/min 08/31/21 06:03 Est GFR ( Amer) 116.9 ml/min 08/31/21 06:03 Est GFR (Non-Af Amer) 100.8 ml/min 08/31/21 06:03 BUN/Creatinine Ratio 17.9 (10-20) 08/31/21 06:03 Glucose 71 mg/dl (70-99(Fasting)) 08/31/21 06:03 Estimat Average Glucose 117 mg/dl 08/30/21 18:42 Hemoglobin A1c 5.7 % (4.5-5.6) H 08/30/21 18:42 Osmolality 298 mOsm/kg (280-300) 08/30/21 20:05 Calcium 8.9 mg/dl (8.5-10.1) 08/31/21 06:03 Iron 86 mcg/dl (35-175) 08/30/21 18:41 Unsaturated IBC 273 mcg/dl (155-355) 08/30/21 18:41 Transferrin 262 mg/dl (200-360) 08/30/21 18:41 Ferritin 43.6 ng/ml (8-388) 08/30/21 18:41 Total Bilirubin 0.4 mg/dl (0.2-1.0) 08/30/21 18:41 AST 31 U/L (13-39) 08/30/21 18:41 ALT 30 U/L (7-52) 08/30/21 18:41 Alkaline Phosphatase 79 U/L (34-104) 08/30/21 18:41 Troponin I High Sens 5.3 pg/ml (0-20) 08/31/21 06:03 Total Protein 7.3 gm/dl (6.0-8.3) 08/30/21 18:41 Albumin 4.2 gm/dl (3.4-5.0) 08/30/21 18:41 Globulin 3.1 gm/dl (2.5-4.0) 08/30/21 18:41 Albumin/Globulin Ratio 1.4 (0.9-2) 08/30/21 18:41 Triglycerides 52 mg/dl (0-150) 08/31/21 06:03 Cholesterol 122 mg/dl (0-200) 08/31/21 06:03 LDL Cholesterol, Calc 51 mg/dl 08/31/21 06:03 VLDL Cholesterol, Calc 10 mg/dl (0-30) 08/31/21 06:03 HDL Cholesterol 61 mg/dl 08/31/21 06:03 Cholesterol/HDL Ratio 2.0 (0-5) 08/31/21 06:03 Lipase 43 U/L (11-82) 08/30/21 18:41 Vitamin B12 355 pg/ml (180-914) 08/30/21 18:41 Folate > 22.30 ng/ml (>5.38) 08/30/21 18:41 TSH 1.343 uIu/ml (0.300-4.500) 08/30/21 20:05 Urine Osmolality 146 mOsm/kg (500-800) L 08/30/21 21:50 SARS-CoV-2, RNA, NAAT NEGATIVE (NEGATIVE) 08/30/21 19:01 Impressions Chest X-Ray 08/30/21 18:42 XR chest 1V portable CLINICAL HISTORY: Chest Pain. COMPARISON STUDY: 03/11/2021 TECHNIQUE: 1 view of the chest FINDINGS: Single frontal view of the chest demonstrates the cardiomediastinal silhouette to be within normal limits. There is a decreased inspiratory effort with elevation of the hemidiaphragms and crowding of the bronchovascular markings at the lung bases and centrally. The lungs are clear of alveolar opacities. There is no evidence for pleural effusion. There is no evidence for vascular congestion. There is no acute osseous pathology. IMPRESSION: 1. There is a decreased inspiratory effort with otherwise no acute chest disease. ACT 112: Negative or not required by law. Electronically signed by: Clovis Arita M.D. 08/30/2021 7:29 PM Chest CTA 08/30/21 19:54 CT angio chest PE protocol CLINICAL HISTORY: Midsternal chest pain and shortness of breath COMPARISON STUDY: Portable chest from 08/30/2021 CT DOSE: 326.49 mGy.cm TECHNIQUE: CT Angio of the chest was performed.followed by image post processing with coronal, and sagittal MIP reformats. Contrast Volume: Optiray 320, 119 ml FINDINGS: Vasculature: There is homogeneous perfusion of the pulmonary vasculature bilaterally. No intraluminal filling defects or evidence for pulmonary embolus is seen. Airway: The airway is clear. No endobronchial lesion is identified. Lungs: The lungs are clear of acute alveolar opacities, air bronchograms or pulmonary nodules. Pleura: There is no evidence for pleural effusion. There is no evidence for pneumothorax. Mediastinum: There is no evidence for pathologic adenopathy. The heart size is within normal limits. Extensive coronary artery calcification is present. The thoracic aorta is within normal limits. There is no evidence for pericardial effusion. Upper abdomen:The adrenal glands are normal bilaterally. Osseous structures: There is no acute osseous pathology. Impression: 1. No CTA evidence for pulmonary embolus. 2. No acute chest disease. 3. Extensive coronary artery calcification. ACT 112: Negative or not required by law. Electronically signed by: Clovis Arita M.D. 08/30/2021 9:08 PM Medications Administered Current Inpatient Medications Acetaminophen (Acetaminophen 325 Mg Tab) 650 mg PO Q4H PRN PRN Reason: Pain or Fever Stop: 09/30/21 00:30 Hydrocodone Bitart/Acetaminophen (Hydrocodone/Acetaminophen 10/325 Tab) 1 tab PO Q12H PRN PRN Reason: Moderate Pain Stop: 09/14/21 00:30 Last Admin: 08/31/21 12:15 Dose: 1 tab Documented by: Amlodipine Besylate (Amlodipine Besylate 5 Mg Tab) 10 mg PO QPM [facility] Stop: 09/30/21 20:59 Aspirin (Aspirin 81 Mg Ectab) 324 mg PO BID ALAN Stop: 09/30/21 20:59 Baclofen (Baclofen 20 Mg Tab) 20 mg PO TID ALAN Stop: 09/30/21 08:59 Last Admin: 08/31/21 14:36 Dose: 20 mg Documented by: Bupropion HCl (Bupropion Sr 100 Mg Tabcr) 100 mg PO BID ALAN Stop: 09/30/21 08:59 Last Admin: 08/31/21 08:39 Dose: 100 mg Documented by: Clopidogrel Bisulfate (Clopidogrel Bisulfate 75 Mg Tab) 75 mg PO DAILY ALAN Stop: 09/30/21 08:59 Last Admin: 08/31/21 08:37 Dose: 75 mg Documented by: Colchicine (Colchicine 0.6 Mg Tab) 0.6 mg PO BID ALAN Stop: 09/30/21 10:59 Last Admin: 08/31/21 12:24 Dose: 0.6 mg Documented by: Lidocaine (Lidocaine 5% 1 Patch) 1 patch TD DAILY PRN PRN Reason: low back pain Stop: 09/30/21 00:30 Lorazepam (Lorazepam 1 Mg Tab) 1 mg PO ONE PRN; Protocol PRN Reason: EtoH Withdrawal AWSS 6-10 Losartan Potassium (Losartan Potassium 50 Mg Tab) 100 mg PO QAM ALAN Stop: 09/30/21 08:59 Last Admin: 08/31/21 08:38 Dose: 100 mg Documented by: Metoprolol Tartrate (Metoprolol Tartrate 100 Mg Tab) 50 mg PO BID ALAN Stop: 09/29/21 22:38 Last Admin: 08/31/21 08:40 Dose: 50 mg Documented by: Miscellaneous (Remove Lidoderm Patch) 1 ea N/A DAILY@2100 [facility] Stop: 09/30/21 20:59 Morphine Sulfate (Morphine Sulfate 4 Mg/Ml 1 Ml Carp\Vial) 4 mg IV Q4H PRN PRN Reason: severe/breakthrough anginapain Stop: 09/13/21 22:38 Multivitamins (Multivitamin Tab) 1 tab PO QAM [facility] Stop: 09/30/21 08:59 Last Admin: 08/31/21 08:38 Dose: 1 tab Documented by: Nitroglycerin (Nitroglycerin 2% Ointment 30gm Tube) 1 inch EXT Q6 [facility] Stop: 09/30/21 00:00 Last Admin: 08/31/21 12:09 Dose: 1 inch Documented by: Ondansetron HCl (Ondansetron Inj 2 Mg/Ml 2 Ml Vial) 4 mg IV Q6H PRN PRN Reason: Nausea Stop: 09/30/21 00:30 Pantoprazole Sodium (Pantoprazole 40 Mg Tab) 40 mg PO BID [facility] Stop: 09/30/21 08:59 Last Admin: 08/31/21 08:38 Dose: 40 mg Documented by: Saccharomyces Boulardii (Saccharomyces Boulardii 250 Mg Cap) 250 mg PO QAM [facility] Stop: 09/30/21 08:59 Last Admin: 08/31/21 08:38 Dose: 250 mg Documented by: Simvastatin (Simvastatin 80 Mg Tab) 80 mg PO PM [facility] Stop: 09/29/21 22:38 Last Admin: 08/30/21 23:51 Dose: 80 mg Documented by: Resident Activity Tracking Resident Involvement: Resident Care Provided Care Provided: Adult Hospital Medicine (1) CAD (coronary artery disease) Associated angina: with unspecified angina Coronary Disease-Associated Artery/Lesion type: unspecified vessel or lesion type [place] vs. transplanted heart: [place] heart Qualified Code(s): I25.119 - Atherosclerotic heart disease of [place] coronary artery with unspecified angina pectoris (2) Hyperlipidemia Hyperlipidemia type: mixed hyperlipidemia Qualified Code(s): E78.2 - Mixed hyperlipidemia (3) Gastric ulcer Gastric ulcer chronicity: acute Gastric ulcer complication status: unspecified whether hemorrhage or perforation present Qualified Code(s): K25.3 - Acute gastric ulcer without hemorrhage or perforation (4) Hypertension Hypertension type: essential hypertension Qualified Code(s): I10 - Essential (primary) hypertension
[2021-08-31] MEDS ORDERED: ASPIRIN 81 MG ECTAB PO SCH (09:00)
[2021-08-31 09:06] LABS: Estimated Average Glucose 117 mg/dl; Hemoglobin A1C 5.7 % (4.5-5.6)
[2021-08-31 09:10] LABS: Partial Thromboplastin Ratio 1.7
[2021-08-31 09:14] LABS: Partial Thromboplastin Time 47.9 Seconds (21.0-31.0)
[2021-08-31] MEDS ORDERED: ASPIRIN 81 MG CHEW PO SCH (11:00)
[2021-08-31] MEDS ORDERED: COLCHICINE 0.6 MG TAB PO SCH (11:00)
[2021-08-31] MEDS: HYDROcodone/ACETAMINOPHEN 10/325 TAB PO PRN (12:15)
[2021-08-31] MEDS: COLCHICINE 0.6 MG TAB PO SCH ×2 (12:24→20:09)
--- NOTE | 2021-08-31 13:16 | Cardiology Consultation ---
Date of Consultation August 31, 2021 Assessment & Plan (1) Atypical chest pain: (2) Acute pericarditis: (3) CAD (coronary artery disease): (4) History of heart artery stent: (5) Hyperlipidemia: (6) Hypertension: ASSESSMENT/PLAN: 1. Acute pericarditis/atypical chest pain: Chest pain is not consistent with ischemic heart disease as it has been constantly present for at least 18 hours with normal high sensitivity troponin, unremarkable ECG, and reassuring wall motion on echo. Given recent viral illness and pleuritic/positional component of his symptom, would consider pericarditis and treat as such. Start colchicine and high-dose b.i.d. aspirin. Colchicine can be continued for 3 months while aspirin can be reduced to 81 mg once daily upon resolution of chest discomfort. There is also a tenderness/reproducible component of his chest discomfort and cannot rule out musculoskeletal etiology. Patient became upset when cardiac catheterization was not recommended. Rationale for this was discussed with him. He has known documented severe CAD throughout his RCA with knrn-oh-lyvhh collaterals. Knowing this, and the fact that thus far objective data does not suggest that ischemia is playing a role for his presentation, would not recommend embarking on a likely challenging and involved PCI for known severe RCA CAD. If he should develop ischemic symptoms, could reconsider. 2. CAD s/p multiple PCI: Continue anti-platelet therapy with at least 81 mg of aspirin daily indefinitely. Can discontinue heparin drip as symptoms are not consistent with acute coronary syndrome. Continue beta-anuja, ARB, calcium channel anuja, and statin therapy. 3. Hypertension: Blood pressure has been normotensive to mildly hypertensive. Adjust medical therapy as appropriate to optimize blood pressure control. 4. Dyslipidemia: Continue statin therapy as per primary clerical support specialist. 5. Disposition: Dr. Zamora will be available tomorrow to resume his cardiology care. Patient care discussed with Dr. Zamora, his primary clerical support specialist. Patient care discussed with Dr. Mckeon of the primary hospitalist service. Highly complex medical issues. Thank you for allowing me to participate in the care of your patient. Please call for any other questions or concerns. Sincerely, Kingsley Ellis M.D. History of Present Illness Reason for Consultation: Chest pain Requesting Physician: Dr. Lawson Attending Physician: Imer Mckeon, History of Present Illness Mr. Whitaker is a 66-year-old gentleman with history significant for CAD s/p Cx and RCA PCI, hypertension, dyslipidemia, and PAD s/p right iliac stent. His primary clerical support specialist is Dr. Zamora. His last cardiac catheterization was on 10/25/2016 and demonstrated the following: Cath: Mid LAD 50%. Lvor-ya-tzzbm collaterals. Ostial/proximal circumflex 90%. Prior circumflex stents patent with 40-50% in stent restenoses in mid segment. Small ostial ramus 95%. Proximal RCA 70% with diffuse 60-70% mid RCA disease and distal RCA diffuse 95% with competitive flow in the PDA. He underwent PCI of the ostial/proximal circumflex with 2.75 x 22 mm seb SERENE, overlapping distally with prior stent. POBA of small ramus ostium. He was admitted on 08/30/2021 with chest discomfort concerning for unstable angina by the admitting hospitalist service. He has been experiencing intermittent chest discomfort for a few months. Over the past 2 weeks, the frequency and severity of the chest discomfort has worsened. It is a substernal/left-sided chest discomfort described as a crushing sensation. It can be associated with shortness of breath and radiates to the right shoulder on occasion. He has noted it both with exertion but also at rest. After further questioning, symptoms are worse while laying supine and improved somewhat while sitting upright. There is also a pleuritic component noting a worsening of the discomfort with inspiration. He has had constant chest discomfort since 5 or 6:00 p.m. on day of presentation, 08/30/2021. Nitroglycerin and doses of intravenous morphine have been used and symptoms have improved but have not resolved. He states that the chest discomfort was an 8/10 and at the time of our visit this morning, remained a 4/10. Nitroglycerin paste was applied, in addition to sublingual nitroglycerin that he has received, and despite this, chest discomfort remains. He also has developed a frontal headache. Chest pain has been noted in bed for the past 2 weeks, but once again ease is somewhat while sitting upright. Approximately 6 weeks ago, he developed a presumed viral illness. Several family members had similar issues. He developed myalgias and coughing for 3 weeks. With coughing, chest discomfort is worsened. No reported melena, hematochezia, hematuria, syncope, near-syncope, palpitations, or edema. He was also noted to be hyponatremic on presentation with a sodium level as low as 125. Review of systems: As above. Review of systems otherwise negative/unremarkable. Family history: Father in his 40s with a cerebral aneurysm. Six maternal uncles had CAD/mi. Mother with hypertension. Social history: He quit smoking approximately 4 years ago after approximately 30 pack years. Consumes approximately 6 beers per week. He lives at home with his . Has 2 children. He was unaccompanied. Allergies Allergy/AdvReac Type Severity Reaction Status Date / Time Penicillins Allergy Severe "CIRCULATORY Verified 08/30/21 19:44 SHUTDOWN" Home Medications Medication Instructions Recorded Confirmed Type baclofen 10 mg tablet 20 mg PO TID 11/13/17 08/30/21 History hydrocodone 10 mg-acetaminophen 1 tab PO Q4H PRN 11/13/17 08/30/21 History 325 mg tablet cholecalciferol (vitamin D3) 125 5,000 unit PO QAM 02/18/18 08/30/21 History mcg (5,000 unit) tablet (Vitamin D3) lidocaine 5 % topical patch 1 patch TOPICAL DAILY PRN 02/18/18 08/30/21 History multivitamin 1 tab PO QAM 02/18/18 08/30/21 History Saccharomyces boulardii 250 mg 250 mg PO QAM 07/13/19 08/30/21 History capsule (Florastor) bupropion HCl 100 mg tablet,12 hr 100 mg PO BID 07/13/19 08/30/21 History sustained-release pantoprazole 40 mg tablet,delayed 40 mg PO BID #60 tab 07/17/19 08/30/21 Rx release amlodipine 10 mg tablet 10 mg PO QPM #90 tab 05/20/20 08/30/21 Rx losartan 100 mg tablet 100 mg PO QAM #90 tab 05/20/20 08/30/21 Rx simvastatin 80 mg tablet 80 mg PO PM #90 tab 05/20/20 08/30/21 Rx clopidogrel 75 mg tablet (Plavix) 75 mg PO DAILY #90 tab 05/29/21 08/30/21 Rx metoprolol tartrate 100 mg tablet 50 mg PO BID #90 tab 05/29/21 08/30/21 Rx nitroglycerin 0.4 mg sublingual 0.4 mg SUBLINGUAL UD PRN #30 tab 08/08/21 08/30/21 Rx tablet Patient History Medical History (Updated 08/31/21 @ 13:35 by Yon Ellis MD) Alcohol use Anxiety BPH (benign prostatic hyperplasia) CAD (coronary artery disease) Chronic back pain Chronic prescription opiate use Diverticulosis Dupuytren's contracture of hand GERD (gastroesophageal reflux disease) History of Clostridioides difficile colitis Hx of gastric ulcer Hyperlipidemia Hypertension Left ventricular hypertrophy On anticoagulant therapy plavix d/t stents Peripheral neuropathy Surgical History History of cardiac cath x3 @ [facility] follow with Dr. Zamora History of hand surgery x6 (4 on right, 2 on left) d/t Dupuytren's History of heart artery stent 2009 x2, 2015 x1, 2017 x1--@ [facility] History of intravascular stent placement RIGHT LEG History of procedure for peripheral vascular disease 2012 Dr. Granger History of removal of cyst from groin History of surgery RIGHT LEG R/T TRAUMA [place] teeth removed Family History Sister Family history of reaction to anesthesia difficulty waking and nausea Mother Family history of reaction to anesthesia difficulty waking and nausea Peptic ulcer disease Father , in his 40s Cerebral aneurysm Social History Smoking Status: Never smoker packs per day: 1; Years Smoked: 30; Second Hand Exposure: No; Hx Alcohol Use: Yes Alcohol type: beer Alcohol Intake Frequency Comment: 6-pack every 1-2 weeks Preferred Language: Qatari Communication Ability: Effective Interior Wirer Required: No Beliefs That Will Affect Care: None marital status: Current Living Situation: Spouse current occupational status: 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 Alert and oriented. HEENT: Anicteric sclera. Neck: No JVD. No bruits. Normal carotid upstrokes bilaterally. Cardiac: PMI was nondisplaced. No ventricular heave. Regular. The Normal S1-S2. No murmurs, rubs, or gallops. Pulmonary: Clear to auscultation bilaterally without wheezes, rales, or rhonchi. Abdomen: Soft, nontender, nondistended, with normoactive bowel sounds. No bruits noted. Extremities: 2+ radial pulses bilaterally. 2+ posterior tibialis pulses bilaterally. No edema or cyanosis. Psychiatric: Affect appears appropriate. Chest: Tender to palpation along the left chest, worsening his constant chest discomfort. Results & Data ([facility]) Vital Signs (Past 12 Hours) Vital Signs Temp Pulse Pulse Resp BP Pulse Ox 08/31/21 11:16 36.8 C 63 16 135/90 96 08/31/21 07:39 36.9 C 72 20 158/75 H 92 08/31/21 06:10 1 L 08/31/21 05:16 143/77 H 08/31/21 04:19 36.5 C 57 L 20 148/68 H 93 Laboratory Results Laboratory Results - last 24 hr 08/30/21 08/30/21 08/30/21 18:41 18:41 18:41 WBC 10.59 RBC 3.92 L Hgb 12.6 L Hct 36.1 L MCV 92.1 MCH 32.1 MCHC 34.9 RDW Std Deviation 43.4 RDW Coeff of [place] 12.8 Plt Count 420 H MPV 10.1 Immature Gran % (Auto) 0.3 Neut % (Auto) 53.9 Lymph % (Auto) 31.8 [place] % (Auto) 9.5 Eos % (Auto) 4.1 Baso % (Auto) 0.4 Neut # (Auto) 5.71 Lymph # (Auto) 3.37 [place] # (Auto) 1.01 H Eos # (Auto) 0.43 Baso # (Auto) 0.04 Immature Gran # (Auto) 0.03 H PT 10.2 INR 1.0 APTT 29.3 PTT Ratio 1.1 Sodium 125 L Potassium 4.5 Chloride 94 L Carbon Dioxide 23 Anion Gap 8 BUN 13 Creatinine 0.74 Est Cr Clr Drug Dosing 86.6 Est GFR ( Amer) 112.2 Est GFR (Non-Af Amer) 96.8 BUN/Creatinine Ratio 17.6 Glucose 81 Estimat Average Glucose Hemoglobin A1c Osmolality Calcium 8.8 Iron Unsaturated IBC Transferrin Ferritin Total Bilirubin 0.4 AST 31 ALT 30 Alkaline Phosphatase 79 Troponin I High Sens 4.1 Total Protein 7.3 Albumin 4.2 Globulin 3.1 Albumin/Globulin Ratio 1.4 Triglycerides Cholesterol LDL Cholesterol, Calc VLDL Cholesterol, Calc HDL Cholesterol Cholesterol/HDL Ratio Lipase 43 Vitamin B12 Folate TSH Urine Osmolality SARS-CoV-2, RNA, NAAT 08/30/21 08/30/21 08/30/21 18:41 18:41 18:42 WBC RBC Hgb Hct MCV MCH MCHC RDW Std Deviation RDW Coeff of [place] Plt Count MPV Immature Gran % (Auto) Neut % (Auto) Lymph % (Auto) [place] % (Auto) Eos % (Auto) Baso % (Auto) Neut # (Auto) Lymph # (Auto) [place] # (Auto) Eos # (Auto) Baso # (Auto) Immature Gran # (Auto) PT INR APTT PTT Ratio Sodium Potassium Chloride Carbon Dioxide Anion Gap BUN Creatinine Est Cr Clr Drug Dosing Est GFR ( Amer) Est GFR (Non-Af Amer) BUN/Creatinine Ratio Glucose Estimat Average Glucose 117 Hemoglobin A1c 5.7 H Osmolality Calcium Iron 86 Unsaturated IBC 273 Transferrin 262 Ferritin 43.6 Total Bilirubin AST ALT Alkaline Phosphatase Troponin I High Sens Total Protein Albumin Globulin Albumin/Globulin Ratio Triglycerides Cholesterol LDL Cholesterol, Calc VLDL Cholesterol, Calc HDL Cholesterol Cholesterol/HDL Ratio Lipase Vitamin B12 355 Folate > 22.30 TSH Urine Osmolality SARS-CoV-2, RNA, NAAT 08/30/21 08/30/21 08/30/21 19:01 20:05 20:05 WBC RBC Hgb Hct MCV MCH MCHC RDW Std Deviation RDW Coeff of [place] Plt Count MPV Immature Gran % (Auto) Neut % (Auto) Lymph % (Auto) [place] % (Auto) Eos % (Auto) Baso % (Auto) Neut # (Auto) Lymph # (Auto) [place] # (Auto) Eos # (Auto) Baso # (Auto) Immature Gran # (Auto) PT INR APTT PTT Ratio Sodium Potassium Chloride Carbon Dioxide Anion Gap BUN Creatinine Est Cr Clr Drug Dosing Est GFR ( Amer) Est GFR (Non-Af Amer) BUN/Creatinine Ratio Glucose Estimat Average Glucose Hemoglobin A1c Osmolality 298 Calcium Iron Unsaturated IBC Transferrin Ferritin Total Bilirubin AST ALT Alkaline Phosphatase Troponin I High Sens Total Protein Albumin Globulin Albumin/Globulin Ratio Triglycerides Cholesterol LDL Cholesterol, Calc VLDL Cholesterol, Calc HDL Cholesterol Cholesterol/HDL Ratio Lipase Vitamin B12 Folate TSH 1.343 Urine Osmolality SARS-CoV-2, RNA, NAAT NEGATIVE 08/30/21 08/30/21 08/31/21 20:05 21:50 05:45 WBC RBC Hgb Hct MCV MCH MCHC RDW Std Deviation RDW Coeff of [place] Plt Count MPV Immature Gran % (Auto) Neut % (Auto) Lymph % (Auto) [place] % (Auto) Eos % (Auto) Baso % (Auto) Neut # (Auto) Lymph # (Auto) [place] # (Auto) Eos # (Auto) Baso # (Auto) Immature Gran # (Auto) PT INR APTT 47.9 H* PTT Ratio 1.7 Sodium Potassium Chloride Carbon Dioxide Anion Gap BUN Creatinine Est Cr Clr Drug Dosing Est GFR ( Amer) Est GFR (Non-Af Amer) BUN/Creatinine Ratio Glucose Estimat Average Glucose Hemoglobin A1c Osmolality Calcium Iron Unsaturated IBC Transferrin Ferritin Total Bilirubin AST ALT Alkaline Phosphatase Troponin I High Sens 4.4 Total Protein Albumin Globulin Albumin/Globulin Ratio Triglycerides Cholesterol LDL Cholesterol, Calc VLDL Cholesterol, Calc HDL Cholesterol Cholesterol/HDL Ratio Lipase Vitamin B12 Folate TSH Urine Osmolality 146 L SARS-CoV-2, RNA, NAAT 08/31/21 08/31/21 05:45 06:03 WBC 8.07 RBC 4.00 L Hgb 12.2 L Hct 36.2 L MCV 90.5 MCH 30.5 MCHC 33.7 RDW Std Deviation 43.1 RDW Coeff of [place] 13.0 Plt Count 427 H MPV 10.4 Immature Gran % (Auto) 0.2 Neut % (Auto) 51.8 Lymph % (Auto) 26.8 [place] % (Auto) 15.5 Eos % (Auto) 5.1 Baso % (Auto) 0.6 Neut # (Auto) 4.18 Lymph # (Auto) 2.16 [place] # (Auto) 1.25 H Eos # (Auto) 0.41 Baso # (Auto) 0.05 Immature Gran # (Auto) 0.02 PT INR APTT PTT Ratio Sodium 135 L D Potassium 4.0 Chloride 103 Carbon Dioxide 25 Anion Gap 7 BUN 12 Creatinine 0.67 Est Cr Clr Drug Dosing 95.6 Est GFR ( Amer) 116.9 Est GFR (Non-Af Amer) 100.8 BUN/Creatinine Ratio 17.9 Glucose 71 Estimat Average Glucose Hemoglobin A1c Osmolality Calcium 8.9 Iron Unsaturated IBC Transferrin Ferritin Total Bilirubin AST ALT Alkaline Phosphatase Troponin I High Sens 5.3 Total Protein Albumin Globulin Albumin/Globulin Ratio Triglycerides 52 Cholesterol 122 LDL Cholesterol, Calc 51 VLDL Cholesterol, Calc 10 HDL Cholesterol 61 Cholesterol/HDL Ratio 2.0 Lipase Vitamin B12 Folate TSH Urine Osmolality SARS-CoV-2, RNA, NAAT Diagnostic Findings Telemetry personally reviewed: Sinus rhythm. No arrhythmia. ECGs personally reviewed: ECG 08/30/2021 at 9:30 p.m.: Sinus rhythm 62 beats per minute. Anteroseptal infarct. ECG 08/30/2021 at 6:35 p.m.: Sinus bradycardia 58 beats per minute. Septal infarct. ECG 08/31/2021 at 5:08 a.m.: Sinus rhythm 61 beats per minute. Possible septal infarct. Echo 08/31/2021 personally reviewed: On preliminary view, LV systolic function appears normal. No regional wall motion abnormalities. No severe valvular regurgitation or stenosis. Formal review to follow. CTA chest 08/30/2021: No PE or acute chest disease per Radiology. Coronary artery calcification reported. Cardiac catheterization report reviewed as noted above in HPI. Medications Administered Current Inpatient Medications Acetaminophen (Acetaminophen 325 Mg Tab) 650 mg PO Q4H PRN PRN Reason: Pain or Fever Stop: 09/30/21 00:30 Hydrocodone Bitart/Acetaminophen (Hydrocodone/Acetaminophen 10/325 Tab) 1 tab PO Q12H PRN PRN Reason: Moderate Pain Stop: 09/14/21 00:30 Last Admin: 08/31/21 12:15 Dose: 1 tab Documented by: Amlodipine Besylate (Amlodipine Besylate 5 Mg Tab) 10 mg PO QPM [facility] Stop: 09/30/21 20:59 Aspirin (Aspirin 81 Mg Chew) 324 mg PO DAILY ALAN Stop: 09/30/21 10:59 Last Admin: 08/31/21 12:16 Dose: 324 mg Documented by: Baclofen (Baclofen 20 Mg Tab) 20 mg PO TID ALAN Stop: 09/30/21 08:59 Last Admin: 08/31/21 08:39 Dose: 20 mg Documented by: Bupropion HCl (Bupropion Sr 100 Mg Tabcr) 100 mg PO BID ALAN Stop: 09/30/21 08:59 Last Admin: 08/31/21 08:39 Dose: 100 mg Documented by: Clopidogrel Bisulfate (Clopidogrel Bisulfate 75 Mg Tab) 75 mg PO DAILY [facility] Stop: 09/30/21 08:59 Last Admin: 08/31/21 08:37 Dose: 75 mg Documented by: Colchicine (Colchicine 0.6 Mg Tab) 0.6 mg PO BID [facility] Stop: 09/30/21 10:59 Last Admin: 08/31/21 12:24 Dose: 0.6 mg Documented by: Heparin Sodium/Dextrose (Heparin Sodium/Dextrose) 25,000 units in 500 mls @ 24 mls/hr IV .[id number] [facility]; Protocol Stop: 09/29/21 22:59 Last Titration: 08/31/21 09:38 Dose: 1,200 units/hr, 24 mls/hr Documented by: Lidocaine (Lidocaine 5% 1 Patch) 1 patch TD DAILY PRN PRN Reason: low back pain Stop: 09/30/21 00:30 Lorazepam (Lorazepam 1 Mg Tab) 1 mg PO ONE PRN; Protocol PRN Reason: EtoH Withdrawal AWSS 6-10 Losartan Potassium (Losartan Potassium 50 Mg Tab) 100 mg PO [facility] Stop: 09/30/21 08:59 Last Admin: 08/31/21 08:38 Dose: 100 mg Documented by: Metoprolol Tartrate (Metoprolol Tartrate 100 Mg Tab) 50 mg PO BID [facility] Stop: 09/29/21 22:38 Last Admin: 08/31/21 08:40 Dose: 50 mg Documented by: Miscellaneous (Remove Lidoderm Patch) 1 ea N/A DAILY@2100 [facility] Stop: 09/30/21 20:59 Morphine Sulfate (Morphine Sulfate 4 Mg/Ml 1 Ml Carp\\Vial) 4 mg IV Q4H PRN PRN Reason: severe/breakthrough anginapain Stop: 09/13/21 22:38 Multivitamins (Multivitamin Tab) 1 tab PO [facility] Stop: 09/30/21 08:59 Last Admin: 08/31/21 08:38 Dose: 1 tab Documented by: Nitroglycerin (Nitroglycerin 2% Ointment 30gm Tube) 1 inch EXT Q6 [facility] Stop: 09/30/21 00:00 Last Admin: 08/31/21 12:09 Dose: 1 inch Documented by: Ondansetron HCl (Ondansetron Inj 2 Mg/Ml 2 Ml Vial) 4 mg IV Q6H PRN PRN Reason: Nausea Stop: 09/30/21 00:30 Pantoprazole Sodium (Pantoprazole 40 Mg Tab) 40 mg PO BID ALAN Stop: 09/30/21 08:59 Last Admin: 08/31/21 08:38 Dose: 40 mg Documented by: Saccharomyces Boulardii (Saccharomyces Boulardii 250 Mg Cap) 250 mg PO QAM ALAN Stop: 09/30/21 08:59 Last Admin: 08/31/21 08:38 Dose: 250 mg Documented by: Simvastatin (Simvastatin 80 Mg Tab) 80 mg PO PM ALAN Stop: 09/29/21 22:38 Last Admin: 08/30/21 23:51 Dose: 80 mg Documented by: PG Care Time/CCT Total # of Minutes Spent Total Time Spent with Patient: Total time spent is greater than 50% in coordination of care (as documented) at patient's floor/unit and/or counseling patient: Coding Diagnoses Atypical chest pain R07.89 Acute pericarditis I30.9 CAD (coronary artery disease) I25.119 Coronary Disease-Associated Artery/Lesion type: unspecified vessel or lesion type [place] vs. transplanted heart: [place] heart Associated angina: with unspecified angina History of heart artery stent Z95.5 Hyperlipidemia E78.2 Hyperlipidemia type: mixed hyperlipidemia Hypertension I10 (1) CAD (coronary artery disease) Coronary Disease-Associated Artery/Lesion type: unspecified vessel or lesion type [place] vs. transplanted heart: [place] heart Associated angina: with unspecified angina Qualified Code(s): I25.119 - Atherosclerotic heart disease of [place] coronary artery with unspecified angina pectoris (2) Hyperlipidemia Hyperlipidemia type: mixed hyperlipidemia Qualified Code(s): E78.2 - Mixed hyperlipidemia
--- NOTE | 2021-08-31 17:27 | XCELERA ---
[id number]
--- NOTE | 2021-08-31 18:52 | Billing Data ---
Date of Service August 31, 2021 Coding Level of Care Code 22109 Subseq Hosp Care Lvl 3
[2021-08-31] MEDS: SIMVASTATIN 80 MG TAB PO SCH (20:10)
[2021-08-31] MEDS: ASPIRIN 81 MG ECTAB PO SCH (20:13)
[2021-08-31] MEDS ORDERED: amLODIPine BESYLATE 5 MG TAB PO SCH (21:00)
[2021-08-31] MEDS ORDERED: MELATONIN 3 MG TAB PO PRN (21:10)
--- NOTE | 2021-08-31 21:23 | Billing Data ---
Date of Service August 31, 2021 Coding Level of Care Code 06244 Initial Inpt Care Lvl 3
[2021-09-01] MEDS: HYDROcodone/ACETAMINOPHEN 10/325 TAB PO PRN (02:35)
[2021-09-01] MEDS ORDERED: MELATONIN 3 MG TAB PO STA (04:11)
--- NOTE | 2021-09-01 07:01 | Electrocardiogram Report ---
Test Reason : Blood Pressure : / mmHG Vent. Rate : 058 BPM Atrial Rate : 058 BPM P-R Int : 168 ms QRS Dur : 086 ms QT Int : 418 ms P-R-T Axes : 061 024 050 degrees QTc Int : 410 ms Sinus bradycardia Septal infarct , age undetermined Abnormal ECG When compared with ECG of 11-MAR-2021 10:12, No significant change was found Confirmed by Yon Ellis ([id number]) on 09/01/2021 7:01:39 AM Referred By: REFERRED SELF Confirmed By:Yon Ellis
--- NOTE | 2021-09-01 07:06 | Electrocardiogram Report ---
Test Reason : Blood Pressure : / mmHG Vent. Rate : 062 BPM Atrial Rate : 062 BPM P-R Int : 170 ms QRS Dur : 082 ms QT Int : 424 ms P-R-T Axes : 054 027 049 degrees QTc Int : 430 ms Normal sinus rhythm Anteroseptal infarct (cited on or before 30-AUG-2021) Abnormal ECG When compared with ECG of 30-AUG-2021 18:35, No significant change was found Confirmed by Yon Ellis ([id number]) on 09/01/2021 7:06:18 AM Referred By: REFERRED SELF Confirmed By:Yon Ellis
--- NOTE | 2021-09-01 07:30 | Electrocardiogram Report ---
Test Reason : Blood Pressure : / mmHG Vent. Rate : 061 BPM Atrial Rate : 061 BPM P-R Int : 152 ms QRS Dur : 082 ms QT Int : 420 ms P-R-T Axes : 057 030 038 degrees QTc Int : 422 ms Normal sinus rhythm Septal infarct (cited on or before 30-AUG-2021) Abnormal ECG When compared with ECG of 30-AUG-2021 21:30, T wave amplitude has increased in Anterior leads Confirmed by Yon Ellis ([id number] on 09/01/2021 7:29:52 AM Referred By: REFERRED SELF Confirmed By:Yon Ellis
[2021-09-01 08:58] LABS: Basophils # (auto) 0.02 K/uL (0-0.2); Basophils % (auto) 0.3 %; Eosinophils # (auto) 0.14 K/uL (0-0.5); Eosinophils % (auto) 2.2 %; Hematocrit (blood only) 37.5 % (42-52); Hemoglobin 12.9 g/dL (14.0-18.0); Lymphocytes # (auto) 1.19 K/uL (1.2-3.4); Mean Corpuscular Hemoglobin 31.9 pg (25-34); Mean Corpuscular Hgb Conc 34.4 g/dL (32-36); Mean Corpuscular Volume 92.8 fL (80-100); Mean Platelet Volume 10.5 fL (7.4-10.4); Monocytes # (auto) 1.51 K/uL (0.11-0.59); Monocytes % (auto) 24.2 %; Neutrophils # (auto) 3.39 K/uL (1.4-6.5); Neutrophils % (auto) 54.3 %; Platelet Count 418 K/uL (130-400); RDW Standard Deviation 44.1 fL (36.4-46.3); Red Blood Count 4.04 M/uL (4.7-6.1); White Blood Count 6.25 K/uL (4.8-10.8)
[2021-09-01 08:59] LABS: Partial Thromboplastin Time 27.7 Seconds (21.0-31.0)
[2021-09-01] MEDS ORDERED: ASPIRIN 81 MG ECTAB PO SCH (09:00)
[2021-09-01 09:07] LABS: BUN Creatinine Ratio 23.8 (10-20); Creatinine Clr Calc Pharmacy 76.3 ml/min; Est GFR (African American) 106.5 ml/min; Est GFR (Non-African American) 91.9 ml/min; Potassium 3.7 mmol/L (3.5-5.1)
--- NOTE | 2021-09-01 09:07 | Hospitalist Progress Note ---
Date of Service September 01, 2021 Assessment & Plan (1) Unstable angina: Plan: 66-year-old male past medical history significant for CAD status post stent x4, hyperlipidemia, hypertension, chronic back pain with chronic opiate use, GERD, alcohol use admitted for angina without resolution with sublingual nitro and acute hyponatremia. ()Angina -Hx. HLD, HTN, History of CAD s/p stent; Mid LCx SERENE, 100% mid RCA September 2009, proximal LCx SERENE January 2016, ostial LCx SERENE October 2016. -Presents with several weeks of angina with activity and rest, with worsening of symptoms on admit as compared to the last 2 weeks. -Troponin x3 negative -EKG unremarkable, ordered daily ekgs -symptoms improved with sublingual nitro, started on Nitropaste. -started start heparin gtt. -given aspirin 324 mg; continue aspirin 81 mg daily as well as home Plavix. -Continue beta-anuja, ARB, statin. -HA1c 5.7 mildly pre-diabetic, lipid panel wnl -Echocardiogram ordered -Cardiology consulted: Determined more likely acute pericarditis. Start colchicine bid and high-dose aspirin. Colchicine can be continued for 3 months while aspirin can be reduced to 81 mg once daily. Patient upset catheterization not recommended. Case to follow with Dr. Zamora tomorrow. ()Acute hyponatremia, alcohol use: Resolved -sodium of 125 with Serum Osm 298, UOsm 146. -may be 2/2 to alcohol use -1500cc fluid restriction ordered.- -Unknown amount of alcohol use at baseline; patient reports 1-2 beers daily but admits to having 4 beers today. -AWSS at-risk protocol ordered. No active withdrawal symptoms at this time. -Na recheck 135 ()Chronic back pain, chronic opiate use: -Takes [place] 10-325mg BID, will continue. ()GERD: -Continue PPI BID. ()Chronic anemia: -History of chronic normocytic anemia with Hgb at baseline on admission. -B12, folate, iron studies wnl CODE STATUS: Full code FEN: Heart healthy with 1500 mL fluid restriction DVT prophylaxis: Heparin gtt Dispo: Med/Surg with Telemetry (2) Acute hyponatremia: (3) Hypertension: (4) Gastric ulcer: (5) Hyperlipidemia: (6) CAD (coronary artery disease): (7) Chronic prescription opiate use: (8) Chronic back pain: (9) Hypercholesterolemia: (10) Anemia: (11) Alcohol use: Admission and Anticipated Discharge Date Admission Date: August 30, 2021 Results & Data Results & Data ([facility]) Vital Signs (Past 12 Hours) Vital Signs Temp Pulse Pulse Resp BP BP Pulse Ox 09/01/21 08:01 36.6 C 66 18 183/78 H 171/90 H 96 09/01/21 07:56 57 L 09/01/21 02:50 36.7 C 67 18 149/84 H 94 08/31/21 23:27 36.7 C 71 19 157/72 H 96 08/31/21 22:18 79 (1) Hypertension Hypertension type: essential hypertension Qualified Code(s): I10 - Essential (primary) hypertension (2) Gastric ulcer Gastric ulcer chronicity: acute Gastric ulcer complication status: unspec ified whether hemorrhage or perforation present Qualified Code(s): K25.3 - Acute gastric ulcer without hemorrhage or perforation (3) Hyperlipidemia Hyperlipidemia type: mixed hyperlipidemia Qualified Code(s): E78.2 - Mixed hyperlipidemia (4) CAD (coronary artery disease) Coronary Disease-Associated Artery/Lesion type: unspecified vessel or lesion type [place] vs. transplanted heart: [place] heart Associated angina: with unspecified angina Qualified Code(s): I25.119 - Atherosclerotic heart disease of [place] coronary artery with unspecified angina pectoris
[2021-09-01] MEDS: ASPIRIN 81 MG ECTAB PO SCH (10:07)
[2021-09-01] MEDS: LOSARTAN POTASSIUM 50 MG TAB PO SCH (10:08)
[2021-09-01] MEDS: PANTOprazole 40 MG TAB PO SCH (10:08)
[2021-09-01] MEDS: SACCHAROMYCES BOULARDII 250 MG CAP PO SCH (10:08)
[2021-09-01] MEDS: METOPROLOL TARTRATE 100 MG TAB PO SCH (10:08)
[2021-09-01] MEDS: BACLOFEN 20 MG TAB PO SCH (10:09)
[2021-09-01] MEDS: buPROPion SR 100 MG TABCR PO SCH (10:09)
[2021-09-01] MEDS: COLCHICINE 0.6 MG TAB PO SCH (10:09)
[2021-09-01] MEDS: CLOPIDOGREL BISULFATE 75 MG TAB PO SCH (10:10)
[2021-09-01] MEDS: MULTIVITAMIN TAB PO SCH (10:11)
--- NOTE | 2021-09-01 11:24 | Cardiology Progress Note ---
Date of Service September 01, 2021 Assessment & Plan (1) Acute pericarditis: Plan: -description of chest discomfort is typical for acute pericarditis. -symptoms have resolved with high-dose aspirin and colchicine. -NSAIDs for 1 month, colchicine for 3 months. -stable for hospital discharge. (2) CAD (coronary artery disease): Plan: -LCx stents x3. -100% RCA stenosis with collateralization. -known chronic stable angina pectoris, unchanged. -high sensitivity troponins normal x3. -no indication for cardiac catheterization at this time. (3) Hyperlipidemia: Plan: -continue simvastatin. (4) Hypertension: Plan: -adequate control on current regimen. Admission and Anticipated Discharge Date Admission Date: August 30, 2021 Subjective The patient is resting comfortably in bedside chair without complaints of chest pain dyspnea. Symptoms completely resolves starting aspirin and colchicine. We have had long discussion regarding indications for cardiac catheterization. He is not a candidate this time. Physical Exam Physical Exam: In general this is a well-developed well-nourished white male in no acute distress. HEENT exam is negative. Neck reveals normal carotid upstr okes without bruits. No jugular venous distension. There is no thyromegaly. Cardiovascular exam reveals a regular rhythm with a normal S1 and S2. No murmurs, S3, S4, or rubs are noted. Lungs are clear without rales, rhonchi, or wheezes. Abdomen is soft without bruits. Extremities reveal intact radial artery and posterior tibial pulses bilaterally. There is no peripheral edema. Results & Data ([facility]) Vital Signs (Past 12 Hours) Vital Signs Temp Pulse Pulse Resp BP BP Pulse Ox 09/01/21 08:01 36.6 C 66 18 183/78 H 171/90 H 96 09/01/21 07:56 57 L 09/01/21 02:50 36.7 C 67 18 149/84 H 94 08/31/21 23:27 36.7 C 71 19 157/72 H 96 Laboratory Results High sensitivity troponins are normal at 4.1, 4.4, and 5.3. Diagnostic Findings EKG notes sinus bradycardia without abnormalities. panel monitor is benign. PG Care Time/CCT Total # of Minutes Spent Total Time Spent with Patient: Total time spent is greater than 50% in coordination of care (as documented) at patient's floor/unit and/or counseling patient: Coding Level of Care Code 59439 Subseq Hosp Care Lvl 3 Diagnoses Acute pericarditis I30.9 CAD (coronary artery disease) I25.119 Coronary Disease-Associated Artery/Lesion type: unspecified vessel or lesion type [place] vs. transplanted heart: [place] heart Associated angina: with unspecified angina Hyperlipidemia E78.2 Hyperlipidemia type: mixed hyperlipidemia Hypertension I10 (1) CAD (coronary artery disease) Coronary Disease-Associated Artery/Lesion type: unspecified vessel or lesion type [place] vs. transplanted heart: [place] heart Associated angina: with unspecified angina Qualified Code(s): I25.119 - Atherosclerotic heart disease of [place] coronary artery with unspecified angina pectoris (2) Hyperlipidemia Hyperlipidemia type: mixed hyperlipidemia Qualified Code(s): E78.2 - Mixed hyperlipidemia
--- NOTE | 2021-09-01 12:43 | Electrocardiogram Report ---
Test Reason : Blood Pressure : / mmHG Vent. Rate : 058 BPM Atrial Rate : 058 BPM P-R Int : 152 ms QRS Dur : 082 ms QT Int : 434 ms P-R-T Axes : 072 073 032 degrees QTc Int : 426 ms Sinus bradycardia Otherwise normal ECG When compared with ECG of 31-AUG-2021 05:08, (unconfirmed) Criteria for Septal infarct are no longer Present Confirmed by Jose G Zamora ([id number]) on 09/01/2021 12:43:22 PM Referred By: REFERRED SELF Confirmed By:Jose G Zamora
--- NOTE | 2021-09-01 14:03 | Discharge Summary ---
Date of Service September 01, 2021 Admission HPI Per Admitting Provider 66-year-old male past medical history significant for CAD status post stent x4, hyperlipidemia, hypertension, chronic back pain with chronic opiate use, GERD, alcohol use presented to the ER for acute worsening of his left-sided chest pain with associated shortness of breath. He reports that over the last 2 weeks he has been having anginal chest pain with activity, and sometimes with rest but today pain seemed worse with some radiation into the shoulder and worsening of trouble breathing. He denies nausea or vomiting, abdominal pain, fevers or chills he was ill with a viral infection about 3 weeks ago and has a lingering cough intermittently due to this. While EMS were on route patient took several nitro SL with improvement in his pain though not complete resolution. On route he received aspirin 324mg. In the ER patient was noted to have negative troponin x2, EKG without ST elevations. Sodium 125 with serum osmolality 298 and urine osmolality 146, COVID-19 negative. Chest CTA without evidence of pn eumonia or PE. As patient's pain was not completely resolved and very characteristic of anginal chest pain, hospital service was consulted for admission for both chest pain evaluation and hyponatremia. Admission Exam Per Admitting Provider Constitutional: WD/WN, vitals as above Eyes: PERRL, conjunctivae normal, anicteric sclerae ENMT: external ear and nose normal, oropharynx normal Neck: normal visual inspection Respiratory: normal respiratory effort, lungs clear to auscultation Cardiovascular: RRR, no murmur, no edema Gastrointestinal (Abdomen): normal bowel sounds, soft, nontender, no hepatosplenomegaly Musculoskeletal: no cyanosis or clubbing, extremities motor strength 5/5 Skin: no rashes, warm and dry Neurologic: AAOx3, normal speech. Bilateral UE, LE, and face without sensory or motor deficits. Psychiatric: A+Ox3, euthymic affect Principal Diagnosis Acute Pericarditis Discharge Exam Constitutional WD/WN, vitals as above Eyes PERRL, conjunctivae normal, anicteric sclerae ENMT external ear and nose normal, oropharynx normal Neck trachea midline, no thyromegaly Respiratory normal respiratory effort, lungs clear to auscultation Cardiovascular RRR, no murmur, no edema Chest (Breasts) Chest: normal inspection of chest Gastrointestinal (Abdomen) normal bowel sounds, soft, nontender, no hepatosplenomegaly Skin no rashes, warm and dry Psychiatric A+Ox3, euthymic affect Discharge Data Allergies Allergy/AdvReac Type Severity Reaction Status Date / Time Penicillins Allergy Severe "CIRCULATORY Verified 08/30/21 19:44 SHUTDOWN" Consultations 08/30/21 21:26 ED Decision to Admit Stat 08/31/21 00:31 Consult Cardiology Routine Ordered Studies 08/30/21 19:54 CT angio chest PE protocol Stat Hospital Course (1) Unstable angina: 66-year-old male past medical history significant for CAD status post stent x4, hyperlipidemia, hypertension, chronic back pain with chronic opiate use, GERD, alcohol use admitted for angina without resolution with sublingual nitro and acute hyponatremia. -Started on Colchicine 0.6mg BID for 3 months -Started on Aspirin 81mg daily for 1 month -f/u with PCP in 1 week ()Angina 2/2 Acute Pericarditis Patient has history HLD, HTN, History of CAD s/p stent; Mid LCx SERENE, 100% mid RCA September 2009, proximal LCx SERENE January 2016, ostial LCx SERENE October 2016. He presented with several weeks of angina with activity and rest, with worsening of symptoms on admit as compared to the last 2 weeks, as well as recent viral illness. Troponin x3 negative EKG unremarkable. HA1c 5.7 mildly pre-diabetic, lipid panel wnl. Echo unremarkable. Cardiology consulted: Determined more likely acute pericarditis. Start colchicine 0.6mg bid and high-dose 324mg aspirin. Colchicine can be continued for 3 months while aspirin can be reduced to 81 mg once daily for 1 month. Continue beta-anuja, ARB, statin. ()Acute hyponatremia, alcohol use: Resolved Sodium of 125 with Serum Osm 298, UOsm 146 on admit. Unknown amount of alcohol use at baseline; patient reports 1-2 beers daily but admits to having 4 beers that day. Patient fluid restricted to 1.5L daily, Na recheck 137. ()Chronic back pain, chronic opiate use: Takes [place] 10-325mg BID, will continue. ()GERD: Continue PPI BID. ()Chronic anemia: History of chronic normocytic anemia with Hgb at baseline on admission. B12, folate, iron studies wnl (2) Acute hyponatremia: (3) Hypertension: (4) Gastric ulcer: (5) Hyperlipidemia: (6) CAD (coronary artery disease): (7) Chronic prescription opiate use: (8) Chronic back pain: (9) Hypercholesterolemia: (10) Anemia: (11) Alcohol use: Total Time Total Time Spent Total Time Spent (In Minutes): <30 Discharge Plan Discharge Items Patient Disposition: Home - Self-Care Reason For Visit: CHEST PAIN, HYPONATREMIA Discharge Diagnosis: Acute Pericarditis Activity: Resume your previous activity Non-emergency contact: Primary Care Provider Call non-emergency contact if: you have any medication questions, your symptoms worsen, your pain is not controlled and you have a fever Follow-up/Referrals: Lloyd Rosenthal MD [Primary Care Provider] - 09/08/21 1:30 pm (Patient may need PFTs eventually.) Diet: Heart Healthy Addtl Attending Provider Instructions: You were admitted to the hospital for chest pain. You were found to have Acute Pericarditis. You were treated with Aspirin and Colchicine to reduce the inflammation around your heart. We did not find any signs of heart attack while you were in the hospital. Please continue taking aspirin and Colchicine for 3 months after leaving the hospital, and follow up with your PCP and Senior Report Developer. A discharge summary will be sent to your primary care physician to ensure continuity of care. Please bring this discharge summary with you to your next office appointment so that your provider can review it at that time. Follow-up appointments: Make a follow-up appointment with your PCP within the next week. It is very important that you follow up with them shortly after discharge from the hospital. Please maintian your followup appointment with Cardiology in October. Keep all your follow-up appointments as already scheduled. If you cannot make an appointment, notify your provider. Medications: Your medication list has been reviewed and reconciled upon discharge to ensure accuracy and continuity of care. An updated list of all your medications is in cluded with your hospital discharge paperwork. Please review this list closely, and make note of any changes. * We sent a new medication called Colchicine to your pharmacy. Take Colchicine 0.6mg one tablet twice a day for 3 months. * We have started you on a medication called Aspirin. Please take Aspirin 81mg one tablet daily for 3 months. Take your medications as instructed; do not skip a dose of your medicines. Make sure all of your doctors know every medicine you are taking (including xtrj-lmu-[id number] medicines, vitamins, and supplements). Call your primary care provider before taking any new medicines (including asgw-nam-dsiefai medicines, vitamins, and supplements), because some of these may interact with your current medications, or may make your symptoms worse. Tell your primary care provider if you cannot afford your medications. CONTACT YOUR PRIMARY CARE PROVIDER if you experience any of the following: Difficulty breathing, fever, chills Chest pain or palpations Difficulty following your treatment plan, or difficulty taking medications CALL 911 OR GO TO THE EMERGENCY DEPARTMENT if you experience any of the follo wing: Sudden, severe abdominal pain or nausea/vomiting Severe chest pain, or chest pain that radiates (moves) to your jaw or arm Sudden, severe shortness of breath or difficulty breathing Thank you for allowing us to participate in your care. Pending Studies at Discharge: No Stand-Alone Forms: [facility] [employer], Smoking Cessation Medications and DC Order Prescriptions: New colchicine [Colcrys] 0.6 mg Tablet 0.6 mg PO BID 30 Days Qty: 60 RF: 2 Continued amlodipine 10 mg tablet 10 mg PO QPM Qty: 90 RF: 3 losartan 100 mg tablet 100 mg PO QAM Qty: 90 RF: 3 simvastatin 80 mg tablet 80 mg PO PM Qty: 90 RF: 3 clopidogrel [Plavix] 75 mg tablet 75 mg PO DAILY Qty: 90 RF: 3 metoprolol tartrate 100 mg tablet 50 mg PO BID Qty: 90 RF: 3 nitroglycerin 0.4 mg tablet, sublingual 0.4 mg Sublingual UD PRN (Reason: Angina) Qty: 30 RF: 3 lidocaine 5 % Adhesive Patch,Medicated 1 patch TOPICAL DAILY PRN (Reason: Pain) RF: 0 cholecalciferol (vitamin D3) [Vitamin D3] 5,000 unit Tablet 5,000 unit PO QAM RF: 0 multivitamin Tablet 1 tab PO QAM RF: 0 baclofen 10 mg Tablet 20 mg PO TID RF: 0 hydrocodone-acetaminophen 10-325 mg Tablet 1 tab PO Q4H PRN (Reason: Pain) RF: 0 bupropion HCl 100 mg tablet sustained-release 12 hr 100 mg PO BID RF: 0 Saccharomyces boulardii [Florastor] 250 mg capsule 250 mg PO QAM RF: 0 pantoprazole 40 mg tablet,delayed release (DR/EC) 40 mg PO BID Qty: 60 RF: 0 Discharge Orders: Discharge Order (Routine); Ordered 09/01/21 Ordered By: Kathy Momin Admission Data Admit Date/Time: 08/30/21 22:39 Attending Provider: Imer Mckeon Admit Provider: Kenzie Gonzalez Primary Care Provider: Lloyd Rosenthal Other Providers: Cobry Lawson ; Jose G Zamora Other Interventions: Discharge Summary Assessment (RN) Last Done: 09/01/21 14:01 Supervising Physician Co-Signing Physician Notes I personally examined the patient and verified all oden points of history and ex am, discussed case, and agree with decision making with Dr Momin Feeling better. Feeling up to going home. Had good talk with Dr. Zamora has a good understanding of what appears to be going on with him. Case discussed with Dr. Zamora as well. Input greatly appreciated. Vitals noted, in general he is awake and alert pleasant no distress. HEENT normocephalic atraumatic mucous membranes moist. Breathing unlabored no accessory muscle use good effort. Skin shows no rashes no pallor or icterus. Neuro without focal deficits. Chest painprobable pericarditiscolchicine, aspirin, outpatient follow-up Dyspnea on exertionoutpatient PFTs, some of it is probably chronic stable anginaongoing med management per PCP and cardiology, with PFTs if he does show COPD (which is suspected) then dyspnea on exertion may improve some with inhaler management Stable for home, wants to go home, otherwise as above Resident Activity Tracking Resident Involvement: Resident Care Provided Care Provided: Adult Hospital Medicine
--- NOTE | 2021-09-01 17:10 | Billing Data ---
Date of Service September 01, 2021 Coding Level of Care Code D/C DAY MANAGEMENT <30 MINS
== END 2021-09-01 14:53 | disposition home or self-care (01) | DRG 315 ==
LOC: ED 18:30 → 2W 22:39 → SUATTDRO 22:39 → 2W 08-31 00:30

== ENCOUNTER 2022-02-03 18:46 | Inpatient (IN) ==
[2022-02-03] MEDS ORDERED: SODIUM CHLORIDE 0.9% 1000ML 1,000 ML IV STA (18:54)
[2022-02-03] MEDS ORDERED: PANTOprazole 80 MG in DEXTROSE 5% 100 ML IV ONE (18:54)
[2022-02-03] MEDS ORDERED: PANTOPRAZOLE BOLUS/DRIP 1 EACH IV STA (18:54)
[2022-02-03] MEDS ORDERED: FAMOTIDINE 20MG IV PUSH 20 MG/5 ML SYR IV STA (18:54)
[2022-02-03] MEDS ORDERED: ONDANSETRON INJ 2 MG/ML 2 ML VIAL IV STA (19:04)
--- NOTE | 2022-02-03 19:20 | Emergency Department Note ---
Impression & Plan Colitis, Abdominal pain, lower, BRBPR (bright red blood per rectum), Leukocytosis ED Provider Note INFORMANT: Patient ED PROVIDER(S): Henry Nieves MD CHIEF COMPLAINT: Abdominal pain PLAN: Disposition: Admitted Condition: Good Outpatient prescription management: none Referral: None MEDICAL DECISION MAKING: Patient presented because of abdominal pain and bright red blood per rectum. Patient was quite tender and uncomfortable. An IV was established. He was given IV Dilaudid and Zofran. He did require multiple doses. He was also given 1 additional dose of IV fentanyl. The patient had a history of GI bleeding with an ulcer. Because of the Plavix this was concerning. Patient was treated with Pepcid and Protonix empirically. CT imaging was then completed after he was fo und to have a significant white cell count elevation. He did not have a significant anemia. His CT scan showed that he had a nonspecific colitis. His lactate was negative. Patient's ECG showed a sinus rhythm. Stool studies were ordered. The patient will need further management in the hospital in light of his severe pain and the colitis. Consultation was made with Dr. Corby Lawson of the [facility] service. Patient was evaluated in the ER for further management. Triage Nursing notes reviewed and agree them. Vital Signs: reviewed and remarkable for no significant abnormalities Differential diagnosis: Diverticulosis, AVM, coagulopathy, colitis, inflammatory bowel disease, malignancy, Kamryn-Howard tear, esophagitis, peptic ulcer disease, variceal bleed, gastritis, epistaxis, fissure, hemorrhoids, as well as other pathologies. Diagnostics interpreted by me: ECG: Twelve-lead ECG reveals a normal sinus rhythm at 86 bpm. Septal Q waves present. No ST elevation or depression. No PACs or PVCs. Cardiac Monitoring: Cardiac monitoring ordered by me: The patient was placed on continuous cardiac monitoring and observed. It revealed a normal sinus rhythm at 82 beats per minute without ectopy or evidence of dysrhythmia. Imaging studies: CT scan as noted below HPI: The patient is a 66year old male who presents to the Emergency Room with complaints of abdominal pain. This started around 10:00 this morning and is persisting. It is lower.. The patient also notes the following associated symptoms, bright red blood per rectum. Multiple bowel movements noted that were loose and bloody. The patient has found no relieving factors. Current pain is rated as 10 patient was concerned as he has a history of peptic ulcer disease. He also takes Plavix./10. Pt denies LOC, headache, fevers, chills, diaphoresis, visual changes, neck pain, chest pain, breathing difficulties, nausea, vomiting, back pain, melena, urinary symptoms, numbness, weakness, lymphadenopathy, rash, or other complaints. ROS: See above HPI for pertinent positives & negatives. A total of 10 systems reviewed and were otherwise negative. PAST MEDICAL HISTORY:See Below , peptic ulcer disease, hypertension, PVD PAST SURGICAL HISTORY:See Below, FAMILY HISTORY:See Below SOCIAL HISTORY:See Below, denies alcohol HOME MEDICATIONS:See Below ALLERGIES:See Below VITALS:See Below PHYSICAL EXAMINATION: GENERAL: Awake, alert, very uncomfortable-appearing, in moderate distress HENT: Normocephalic, atraumatic. Oropharynx unremarkable. EYES: Normal conjunctiva. Sclera non-icteric. NECK: Inspection normal. Non-tender. Supple. No nuchal rigidity. FROM. No masses. RESPIRATORY: Clear to auscultation. No wheezes. No rales. Normal respiratory effort. CARDIAC: Normal rate. Normal rhythm. No murmurs. No rubs. Extremities warm and well perfused. Pulses equal. No JVD. GI: Soft, non-distended. Lower tenderness to palpation. No rebound or guarding. No masses. RECTAL: Rectal vault was empty. No signs of bleeding. Hemoccult negative. MUSCULOSKELETAL: Atraumatic. Chest examination reveals no tenderness. The back is symmetrical on inspection without obvious abnormality. There is no CVA tenderness to palpation. No joint edema. LOWER EXTREMITIES: Calves are equal size bilaterally and non-tender. No edema. No discoloration. NEURO: Normal sensorium. No sensory or motor deficits noted. SKIN: No rash or jaundice noted. Henry Nieves MD Past Med/Surg History Medical History Alcohol use Anxiety BPH (benign prostatic hyperplasia) CAD (coronary artery disease) Chronic back pain Chronic prescription opiate use Diverticulosis Dupuytren's contracture of hand GERD (gastroesophageal reflux disease) History of Clostridioides difficile colitis Hx of gastric ulcer Hyperlipidemia Hypertension Left ventricular hypertrophy On anticoagulant therapy plavix d/t stents Peripheral neuropathy Surgical History History of cardiac cath x3 @ [facility] follow with Dr. Zamora History of hand surgery x6 (4 on right, 2 on left) d/t Shailesh's History of heart artery stent 2009 x2, 2016 x1, 2017 x1--@ [facility] History of intravascular stent placement RIGHT LEG History of procedure for peripheral vascular disease 2012 Dr. Granger History of removal of cyst from groin History of surgery RIGHT LEG R/T TRAUMA [place] teeth removed Family History Sister Family history of reaction to anesthesia difficulty waking and nausea Mother Family history of reaction to anesthesia difficulty waking and nausea Peptic ulcer disease Father , in his 40s Cerebral aneurysm Social History Smoking Status: Former smoker packs per day: 1; Second Hand Exposure: No; Hx Alcohol Use: Yes Alcohol type: beer Alcohol Intake Frequency Comment: 6-pack every 1-2 weeks Preferred Language: [place] Island[place] Communication Ability: Effective Insurance Follow Up Rep Required: No Beliefs That Will Affect Care: None marital status: Current Living Situation: Spouse current occupational status: 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 Feels Safe at Home: Yes Assistive Devices: None Allergies Allergies Allergy/AdvReac Type Severity Reaction Status Date / Time Penicillins Allergy Severe "CIRCULATORY Verified 02/03/22 20:20 SHUTDOWN" Home Meds Home Medications Medication Instructions Recorded Confirmed baclofen 10 mg tablet 20 mg PO TID 11/13/17 02/03/22 hydrocodone 10 mg-acetaminophen 1 tab PO BID PRN Pain 11/13/17 02/03/22 325 mg tablet cholecalciferol (vitamin D3) 125 5,000 unit PO QAM 02/18/18 02/03/22 mcg (5,000 unit) tablet (Vitamin D3) multivitamin 1 tab PO QAM 02/18/18 02/03/22 bupropion HCl 150 mg tablet,12 hr 150 mg PO BID 02/03/22 02/03/22 sustained-release Previous Rx's Medication Instructions Recorded pantoprazole 40 mg tablet,delayed 40 mg PO BID #60 tabs 07/17/19 release amlodipine 10 mg tablet 10 mg PO QPM #90 tabs 05/20/20 losartan 100 mg tablet 100 mg PO QAM #90 tabs 05/20/20 simvastatin 80 mg tablet 80 mg PO PM #90 tabs 05/20/20 clopidogrel 75 mg tablet (Plavix) 75 mg PO DAILY #90 tabs 05/29/21 metoprolol tartrate 100 mg tablet 50 mg PO BID #90 tabs 05/29/21 nitroglycerin 0.4 mg sublingual 0.4 mg sublingual UD PRN Angina 08/08/21 tablet #30 tabs Results & Data (ED) Vital Signs Vital Signs - 24 hr 02/03/22 18:47 02/03/22 19:17 02/03/22 20:46 Temperature 36.6 C Temperature Source Temporal Artery Scan Pulse Rate 95 H 90 Pulse Rate [Apical] 96 H Respiratory Rate 20 16 Respiratory Effort / Characteristics Non-Labored Spontaneous Respiratory Depth Normal Blood Pressure 144/83 H Blood Pressure [Left Arm] 135/96 Blood Pressure Mean 103 Blood Pressure Mean [Left Arm] 109 Blood Pressure Position Sitting Pulse Oximetry 99 97 95 Oxygen Delivery Method Room Air Room Air Room Air Sepsis Recent Fever Within 48 Hours No Sepsis New/Unexplained Change in Mental Status N/A Sepsis Action Taken by Nursing No Action Required Laboratory Data Result diagrams: 02/03/22 19:17 02/03/22 19:17 Lab Results 02/03/22 02/03/22 02/03/22 Range/Units 19:17 19:17 19:17 WBC 21.34 H (4.8-10.8) K/ul RBC 3.99 L (4.63-6.08) M/uL Hgb 13.2 L (14.0-18.0) g/dl Hct 38.1 L (40.1-51.0) % MCV 95.5 (80.0-100.0) fL MCH 33.1 (25.0-34.0) pg MCHC 34.6 (32.0-36.0) g/dL RDW Std Deviation 45.1 (36.4-46.3) fL RDW Coeff of [place] 12.8 (11.5-14.5) % Plt Count 415 H (130-400) K/uL MPV 9.9 (9.4-12.4) fL Immature Gran % (Auto) 0.4 % Neut % (Auto) 84.6 % Lymph % (Auto) 5.0 % [place] % (Auto) 9.7 % Eos % (Auto) 0.1 % Baso % (Auto) 0.2 % Neut # (Auto) 18.04 H (1.4-6.5) K/uL Lymph # (Auto) 1.06 L (1.2-3.4) K/uL [place] # (Auto) 2.08 H (0.24-0.82) K/uL Eos # (Auto) 0.03 (0-0.50) K/uL Baso # (Auto) 0.05 (0-0.2) K/uL Immature Gran # (Auto) 0.08 H (0.00-0.02) K/uL PT 10.7 (9.0-12.0) Seconds INR 1.0 (0.9-1.1) Sodium 133 L (136-145) mmol/L Potassium 3.8 (3.5-5.1) mmol/L Chloride 102 (98-107) mmol/L Carbon Dioxide 23 (21-32) mmol/L Anion Gap 8 (3-11) BUN 35 H (6-23) mg/dl Creatinine 1.41 H (0.6-1.4) mg/dl Est Cr Clr Drug Dosing 45.4 ml/min Est GFR ( Amer) 60.2 ml/min Est GFR (Non-Af Amer) 51.9 ml/min BUN/Creatinine Ratio 24.8 H (10-20) Glucose 162 H (70-99(Fasting)) mg/dl Calcium 8.9 (8.5-10.1) mg/dl Total Bilirubin 0.3 (0.2-1.0) mg/dl AST 20 (13-39) U/L ALT 18 (7-52) U/L Alkaline Phosphatase 121 H (34-104) U/L Total Protein 7.3 (6.0-8.3) gm/dl Albumin 4.1 (3.4-5.0) gm/dl Globulin 3.2 (2.5-4.0) gm/dl Albumin/Globulin Ratio 1.3 (0.9-2) Lipase 30 (11-82) U/L Procalcitonin (0-0.5) ng/ml 11/26/22 Range/Units 19:17 WBC (4.8-10.8) K/ul RBC (4.63-6.08) M/uL Hgb (14.0-18.0) g/dl Hct (40.1-51.0) % MCV (80.0-100.0) fL MCH (25.0-34.0) pg MCHC (32.0-36.0) g/dL RDW Std Deviation (36.4-46.3) fL RDW Coeff of [place] (11.5-14.5) % Plt Count (130-400) K/uL MPV (9.4-12.4) fL Immature Gran % (Auto) % Neut % (Auto) % Lymph % (Auto) % [place] % (Auto) % Eos % (Auto) % Baso % (Auto) % Neut # (Auto) (1.4-6.5) K/uL Lymph # (Auto) (1.2-3.4) K/uL [place] # (Auto) (0.24-0.82) K/uL Eos # (Auto) (0-0.50) K/uL Baso # (Auto) (0-0.2) K/uL Immature Gran # (Auto) (0.00-0.02) K/uL PT (9.0-12.0) Seconds INR (0.9-1.1) Sodium (136-145) mmol/L Potassium (3.5-5.1) mmol/L Chloride (98-107) mmol/L Carbon Dioxide (21-32) mmol/L Anion Gap (3-11) BUN (6-23) mg/dl Creatinine (0.6-1.4) mg/dl Est Cr Clr Drug Dosing ml/min Est GFR ( Amer) ml/min Est GFR (Non-Af Amer) ml/min BUN/Creatinine Ratio (10-20) Glucose (70-99(Fasting)) mg/dl Calcium (8.5-10.1) mg/dl Total Bilirubin (0.2-1.0) mg/dl AST (13-39) U/L ALT (7-52) U/L Alkaline Phosphatase (34-104) U/L Total Protein (6.0-8.3) gm/dl Albumin (3.4-5.0) gm/dl Globulin (2.5-4.0) gm/dl Albumin/Globulin Ratio (0.9-2) Lipase (11-82) U/L Procalcitonin 0.08 (0-0.5) ng/ml Administered Medications Sodium Chloride (Nss 1000ml) 1,000 mls @ 125 mls/hr IV .Q8H STA Stop: 02/04/22 02:53 Last Admin: 02/03/22 19:45 Dose: 125 mls/hr Documented By: ML Pantoprazole Sodium 40 mg/ (Dextrose) 100 mls @ 20 mls/hr IV Q5H ALAN Stop: 03/05/22 19:14 Last Admin: 02/03/22 19:45 Dose: 8 mg/hr, 20 mls/hr Documented By: ELIJAH Discontinued Medications Fentanyl Citrate (Fentanyl Citrate 100 Mcg/2 Ml Vial) 100 mcg IV NOW STA Stop: 02/03/22 21:36 Last Admin: 02/03/22 21:55 Dose: 100 mcg Documented By: ELIJAH Hydromorphone HCl (Hydromorphone Inj 0.5 Mg/0.5 Ml Syr) 0.5 mg IV Q15M PRN PRN Reason: Pain Stop: 02/17/22 19:03 Last Admin: 02/03/22 21:32 Dose: 0.5 mg Documented By: Admin: 02/03/22 20:51 Dose: 0.5 mg Documented By: Admin: 02/03/22 19:49 Dose: 0.5 mg Documented By: Admin: 02/03/22 19:21 Dose: 0.5 mg Documented By: ELIJAH Pantoprazole Sodium (Protonix Bolus/Drip) 0 mls @ 1 mls/hr IV ONE STA Stop: 02/03/22 18:55 Last Admin: 02/03/22 20:47 Dose: Not Given Documented By: ELIJAH Pantoprazole Sodium 80 mg/ (Dextrose) 120 mls @ 400 mls/hr IV NOW ONE Stop: 02/03/22 19:11 Last Infusion: 02/03/22 19:33 Dose: 0 mls/hr Documented By: Admin: 02/03/22 19:15 Dose: 400 mls/hr Documented By: ELIJAH Famotidine (Pepcid 20mg Iv Push) 20 mg in 5 mls @ 2.5 mls/min IV NOW STA Stop: 02/03/22 18:55 Last Admin: 02/03/22 19:21 Dose: 2.5 mls/min Documented By: ML Sodium Chloride (Nss 1000ml) 1,000 mls @ 999 mls/hr IV .Q1H1M ONE Stop: 02/03/22 21:03 Last Infusion: 02/03/22 22:44 Dose: 0 mls/hr Documented By: Admin: 02/03/22 21:32 Dose: 999 mls/hr Documented By: ML Ondansetron HCl (Ondansetron Inj 2 Mg/Ml 2 Ml Vial) 4 mg IV NOW STA Stop: 02/03/22 19:05 Last Admin: 02/03/22 19:21 Dose: 4 mg Documented By: ML Raspberry (Raspberry Syrup 5 Ml Udp) 5 ml PO ONE STA Stop: 02/03/22 22:10 Last Admin: 02/03/22 22:42 Dose: 5 ml Documented By: ML Vancomycin HCl (Vancomycin Hcl 125 Mg/2.5ml Soln) 125 mg PO ONE STA Stop: 02/03/22 22:10 Last Admin: 02/03/22 22:43 Dose: 125 mg Documented By: ML Imaging Data Radiologist's Impression: Abdomen/Pelvis CT 02/03/22 18:52 CT SCAN OF THE ABDOMEN AND PELVIS WITHOUT IV CONTRAST CLINICAL HISTORY: GI bleeding. COMPARISON STUDY: Abdominal CT dated 07/11/2019. TECHNIQUE: CT scan of the abdomen and pelvis is performed from the lung bases to the proximal femora. Images are reviewed in the axial, sagittal, and coronal planes. IV contrast was not administered for this examination. Note that the examination was performed and significantly suboptimal fashion without IV con trast. A dose lowering technique was utilized adhering to the principles of ALARA. CT DOSE: 307.22 mGy.cm FINDINGS: Lung bases: The heart is mildly enlarged and without pericardial effusion. The coronary arteries are densely calcified. There are scattered calcified granulomas. The lung bases are otherwise clear noting bibasilar scarring/atelectasis. Liver: The unenhanced liver is normal in size, contour, and attenuation. There is no intrahepatic biliary ductal dilatation. Gallbladder: Unremarkable. Spleen: Normal in size and attenuation. Pancreas: The unenhanced pancreas is moderately atrophic and grossly unrem arkable. Adrenal glands: Unremarkable. Kidneys: The unenhanced kidneys demonstrate cortical atrophy and are without hydronephrosis. There are no renal calculi identified. There is no evidence of contour deforming renal mass lesion. Abdominal vasculature: The abdominal aorta is normal in course and caliber noting advanced atherosclerotic calcification. Bowel: There is a long segment of mild wall thickening and edema involving the left colon with surrounding infiltration and trace fluid. This extends from the splenic flexure to the sigmoid. No bowel obstruction is seen. There are scattered colonic diverticula without CT evidence of acute diverticulitis. The appendix is well-visualized and normal. Peritoneum: There is no intraperitoneal free air or abdominal ascites. Lymphadenopathy: None. Pelvic viscera: The prostate gland is diminutive and heterogeneous. The bladder is mildly distended. The wall appears thickened/trabeculated indicating chronic outlet obstruction. Skeletal structures: The skeletal structures are osteopenic. There are chronic compression deformities of L1 and L4. Moderate lumbosacral spondylosis is noted. No lytic or blastic lesions are seen. There are chronic/healed bilateral pubic ring fractures. IMPRESSION: 1. There is a nonspecific colitis of the left colon. This could be on an infecti ous, inflammatory, or ischemic basis and clinical correlation will be essential. 2. Additional findings as above. ACT 112: Negative or not required by law. Electronically signed by: Tres Morton M.D. 02/03/2022 8:04 PM Discharge Plan Visit Data Chief Complaint: Abdominal Pain Stated Complaint: SEVERE ABDOMINAL PAIN, POSSIBLE ULCER ED Provider: Henry Nieves Discharge Problem: Colitis, Abdominal pain, lower, BRBPR (bright red blood per rectum), Leukocytosis Patient Disposition: Admitted As Inpatient Discharge Instructions Interventions: ED Discharge Assessment Last Done: 02/03/22 23:23
[2022-02-03] MEDS: HYDROmorphone INJ 0.5 MG/0.5 ML SYR IV PRN ×4 (19:21→21:32)
[2022-02-03 19:29] LABS: Basophils # (auto) 0.05 K/uL (0-0.2); Basophils % (auto) 0.2 %; Eosinophils # (auto) 0.03 K/uL (0-0.50); Eosinophils % (auto) 0.1 %; Hematocrit (blood only) 38.1 % (40.1-51.0); Hemoglobin 13.2 g/dl (14.0-18.0); Immature Granulocytes # (auto) 0.08 K/uL (0.00-0.02); Immature Granulocytes % (auto) 0.4 %; Lymphocytes # (auto) 1.06 K/uL (1.2-3.4); Mean Corpuscular Hemoglobin 33.1 pg (25.0-34.0); Mean Corpuscular Hgb Conc 34.6 g/dL (32.0-36.0); Mean Corpuscular Volume 95.5 fL (80.0-100.0); Mean Platelet Volume 9.9 fL (9.4-12.4); Monocytes # (auto) 2.08 K/uL (0.24-0.82); Monocytes % (auto) 9.7 %; Neutrophils # (auto) 18.04 K/uL (1.4-6.5); Neutrophils % (auto) 84.6 %; Platelet Count 415 K/uL (130-400); RDW Coefficient of Variation 12.8 % (11.5-14.5); RDW Standard Deviation 45.1 fL (36.4-46.3); Red Blood Count 3.99 M/uL (4.63-6.08); White Blood Count 21.34 K/ul (4.8-10.8)
[2022-02-03] MEDS: PANTOprazole 40 MG in DEXTROSE 5% 100 ML IV SCH (19:45)
[2022-02-03 19:46] LABS: Prothrombin Time 10.7 Seconds (9.0-12.0)
[2022-02-03 19:49] LABS: Albumin Globulin Ratio 1.3 (0.9-2); Albumin Level 4.1 gm/dl (3.4-5.0); BUN Creatinine Ratio 24.8 (10-20); Bilirubin,Total 0.3 mg/dl (0.2-1.0); Calcium 8.9 mg/dl (8.5-10.1); Creatinine Clr Calc Pharmacy 45.4 ml/min; Est GFR (African American) 60.2 ml/min; Est GFR (Non-African American) 51.9 ml/min; Globulin 3.2 gm/dl (2.5-4.0); Potassium 3.8 mmol/L (3.5-5.1); Total Protein 7.3 gm/dl (6.0-8.3)
[2022-02-03] MEDS ORDERED: SODIUM CHLORIDE 0.9% 1000ML 1,000 ML IV ONE (20:03)
--- NOTE | 2022-02-03 20:06 | CT Scan Report ---
CT SCAN OF THE ABDOMEN AND PELVIS WITHOUT IV CONTRAST CLINICAL HISTORY: GI bleeding. COMPARISON STUDY: Abdominal CT dated 07/11/2019. TECHNIQUE: CT scan of the abdomen and pelvis is performed from the lung bases to the proximal femora. Images are reviewed in the axial, sagittal, and coronal planes. IV contrast was not administered for this examination. Note that the examination was performed and significantly suboptimal fashion witho ut IV contrast. A dose lowering technique was utilized adhering to the principles of ALARA. CT DOSE: 307.22 mGy.cm FINDINGS: Lung bases: The heart is mildly enlarged and without pericardial effusion. The coronary arteries are densely calcified. There are scattered calcified granulomas. The lung bases are otherwise clear notin g bibasilar scarring/atelectasis. Liver: The unenhanced liver is normal in size, contour, and attenuation. There is no intrahepatic jason iary ductal dilatation. Gallbladder: Unremarkable. Spleen: Normal in size and attenuation. Pancreas: The unenhanced pancreas is moderately atrophic and grossly unremarkable. Adrenal glands: Unremarkable. Kidneys: The unenhanced kidneys demonstrate cortical atrophy and are without hydronephrosis. There ar e no renal calculi identified. There is no evidence of contour deforming renal mass lesion. Abdominal vasculature: The abdominal aorta is normal in course and caliber noting advanced atheroscle rotic calcification. Bowel: There is a long segment of mild wall thickening and edema involving the left colon with surrou nding infiltration and trace fluid. This extends from the splenic flexure to the sigmoid. No bowel ob struction is seen. There are scattered colonic diverticula without CT evidence of acute diverticuliti s. The appendix is well-visualized and normal. Peritoneum: There is no intraperitoneal free air or abdominal ascites. Lymphadenopathy: None. Pelvic viscera: The prostate gland is diminutive and heterogeneous. The bladder is mildly distended. The wall appears thickened/trabeculated indicating chronic outlet obstruction. Skeletal structures: The skeletal structures are osteopenic. There are chronic compression deformitie s of L1 and L4. Moderate lumbosacral spondylosis is noted. No lytic or blastic lesions are seen. Ther e are chronic/healed bilateral pubic ring fractures. IMPRESSION: 1. There is a nonspecific colitis of the left colon. This could be on an infectious, inflammatory, or ischemic basis and clinical correlation will be essential. 2. Additional findings as above. ACT 112: Negative or not required by law. Electronically signed by: Tres Morton M.D. 02/03/2022 8:04 PM
--- NOTE | 2022-02-03 20:55 | History & Physical Report ---
Date of Service February 03, 2022 Assessment & Plan (1) LGI bleed: Plan: - CTAP: Colitis from splenic flexure down to sigmoid, without diverticulitis or obstruction seen. - BRBPR and sudden onset 10/10 lower abdominal pain onset this morning, with WBC 21, and history of C. difficile infection makes recurrence of C. difficile most likely diagnosis. - C diff toxin pending. While awaiting collection of results, will initiate vancomycin 125 every 6 hours. - Contact precautions ordered. - GI consult placed, appreciate their recommendations and assistance. - Avoid anti-motility agents unless c diff ruled out. - IV pain meds, antiemetics ordered. - NPO, IVF overnight, suspect LGIB 2/2 to c dif but will continue PPI gtt until AM at which time primary team or GI can decide to d/c. 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 - In 2019 after his last recurrence, also persisted [facility] for fecal transplant, however due to COVID-19 pandemic that never happened. - Per recent GI note earlier this month, has plans to follow-up with for fecal transplant. (3) PUD (peptic ulcer disease): Plan: - He has a history of UGI bleeds secondary to gastric ulcers, his H&H is low at 13.2/38.1, however mildly increased from yesterday's labs drawn in August. - Presenting with BRBPR, more consistent with LGIB 2/2 to colitis, low suspicion for brisk UGIB. He is hemodynamically stable. - He is on Protonix at home. Has a history of alcohol use, 1-2 beers every few days, last drink was 2-3 days ago. He says he frequently goes several days without it. Has not withdrawn the past. - Patient A+Ox3 but seems somewhat impaired, states it is due to pain but seems to be more off baseline than would be just because of pain. - Medical alcohol level ordered. - AWSS at risk protocol. - EGD July 2019: Normal esophagus, small hiatal hernia, gastritis, nonbleeding gastric ulcers with no stigmata of bleeding, normal duodenum, no specimens collected. - Started on Protonix drip in ED, will continue this until GI has a chance to see him tomorrow, will trend H&H. - N.p.o. with IVF. (4) CIERA (acute kidney injury): Plan: - Cr 1.41, baseline (1.0, suspect due to GI bleed, volume depletion. - IVF overnight, holding nephrotoxins, renally dose medications as able. (5) CAD (coronary artery disease): Plan: - Mid LCx SERENE, 100% mid RCA September 2009 - Proximal LCx SERENE January 2016 - Ostial LCx SERENE October 2016 - No chest pain, palpitations, shortness of breath today, anginal symptoms today. - Holding Plavix due to BRBPR, losartan due to CIERA. - Continue amlodipine, metoprolol for blood pressure. Continue simvastatin daily, nitroglycerin as needed. (6) Hypertension: Plan: - Holding losartan, may continue amlodipine and metoprolol. - Losartan okay to restart when renal function back to baseline. (7) Chronic back pain: Plan: - Continue baclofen 20 mg 3 times daily, hydrocodone/Tylenol twice daily as needed. - Holding PO pain meds, have IV Tylenol and Dilaudid ordered for abdominal pain. (8) Anxiety: Plan: - Continue Wellbutrin 150 mg twice daily. Plan - Admit to med/tele. - SCDs for VTE ppx, no chemoppx secondary to LGI bleed. - Full Code. History of Present Illness Chief Complaint: lower abdominal pain with diarrhea x 1 day Primary Care Provider: Lloyd Rosenthal MD Deshawn Whitaker is a 66-year-old male with past medical history significant for recurrent C. difficile, PUD, CAD, PVD, hyperlipidemia, hypertension, and anxiety who is presenting today with concerns of abdominal pain. Pain started this morning bilateral region, associated with BRBPR. Has had copious bowel movements since then which have been loose, bright red and bloody, 10/10 pain. He has not had any fever/chills, pain, palpitations, shortness of breath, dizziness. He has been compliant with his probiotic for recurrent C. difficile and had previously been feeling well. He has not had any nausea or vomiting, hematemesis. He was recently seen by GI at the beginning of the month for his recurrent C. difficile, has been asymptomatic probiotic and indicated he will be following up with [facility] for a stool transplant. His last C. difficile infection was in 2011, at that time was being evaluated for fecal transplant, however the COVID-19 pandemic began and fecal transplants were put on hold. Presentation in ED, is mildly hypertensive otherwise vital signs within normal limits and stable. WBC of 21.34 w/ left shift, Hgb 13.2, platelets 415. Procalcitonin 0.08, lactate pending. Suddenly mildly low at 133, creatinine bumped to 1.41 baseline < 1.0. Besides the low sodium, there are no no electrolyte abnormalities, no transaminitis, lipase normal at 30. CT A/P shows nonspecific colitis of the left colon, from splenic flexure to sigmoid, infectious versus inflammatory versus ischemic. Or diverticulitis, appendix visualized and normal. Moderately atrophic pancreas unremarkable pancreas. Chronic/healed b/l pubic ring fractures, chronic compression deformities of L1 and L4. Allergies Allergy/AdvReac Type Severity Reaction Status Date / Time Penicillins Allergy Severe "CIRCULATORY Verified 02/03/22 20:20 SHUTDOWN" Home Medications Medication Instructions Recorded Confirmed Type baclofen 10 mg tablet 20 mg PO TID 11/13/17 02/03/22 History hydrocodone 10 mg-acetaminophen 1 tab PO BID PRN Pain 11/13/17 02/03/22 History 325 mg tablet cholecalciferol (vitamin D3) 125 5,000 unit PO QAM 02/18/18 02/03/22 History mcg (5,000 unit) tablet (Vitamin D3) multivitamin 1 tab PO QAM 02/18/18 02/03/22 History pantoprazole 40 mg tablet,delayed 40 mg PO BID #60 tabs 07/17/19 02/03/22 Rx release amlodipine 10 mg tablet 10 mg PO QPM #90 tabs 05/20/20 02/03/22 Rx losartan 100 mg tablet 100 mg PO QAM #90 tabs 05/20/20 02/03/22 Rx simvastatin 80 mg tablet 80 mg PO PM #90 tabs 05/20/20 02/03/22 Rx clopidogrel 75 mg tablet (Plavix) 75 mg PO DAILY #90 tabs 05/29/21 02/03/22 Rx metoprolol tartrate 100 mg tablet 50 mg PO BID #90 tabs 05/29/21 02/03/22 Rx nitroglycerin 0.4 mg sublingual 0.4 mg sublingual UD PRN Angina 08/08/21 02/03/22 Rx tablet #30 tabs bupropion HCl 150 mg tablet,12 hr 150 mg PO BID 02/03/22 02/03/22 History sustained-release Past Med/Surg History Medical History Alcohol use Anxiety BPH (benign prostatic hyperplasia) CAD (coronary artery disease) Chronic back pain Chronic prescription opiate use Diverticulosis Dupuytren's contracture of hand GERD (gastroesophageal reflux disease) History of Clostridioides difficile colitis Hx of gastric ulcer Hyperlipidemia Hypertension Left ventricular hypertrophy On anticoagulant therapy plavix d/t stents Peripheral neuropathy Surgical History History of cardiac cath x3 @ [facility] follow with Dr. Zamora History of hand surgery x6 (4 on right, 2 on left) d/t Dupuytren's History of heart artery stent 2009 x2, 2015 x1, 2017 x1--@ [facility] History of intravascular stent placement RIGHT LEG History of procedure for peripheral vascular disease 2012 Dr. Granger History of removal of cyst from groin History of surgery RIGHT LEG R/T TRAUMA [place] teeth removed Family History Sister Family history of reaction to anesthesia difficulty waking and nausea Mother Family history of reaction to anesthesia difficulty waking and nausea Peptic ulcer disease Father , in his 40s Cerebral aneurysm Social History Smoking Status: Former smoker packs per day: 1; Second Hand Exposure: No; Hx Alcohol Use: No Hx Substance Use: No Preferred Language: Estonian Communication Ability: Effective [employer] Worker Required: No Beliefs That Will Affect Care: None marital status: Current Living Situation: Spouse current occupational status: retired 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 Other Information That Helps Us Care for You: No Feels Safe at Home: Yes Safety Concerns: Feels Safe At This Time Assistive Devices: None Review of Systems Review of Systems: Constitutional: No fever/chills, weakness, fatigue, myalgias, anorexia, night sweats Eyes: No diplopia, no worsening or blurred vision ENT: normal hearing, no trouble swallowing Respiratory: No cough, sputum, dyspnea at rest or on exertion Cardiovascular: No chest pain, tightness or palpitations Abdomen: severe 10/10 crampy abdominal pain with BRBPR since this afternoon; no nausea or vomiting : Denies dysuria, hematuria, increased urgency/frequency, urinary retention Musculoskeletal: No joint pain, calf pain, swelling Neurologic: No weakness, numbness/tingling, or balance problems Psychiatric: No anxiety or depression Skin: No rash or itch Physical Exam Physical Exam: General: On first visit, patient planing of severe abdominal pain, visit interrupted secondary to patient needing to use the bathroom urgently; on second visit, patient recently medicated for pain and significantly more comfortable Head: Normocephalic, atraumatic ENT: PERRL, EOMI, no pharyngeal exudate, mucous membranes moist Chest: Clear to auscultation, on room air, no adventitious breath sounds Cardiac: Regular rate and rhythm, no murmur, no JVD, normal peripheral pulses, good capillary refill Abdominal: mildly TTP across b/l lower abdominal pain, no rebound or guarding; NABS throughout Extremities: Normal inspection, no peripheral edema or erythema, calfs nontender to palpation Psych: Normal mood and affect Neuro: AAO x 3, strength intact bilaterally and rated 5/5, no motor deficits, speech is clear, no peripheral sensory deficits Skin: no rash or erythema Results & Data Results & Data ([facility]) Vital Signs (Past 12 Hours) Vital Signs Temp Pulse Resp BP Pulse Ox O2 Del Method 02/03/22 19:17 90 97 Room Air 02/03/22 18:47 36.6 C 95 H 20 144/83 H 99 Room Air Laboratory Results Abnormal lab results 02/03/22 02/03/22 Range/Units 19:17 19:17 WBC 21.34 H (4.8-10.8) K/ul RBC 3.99 L (4.63-6.08) M/uL Hgb 13.2 L (14.0-18.0) g/dl Hct 38.1 L (40.1-51.0) % Plt Count 415 H (130-400) K/uL Neut # (Auto) 18.04 H (1.4-6.5) K/uL Lymph # (Auto) 1.06 L (1.2-3.4) K/uL [place] # (Auto) 2.08 H (0.24-0.82) K/uL Immature Gran # (Auto) 0.08 H (0.00-0.02) K/uL Sodium 133 L (136-145) mmol/L BUN 35 H (6-23) mg/dl Creatinine 1.41 H (0.6-1.4) mg/dl BUN/Creatinine Ratio 24.8 H (10-20) Glucose 162 H (70-99(Fasting)) mg/dl Alkaline Phosphatase 121 H (34-104) U/L Diagnostic Findings Abdomen/Pelvis CT 02/03/22 18:52 CT SCAN OF THE ABDOMEN AND PELVIS WITHOUT IV CONTRAST CLINICAL HISTORY: GI bleeding. COMPARISON STUDY: Abdominal CT dated 07/11/2019. TECHNIQUE: CT scan of the abdomen and pelvis is performed from the lung bases to the proximal femora. Images are reviewed in the axial, sagittal, and coronal planes. IV contrast was not administered for this examination. Note that the examination was performed and significantly suboptimal fashion without IV contrast. A dose lowering technique was utilized adhering to the principles of ALARA. CT DOSE: 307.22 mGy.cm FINDINGS: Lung bases: The heart is mildly enlarged and without pericardial effusion. The coronary arteries are densely calcified. There are scattered calcified granulomas. The lung bases are otherwise clear noting bibasilar scarring/atelectasis. Liver: The unenhanced liver is normal in size, contour, and attenuation. There is no intrahepatic biliary ductal dilatation. Gallbladder: Unremarkable. Spleen: Normal in size and attenuation. Pancreas: The unenhanced pancreas is moderately atrophic and grossly unremarkable. Adrenal glands: Unremarkable. Kidneys: The unenhanced kidneys demonstrate cortical atrophy and are without hydronephrosis. There are no renal calculi identified. There is no evidence of contour deforming renal mass lesion. Abdominal vasculature: The abdominal aorta is normal in course and caliber noting advanced atherosclerotic calcification. Bowel: There is a long segment of mild wall thickening and edema involving the left colon with surrounding infiltration and trace fluid. This extends from the splenic flexure to the sigmoid. No bowel obstruction is seen. There are scattered colonic diverticula without CT evidence of acute diverticulitis. The appendix is well-visualized and normal. Peritoneum: There is no intraperitoneal free air or abdominal ascites. Lymphadenopathy: None. Pelvic viscera: The prostate gland is diminutive and heterogeneous. The bladder is mildly distended. The wall appears thickened/trabeculated indicating chronic outlet obstruction. Skeletal structures: The skeletal structures are osteopenic. There are chronic compression deformities of L1 and L4. Moderate lumbosacral spondylosis is noted. No lytic or blastic lesions are seen. There are chronic/healed bilateral pubic ring fractures. IMPRESSION: 1. There is a nonspecific colitis of the left colon. This could be on an infectious, inflammatory, or ischemic basis and clinical correlation will be essential. 2. Additional findings as above. ACT 112: Negative or not required by law. Electronically signed by: Tres Morton M.D. 02/03/2022 8:04 PM ECG Additional Comments: Poor data quality, interpretation may be adversely affected Normal sinus rhythm Septal infarct , age undetermined Abnormal ECG When compared with ECG of 01-SEP-2021 06:13, Vent. rate has increased BY 28 BPM Septal infarct is now Present. Code Status & VTE Plan Code Status Full Code. Supervising Physician Co-Signing Physician Notes Attending addendum: I have physically seen this patient, have supervised the DIANA's activities, and agree with the H&P unless as otherwise noted. Assessment and Plan: Lower GI bleed- Bright red blood per rectum CT with colitis from splenic flexure down to sigmoid colon C. difficile toxin pending, with history of C. difficile infection Start empiric vancomycin 125 mg p.o. every 6 hours Contact precautions Cholestyramine as if needed for bulk forming agent Zofran 4 mg IV every 6 hours as needed Serial H&H's Consult gastroenterology Peptic ulcer disease- History of gastric ulcers with bleeding Pantoprazole IV AWSS at risk protocol Remaining orders and notations as noted PG Care Time/CCT Total # of Minutes Spent Total Time Spent with Patient: Total time spent is greater than 50% in coordination of care (as documented) at patient's floor/unit and/or counseling patient: Coding Level of Care Code 55207 Initial Inpt Care Lvl 3 Diagnoses LGI bleed K92.2 History of Clostridioides difficile infection Z86.19 PUD (peptic ulcer disease) K27.9 CIERA (acute kidney injury) N17.9 CAD (coronary artery disease) I25.119 Associated angina: with unspecified angina Coronary Disease-Associated Artery/Lesion type: unspecified vessel or lesion type [place] vs. transplanted heart: [place] heart Hypertension I10 Chronic back pain M54.9; G89.29 Anxiety F41.9 (1) CAD (coronary artery disease) Associated angina: with unspecified angina Coronary Disease-Associated Artery/Lesion type: unspecified vessel or lesion type [place] vs. transplanted heart: [place] heart Qualified Code(s): I25.119 - Atherosclerotic heart disease of [place] coronary artery with unspecified angina pectoris
[2022-02-03] MEDS ORDERED: fentaNYL citrate 100 MCG/2 ML VIAL IV STA (21:35)
[2022-02-03] MEDS ORDERED: VANCOMYCIN HCL 125 MG/2.5ML SOLN PO STA (22:09)
[2022-02-03] MEDS ORDERED: RASPBERRY SYRUP 5 ML UDP PO STA (22:09)
[2022-02-03 23:34] LABS: Adenovirus F 40/41 PCR Not Detected (NotDetected); Astrovirus PCR Not Detected (NotDetected); Campylobacter PCR Not Detected (NotDetected); Cryptosporidium PCR Not Detected (NotDetected); Cyclospora cayetanensis PCR Not Detected (NotDetected); Entamoeba histolytica PCR Not Detected (NotDetected); Enteroaggregative E.coli(EAEC) Not Detected (NotDetected); Enteropathogenic E.coli (EPEC) Not Detected (NotDetected); Enterotoxigenic E.coli (ETEC) Not Detected (NotDetected); Giardia lamblia PCR Not Detected (NotDetected); Norovirus GI/GII PCR Not Detected (NotDetected); Plesiomonas shigelloides PCR Not Detected (NotDetected); Rotavirus A PCR Not Detected (NotDetected); Salmonella PCR Not Detected (NotDetected); Sapovirus PCR Not Detected (NotDetected); Shiga-like Toxin E.coli (STEC) Not Detected (NotDetected); Shigella/Enteroinvasive E.coli Not Detected (NotDetected); Vibrio cholerae PCR Not Detected (NotDetected); Vibrio species PCR Not Detected (NotDetected); Yersinia enterocolitica PCR Not Detected (NotDetected)
[2022-02-04] MEDS ORDERED: LORazepam 1 MG TAB PO PRN (00:09)
[2022-02-04] MEDS ORDERED: NITROGLYCERIN SL 0.4 MG/TAB TAB SL PRN (00:09)
[2022-02-04] MEDS ORDERED: HYDROmorphone INJ 0.5 MG/0.5 ML SYR IV PRN (00:09)
[2022-02-04] MEDS ORDERED: ALUMINUM/MAGNESIUM SUSP 30 ML UDC PO PRN (00:09)
[2022-02-04] MEDS: ONDANSETRON INJ 2 MG/ML 2 ML VIAL IV PRN ×2 (00:46→07:18)
[2022-02-04] MEDS: ACETAMINOPHEN 1,000 MG/100 ML VIAL IV PRN (00:51)
[2022-02-04] MEDS: LACTATED RINGER'S 1,000 ML IV SCH ×3 (01:12→18:01)
[2022-02-04] MEDS: amLODIPine BESYLATE 5 MG TAB PO SCH ×2 (01:22→20:54)
[2022-02-04] MEDS: METOPROLOL TARTRATE 50 MG TAB PO SCH ×3 (01:22→20:54)
[2022-02-04] MEDS: buPROPion SR 150 MG TABCR PO SCH ×3 (01:22→20:54)
[2022-02-04] MEDS: BACLOFEN 20 MG TAB PO SCH ×4 (01:22→20:54)
[2022-02-04] MEDS: SIMVASTATIN 80 MG TAB PO SCH ×2 (01:22→20:54)
[2022-02-04] MEDS: HYDROmorphone INJ 0.5 MG/0.5 ML SYR IV PRN ×2 (01:54→06:18)
[2022-02-04] MEDS: PANTOprazole 40 MG in DEXTROSE 5% 100 ML IV SCH ×5 (02:00→23:35)
[2022-02-04 02:37] LABS: Appearance Urine Clear (Clear); Bacteria Urine Automated 1+ (Negative); Bilirubin Urine Negative (Negative); Blood Urine Negative (Negative); Color Urine Yellow; Epithelial Cell Urine Auto >30 /lpf (0-5); Glucose Urine UA Trace (Negative); Ketones Urine Negative (Negative); Leukocyte Esterase Urine Trace (Negative); Nitrite Urine Negative (Negative); Protein Urine 1+ (Negative); Specific Gravity Urine 1.018 (1.000-1.030); Urobilinogen Urine Negative (Negative); pH Urine 5.5 (4.5-7.5)
[2022-02-04 02:48] LABS: RBC Urine Automated 0-4 /hpf (0-4); Renal Epithelial Cells Urine 0-5 /lpf (0-5)
[2022-02-04 03:01] LABS: Amphetamines+Metham, Urine Neg (Neg); Barbiturates, Urine Neg (Neg); Benzodiazepine, Urine Neg (Neg); Cocaine, Urine Neg (Neg); MDMA (Ecstacy), Urine Pos (Neg); Methadone, Urine Neg (Neg); Opiate, Urine Pos (Neg); Phencyclidine, Urine Neg (Neg)
[2022-02-04 05:48] LABS: Basophils # (auto) 0.05 K/uL (0-0.2); Basophils % (auto) 0.3 %; Eosinophils # (auto) 0.01 K/uL (0-0.50); Eosinophils % (auto) 0.1 %; Hematocrit (blood only) 32.2 % (40.1-51.0); Immature Granulocytes # (auto) 0.07 K/uL (0.00-0.02); Immature Granulocytes % (auto) 0.5 %; Lymphocytes # (auto) 1.38 K/uL (1.2-3.4); Lymphocytes % (auto) 9.3 %; Mean Corpuscular Hemoglobin 32.7 pg (25.0-34.0); Mean Corpuscular Hgb Conc 34.2 g/dL (32.0-36.0); Mean Corpuscular Volume 95.8 fL (80.0-100.0); Mean Platelet Volume 9.7 fL (9.4-12.4); Monocytes # (auto) 1.84 K/uL (0.24-0.82); Monocytes % (auto) 12.3 %; Neutrophils # (auto) 11.55 K/uL (1.4-6.5); Neutrophils % (auto) 77.5 %; Platelet Count 358 K/uL (130-400); RDW Coefficient of Variation 12.8 % (11.5-14.5); RDW Standard Deviation 45.1 fL (36.4-46.3); Red Blood Count 3.36 M/uL (4.63-6.08)
[2022-02-04 06:34] LABS: Albumin Globulin Ratio 1.3 (0.9-2); Albumin Level 3.2 gm/dl (3.4-5.0); BUN Creatinine Ratio 23.4 (10-20); Bilirubin,Total 0.3 mg/dl (0.2-1.0); Calcium 7.9 mg/dl (8.5-10.1); Creatinine Clr Calc Pharmacy 83.2 ml/min; Est GFR (African American) 110.4 ml/min; Est GFR (Non-African American) 95.2 ml/min; Globulin 2.4 gm/dl (2.5-4.0); Magnesium 1.7 mg/dl (1.7-2.4); Potassium 4.1 mmol/L (3.5-5.1); Total Protein 5.6 gm/dl (6.0-8.3)
--- NOTE | 2022-02-04 07:07 | Electrocardiogram Report ---
Test Reason : Blood Pressure : / mmHG Vent. Rate : 086 BPM Atrial Rate : 086 BPM P-R Int : 168 ms QRS Dur : 076 ms QT Int : 374 ms P-R-T Axes : 051 037 059 degrees QTc Int : 447 ms Poor data quality, interpretation may be adversely affected Normal sinus rhythm When compared with ECG of 01-SEP-2021 06:13, Vent. rate has increased BY 28 BPM Confirmed by Melecio Fuentes ([id number]) on 02/04/2022 7:07:44 AM Referred By: REFERRED SELF Confirmed By:Taran Fuentes
[2022-02-04] MEDS: RASPBERRY SYRUP 5 ML UDP PO SCH ×4 (07:25→23:39)
[2022-02-04] MEDS: VANCOMYCIN HCL 125 MG/2.5ML SOLN PO SCH ×4 (07:25→23:34)
--- NOTE | 2022-02-04 07:46 | Hospitalist Progress Note ---
Date of Service February 04, 2022 Assessment & Plan (1) LGI bleed: Plan: Colitis/Lower GI Bleed - CTAP: Colitis from splenic flexure down to sigmoid, without diverticulitis or obstruction seen. - BRBPR and sudden onset 10/10 lower abdominal pain onset yesterday, with WBC 21 (02/04) and WBC 14.9 (02/05) - C diff toxin negative, awaiting repeat C diff toxin. Given presentation and history, still suspicious for C. difficile. - Continue contact precautions - Continue Vancomycin 125 q6h for now, plan to reevaluate tomorrow - Can't rule out other infectious causes i.e. EHEC at this time - GI consulted: suspect gastroenteritis but awaiting repeat C. diff toxin, ok to discontinue PPI and continue diet at clear fluids History of C.Diff Infection - Multiple recurrences, initial episode in 2011. - In 2019 after his last recurrence, also persisted [facility] for fecal transplant, however due to COVID-19 pandemic that never happened. - Per recent GI note earlier this month, has plans to follow-up with for potential fecal transplant. Peptic Ulcer Disease - He has a history of UGI bleeds secondary to gastric ulcers, his H&H is low at 13.2/38.1, however mildly increased from yesterday's labs drawn in August. - Presenting with BRBPR, more consistent with LGIB 2/2 to colitis, low suspicion for brisk UGIB. He is hemodynamically stable. - He is on Protonix at home. Has a history of alcohol use, 1-2 beers every few days, last drink was 2-3 days ago. He says he frequently goes several days without it. Has not withdrawn the past. -Patient seemed impaired for admitting team, has been A&Ox4 today. - EGD July 2019: Normal esophagus, small hiatal hernia, gastritis, nonbleeding gastric ulcers with no stigmata of bleeding, normal duodenum, no specimens collected. CIERA - Cr 1.41 yesterday, baseline (1.0, suspect due to GI bleed, volume depletion). - Cr 0.77 today. Coronary Artery Disease - Mid LCx SERENE, 100% mid RCA September 2009 - Proximal LCx SERENE January 2016 - Ostial LCx SERENE October 2016 - Had chest "soreness" earlier this morning (no radiation/palpitations/SOB) which resolved -EKG at the time of pain was sinus without acute ST changes - Holding Plavix due to BRBPR, losartan due to CIERA. - Continue amlodipine, metoprolol for blood pressure. Continue simvastatin daily, nitroglycerin as needed. Hypertension - Held losartan, may continue amlodipine and metoprolol. - Can consider restarting losartan tomorrow Chronic Back Pain - Continue baclofen 20 mg 3 times daily, hydrocodone/Tylenol twice daily as needed. - IV Tylenol and Dilaudid ordered for abdominal pain. Anxiety - Continue Wellbutrin 150 mg twice daily. (2) History of Clostridioides difficile infection: (3) PUD (peptic ulcer disease): (4) CIERA (acute kidney injury): (5) CAD (coronary artery disease): (6) Hypertension: (7) Chronic back pain: (8) Anxiety: Plan - Admit to med/tele. - SCDs for VTE ppx, no chemoppx secondary to LGI bleed. - Full Code. Admission and Anticipated Discharge Date Admission Date: February 03, 2022 Supervising Physician Co-Signing Physician Notes I personally examined the patient and verified all [place] points of history and exam, discussed case, and agree with decision making with Dr Chapman. Belly sore, a little bit less than before, but still generally it is sore, worse whenever he has a bowel movement. Notes he still having a bowel movement about every 45 minutes. Does not believe it to be bloody anymore. Recalls that it smells like when he had C. difficile before. Vitals noted, in general he is awake and alert pleasant no distress. HEENT normocephalic atraumatic mucous membranes moist. Breathing unlabored no accessory muscle use good effort. Skin shows no rashes no pallor or icterus. Abdomen soft nondistended mild tenderness no guarding rebound or rigidity Sepsisdue to infectious diarrhea/daniels colitisconcerned about C. difficile given his prior episodes and current clinical picture, and yet at the same time his stool test was negative. Continue vancomycin for now pending repeat testing. Agree with gastroenterology that this could be a more routine gastroenteritisbut certainly given his overall presentation would manage as a C. difficile recurrence until proven otherwise by multiple negative tests. As far as GI bleedingseems to have resolved clinically, hemodynamically stable. Probably should have outpatient colonoscopy Otherwise as above Subjective Deshawn is a 66 y/o male with PMH significant for recurrent C. difficile, PUD, CAD, PVD, hyperlipidemia, hypertension, and anxiety who is presented with concerns of abdominal pain. Patient was seen and examined at bedside. This morning he was still in a significant amount of pain with abdominal cramping and multiple episodes of diarrhea. He also had some chest soreness at that time, without radiation or shortness of breath. Later in the afternoon, patient had been started on clear liquids for lunch- was able to tolerate well. Had not had episode of diarrhea in 2+ hours and had no blood with last bowel movement. Denies fever/chills/body aches/urinary symptoms- states the chest soreness had gone away. Review of Systems Review of Systems: As per HPI Physical Exam Eyes: PERRL, conjunctivae normal, anicteric sclerae Neck: trachea midline, no thyromegaly Respiratory: normal respiratory effort, lungs clear to auscultation Cardiovascular: RRR, no murmur, no edema Gastrointestinal (Abdomen): diffuse tenderness to palpation, soft and non- distended. +bowel sounds Skin: no rashes, warm and dry Results & Data Results & Data ([facility]) Vital Signs (Past 12 Hours) Vital Signs Temp Pulse Pulse Pulse Resp BP BP 02/04/22 07:40 82 02/04/22 02:54 36.7 C 90 18 148/69 H 02/04/22 00:05 89 02/04/22 01:28 36.2 C L 92 H 20 154/76 H 02/03/22 23:23 82 17 149/82 H 02/03/22 22:41 89 20 151/87 H 02/03/22 20:46 96 H 16 135/96 Pulse Ox O2 Del Method 02/04/22 07:40 02/04/22 02:54 98 Room Air 02/04/22 00:05 02/04/22 01:28 99 Room Air 02/03/22 23:23 96 Room Air 02/03/22 22:41 95 Room Air 02/03/22 20:46 95 Room Air Resident Activity Tracking Resident Involvement: Resident Care Provided Care Provided: Adult Hospital Medicine (1) CAD (coronary artery disease) Associated angina: with unspecified angina Coronary Disease-Associated Artery/Lesion type: unspecified vessel or lesion type [place] vs. transplanted heart: [place] heart Qualified Code(s): I25.119 - Atherosclerotic heart disease of [place] coronary artery with unspecified angina pectoris
[2022-02-04] MEDS: MULTIVITAMIN TAB PO SCH (08:24)
[2022-02-04] MEDS: CHOLECALCIFEROL 5,000 UNITS 125 MCG TAB PO SCH (08:24)
--- NOTE | 2022-02-04 09:16 | Gastrointestinal Consultation ---
Date of Consultation February 04, 2022 Assessment & Plan (1) Colitis: Interesting that his stool was negative for blood by the lab but everyone is talking about him having a lower GI bleed. First c. diff test was negative, second is pending. There is nothing to say that he can't have a routine, garden variety gastroenteritis and that this is not c. diff. He does note that he doesn't think this "smells like c. diff" as he remembers the particular odor that c. diff has. I would stop his PPI. Will let him have clear liquids. Would observe his response as the rest of his studies return. Would not worry about IBD until this becomes a more chronic issue. (2) BRBPR (bright red blood per rectum): (3) History of Clostridioides difficile infection: History of Present Illness Reason for Consultation: diarrhea, history of recurrent c. diff Attending Physician: Imer Mckeon, DO History of Present Illness 66 year old man who has had recurrent c. diff infections. He says his first spell was in 2011. He has a documented last positive c. diff on computer from July 2019. He was discussing fecal transplant then but covid pandemic occurred and that was put on hold. He tells me he actually has been doing well since that episode without any diarrhea spells until yesterday. [place] the [place]" and started having diarrhea. He got home and it continued so he came to ED. he was told in ED that he was bleeding but he tells me he is "not good with colors". He has not had fever with this. He has had nausea but no vomiting. He has pain with the diarrhea. He has not received antibiotics since before the last time he had c. diff. He had his last colonoscopy he says about two years ago. Allergies Allergy/AdvReac Type Severity Reaction Status Date / Time Penicillins Allergy Severe "CIRCULATORY Verified 02/03/22 20:20 SHUTDOWN" Home Medications Medication Instructions Recorded Confirmed Type baclofen 10 mg tablet 20 mg PO TID 11/13/17 02/03/22 History hydrocodone 10 mg-acetaminophen 1 tab PO BID PRN Pain 11/13/17 02/03/22 History 325 mg tablet cholecalciferol (vitamin D3) 125 5,000 unit PO QAM 02/18/18 02/03/22 History mcg (5,000 unit) tablet (Vitamin D3) multivitamin 1 tab PO QAM 02/18/18 02/03/22 History pantoprazole 40 mg tablet,delayed 40 mg PO BID #60 tabs 07/17/19 02/03/22 Rx release amlodipine 10 mg tablet 10 mg PO QPM #90 tabs 05/20/20 02/03/22 Rx losartan 100 mg tablet 100 mg PO QAM #90 tabs 05/20/20 02/03/22 Rx simvastatin 80 mg tablet 80 mg PO PM #90 tabs 05/20/20 02/03/22 Rx clopidogrel 75 mg tablet (Plavix) 75 mg PO DAILY #90 tabs 05/29/21 02/03/22 Rx metoprolol tartrate 100 mg tablet 50 mg PO BID #90 tabs 05/29/21 02/03/22 Rx nitroglycerin 0.4 mg sublingual 0.4 mg sublingual UD PRN Angina 08/08/2101/10 Rx tablet #30 tabs bupropion HCl 150 mg tablet,12 hr 150 mg PO BID 02/03/22 02/03/22 History sustained-release Patient History Medical History Alcohol use Anxiety BPH (benign prostatic hyperplasia) CAD (coronary artery disease) Chronic back pain Chronic prescription opiate use Diverticulosis Dupuytren's contracture of hand GERD (gastroesophageal reflux disease) History of Clostridioides difficile colitis Hx of gastric ulcer Hyperlipidemia Hypertension Left ventricular hypertrophy On anticoagulant therapy plavix d/t stents Peripheral neuropathy Surgical History History of cardiac cath x3 @ [facility] follow with Dr. Zamora History of hand surgery x6 (4 on right, 2 on left) d/t Dupuytren's History of heart artery stent 2009 x2, 2015 x1, 2017 x1--@ [facility] History of intravascular stent placement RIGHT LEG History of procedure for peripheral vascular disease 2012 Dr. Granger History of removal of cyst from groin History of surgery RIGHT LEG R/T TRAUMA [place] teeth removed Family History Sister Family history of reaction to anesthesia difficulty waking and nausea Mother Family history of reaction to anesthesia difficulty waking and nausea Peptic ulcer disease Father , in his 40s Cerebral aneurysm Social History Smoking Status: Former smoker packs per day: 1; Second Hand Exposure: No; Hx Alcohol Use: No Hx Substance Use: No Preferred Language: Pashto Communication Ability: Effective Retail Wireless Sales Representative Required: No Beliefs That Will Affect Care: None marital status: Current Living Situation: Spouse current occupational status: retired 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 Other Information That Helps Us Care for You: No Feels Safe at Home: Yes Safety Concerns: Feels Safe At This Time Assistive Devices: None Review of Systems Review of Systems: All systems reviewed & are unremarkable except as noted in HPI & below Physical Exam Constitutional: WD/WN, vitals as above no acute distress Eyes: PERRL, conjunctivae normal, anicteric sclerae ENMT: external ear and nose normal, oropharynx normal Neck: trachea midline, no thyromegaly Respiratory: normal respiratory effort, lungs clear to auscultation Cardiovascular: RRR, no murmur, no edema Gastrointestinal (Abdomen): normal bowel sounds, soft, nontender, no hepatosplenomegaly Percussion/Palpation: + abdomen tender (lower abdomen) Musculoskeletal: Extremities: no cyanosis and no clubbing Skin: no rashes, warm and dry Neurologic: PERRL, EOMI, accommodation nl, no face palsy, no dysarthria Psychiatric: Orientation: alert and oriented x 3 Results & Data (MN) Vital Signs (Past 12 Hours) Vital Signs Temp Pulse Pulse Pulse Resp BP BP 02/04/22 08:20 36.6 C 86 20 160/78 H 02/04/22 07:40 82 02/04/22 02:54 36.7 C 90 18 148/69 H 02/04/22 00:05 89 02/04/22 01:28 36.2 C L 92 H 20 154/76 H 02/03/22 23:23 82 17 149/82 H 02/03/22 22:41 89 20 151/87 H Pulse Ox O2 Del Method 02/04/22 08:20 98 Room Air 02/04/22 07:40 02/04/22 02:54 98 Room Air 02/04/22 00:05 02/04/22 01:28 99 Room Air 02/03/22 23:23 96 Room Air 02/03/22 22:41 95 Room Air Laboratory Results 02/04/22 02/04/22 02/04/22 Range/Units 05:42 05:42 02:00 WBC 14.90 H (4.8-10.8) K/ul RBC 3.36 L (4.63-6.08) M/uL Hgb 11.0 L (14.0-18.0) g/dl Hct 32.2 L (40.1-51.0) % MCV 95.8 (80.0-100.0) fL MCH 32.7 (25.0-34.0) pg MCHC 34.2 (32.0-36.0) g/dL RDW Std Deviation 45.1 (36.4-46.3) fL RDW Coeff of [place] 12.8 (11.5-14.5) % Plt Count 358 (130-400) K/uL MPV 9.7 (9.4-12.4) fL Immature Gran % (Auto) 0.5 % Neut % (Auto) 77.5 % Lymph % (Auto) 9.3 % [place] % (Auto) 12.3 % Eos % (Auto) 0.1 % Baso % (Auto) 0.3 % Neut # (Auto) 11.55 H (1.4-6.5) K/uL Lymph # (Auto) 1.38 (1.2-3.4) K/uL [place] # (Auto) 1.84 H (0.24-0.82) K/uL Eos # (Auto) 0.01 (0-0.50) K/uL Baso # (Auto) 0.05 (0-0.2) K/uL Immature Gran # (Auto) 0.07 H (0.00-0.02) K/uL PT (9.0-12.0) Seconds INR (0.9-1.1) Sodium 135 L (136-145) mmol/L Potassium 4.1 (3.5-5.1) mmol/L Chloride 105 (98-107) mmol/L Carbon Dioxide 25 (21-32) mmol/L Anion Gap 5 (3-11) BUN 18 (6-23) mg/dl Creatinine 0.77 D (0.6-1.4) mg/dl Est Cr Clr Drug Dosing 83.2 ml/min Est GFR ( Amer) 110.4 ml/min Est GFR (Non-Af Amer) 95.2 ml/min BUN/Creatinine Ratio 23.4 H (10-20) Glucose 165 H (70-99(Fasting)) mg/dl Lactate (0.4-2.0) mmol/L Calcium 7.9 L (8.5-10.1) mg/dl Magnesium 1.7 (1.7-2.4) mg/dl Total Bilirubin 0.3 (0.2-1.0) mg/dl AST 16 (13-39) U/L ALT 14 (7-52) U/L Alkaline Phosphatase 76 (34-104) U/L Total Protein 5.6 L D (6.0-8.3) gm/dl Albumin 3.2 L (3.4-5.0) gm/dl Globulin 2.4 L (2.5-4.0) gm/dl Albumin/Globulin Ratio 1.3 (0.9-2) Lipase (11-82) U/L Procalcitonin (0-0.5) ng/ml Urine Color Urine Appearance (Clear) Urine pH (4.5-7.5) Ur Specific Ram[place] (1.000-1.030) Urine Protein (Negative) Urine Glucose (UA) (Negative) Urine Ketones (Negative) Urine Blood (Negative) Urine Nitrite (Negative) Urine Bilirubin (Negative) Urine Urobilinogen (Negative) Ur Leukocyte Esterase (Negative) Urine WBC (Auto) (0-5) /hpf Urine RBC (Auto) (0-4) /hpf U Hyaline Cast (Auto) (0-5) /lpf U Epithel Cells (Auto) (0-5) /lpf Urine Bacteria (Auto) (Negative) Ur Renal Epithelial Cell (0-5) /lpf Urine Yeast (None Prsent) POC Stool Occult Blood (Negative) Stl C. cayetanensis PCR (NotDetected) Stool Rotavirus A PCR (NotDetected) Stl Adenov F 40/41 PCR (NotDetected) Stool Astrovirus (PCR) (NotDetected) Stool Campylobacter PCR (NotDetected) Stl C. diff Tox B Gene (Neg) Stool Cryptosporidium PCR (NotDetected) Stl E.coli Shiga Tox PCR (NotDetected) Stl Enterotoxigenic E PCR (NotDetected) Stool EPEC (PCR) (NotDetected) Stool EAEC (PCR) (NotDetected) Stl E. histolytica PCR (NotDetected) Stool Giardia Lamblia PCR (NotDetected) Stool Salmonella PCR (NotDetected) Stool Sapovirus (PCR) (NotDetected) Stl P. shigelloides PCR (NotDetected) Stl Shigella/EIEC PCR (NotDetected) St Y.enterocolitica PCR (NotDetected) Stool Vibrio (PCR) (NotDetected) Stl Vibrio cholerae PCR (NotDetected) Stl Norovirus GI/GII PCR (NotDetected) Urine Opiates Screen (Neg) U Codeine Confrm GC/MS Pending Ur Morphine (GC/MS) Pending Ur Hydrocodone (GC/MS) Pending Ur Norhydrocodone Pending Ur Noroxycodone Pending Urine Oxycodone (GC/MS) Pending U Oxymorphone GC/MS Pending Ur Methadone, Qual (Neg) Ur Hydromorphone (GC/MS) Pending Urine Barbiturates (Neg) Ur Phencyclidine (PCP) (Neg) U Amphetamin/Meth Scrn (Neg) Urine MDEA Pending MDMA (Ecstasy) Screen (Neg) MDMA Pending Urine MDMA Pending U Benzodiazepines Scrn (Neg) Ur Cocaine Metabolite (Neg) U Marijuana (THC) Screen (Neg) Drug Screen Comment Pending Ethyl Alcohol mg/dL (<10.0) mg/dl SARS-CoV-2, RNA, NAAT (NEGATIVE) 02/04/22 02/04/22 02/04/22 Range/Units 02:00 02:00 00:48 WBC (4.8-10.8) K/ul RBC (4.63-6.08) M/uL Hgb (14.0-18.0) g/dl Hct (40.1-51.0) % MCV (80.0-100.0) fL MCH (25.0-34.0) pg MCHC (32.0-36.0) g/dL RDW Std Deviation (36.4-46.3) fL RDW Coeff of [place] (11.5-14.5) % Plt Count (130-400) K/uL MPV (9.4-12.4) fL Immature Gran % (Auto) % Neut % (Auto) % Lymph % (Auto) % [place] % (Auto) % Eos % (Auto) % Baso % (Auto) % Neut # (Auto) (1.4-6.5) K/uL Lymph # (Auto) (1.2-3.4) K/uL [place] # (Auto) (0.24-0.82) K/uL Eos # (Auto) (0-0.50) K/uL Baso # (Auto) (0-0.2) K/uL Immature Gran # (Auto) (0.00-0.02) K/uL PT (9.0-12.0) Seconds INR (0.9-1.1) Sodium (136-145) mmol/L Potassium (3.5-5.1) mmol/L Chloride (98-107) mmol/L Carbon Dioxide (21-32) mmol/L Anion Gap (3-11) BUN (6-23) mg/dl Creatinine (0.6-1.4) mg/dl Est Cr Clr Drug Dosing ml/min Est GFR ( Amer) ml/min Est GFR (Non-Af Amer) ml/min BUN/Creatinine Ratio (10-20) Glucose (70-99(Fasting)) mg/dl Lactate (0.4-2.0) mmol/L Calcium (8.5-10.1) mg/dl Magnesium (1.7-2.4) mg/dl Total Bilirubin (0.2-1.0) mg/dl AST (13-39) U/L ALT (7-52) U/L Alkaline Phosphatase (34-104) U/L Total Protein (6.0-8.3) gm/dl Albumin (3.4-5.0) gm/dl Globulin (2.5-4.0) gm/dl Albumin/Globulin Ratio (0.9-2) Lipase (11-82) U/L Procalcitonin (0-0.5) ng/ml Urine Color Yellow Urine Appearance Clear (Clear) Urine pH 5.5 (4.5-7.5) Ur Specific [place] 1.018 (1.000-1.030) Urine Protein 1+ H (Negative) Urine Glucose (UA) Trace H (Negative) Urine Ketones Negative (Negative) Urine Blood Negative (Negative) Urine Nitrite Negative (Negative) Urine Bilirubin Negative (Negative) Urine Urobilinogen Negative (Negative) Ur Leukocyte Esterase Trace H (Negative) Urine WBC (Auto) 1-5 (0-5) /hpf Urine RBC (Auto) 0-4 (0-4) /hpf U Hyaline Cast (Auto) 1-5 (0-5) /lpf U Epithel Cells (Auto) >30 H (0-5) /lpf Urine Bacteria (Auto) 1+ H (Negative) Ur Renal Epithelial Cell 0-5 (0-5) /lpf Urine Yeast Present A (None Prsent) POC Stool Occult Blood (Negative) Stl C. cayetanensis PCR (NotDetected) Stool Rotavirus A PCR (NotDetected) Stl Adenov F 40/41 PCR (NotDetected) Stool Astrovirus (PCR) (NotDetected) Stool Campylobacter PCR (NotDetected) Stl C. diff Tox B Gene (Neg) Stool Cryptosporidium PCR (NotDetected) Stl E.coli Shiga Tox PCR (NotDetected) Stl Enterotoxigenic E PCR (NotDetected) Stool EPEC (PCR) (NotDetected) Stool EAEC (PCR) (NotDetected) Stl E. histolytica PCR (NotDetected) Stool Giardia Lamblia PCR (NotDetected) Stool Salmonella PCR (NotDetected) Stool Sapovirus (PCR) (NotDetected) Stl P. shigelloides PCR (NotDetected) Stl Shigella/EIEC PCR (NotDetected) St Y.enterocolitica PCR (NotDetected) Stool Vibrio (PCR) (NotDetected) Stl Vibrio cholerae PCR (NotDetected) Stl Norovirus GI/GII PCR (NotDetected) Urine Opiates Screen Pos H (Neg) U Codeine Confrm GC/MS Ur Morphine (GC/MS) Ur Hydrocodone (GC/MS) Ur Norhydrocodone Ur Noroxycodone Urine Oxycodone (GC/MS) U Oxymorphone GC/MS Ur Methadone, Qual Neg (Neg) Ur Hydromorphone (GC/MS) Urine Barbiturates Neg (Neg) Ur Phencyclidine (PCP) Neg (Neg) U Amphetamin/Meth Scrn Neg (Neg) Urine MDEA MDMA (Ecstasy) Screen Pos H (Neg) MDMA Urine MDMA U Benzodiazepines Scrn Neg (Neg) Ur Cocaine Metabolite Neg (Neg) U Marijuana (THC) Screen Neg (Neg) Drug Screen Comment Ethyl Alcohol mg/dL < 10.0 (<10.0) mg/dl SARS-CoV-2, RNA, NAAT (NEGATIVE) 02/03/22 02/03/22 02/03/22 Range/Units 21:35 21:35 21:25 WBC (4.8-10.8) K/ul RBC (4.63-6.08) M/uL Hgb (14.0-18.0) g/dl Hct (40.1-51.0) % MCV (80.0-100.0) fL MCH (25.0-34.0) pg MCHC (32.0-36.0) g/dL RDW Std Deviation (36.4-46.3) fL RDW Coeff of [place] (11.5-14.5) % Plt Count (130-400) K/uL MPV (9.4-12.4) fL Immature Gran % (Auto) % Neut % (Auto) % Lymph % (Auto) % [place] % (Auto) % Eos % (Auto) % Baso % (Auto) % Neut # (Auto) (1.4-6.5) K/uL Lymph # (Auto) (1.2-3.4) K/uL [place] # (Auto) (0.24-0.82) K/uL Eos # (Auto) (0-0.50) K/uL Baso # (Auto) (0-0.2) K/uL Immature Gran # (Auto) (0.00-0.02) K/uL PT (9.0-12.0) Seconds INR (0.9-1.1) Sodium (136-145) mmol/L Potassium (3.5-5.1) mmol/L Chloride (98-107) mmol/L Carbon Dioxide (21-32) mmol/L Anion Gap (3-11) BUN (6-23) mg/dl Creatinine (0.6-1.4) mg/dl Est Cr Clr Drug Dosing ml/min Est GFR ( Amer) ml/min Est GFR (Non-Af Amer) ml/min BUN/Creatinine Ratio (10-20) Glucose (70-99(Fasting)) mg/dl Lactate (0.4-2.0) mmol/L Calcium (8.5-10.1) mg/dl Magnesium (1.7-2.4) mg/dl Total Bilirubin (0.2-1.0) mg/dl AST (13-39) U/L ALT (7-52) U/L Alkaline Phosphatase (34-104) U/L Total Protein (6.0-8.3) gm/dl Albumin (3.4-5.0) gm/dl Globulin (2.5-4.0) gm/dl Albumin/Globulin Ratio (0.9-2) Lipase (11-82) U/L Procalcitonin (0-0.5) ng/ml Urine Color Urine Appearance (Clear) Urine pH (4.5-7.5) Ur Specific [place] (1.000-1.030) Urine Protein (Negative) Urine Glucose (UA) (Negative) Urine Ketones (Negative) Urine Blood (Negative) Urine Nitrite (Negative) Urine Bilirubin (Negative) Urine Urobilinogen (Negative) Ur Leukocyte Esterase (Negative) Urine WBC (Auto) (0-5) /hpf Urine RBC (Auto) (0-4) /hpf U Hyaline Cast (Auto) (0-5) /lpf U Epithel Cells (Auto) (0-5) /lpf Urine Bacteria (Auto) (Negative) Ur Renal Epithelial Cell (0-5) /lpf Urine Yeast (None Prsent) POC Stool Occult Blood Negative (Negative) Stl C. cayetanensis PCR Not Detected (NotDetected) Stool Rotavirus A PCR Not Detected (NotDetected) Stl Adenov F 40/41 PCR Not Detected (NotDetected) Stool Astrovirus (PCR) Not Detected (NotDetected) Stool Campylobacter PCR Not Detected (NotDetected) Stl C. diff Tox B Gene Negative Cdiff Gene (Neg) Stool Cryptosporidium PCR Not Detected (NotDetected) Stl E.coli Shiga Tox PCR Not Detected (NotDetected) Stl Enterotoxigenic E PCR Not Detected (NotDetected) Stool EPEC (PCR) Not Detected (NotDetected) Stool EAEC (PCR) Not Detected (NotDetected) Stl E. histolytica PCR Not Detected (NotDetected) Stool Giardia Lamblia PCR Not Detected (NotDetected) Stool Salmonella PCR Not Detected (NotDetected) Stool Sapovirus (PCR) Not Detected (NotDetected) Stl P. shigelloides PCR Not Detected (NotDetected) Stl Shigella/EIEC PCR Not Detected (NotDetected) St Y.enterocolitica PCR Not Detected (NotDetected) Stool Vibrio (PCR) Not Detected (NotDetected) Stl Vibrio cholerae PCR Not Detected (NotDetected) Stl Norovirus GI/GII PCR Not Detected (NotDetected) Urine Opiates Screen (Neg) U Codeine Confrm GC/MS Ur Morphine (GC/MS) Ur Hydrocodone (GC/MS) Ur Norhydrocodone Ur Noroxycodone Urine Oxycodone (GC/MS) U Oxymorphone GC/MS Ur Methadone, Qual (Neg) Ur Hydromorphone (GC/MS) Urine Barbiturates (Neg) Ur Phencyclidine (PCP) (Neg) U Amphetamin/Meth Scrn (Neg) Urine MDEA MDMA (Ecstasy) Screen (Neg) MDMA Urine MDMA U Benzodiazepines Scrn (Neg) Ur Cocaine Metabolite (Neg) U Marijuana (THC) Screen (Neg) Drug Screen Comment Ethyl Alcohol mg/dL (<10.0) mg/dl SARS-CoV-2, RNA, NAAT NEGATIVE (NEGATIVE) 02/03/22 02/03/22 02/03/22 Range/Units 21:25 19:17 19:17 WBC (4.8-10.8) K/ul RBC (4.63-6.08) M/uL Hgb (14.0-18.0) g/dl Hct (40.1-51.0) % MCV (80.0-100.0) fL MCH (25.0-34.0) pg MCHC (32.0-36.0) g/dL RDW Std Deviation (36.4-46.3) fL RDW Coeff of [place] (11.5-14.5) % Plt Count (130-400) K/uL MPV (9.4-12.4) fL Immature Gran % (Auto) % Neut % (Auto) % Lymph % (Auto) % [place] % (Auto) % Eos % (Auto) % Baso % (Auto) % Neut # (Auto) (1.4-6.5) K/uL Lymph # (Auto) (1.2-3.4) K/uL [place] # (Auto) (0.24-0.82) K/uL Eos # (Auto) (0-0.50) K/uL Baso # (Auto) (0-0.2) K/uL Immature Gran # (Auto) (0.00-0.02) K/uL PT (9.0-12.0) Seconds INR (0.9-1.1) Sodium 133 L (136-145) mmol/L Potassium 3.8 (3.5-5.1) mmol/L Chloride 102 (98-107) mmol/L Carbon Dioxide 23 (21-32) mmol/L Anion Gap 8 (3-11) BUN 35 H (6-23) mg/dl Creatinine 1.41 H (0.6-1.4) mg/dl Est Cr Clr Drug Dosing 45.4 ml/min Est GFR ( Amer) 60.2 ml/min Est GFR (Non-Af Amer) 51.9 ml/min BUN/Creatinine Ratio 24.8 H (10-20) Glucose 162 H (70-99(Fasting)) mg/dl Lactate 0.9 (0.4-2.0) mmol/L Calcium 8.9 (8.5-10.1) mg/dl Magnesium (1.7-2.4) mg/dl Total Bilirubin 0.3 (0.2-1.0) mg/dl AST 20 (13-39) U/L ALT 18 (7-52) U/L Alkaline Phosphatase 121 H (34-104) U/L Total Protein 7.3 (6.0-8.3) gm/dl Albumin 4.1 (3.4-5.0) gm/dl Globulin 3.2 (2.5-4.0) gm/dl Albumin/Globulin Ratio 1.3 (0.9-2) Lipase 30 (11-82) U/L Procalcitonin 0.08 (0-0.5) ng/ml Urine Color Urine Appearance (Clear) Urine pH (4.5-7.5) Ur Specific [place] (1.000-1.030) Urine Protein (Negative) Urine Glucose (UA) (Negative) Urine Ketones (Negative) Urine Blood (Negative) Urine Nitrite (Negative) Urine Bilirubin (Negative) Urine Urobilinogen (Negative) Ur Leukocyte Esterase (Negative) Urine WBC (Auto) (0-5) /hpf Urine RBC (Auto) (0-4) /hpf U Hyaline Cast (Auto) (0-5) /lpf U Epithel Cells (Auto) (0-5) /lpf Urine Bacteria (Auto) (Negative) Ur Renal Epithelial Cell (0-5) /lpf Urine Yeast (None Prsent) POC Stool Occult Blood (Negative) Stl C. cayetanensis PCR (NotDetected) Stool Rotavirus A PCR (NotDetected) Stl Adenov F 40/41 PCR (NotDetected) Stool Astrovirus (PCR) (NotDetected) Stool Campylobacter PCR (NotDetected) Stl C. diff Tox B Gene (Neg) Stool Cryptosporidium PCR (NotDetected) Stl E.coli Shiga Tox PCR (NotDetected) Stl Enterotoxigenic E PCR (NotDetected) Stool EPEC (PCR) (NotDetected) Stool EAEC (PCR) (NotDetected) Stl E. histolytica PCR (NotDetected) Stool Giardia Lamblia PCR (NotDetected) Stool Salmonella PCR (NotDetected) Stool Sapovirus (PCR) (NotDetected) Stl P. shigelloides PCR (NotDetected) Stl Shigella/EIEC PCR (NotDetected) St Y.enterocolitica PCR (NotDetected) Stool Vibrio (PCR) (NotDetected) Stl Vibrio cholerae PCR (NotDetected) Stl Norovirus GI/GII PCR (NotDetected) Urine Opiates Screen (Neg) U Codeine Confrm GC/MS Ur Morphine (GC/MS) Ur Hydrocodone (GC/MS) Ur Norhydrocodone Ur Noroxycodone Urine Oxycodone (GC/MS) U Oxymorphone GC/MS Ur Methadone, Qual (Neg) Ur Hydromorphone (GC/MS) Urine Barbiturates (Neg) Ur Phencyclidine (PCP) (Neg) U Amphetamin/Meth Scrn (Neg) Urine MDEA MDMA (Ecstasy) Screen (Neg) MDMA Urine MDMA U Benzodiazepines Scrn (Neg) Ur Cocaine Metabolite (Neg) U Marijuana (THC) Screen (Neg) Drug Screen Comment Ethyl Alcohol mg/dL (<10.0) mg/dl SARS-CoV-2, RNA, NAAT (NEGATIVE) 02/03/22 02/03/22 Range/Units 19:17 19:17 WBC 21.34 H (4.8-10.8) K/ul RBC 3.99 L (4.63-6.08) M/uL Hgb 13.2 L (14.0-18.0) g/dl Hct 38.1 L (40.1-51.0) % MCV 95.5 (80.0-100.0) fL MCH 33.1 (25.0-34.0) pg MCHC 34.6 (32.0-36.0) g/dL RDW Std Deviation 45.1 (36.4-46.3) fL RDW Coeff of [place] 12.8 (11.5-14.5) % Plt Count 415 H (130-400) K/uL MPV 9.9 (9.4-12.4) fL Immature Gran % (Auto) 0.4 % Neut % (Auto) 84.6 % Lymph % (Auto) 5.0 % [place] % (Auto) 9.7 % Eos % (Auto) 0.1 % Baso % (Auto) 0.2 % Neut # (Auto) 18.04 H (1.4-6.5) K/uL Lymph # (Auto) 1.06 L (1.2-3.4) K/uL [place] # (Auto) 2.08 H (0.24-0.82) K/uL Eos # (Auto) 0.03 (0-0.50) K/uL Baso # (Auto) 0.05 (0-0.2) K/uL Immature Gran # (Auto) 0.08 H (0.00-0.02) K/uL PT 10.7 (9.0-12.0) Seconds INR 1.0 (0.9-1.1) Sodium (136-145) mmol/L Potassium (3.5-5.1) mmol/L Chloride (98-107) mmol/L Carbon Dioxide (21-32) mmol/L Anion Gap (3-11) BUN (6-23) mg/dl Creatinine (0.6-1.4) mg/dl Est Cr Clr Drug Dosing ml/min Est GFR ( Amer) ml/min Est GFR (Non-Af Amer) ml/min BUN/Creatinine Ratio (10-20) Glucose (70-99(Fasting)) mg/dl Lactate (0.4-2.0) mmol/L Calcium (8.5-10.1) mg/dl Magnesium (1.7-2.4) mg/dl Total Bilirubin (0.2-1.0) mg/dl AST (13-39) U/L ALT (7-52) U/L Alkaline Phosphatase (34-104) U/L Total Protein (6.0-8.3) gm/dl Albumin (3.4-5.0) gm/dl Globulin (2.5-4.0) gm/dl Albumin/Globulin Ratio (0.9-2) Lipase (11-82) U/L Procalcitonin (0-0.5) ng/ml Urine Color Urine Appearance (Clear) Urine pH (4.5-7.5) Ur Specific [place] (1.000-1.030) Urine Protein (Negative) Urine Glucose (UA) (Negative) Urine Ketones (Negative) Urine Blood (Negative) Urine Nitrite (Negative) Urine Bilirubin (Negative) Urine Urobilinogen (Negative) Ur Leukocyte Esterase (Negative) Urine WBC (Auto) (0-5) /hpf Urine RBC (Auto) (0-4) /hpf U Hyaline Cast (Auto) (0-5) /lpf U Epithel Cells (Auto) (0-5) /lpf Urine Bacteria (Auto) (Negative) Ur Renal Epithelial Cell (0-5) /lpf Urine Yeast (None Prsent) POC Stool Occult Blood (Negative) Stl C. cayetanensis PCR (NotDetected) Stool Rotavirus A PCR (NotDetected) Stl Adenov F 40/41 PCR (NotDetected) Stool Astrovirus (PCR) (NotDetected) Stool Campylobacter PCR (NotDetected) Stl C. diff Tox B Gene (Neg) Stool Cryptosporidium PCR (NotDetected) Stl E.coli Shiga Tox PCR (NotDetected) Stl Enterotoxigenic E PCR (NotDetected) Stool EPEC (PCR) (NotDetected) Stool EAEC (PCR) (NotDetected) Stl E. histolytica PCR (NotDetected) Stool Giardia Lamblia PCR (NotDetected) Stool Salmonella PCR (NotDetected) Stool Sapovirus (PCR) (NotDetected) Stl P. shigelloides PCR (NotDetected) Stl Shigella/EIEC PCR (NotDetected) St Y.enterocolitica PCR (NotDetected) Stool Vibrio (PCR) (NotDetected) Stl Vibrio cholerae PCR (NotDetected) Stl Norovirus GI/GII PCR (NotDetected) Urine Opiates Screen (Neg) U Codeine Confrm GC/MS Ur Morphine (GC/MS) Ur Hydrocodone (GC/MS) Ur Norhydrocodone Ur Noroxycodone Urine Oxycodone (GC/MS) U Oxymorphone GC/MS Ur Methadone, Qual (Neg) Ur Hydromorphone (GC/MS) Urine Barbiturates (Neg) Ur Phencyclidine (PCP) (Neg) U Amphetamin/Meth Scrn (Neg) Urine MDEA MDMA (Ecstasy) Screen (Neg) MDMA Urine MDMA U Benzodiazepines Scrn (Neg) Ur Cocaine Metabolite (Neg) U Marijuana (THC) Screen (Neg) Drug Screen Comment Ethyl Alcohol mg/dL (<10.0) mg/dl SARS-CoV-2, RNA, NAAT (NEGATIVE) Diagnostic Findings Abdomen/Pelvis CT 02/03/22 18:52 CT SCAN OF THE ABDOMEN AND PELVIS WITHOUT IV CONTRAST CLINICAL HISTORY: GI bleeding. COMPARISON STUDY: Abdominal CT dated 07/11/2019. TECHNIQUE: CT scan of the abdomen and pelvis is performed from the lung bases to the proximal femora. Images are reviewed in the axial, sagittal, and coronal planes. IV contrast was not administered for this examination. Note that the examination was performed and significantly suboptimal fashion without IV contrast. A dose lowering technique was utilized adhering to the principles of ALARA. CT DOSE: 307.22 mGy.cm FINDINGS: Lung bases: The heart is mildly enlarged and without pericardial effusion. The coronary arteries are densely calcified. There are scattered calcified granulomas. The lung bases are otherwise clear noting bibasilar scarring/atelectasis. Liver: The unenhanced liver is normal in size, contour, and attenuation. There is no intrahepatic biliary ductal dilatation. Gallbladder: Unremarkable. Spleen: Normal in size and attenuation. Pancreas: The unenhanced pancreas is moderately atrophic and grossly unremarkable. Adrenal glands: Unremarkable. Kidneys: The unenhanced kidneys demonstrate cortical atrophy and are without hydronephrosis. There are no renal calculi identified. There is no evidence of contour deforming renal mass lesion. Abdominal vasculature: The abdominal aorta is normal in course and caliber noting advanced atherosclerotic calcification. Bowel: There is a long segment of mild wall thickening and edema involving the left colon with surrounding infiltration and trace fluid. This extends from the splenic flexure to the sigmoid. No bowel obstruction is seen. There are scattered colonic diverticula without CT evidence of acute diverticulitis. The appendix is well-visualized and normal. Peritoneum: There is no intraperitoneal free air or abdominal ascites. Lymphadenopathy: None. Pelvic viscera: The prostate gland is diminutive and heterogeneous. The bladder is mildly distended. The wall appears thickened/trabeculated indicating chronic outlet obstruction. Skeletal structures: The skeletal structures are osteopenic. There are chronic compression deformities of L1 and L4. Moderate lumbosacral spondylosis is noted. No lytic or blastic lesions are seen. There are chronic/healed bilateral pubic ring fractures. IMPRESSION: 1. There is a nonspecific colitis of the left colon. This could be on an infectious, inflammatory, or ischemic basis and clinical correlation will be essential. 2. Additional findings as above. ACT 112: Negative or not required by law. Electronically signed by: Tres Morton M.D. 02/03/2022 8:04 PM
--- NOTE | 2022-02-04 17:54 | Electrocardiogram Report ---
Test Reason : Blood Pressure : / mmHG Vent. Rate : 074 BPM Atrial Rate : 074 BPM P-R Int : 168 ms QRS Dur : 082 ms QT Int : 382 ms P-R-T Axes : 053 002 044 degrees QTc Int : 424 ms Normal sinus rhythm Poor R wave progression, consider anterior ME vs. lead placement vs. LVH Abnormal ECG Confirmed by Melecio Fuentes ([id number]) on 02/04/2022 5:53:56 PM Referred By: REFERRED SELF Confirmed By:Taran Fuentes
--- NOTE | 2022-02-04 18:33 | Billing Data ---
Date of Service February 04, 2022 Coding Level of Care Code 41020 Subseq Hosp Care Lvl 3
[2022-02-05] MEDS ORDERED: MELATONIN 3 MG TAB PO PRN (02:15)
[2022-02-05] MEDS: LACTATED RINGER'S 1,000 ML IV SCH ×3 (02:58→17:31)
[2022-02-05] MEDS: PANTOprazole 40 MG in DEXTROSE 5% 100 ML IV SCH ×3 (04:27→14:11)
[2022-02-05] MEDS: RASPBERRY SYRUP 5 ML UDP PO SCH ×3 (05:39→17:32)
[2022-02-05] MEDS: VANCOMYCIN HCL 125 MG/2.5ML SOLN PO SCH ×2 (05:39→14:11)
[2022-02-05 06:41] LABS: Basophils # (auto) 0.08 K/uL (0-0.2); Basophils % (auto) 0.8 %; Eosinophils # (auto) 0.16 K/uL (0-0.50); Eosinophils % (auto) 1.6 %; Hemoglobin 11.3 g/dl (14.0-18.0); Immature Granulocytes # (auto) 0.02 K/uL (0.00-0.02); Immature Granulocytes % (auto) 0.2 %; Lymphocytes # (auto) 2.14 K/uL (1.2-3.4); Lymphocytes % (auto) 21.9 %; Mean Corpuscular Hemoglobin 32.5 pg (25.0-34.0); Mean Corpuscular Hgb Conc 34.2 g/dL (32.0-36.0); Mean Corpuscular Volume 94.8 fL (80.0-100.0); Mean Platelet Volume 10.1 fL (9.4-12.4); Monocytes # (auto) 1.35 K/uL (0.24-0.82); Monocytes % (auto) 13.8 %; Neutrophils # (auto) 6.02 K/uL (1.4-6.5); Neutrophils % (auto) 61.7 %; Platelet Count 374 K/uL (130-400); RDW Coefficient of Variation 12.7 % (11.5-14.5); RDW Standard Deviation 44.1 fL (36.4-46.3); Red Blood Count 3.48 M/uL (4.63-6.08); White Blood Count 9.77 K/ul (4.8-10.8)
--- NOTE | 2022-02-05 07:01 | Hospitalist Progress Note ---
Date of Service February 05, 2022 Assessment & Plan (1) LGI bleed: Plan: Colitis/Lower GI Bleed - CTAP: Colitis from splenic flexure down to sigmoid, without diverticulitis or obstruction seen. - BRBPR and sudden onset 10/10 lower abdominal pain; stool heme occult negative - Leukocytosis to 21 on admission, down to 9.77 today - C diff toxin negative x2; will d/c contact precautions, vancomycin - GI consulted: they are planning for coloscopy tomorrow; bowel prep ordered History of C.Diff Infection - Multiple recurrences, initial episode in 2011. - In 2019 after his last recurrence, also persisted [facility] for fecal transplant, however due to COVID-19 pandemic that never happened. - Per recent GI note earlier this month, has plans to follow-up with for potential fecal transplant. Peptic Ulcer Disease - He has a history of UGI bleeds secondary to gastric ulcers, his H&H is low at 13.2/38.1, however mildly increased from yesterday's labs drawn in August. - Presenting with BRBPR, more consistent with LGIB 2/2 to colitis, low suspicion for brisk UGIB. He is hemodynamically stable. - He is on Protonix at home. Has a history of alcohol use, 1-2 beers every few days, last drink was 2-3 days ago. He says he frequently goes several days without it. Has not withdrawn the past. -Patient seemed impaired for admitting team, has been A&Ox4 today. - EGD July 2019: Normal esophagus, small hiatal hernia, gastritis, nonbleeding gastric ulcers with no stigmata of bleeding, normal duodenum, no specimens collected. - D/C Protonix drip per GI recommendations; will start 40mg BID CIERA: resolved - Cr 1.41 yesterday, back to baseline Coronary Artery Disease - Mid LCx SERENE, 100% mid RCA September 2009 - Proximal LCx SERENE January 2016 - Ostial LCx SERENE October 2016 - Had chest "soreness" earlier this morning (no radiation/palpitations/SOB) which resolved -EKG at the time of pain was sinus without acute ST changes - Holding Plavix due to BRBPR, losartan due to CIERA. - Continue amlodipine, metoprolol for blood pressure. Continue simvastatin daily, nitroglycerin as needed. Hypertension - Held losartan, may continue amlodipine and metoprolol. - Can consider restarting losartan tomorrow Chronic Back Pain - Continue baclofen 20 mg 3 times daily, hydrocodone/Tylenol twice daily as needed. - IV Tylenol and Dilaudid ordered for abdominal pain. Anxiety - Continue Wellbutrin 150 mg twice daily. (2) History of Clostridioides difficile infection: (3) PUD (peptic ulcer disease): (4) CIERA (acute kidney injury): (5) CAD (coronary artery disease): (6) Hypertension: (7) Chronic back pain: (8) Anxiety: Plan - Admit to med/tele. - SCDs for VTE ppx, no chemoppx secondary to LGI bleed. - Full Code. Admission and Anticipated Discharge Date Admission Date: February 03, 2022 Supervising Physician Co-Signing Physician Notes Attending attestation Pt seen and examined in concert with Dr. Price. In agreement with the documented findings as noted in the resident documentation with any exceptions or additions as noted here. Reports improving bilateral lower quadrant abdominal pain and interval resolution of diarrheal episodes (no BM today). On review of potential exposures, drank nothing but diet pepsi while out hunting, no new foods or water exposure, no known sick contacts. VS, nursing notes, labs and consultations reviewed. On examination, S1/S2 nl RRR no MCG. CTAB. Abd ND BS+ve. Very mild TTP of b/l LQ without guarding Colitis with concern on admission for GIB w/ h/o PUD - GI consult - colonoscopy pending for the AM. C. diff gene negative x2, will d/c vanc. No apparent BRBPR with stable Hgb, d/c protonix drip and resume PO PPI following endoscopy HTN in the setting of CAD - restart losartan, continue amlodipine and metoprolol. Monitor closely. Restart Plavix post procedure if able. Else see resident documentation as noted. Jalil Hess is a 66 y/o male with PMH significant for recurrent C. difficile, PUD, CAD, PVD, hyperlipidemia, hypertension, and anxiety who is presented with concerns of abdominal pain. States he is doing better this morning. Diffuse lower abdominal pain is still present, but significantly improved. Has not had a bowel movement since yes terday afternoon. Review of Systems Review of Systems: As per HPI Physical Exam Eyes: PERRL, conjunctivae normal, anicteric sclerae Neck: trachea midline, no thyromegaly Respiratory: normal respiratory effort, lungs clear to auscultation Cardiovascular: RRR, no murmur, no edema Gastrointestinal (Abdomen): diffuse tenderness to palpation, soft and non- distended. +bowel sounds Skin: no rashes, warm and dry Results & Data Results & Data ([facility]) Vital Signs (Past 12 Hours) Vital Signs Temp Pulse Pulse Resp BP BP Pulse Ox 02/04/22 22:00 79 02/05/22 02:52 36.9 C 84 20 161/79 H 94 02/04/22 23:15 36.9 C 76 18 155/74 H 94 02/04/22 19:44 37.0 C 88 18 176/79 H 95 O2 Del Method 02/04/22 22:00 02/05/22 02:52 Room Air 02/04/22 23:15 Room Air 02/04/22 19:44 Room Air Resident Activity Tracking Resident Involvement: Resident Care Provided Care Provided: Adult Hospital Medicine (1) CAD (coronary artery disease) Associated angina: with unspecified angina Coronary Disease-Associated Artery/Lesion type: unspecified vessel or lesion type [place] vs. transplanted heart: [place] heart Qualified Code(s): I25.119 - Atherosclerotic heart disease of [place] coronary artery with unspecified angina pectoris
[2022-02-05 07:07] LABS: Albumin Globulin Ratio 1.3 (0.9-2); Albumin Level 3.2 gm/dl (3.4-5.0); BUN Creatinine Ratio 10.8 (10-20); Bilirubin,Total 0.4 mg/dl (0.2-1.0); Calcium 8.2 mg/dl (8.5-10.1); Creatinine Clr Calc Pharmacy 86.6 ml/min; Est GFR (African American) 112.2 ml/min; Est GFR (Non-African American) 96.8 ml/min; Globulin 2.5 gm/dl (2.5-4.0); Potassium 3.4 mmol/L (3.5-5.1); Total Protein 5.7 gm/dl (6.0-8.3)
[2022-02-05] MEDS: CHOLECALCIFEROL 5,000 UNITS 125 MCG TAB PO SCH (09:29)
[2022-02-05] MEDS: buPROPion SR 150 MG TABCR PO SCH ×2 (09:29→20:41)
[2022-02-05] MEDS: METOPROLOL TARTRATE 50 MG TAB PO SCH ×2 (09:29→20:40)
[2022-02-05] MEDS: BACLOFEN 20 MG TAB PO SCH ×3 (09:29→20:41)
[2022-02-05] MEDS: MULTIVITAMIN TAB PO SCH (09:29)
--- NOTE | 2022-02-05 09:49 | Gastroenterology Progress Note ---
Date of Service February 05, 2022 Assessment & Plan (1) LGI bleed: (2) Abnormal CT scan, colon: Plan -Bowel prep ordered for colonoscopy on 02/06/22 -Continue to monitor H/H -Supportive care per primary team Admission and Anticipated Discharge Date Admission Date: February 03, 2022 Subjective Patient is a 66 yo male with diarrhea and BRBPR. CT (unfortunately without contrast) showed a nonspecific possible left sided colitis. [employer] stool testing negative for pathogens including C dif. He is chronically anemic. H/H 11.3/33.0. He notes he provided another stool sample this morning for C diff. This is pending. He has not had a bowel movement today. Interestingly he notes that the onset of his abdominal pain was associated with severe constipation and the bleeding occurred after the constipation. Review of Systems Constitutional: no fever and no chills Respiratory: no cough and no dyspnea Cardiovascular: no chest pain Gastrointestinal: + abdominal pain, + diarrhea/loose stools and + blood in stools Physical Exam Constitutional: well developed Respiratory: normal respiratory effort Cardiovascular: Rate/Rhythm: regular rate Gastrointestinal (Abdomen): normal bowel sounds, soft, nontender, no hepatosplenomegaly Results & Data Results & Data ([facility]) Vital Signs (Past 12 Hours) Vital Signs Temp Pulse Pulse Resp BP BP Pulse Ox 02/05/22 08:00 36.7 C 81 18 152/80 H 96 02/04/22 22:00 79 02/05/22 02:52 36.9 C 84 20 161/79 H 94 02/04/22 23:15 36.9 C 76 18 155/74 H 94 O2 Del Method 02/05/22 08:00 Room Air 02/04/22 22:00 02/05/22 02:52 Room Air 02/04/22 23:15 Room Air PG Care Time/CCT Total # of Minutes Spent Total Time Spent with Patient: Total time spent is greater than 50% in coordination of care (as documented) at patient's floor/unit and/or counseling patient: Coding Level of Care Code 87465 Subseq Hosp Care Lvl 3 Diagnoses LGI bleed K92.[address] scan, colon R93.3
[2022-02-05] MEDS: LAVAGE SOLUTION 4000ML PO SCH (17:32)
[2022-02-05] MEDS: SIMVASTATIN 80 MG TAB PO SCH (20:40)
[2022-02-05] MEDS: amLODIPine BESYLATE 5 MG TAB PO SCH (20:41)
[2022-02-05] MEDS: PANTOprazole 40 MG in SYRINGE 0 ML IV SCH (20:42)
[2022-02-05] MEDS ORDERED: PANTOprazole 40 MG TAB PO SCH (21:00)
[2022-02-06] MEDS: LACTATED RINGER'S 1,000 ML IV SCH ×2 (01:48→13:22)
[2022-02-06] MEDS: ACETAMINOPHEN 1,000 MG/100 ML VIAL IV PRN (04:20)
[2022-02-06] MEDS: LAVAGE SOLUTION 4000ML PO SCH (04:20)
--- NOTE | 2022-02-06 07:06 | Hospitalist Progress Note ---
Date of Service February 06, 2022 Assessment & Plan (1) LGI bleed: Plan: Colitis/Lower GI Bleed - CTAP: Colitis from splenic flexure down to sigmoid, without diverticulitis or obstruction seen. - BRBPR and sudden onset 10/10 lower abdominal pain; stool heme occult negative - Leukocytosis to 21 on admission, down to 9.77 today - C diff toxin negative x2; will d/c contact precautions, vancomycin - GI consulted: they are planning for coloscopy tomorrow; bowel prep ordered History of C.Diff Infection - Multiple recurrences, initial episode in 2011. - In 2019 after his last recurrence, also persisted [facility] for fecal transplant, however due to COVID-19 pandemic that never happened. - Per recent GI note earlier this month, has plans to follow-up with for potential fecal transplant. Peptic Ulcer Disease - He has a history of UGI bleeds secondary to gastric ulcers, his H&H is low at 13.2/38.1, however mildly increased from yesterday's labs drawn in August. - Presenting with BRBPR, more consistent with LGIB 2/2 to colitis, low suspicion for brisk UGIB. He is hemodynamically stable. - He is on Protonix at home. Has a history of alcohol use, 1-2 beers every few days, last drink was 2-3 days ago. He says he frequently goes several days without it. Has not withdrawn the past. -Patient seemed impaired for admitting team, has been A&Ox4 today. - EGD July 2019: Normal esophagus, small hiatal hernia, gastritis, nonbleeding gastric ulcers with no stigmata of bleeding, normal duodenum, no specimens collected. - D/C Protonix drip per GI recommendations; will start 40mg BID CIERA: resolved - Cr 1.41 yesterday, back to baseline Coronary Artery Disease - Mid LCx SERENE, 100% mid RCA September 2009 - Proximal LCx SERENE January 2016 - Ostial LCx SERENE October 2016 - Had chest "soreness" earlier this morning (no radiation/palpitations/SOB) which resolved -EKG at the time of pain was sinus without acute ST changes - Holding Plavix due to BRBPR, losartan due to CIERA. - Continue amlodipine, metoprolol for blood pressure. Continue simvastatin daily, nitroglycerin as needed. Hypertension - Held losartan, may continue amlodipine and metoprolol. - Can consider restarting losartan tomorrow Chronic Back Pain - Continue baclofen 20 mg 3 times daily, hydrocodone/Tylenol twice daily as needed. - IV Tylenol and Dilaudid ordered for abdominal pain. Anxiety - Continue Wellbutrin 150 mg twice daily. (2) History of Clostridioides difficile infection: (3) PUD (peptic ulcer disease): (4) CIERA (acute kidney injury): (5) CAD (coronary artery disease): (6) Hypertension: (7) Chronic back pain: (8) Anxiety: Plan - Admit to med/tele. - SCDs for VTE ppx, no chemoppx secondary to LGI bleed. - Full Code. Admission and Anticipated Discharge Date Admission Date: February 03, 2022 Jalil Hess is a 66 y/o male with PMH significant for recurrent C. difficile, PUD, CAD, PVD, hyperlipidemia, hypertension, and anxiety who is presented with concerns of abdominal pain. States he is doing better this morning. Diffuse lower abdominal pain is still present, but significantly improved. Has not had a bowel movement since yesterday afternoon. Review of Systems Review of Systems: As per HPI Physical Exam Eyes: PERRL, conjunctivae normal, anicteric sclerae Neck: trachea midline, no thyromegaly Respiratory: normal respiratory effort, lungs clear to auscultation Cardiovascular: RRR, no murmur, no edema Skin: no rashes, warm and dry Results & Data Results & Data ([facility]) Vital Signs (Past 12 Hours) Vital Signs Temp Pulse Pulse Resp BP Pulse Ox O2 Del Method 02/05/22 22:15 78 02/06/22 00:23 36.8 C 77 20 169/83 H 96 Room Air 02/05/22 19:57 36.8 C 89 20 197/78 H 100 Room Air (1) CAD (coronary artery disease) Coronary Disease-Associated Artery/Lesion type: unspecified vessel or lesion type [place] vs. transplanted heart: [place] heart Associated angina: with unspecified angina Qualified Code(s): I25.119 - Atherosclerotic heart disease of [place] coronary artery with unspecified angina pectoris
[2022-02-06] MEDS: PANTOprazole 40 MG in SYRINGE 0 ML IV SCH (07:41)
--- NOTE | 2022-02-06 08:58 | History & Physical Bridge Note ---
Date of Service February 06, 2022 History & Physical Bridge Note I have examined the patient, reviewed the History & Physical and in the interval since the performance of the History & Physical I have noted the following changes of clinical significance: no changes noted. H/H noted to be 11.3/33.0. -Patient has completed his bowel preparation and remains NPO at present. Keep NPO and proceed with colonoscopy today.
[2022-02-06] MEDS ORDERED: LOSARTAN POTASSIUM 50 MG TAB PO SCH (09:00)
[2022-02-06 09:18] LABS: Hematocrit (blood only) 36.8 % (40.1-51.0); Mean Corpuscular Hemoglobin 32.3 pg (25.0-34.0); Mean Corpuscular Hgb Conc 35.3 g/dL (32.0-36.0); Mean Corpuscular Volume 91.3 fL (80.0-100.0); Mean Platelet Volume 9.9 fL (9.4-12.4); Platelet Count 427 K/uL (130-400); RDW Coefficient of Variation 12.4 % (11.5-14.5); RDW Standard Deviation 41.4 fL (36.4-46.3); Red Blood Count 4.03 M/uL (4.63-6.08)
[2022-02-06 09:47] LABS: Albumin Globulin Ratio 1.2 (0.9-2); Albumin Level 3.7 gm/dl (3.4-5.0); BUN Creatinine Ratio 5.9 (10-20); Bilirubin,Total 0.4 mg/dl (0.2-1.0); Calcium 9.2 mg/dl (8.5-10.1); Creatinine Clr Calc Pharmacy 94.2 ml/min; Est GFR (African American) 116.2 ml/min; Est GFR (Non-African American) 100.2 ml/min; Globulin 3.2 gm/dl (2.5-4.0); Magnesium 1.4 mg/dl (1.7-2.4); Potassium 3.5 mmol/L (3.5-5.1); Total Protein 6.9 gm/dl (6.0-8.3)
--- NOTE | 2022-02-06 09:47 | Anesthesiology Consultation ---
Date of Service February 06, 2022 Assessment & Plan Chart Review Chart Review: Acceptable Risk for Surgery, Patient NOT seen in Pre Admission Testing and carpentry instructor initiated Consults Requested none History Surgery Operation Date: 02/06/22 16:45 Proposed Procedures p Colonoscopy Dr. Hemanth Saxena MD Height/Weight Height: 5 ft 5 in Weight: 67.2 kg Allergies Allergy/AdvReac Type Severity Reaction Status Date / Time Penicillins Allergy Severe "CIRCULATORY Verified 02/03/22 20:20 SHUTDOWN" Medications Home Medications Medication Instructions Recorded Confirmed Last Taken baclofen 10 mg tablet 20 mg PO TID 11/13/17 02/03/22 08/30/21 hydrocodone 10 mg-acetaminophen 1 tab PO BID PRN Pain 11/13/17 02/03/22 02/18/21 325 mg tablet cholecalciferol (vitamin D3) 125 5,000 unit PO QAM 02/18/18 02/03/22 08/30/21 mcg (5,000 unit) tablet (Vitamin D3) multivitamin 1 tab PO QAM 02/18/18 02/03/22 08/30/21 pantoprazole 40 mg tablet,delayed 40 mg PO BID #60 tabs 07/17/19 02/03/22 08/30/21 release amlodipine 10 mg tablet 10 mg PO QPM #90 tabs 05/20/20 02/03/22 08/29/21 losartan 100 mg tablet 100 mg PO QAM #90 tabs 05/20/20 02/03/22 08/30/21 simvastatin 80 mg tablet 80 mg PO PM #90 tabs 05/20/20 02/03/22 08/30/21 clopidogrel 75 mg tablet (Plavix) 75 mg PO DAILY #90 tabs 05/29/21 02/03/2208/10 metoprolol tartrate 100 mg tablet 50 mg PO BID #90 tabs 05/29/21 02/03/22 08/30/21 nitroglycerin 0.4 mg sublingual 0.4 mg sublingual UD PRN Angina 08/08/21 02/03/22 Unknown tablet #30 tabs bupropion HCl 150 mg tablet,12 hr 150 mg PO BID 02/03/22 02/03/22 Unknown sustained-release Active Medications Generic Name Dose Route Start Last Admin Trade Name Freq PRN Reason Stop Dose Admin Amlodipine Besylate 10 mg 02/04/22 00:09 02/05/22 20:41 Amlodipine Besylate 5 Mg Tab PO 03/06/22 00:08 10 mg QPM ALAN Administration Baclofen 20 mg 02/04/22 00:09 02/05/22 20:41 Baclofen 20 Mg Tab PO 03/06/22 00:08 20 mg TID ALAN Administration Bupropion HCl 150 mg 02/04/22 00:09 02/05/22 20:41 Bupropion Sr 150 Mg Tabcr PO 03/06/22 00:08 150 mg BID ALAN Administration Hydromorphone HCl 0.5 mg 02/04/22 00:09 02/04/22 21:09 Hydromorphone Inj 0.5 Mg/0.5 Ml Syr IV 02/18/22 00:08 0.5 mg Q4H PRN Administration Moderate Pain Hydromorphone HCl 1 mg 02/04/22 00:09 02/04/22 06:18 Hydromorphone Inj 0.5 Mg/0.5 Ml Syr IV 02/18/22 00:08 1 mg Q4H PRN Administration Severe Pain Acetaminophen 1,000 mg in 100 mls @ 400 mls/hr 02/04/22 00:09 02/06/22 04:40 Ofirmev IV 02/07/22 00:08 Infused Q8H PRN Infusion MIld Pain or fever Lactated Ringer's 1,000 mls @ 125 mls/hr 02/04/22 00:09 02/06/22 01:48 Lr IV 03/06/22 00:08 125 mls/hr .Q8H ALAN Administration Pantoprazole Sodium 40 mg/ 10 mls @ 5 mls/min 02/05/22 21:00 02/06/22 07:41 Syringe IV 03/07/22 20:59 5 mls/min BID ALAN Administration Melatonin 3 mg 02/05/22 02:15 02/05/22 04:26 Melatonin 3 Mg Tab PO 03/07/22 02:14 3 mg HS PRN Administration Sleep Metoprolol Tartrate 50 mg 02/04/22 00:09 02/05/22 20:40 Metoprolol Tartrate 50 Mg Tab PO 03/06/22 00:08 50 mg BID ALAN Administration Multivitamins 1 tab 02/04/22 09:00 02/05/22 09:29 Multivitamin Tab PO 03/06/22 08:59 1 tab QAM ALAN Administration Ondansetron HCl 4 mg 02/04/22 00:09 02/04/22 07:18 Ondansetron Inj 2 Mg/Ml 2 Ml Vial IV 03/06/22 00:08 4 mg Q6H PRN Administration Nausea Polyethylene Glycol/Electrolytes 16 dose 02/05/22 18:00 02/06/22 04:20 Lavage Solution 4000ml PO 03/07/22 17:59 16 dose 0300,1800 ALAN Administration Simvastatin 80 mg 02/04/22 00:09 02/05/22 20:40 Simvastatin 80 Mg Tab PO 03/06/22 00:08 80 mg PM ALAN Administration Vitamin D 5,000 units 02/04/22 09:00 02/05/22 09:29 Cholecalciferol 5,000 Units 125 Mcg Tab PO 03/06/22 08:59 5,000 units QAM ALAN Administration Past Medical History Medical History Alcohol use Anxiety BPH (benign prostatic hyperplasia) CAD (coronary artery disease) Chronic back pain Chronic prescription opiate use Diverticulosis Dupuytren's contracture of hand GERD (gastroesophageal reflux disease) History of Clostridioides difficile colitis Hx of gastric ulcer Hyperlipidemia Hypertension Left ventricular hypertrophy On anticoagulant therapy plavix d/t stents Peripheral neuropathy Past Family History Family History Sister Family history of reaction to anesthesia difficulty waking and nausea Mother Family history of reaction to anesthesia difficulty waking and nausea Peptic ulcer disease Father , in his 40s Cerebral aneurysm Past Surgical History Surgical History History of cardiac cath x3 @ [facility] follow with Dr. Zamora History of hand surgery x6 (4 on right, 2 on left) d/t Dupuytren's History of heart artery stent 2009 x2, 2015 x1, 2017 x1--@ [facility] History of intravascular stent placement RIGHT LEG History of procedure for peripheral vascular disease 2012 Dr. Granger History of removal of cyst from groin History of surgery RIGHT LEG R/T TRAUMA [place] teeth removed Social History Smoking Status: Former smoker tobacco type: cigarettes Hx Alcohol Use: No Alcohol type: beer alcohol intake frequency: 0-2 drinks per day Hx Substance Use: No substance use type: does not use Physical Exam Vital Signs Last Vital Signs Temp 36.8 C 02/06/22 07:51 Pulse 73 02/06/22 07:51 Resp 18 02/06/22 07:51 BP 165/83 H 02/06/22 07:51 Pulse Ox 95 02/06/22 07:51 O2 Del Method 02/06/22 07:51 Testing Laboratory Results 02/06/22 08:55 PT 10.7 Seconds (9.0-12.0) 02/03/22 19:17 INR 1.0 (0.9-1.1) 02/03/22 19:17 Urine Color Yellow 02/04/22 02:00 Urine Appearance Clear (Clear) 02/04/22 02:00 Urine pH 5.5 (4.5-7.5) 02/04/22 02:00 Ur Specific [place] 1.018 (1.000-1.030) 02/04/22 02:00 Urine Protein 1+ (Negative) H 02/04/22 02:00 Urine Glucose (UA) Trace (Negative) H 02/04/22 02:00 Urine Ketones Negative (Negative) 02/04/22 02:00 Urine Nitrite Negative (Negative) 02/04/22 02:00 Ur Leukocyte Esterase Trace (Negative) H 02/04/22 02:00 Urine WBC (Auto) 1-5 /hpf (0-5) 02/04/22 02:00 Urine RBC (Auto) 0-4 /hpf (0-4) 02/04/22 02:00 U Hyaline Cast (Auto) 1-5 /lpf (0-5) 02/04/22 02:00 U Epithel Cells (Auto) >30 /lpf (0-5) H 02/04/22 02:00 Urine Bacteria (Auto) 1+ (Negative) H 02/04/22 02:00 02/04/22 02:00 Urine Culture - Preliminary Urine,Clean Catch Pin-point growth present, reincubating. Electrocardiogram Date: 02/04/22 Blood Pressure : / mmHG Vent. Rate : 074 BPM Atrial Rate : 074 BPM P-R Int : 168 ms QRS Dur : 082 ms QT Int : 382 ms P-R-T Axes : 053 002 044 degrees QTc Int : 424 ms Normal sinus rhythm Poor R wave progression, consider anterior DC vs. lead placement vs. LVH Abnormal ECG Confirmed by Melecio Fuentes ([id number]) on 02/04/2022 5:53:56 PM Chest X-Ray Date: 01/30/22 CLINICAL HISTORY: Chest Pain. COMPARISON STUDY: 03/11/2021 TECHNIQUE: 1 view of the chest FINDINGS: Single frontal view of the chest demonstrates the cardiomediastinal silhouette to be within normal limits. There is a decreased inspiratory effort with elevation of the hemidiaphragms and crowding of the bronchovascular markings at the lung bases and centrally. The lungs are clear of alveolar opacities. There is no evidence for pleural effusion. There is no evidence for vascular congestion. There is no acute osseous pathology. IMPRESSION: 1. There is a decreased inspiratory effort with otherwise no acute chest disease. Echocardiogram Date: 08/31/21 EF: 65-70% LV Function: normal RWMA: + none Other Findings: + LVH (moderate) Valvular Disease: + no significant valvular disease
[2022-02-06] MEDS ORDERED: PROPOFOL IV EMULSION 10 MG/ML 20 ML VIAL IV ONE ×2 (10:46→11:03)
--- NOTE | 2022-02-06 11:13 | Communication Note ---
Date of Service: February 06, 2022 Patient underwent a colonoscopy on 02/06/22. There was patchy inflammation of the descending colon and endoscopic appearance suspicious for C diff despite negative stool studies. Dr. Saxena would like to implement po Vanco for now and await biopsies from colonoscopy to see if there is a component of IBD as a possible alternative explanation.
--- NOTE | 2022-02-06 11:39 | GI REPORT ---
Patient Name: Deshawn Whitaker Procedure Date: 02/06/2022 10:42 AM Date of : 1955 Admit Type: Inpatient Age: 66 Gender: Male Attending MD: Benjy Saxena MD, Procedure: Colonoscopy Providers: Benjy Saxena MD Referring MD: Melecio Rosenthal Indications: Clinically significant diarrhea of unexplained origin, Abnormal CT of the GI tract Medicines: Monitored Anesthesia Care Complications: No immediate complications. Estimated blood loss: None. Estimated Blood Loss: Estimated blood loss: none. Procedure: Pre-Anesthesia Assessment: - Prior Anticoagulants: The patient has taken no anticoagulant or antiplatelet agents. - ASA Grade Assessment: II - A patient with mild systemic disease. After I obtained informed consent, the scope was passed under direct vision. Throughout the procedure, the patient's blood pressure, pulse, and oxygen saturations were monitored continuously. The Colonoscope was introduced through the anus and advanced to the terminal ileum, with identification of the appendiceal orifice and IC valve. The colonoscopy was performed without difficulty. The patient tolerated the procedure well. The quality of the bowel preparation was adequate to identify polyps greater than 5 mm in size. Findings: The terminal ileum appeared normal. Biopsies were taken with a cold forceps for histology. Estimated blood loss: none. Patchy severe inflammation characterized by erythema, friability and serpentine ulcerations was found in the sigmoid colon and in the descending colon. Biopsies were taken with a cold forceps for histology from the right and left colon. Estimated blood loss: none. Internal hemorrhoids were found during retroflexion. The hemorrhoids were small. Impression: - The examined portion of the ileum was normal. Biopsied. - Patchy severe inflammation was found in the sigmoid colon and in the descending colon secondary to left-sided colitis. Biopsied. - Internal hemorrhoids. suspect cdiff as possible etiology for his colitis despite negative stool studies. Recommendation: - [facility]. - Advance diet as tolerated today. - Await pathology results. -resume PO vancomycin for empiric tx of cdiff Benjy Saxena MD 02/06/2022 11:39:37 AM This report has been signed electronically. Note Initiated On: 02/06/2022 10:42 AM Number of Addenda: 0 I attest to the content of the Intraoperative Record and orders documented therein, exceptions below {[id number]}
[2022-02-06] MEDS: BACLOFEN 20 MG TAB PO SCH ×2 (12:29→13:29)
[2022-02-06] MEDS: MULTIVITAMIN TAB PO SCH (12:30)
[2022-02-06] MEDS: CHOLECALCIFEROL 5,000 UNITS 125 MCG TAB PO SCH (12:30)
[2022-02-06] MEDS: METOPROLOL TARTRATE 50 MG TAB PO SCH (12:30)
[2022-02-06] MEDS: buPROPion SR 150 MG TABCR PO SCH (12:30)
--- NOTE | 2022-02-06 12:52 | Anesthesiology Progress Note ---
Date of Service February 06, 2022 Anesthesia Post Procedure Vital Signs Vital Signs: Temp Pulse Pulse Resp BP BP Pulse Ox 02/06/22 12:28 36.5 C 82 173/96 H 99 02/06/22 11:44 78 16 154/91 H 99 02/06/22 11:29 77 16 123/66 98 02/06/22 11:14 80 14 105/62 96 02/06/22 09:57 36.8 C 84 18 174/96 H 99 02/06/22 07:51 36.8 C 73 18 165/83 H 95 02/05/22 22:15 78 02/06/22 00:23 36.8 C 77 20 169/83 H 96 02/05/22 19:57 36.8 C 89 20 197/78 H 100 02/05/22 15:39 36.8 C 73 18 177/82 H 96 02/05/22 15:09 74 O2 Del Method 02/06/22 12:28 Room Air 02/06/22 11:44 Room Air 02/06/22 11:29 Room Air 02/06/22 11:14 Room Air 02/06/22 09:57 Room Air 02/06/22 07:51 Room Air 02/05/22 22:15 02/06/22 00:23 Room Air 02/05/22 19:57 Room Air 02/05/22 15:39 Room Air 02/05/22 15:09 Pain Intensity Lower Abdomen: Pain Intensity: 4 Transfer of Care Handoff Completed per policy Notes Mental Status: alert / awake / arousable and participated in evaluation Patient Amnestic to Procedure: Yes Nausea / Vomiting: adequately controlled Pain: adequately controlled Airway Patency, RR, SpO2: stable & adequate BP & HR: stable & adequate Hydration State: stable & adequate Anesthetic Complications: no major complications apparent and Pt Satisfied with anesthetic care
[2022-02-06] MEDS: VANCOMYCIN HCL 250 MG/5 ML SOLN PO SCH ×2 (13:19→17:38)
[2022-02-06] MEDS: RASPBERRY SYRUP 5 ML UDP PO SCH ×2 (13:19→17:38)
[2022-02-06] MEDS ORDERED: HYDROcodone/ACETAMINOPHEN 10/325 TAB PO PRN (14:34)
--- NOTE | 2022-02-06 15:36 | Discharge Summary ---
Date of Service February 06, 2022 Admission HPI Per Admitting Provider Deshawn Whitaker is a 66-year-old male with past medical history significant for recurrent C. difficile, PUD, CAD, PVD, hyperlipidemia, hypertension, and anxiety who is presenting today with concerns of abdominal pain. Pain started this morning bilateral region, associated with BRBPR. Has had copious bowel movements since then which have been loose, bright red and bloody, 10/10 pain. He has not had any fever/chills, pain, palpitations, shortness of breath, dizziness. He has been compliant with his probiotic for recurrent C. difficile and had previously been feeling well. He has not had any nausea or vomiting, hematemesis. He was recently seen by GI at the beginning of the month for his recurrent C. difficile, has been asymptomatic probiotic and indicated he will be following up with [facility] for a stool transplant. His last C. difficile infection was in 2011, at that time was being evaluated for fecal transplant, however the COVID-19 pandemic began and fecal transplants were put on hold. Presentation in ED, is mildly hypertensive otherwise vital signs within normal limits and stable. WBC of 21.34 w/ left shift, Hgb 13.2, platelets 415. Procalcitonin 0.08, lactate pending. Suddenly mildly low at 133, creatinine bumped to 1.41 baseline < 1.0. Besides the low sodium, there are no no electrolyte abnormalities, no transaminitis, lipase normal at 30. CT A/P shows nonspecific colitis of the left colon, from splenic flexure to sigmoid, infectious versus inflammatory versus ischemic. Or diverticulitis, appendix visualized and normal. Moderately atrophic pancreas unremarkable pancreas. Chronic/healed b/l pubic ring fractures, chronic compression deformities of L1 and L4. Admission Exam Per Admitting Provider General: On first visit, patient planing of severe abdominal pain, visit interrupted secondary to patient needing to use the bathroom urgently; on second visit, patient recently medicated for pain and significantly more comfortable Head: Normocephalic, atraumatic ENT: PERRL, EOMI, no pharyngeal exudate, mucous membranes moist Chest: Clear to auscultation, on room air, no adventitious breath sounds Cardiac: Regular rate and rhythm, no murmur, no JVD, normal peripheral pulses, good capillary refill Abdominal: mildlyTTP across b/l lower abdominal pain, no rebound or guarding; NABS throughout Extremities: Normal inspection, no peripheral edema or erythema, calfs nontender to palpation Psych: Normal mood and affect Neuro: AAO x 3, strength intact bilaterally and rated 5/5, no motor deficits, speech is clear, no peripheral sensory deficits Skin: no rash or erythema Principal Diagnosis Colitis Discharge Data Allergies Allergy/AdvReac Type Severity Reaction Status Date / Time Penicillins Allergy Severe "CIRCULATORY Verified 02/06/22 09:55 SHUTDOWN" Consultations 02/03/22 20:23 ED Decision to Admit Stat 02/04/22 00:09 Consult Gastroenterology Routine Procedures Performed Operation Date: 02/06/22 16:45 Actual Procedures p Colonoscopy Biopsy Cytology - Benjy Saxena MD Patient underwent a colonoscopy on 02/06/22. There was patchy inflammation of the descending colon and endoscopic appearance suspicious for C diff despite negative stool studies. Dr. Sxaena would like to implement po Vanco for now and await biopsies from colonoscopy to see if there is a component of IBD as a possible alternative explanation. Ordered Studies 02/03/22 18:52 CT abd pelvis wo con Stat CT SCAN OF THE ABDOMEN AND PELVIS WITHOUT IV CONTRAST CLINICAL HISTORY: GI bleeding. COMPARISON STUDY: Abdominal CT dated 07/11/2019. TECHNIQUE: CT scan of the abdomen and pelvis is performed from the lung bases to the proximal femora. Images are reviewed in the axial, sagittal, and coronal planes. IV contrast was not administered for this examination. Note that the examination was performed and significantly suboptimal fashion without IV contrast. A dose lowering technique was utilized adhering to the principles of ALARA. CT DOSE: 307.22 mGy.cm FINDINGS: Lung bases: The heart is mildly enlarged and without pericardial effusion. The coronary arteries are densely calcified. There are scattered calcified granulomas. The lung bases are otherwise clear noting bibasilar scarring/atelectasis. Liver: The unenhanced liver is normal in size, contour, and attenuation. There is no intrahepatic biliary ductal dilatation. Gallbladder: Unremarkable. Spleen: Normal in size and attenuation. Pancreas: The unenhanced pancreas is moderately atrophic and grossly unremarkable. Adrenal glands: Unremarkable. Kidneys: The unenhanced kidneys demonstrate cortical atrophy and are without hydronephrosis. There are no renal calculi identified. There is no evidence of contour deforming renal mass lesion. Abdominal vasculature: The abdominal aorta is normal in course and caliber noting advanced atherosclerotic calcification. Bowel: There is a long segment of mild wall thickening and edema involving the left colon with surrounding infiltration and trace fluid. This extends from the splenic flexure to the sigmoid. No bowel obstruction is seen. There are scattered colonic diverticula without CT evidence of acute diverticulitis. The appendix is well-visualized and normal. Peritoneum: There is no intraperitoneal free air or abdominal ascites. Lymphadenopathy: None. Pelvic viscera: The prostate gland is diminutive and heterogeneous. The bladder is mildly distended. The wall appears thickened/trabeculated indicating chronic outlet obstruction. Skeletal structures: The skeletal structures are osteopenic. There are chronic compression deformities of L1 and L4. Moderate lumbosacral spondylosis is noted. No lytic or blastic lesions are seen. There are chronic/healed bilateral pubic ring fractures. IMPRESSION: 1. There is a nonspecific colitis of the left colon. This could be on an infectious, inflammatory, or ischemic basis and clinical correlation will be essential. 2. Additional findings as above Hospital Course (1) LGI bleed: Colitis/Lower GI Bleed - CTAP: Colitis from splenic flexure down to sigmoid, without diverticulitis or obstruction seen. - BRBPR and sudden onset 10/10 lower abdominal pain; stool heme occult negative - Leukocytosis to 21 on admission, down to 7.5 on d/c - C diff toxin negative x2 - Resolution of abdominal pain, loose stools - Coloscopy suspicious for C diff vs IBD, pathology results pending - GI recommend continuing vancomycin 250mg po q6 pending biopsy results History of C.Diff Infection - Multiple recurrences, initial episode in 2011. - In 2019 after his last recurrence, also persisted [facility] for fecal transplant, however due to COVID-19 pandemic that never happened. - Per recent GI note earlier this month, has plans to follow-up with for potential fecal transplant. Peptic Ulcer Disease - He has a history of UGI bleeds secondary to gastric ulcers, his H&H is low at 13.2/38.1, however mildly increased from yesterday's labs drawn in August. - Presenting with BRBPR, more consistent with LGIB 2/2 to colitis, low suspicion for brisk UGIB. He is hemodynamically stable. - He is on Protonix at home. Has a history of alcohol use, 1-2 beers every few days, last drink was 2-3 days ago. He says he frequently goes several days without it. Has not withdrawn the past. -Patient seemed impaired for admitting team, has been A&Ox4 today. - EGD July 2019: Normal esophagus, small hiatal hernia, gastritis, nonbleeding gastric ulcers with no stigmata of bleeding, normal duodenum, no specimens collected. - Was on Protonix drip transitioned back to home dose 40mg BID CIERA: resolved - Cr 1.41 yesterday, back to baseline Coronary Artery Disease - Mid LCx SERENE, 100% mid RCA September 2009 - Proximal LCx SERENE January 2016 - Ostial LCx SERENE October 2016 - Had chest "soreness" earlier this morning (no radiation/palpitations/SOB) which resolved -EKG at the time of pain was sinus without acute ST changes - Holding Plavix due to BRBPR, losartan due to CIERA. - Continue amlodipine, metoprolol for blood pressure. Continue simvastatin daily, nitroglycerin as needed. Hypertension - Continued home medications- losartan, amlodipine and metoprolol. Chronic Back Pain - Continue baclofen 20 mg 3 times daily, hydrocodone/Tylenol twice daily as needed. Anxiety - Continue Wellbutrin 150 mg twice daily. (2) History of Clostridioides difficile infection: (3) PUD (peptic ulcer disease): (4) CIERA (acute kidney injury): (5) CAD (coronary artery disease): (6) Hypertension: (7) Chronic back pain: (8) Anxiety: Total Time Total Time Spent Total Time Spent (In Minutes): 30 Discharge Plan Discharge Items Patient Disposition: Home - Self-Care Reason For Visit: COLITIS, HX C DIFF Discharge Diagnosis: collitis Activity: Resume your previous activity Non-emergency contact: Primary Care Provider and Sales Account Representative Call non-emergency contact if: you have any medication questions, your symptoms worsen and your temperature is above 101 Follow-up/Referrals: Benjy Saxena MD [Physician] - Lloyd Rosenthal MD [Primary Care Provider] - 02/09/22 3:25 pm (with Dr. Fang. Please arrive 15 minutes prior to appointment time.) Diet: Regular Addtl Attending Provider Instructions: You were admitted to the hospital for abdominal pain and diarrhea. Your C Diff testing came back negative, but the GI doctors are still concerned for a C Diff infection. You had a colonoscopy and biopsies where taken during the coloscopy. While we wait for the results of these biopsies we would like to continue to treat you with vancomycin. We would like you to take the vancomycin 250mg every 6 hours. We would like you to follow up with both your primary care provider and the GI doctors. The GI office will reach out to you to scheduled an appointment. If you don't hear from them within a week please call their office at [phone]. You have an appointment scheduled at [facility] with Dr. Fang on 02/09/22 at 3:25. Please arrive 15 minutes prior to appointment time. A discharge summary will be sent to your primary care physician to ensure continuity of care. Please bring this discharge summary with you to your next o ffice appointment so that your provider can review it at that time. CONTACT YOUR PRIMARY CARE PROVIDER if you experience any of the following: worsening diarrhea, abdominal pain return of blood in your stool Difficulty following your treatment plan, or difficulty taking medications CALL 911 OR GO TO THE EMERGENCY DEPARTMENT if you experience any of the following: Sudden, severe abdominal pain or nausea/vomiting Severe chest pain, or chest pain that radiates (moves) to your jaw or arm Sudden, severe shortness of breath or difficulty breathing Thank you for allowing us to participate in your care. Discharge instructions for CHF exacerbation patients Pending Studies at Discharge: No Stand-Alone Forms: My [facility], Smoking Cessation Medications and DC Order Prescriptions: New vancomycin 250 mg capsule 250 mg PO Q6H 10 Days Qty: 40 0RF Continued amlodipine 10 mg tablet 10 mg PO QPM Qty: 90 3RF losartan 100 mg tablet 100 mg PO QAM Qty: 90 3RF simvastatin 80 mg tablet 80 mg PO PM Qty: 90 3RF clopidogrel [Plavix] 75 mg tablet 75 mg PO DAILY Qty: 90 3RF metoprolol tartrate 100 mg tablet 50 mg PO BID Qty: 90 3RF nitroglycerin 0.4 mg tablet, sublingual 0.4 mg Sublingual UD PRN (Reason: Angina) Qty: 30 3RF cholecalciferol (vitamin D3) [Vitamin D3] 5,000 unit Tablet 5,000 unit PO QAM multivitamin Tablet 1 tab PO QAM baclofen 10 mg Tablet 20 mg PO TID hydrocodone-acetaminophen 10-325 mg Tablet 1 tab PO BID PRN (Reason: Pain) pantoprazole 40 mg tablet,delayed release (DR/EC) 40 mg PO BID Qty: 60 0RF bupropion HCl 150 mg tablet sustained-release 12 hr 150 mg PO BID Discharge Orders: Discharge Order (Routine); Ordered 02/06/22 Ordered By: Whitney Price Admission Data Admit Date/Time: 02/03/22 21:03 Attending Provider: Lloyd Rosenthal Admit Provider: Corby Lawson Primary Care Provider: Lloyd Rosenthal Other Providers: Corby Lawson ; Mary Christian Jr Other Interventions: Discharge Summary Assessment (RN) Last Done: 02/06/22 17:39 Supervising Physician Co-Signing Physician Notes Attending attestation Pt seen and examined in concert with Dr. Price. In agreement with the documented findings as noted in the resident documentation with any exceptions or additions as noted here. Resolution of abdominal pain and diarrheal episodes without recurrence. VS, nursing notes, imaging and consultations reviewed. on examination, S1/S2 nl RRR no MCG. CTAB. Abd NT/ND BS+ve Colitis, undifferentitated - GI consult - pending pathology, will continue vancomycin PO as noted and follow up with PCP and GI for further differentiation of disease/management. Precautions re: worsening/changing symptoms and potential concerns/restrictions re: hunting reviewed. Else see resident documentation as noted. Total attending physician time spent with this patient's care on the day of discharge: 40 minutes. Resident Activity Tracking Resident Involvement: Resident Care Provided Care Provided: Adult Hospital Medicine
[2022-02-07 18:32] LABS: Codeine Urine NEGATIVE ng/mL (<50); Hydrocodone Urine 839 ng/mL (<50); Hydromor Urine 691 ng/mL (<50); MDA negative; MDEA negative; MDMA (Ecstasy) Urine, Confirm negative; Morphine Urine NEGATIVE ng/mL (<50); Norhydrocodone Conf Ur 1560 ng/mL (<50); Noroxycodone Urine NEGATIVE ng/mL (<50); Oxycodone Urine NEGATIVE ng/mL (<50); Oxymorph Urine NEGATIVE ng/mL (<50)
--- NOTE | 2022-02-12 11:58 | Coding Query ---
CODING QUERY To promote full compliance with coding requirements relating to patient care, provider participation is requested in all cases of shoe repairer uncertainty. Please assist us with the question(s) below: Coding Question(s): There is documentation of LGI bleed with documentation of Colitis, with documentation of history of C-Diff Infection multiple recurrences, and the H&P documents, "BRBPR and sudden onset 10/10 lower abdominal pain onset this morning, with WBC 21, and history of C. difficile infection makes recurrence of C. difficile most likely diagnosis", and documentation of start empiric vancomycin, and the first Progress Note on 02/04 documents, "C diff toxin negative, awaiting repeat C diff toxin. Given presentation and history, still suspicious for C. difficile", and the supervising physician documents, "Sepsisdue to infectious diarrhea/daniels colitisconcerned about C. difficile given his prior episodes and current clinical picture, and yet at the same time his stool test was negative. Continue vancomycin for now pending repeat testing. Agree with gastroenterology that this could be a more routine gastroenteritisbut certainly given his overall presentation would manage as a C. difficile recurrence until proven otherwise by multiple negative tests", and the Colonoscopy Report documents, "suspect cdiff as possible etiology for his colitis despite negative stool studies", and the Discharge Summary documents, "LGI bleed: Colitis/Lower GI Bleed - CTAP: Colitis from splenic flexure down to sigmoid, without diverticulitis or obstruction seen. - BRBPR and sudden onset 10/10 lower abdominal pain; stool heme occult negative - Leukocytosis to 21 on admission, down to 7.5 on d/c - C diff toxin negative x2 - Resolution of abdominal pain, loose stools - Coloscopy suspicious for C diff vs IBD, pathology results pending - GI recommend continuing vancomycin 250mg po q6 pending biopsy results", And there is documentation under Addtl Attending Provider Instructions of, "You were admitted to the hospital for abdominal pain and diarrhea. Your C Diff testing came back negative, but the GI doctors are still concerned for a C Diff infection. You had a colonoscopy and biopsies where taken during the coloscopy. While we wait for the results of these biopsies we would like to continue to treat you with vancomycin. We would like you to take the vancomycin 250mg every 6 hours. We would like you to follow up with both your primary care provider and the GI doctors", and then the Supervising Physician documents, "Colitis, undifferentitated - GI consult - pending pathology, will continue vancomycin PO as noted and follow up with PCP and GI for further differentiation of disease/management". Please specify below, in your clinical opinion, the most likely type of colitis that was treated during this admission. ( ) Most likely Recurrence of C. Difficile Colitis (x) Most likely Other Colitis: Please Specify____Inconclusive pending further evaluation ( ) Most likely Colitis, Unspecified Infectious type ( ) Most likely Colitis, Unspecified Non-Infectious type Physician's Response(s): Thank you Darshana Collins Principal Diagnosis: "that condition established after study, to be chiefly responsible for occasioning the admission of the patient to the hospital for care." Co-Existing Principal Diagnosis: "when two or more diagnoses equally meet the criteria for principal diagnosis as determined by the circumstances of admission, diagnostic work up, and/or therapy provided, and the Alphabetic Index, Tabular List, or another coding guideline does not provide sequencing direction, any one of the diagnoses may be sequenced first." "When the physician has documented what appears to be a current diagnosis in the body of the record, but has not included the diagnosis in the final diagnostic statement, the physician should be asked whether the diagnosis should be added." (Source Coding [facility] 2 QTR90. p3-4) SAM
--- NOTE | 2022-02-12 12:00 | Coding Query ---
To promote full compliance with coding requirements relating to patient care, provider participation is requested in all cases of shock absorber installer uncertainty. Please assist us with the question(s) below: Coding Question(s): The diagnosis below was documented in the 02/04 Progress Note by the Supervising Physician, then subsequently fell off all further documentation. Please indicate if it is still a possible diagnosis or ruled out. Physician's Response(s): SEPSIS ( ) Diagnosed and POA ( ) Diagnosed and not POA (X ) Ruled out ( ) Other (please specify) MTDD
== END 2022-02-06 18:31 | disposition home or self-care (01) | DRG 392 ==
LOC: ED 18:46 → SUATTDRO 21:03 → 2W 21:03

== ENCOUNTER 2022-02-14 11:59 | Inpatient (IN) ==
[2022-02-14 12:36] LABS: Basophils % (auto) 0.9 %; Eosinophils # (auto) 0.61 K/uL (0-0.50); Eosinophils % (auto) 5.4 %; Hematocrit (blood only) 42.6 % (40.1-51.0); Hemoglobin 14.4 g/dl (14.0-18.0); Immature Granulocytes # (auto) 0.03 K/uL (0.00-0.02); Immature Granulocytes % (auto) 0.3 %; Lymphocytes # (auto) 1.86 K/uL (1.2-3.4); Lymphocytes % (auto) 16.6 %; Mean Corpuscular Hemoglobin 32.5 pg (25.0-34.0); Mean Corpuscular Hgb Conc 33.8 g/dL (32.0-36.0); Mean Corpuscular Volume 96.2 fL (80.0-100.0); Mean Platelet Volume 9.9 fL (9.4-12.4); Monocytes # (auto) 1.56 K/uL (0.24-0.82); Monocytes % (auto) 13.9 %; Neutrophils # (auto) 7.07 K/uL (1.4-6.5); Neutrophils % (auto) 62.9 %; Platelet Count 555 K/uL (130-400); RDW Coefficient of Variation 12.5 % (11.5-14.5); RDW Standard Deviation 44.9 fL (36.4-46.3); Red Blood Count 4.43 M/uL (4.63-6.08); White Blood Count 11.23 K/ul (4.8-10.8)
[2022-02-14 12:49] LABS: Partial Thromboplastin Time 26.8 Seconds (21.0-31.0); Prothrombin Time 10.3 Seconds (9.0-12.0)
[2022-02-14 13:07] LABS: Alanine Aminotransferase 26 U/L (7-52); Albumin Globulin Ratio 1.1 (0.9-2); Albumin Level 4.4 gm/dl (3.4-5.0); Alkaline Phosphatase 103 U/L (34-104); Anion Gap 8 (3-11); Aspartate Aminotransferase 25 U/L (13-39); BUN Creatinine Ratio 16.3 (10-20); Bilirubin,Total 0.4 mg/dl (0.2-1.0); Blood Urea Nitrogen 15 mg/dl (6-23); Calcium 10.1 mg/dl (8.5-10.1); Carbon Dioxide 29 mmol/L (21-32); Chloride 99 mmol/L (98-107); Est GFR (African American) 100.8 ml/min; Glucose 71 mg/dl (70-99(Fasting)); Potassium 4.7 mmol/L (3.5-5.1); Sodium 136 mmol/L (136-145); Total Protein 8.4 gm/dl (6.0-8.3)
[2022-02-14 13:14] LABS: Troponin I High Sensitivity 145.7 pg/ml (0-20)
[2022-02-14] MEDS ORDERED: ASPIRIN CHEW 324 MG PO STA (13:35)
--- NOTE | 2022-02-14 14:09 | XRay Report ---
XR chest 1V portable CLINICAL HISTORY: Chest pain, nonspecific TECHNIQUE: Single frontal radiograph of the chest was obtained. Comparison: Comparison is made to chest radiograph 02/09/2022 FINDINGS: No lines and tubes are seen. Calcified aortic knob is seen. The lungs are clear. No evidence of pleur al effusion or pneumothorax. IMPRESSION: No acute chest disease. ACT 112: Negative or not required by law. Electronically signed by: Herman Oakes M.D. 02/14/2022 2:07 PM
--- NOTE | 2022-02-14 14:32 | History & Physical Report ---
Date of Service February 14, 2022 Assessment & Plan (1) Chest pain: Plan: Patient reporting 5-7 days worth of left and right-sided chest pain, both at rest and with exertion, with associated shortness of breath. There is a change from his baseline of angina with more vigorous activity such as going up hills. Troponin on presentation is 145, though EKG is without any changes when compared to prior from just 2 weeks ago. He received full dose aspirin and Nitropaste in the ED. He does have a history of multiple stents, with most recent one being in 2017 and remains on a baby aspirin and Plavix daily. Currently considering whether this may be cardiac event vs simply due to being very dehydrated with current C diff infection and NPO status since last evening for a CTA of his abdomen and pelvis this AM. His Cr is a bit above baseline, improved from 02/09. We will trend the troponin, obtain echo and place cardiology consult to decide whether he may require cardiac catheterization--> I personally discussed the case with Dr. Curran, who is on-call for cardiology who evaluated the patient in the emergency room. Given his history and concern for unstable angina, he is consulted with Dr. Uribe who will bring patient to [facility] later on this evening. Patient's BP is moderately elevated, 5 mg IV Lopressor x2 ordered per cardiology recommendations. (2) PUD (peptic ulcer disease): Plan: EGD July 2019: Gastritis and nonbleeding gastric ulcers visualized. Ulcers at the time thought to be due to taking Motrin excessively alongside aspirin and Plavix. Remains on Protonix, Hgb stable today. History of alcohol use disorder, currently consumes 12 beers every few days, has gone several days without alcohol and has not withdrawn. On last admission he did not require any Ativan from [facility] protocol. (3) CAD (coronary artery disease): Plan: Multiple stents: mid LCx SERENE, 100% mid RCA September 2009, proximal LCx SERENE January 2016, ostial LCx SERENE October 2016 Continue aspirin and Plavix, losartan, metoprolol, statin. (4) PVD (peripheral vascular disease): (5) Recurrent Clostridioides difficile infection: Plan: Recently hospitalized for colitis, status gene toxin negative, however strongly felt by GI to be C. difficile. Continue vancomycin 250 mg every 6 hours. Contact precautions. (6) Anxiety: Plan: Continue Wellbutrin. (7) Chronic back pain: Plan: Continue baclofen TID, hydrocodone/Tylenol BID prn. Plan Admit to med/tle. SCDs for VTE ppx; hold on VTE ppx until decision made regarding heaprin gtt Full Code. History of Present Illness Chief Complaint: intermittent chest pain x 1 week Primary Care Provider: Lloyd Rosenthal MD Deshawn Whitaker is a 66-year-old male with a past medical history of recurrent C. difficile, PUD, CAD, PVD, hyperlipidemia, hypertension, and anxiety who is presenting today with 5 days worth of right and left chest pain. He was rece ntly hospitalized 02/03- for colitis, most likely to be related to C. difficile infection. He states for the first day or two after discharge he had been feeling well, however for the past 5 days had a right and left sided chest pain is more like a pressure sensation. It comes on both at rest and with activity, sometimes radiates down into his right arm. He also notes some associated shortness of breath. Earlier this week, he took nitro tabs on 2 separate occasions with alleviation of the pain, however last night had pain for several hours and had to take 4 doses of his nitro before the pain was resolved. Currently chest pain is a 3 out of 10, left-sided pressure-like without radiation. On presentation he did receive full dose aspirin and Nitropaste has been ordered. He is hypertensive 177/98, HR was 94 at presentation, otherwise vital signs are within normal limits. Labs remarkable for troponin of 145 and WBC of 11.23, platelets 555, may be due to dehydration, Hgb within normal limits. CXR shows no acute chest disease. Allergies Allergy/AdvReac Type Severity Reaction Status Date / Time Penicillins Allergy Severe "CIRCULATORY Verified 02/06/22 09:55 SHUTDOWN" Home Medications Medication Instructions Recorded Confirmed Type baclofen 10 mg tablet 20 mg PO TID 11/13/17 02/03/22 History hydrocodone 10 mg-acetaminophen 1 tab PO BID PRN Pain 11/13/17 02/03/22 History 325 mg tablet cholecalciferol (vitamin D3) 125 5,000 unit PO QAM 02/18/18 02/03/22 History mcg (5,000 unit) tablet (Vitamin D3) multivitamin 1 tab PO QAM 02/18/18 02/03/22 History pantoprazole 40 mg tablet,delayed 40 mg PO BID #60 tabs 07/17/19 02/03/22 Rx release amlodipine 10 mg tablet 10 mg PO QPM #90 tabs 05/20/20 02/03/22 Rx losartan 100 mg tablet 100 mg PO QAM #90 tabs 05/20/20 02/03/22 Rx simvastatin 80 mg tablet 80 mg PO PM #90 tabs 05/20/20 02/03/22 Rx clopidogrel 75 mg tablet (Plavix) 75 mg PO DAILY #90 tabs 05/29/21 02/06/22 Rx metoprolol tartrate 100 mg tablet 50 mg PO BID #90 tabs 05/29/21 02/03/22 Rx nitroglycerin 0.4 mg sublingual 0.4 mg sublingual UD PRN Angina 08/08/21 02/03/22 Rx tablet #30 tabs bupropion HCl 150 mg tablet,12 hr 150 mg PO BID 02/03/22 02/03/22 History sustained-release vancomycin 250 mg capsule 250 mg PO Q6H 10 days #40 caps 02/06/22 Rx Past Med/Surg History Medical History Alcohol use Anxiety BPH (benign prostatic hyperplasia) CAD (coronary artery disease) Chronic back pain Chronic prescription opiate use Diverticulosis Dupuytren's contracture of hand GERD (gastroesophageal reflux disease) History of Clostridioides difficile colitis Hx of gastric ulcer Hyperlipidemia Hypertension Left ventricular hypertrophy On anticoagulant therapy plavix d/t stents Peripheral neuropathy Surgical History History of cardiac cath x3 @ [facility] follow with Dr. Zamora History of hand surgery x6 (4 on right, 2 on left) d/t Dupuytren's History of heart artery stent 2009 x2, 2015 x1, 2017 x1--@ [facility] History of intravascular stent placement RIGHT LEG History of procedure for peripheral vascular disease 2012 Dr. Granger History of removal of cyst from groin History of surgery RIGHT LEG R/T TRAUMA [place] teeth removed Family History Sister Family history of reaction to anesthesia difficulty waking and nausea Mother Family history of reaction to anesthesia difficulty waking and nausea Peptic ulcer disease Father , in his 40s Cerebral aneurysm Social History Smoking Status: Former smoker packs per day: 1; Second Hand Exposure: No; Hx Alcohol Use: No Hx Substance Use: No Preferred Language: [place] Communication Ability: Effective Telephone Answerer Required: No Beliefs That Will Affect Care: None marital status: Current Living Situation: Spouse current occupational status: retired 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 Feels Safe at Home: Yes Assistive Devices: None Review of Systems Review of Systems: Constitutional: No fever/chills, weakness, fatigue, myalgias, anorexia, night sweats Eyes: No diplopia, no worsening or blurred vision ENT: normal hearing, no trouble swallowing Respiratory: No cough, sputum, dyspnea at rest or on exertion Cardiovascular: Chest pain with rest and minor exertion right and left-sided with radiation down right arm, intermittent x1-2 weeks Abdomen: No pain, nausea, vomiting, diarrhea or constipation : Denies dysuria, hematuria, increased urgency/frequency, urinary retention Musculoskeletal: No joint pain, calf pain, swelling Neurologic: No weakness, numbness/tingling, or balance problems Psychiatric: No anxiety or depression Skin: No rash or itch Physical Exam Physical Exam: General: awake, alert, no apparent distress Head: Normocephalic, atraumatic ENT: PERRL, EOMI, no pharyngeal exudate, mucous membranes moist Chest: Clear to auscultation, on room air, no adventitious breath sounds Cardiac: Regular rate and rhythm, no murmur, no JVD, normal peripheral pulses, good capillary refill Abdominal: NABS x 4 quadrants, soft, nontender to palpation, no rebound, guarding or tenderness Extremities: Normal inspection, no peripheral edema or erythema, calfs nontender to palpation Psych: Normal mood and affect Neuro: AAO x 3, strength intact bilaterally and rated 5/5, no motor deficits, speech is clear, no peripheral sensory deficits Skin: no rash or erythema Results & Data Results & Data ([facility]) Vital Signs (Past 12 Hours) Vital Signs Pulse Pulse Resp BP BP Pulse Ox O2 Del Method 02/14/22 13:33 97 02/14/22 13:33 75 15 177/98 H 97 02/14/22 13:25 Room Air 02/14/22 11:59 94 H 20 133/75 96 Room Air Laboratory Results Abnormal lab results 02/14/22 02/14/22 Range/Units 12:20 12:20 WBC 11.23 H (4.8-10.8) K/ul RBC 4.43 L (4.63-6.08) M/uL Plt Count 555 H (130-400) K/uL Neut # (Auto) 7.07 H (1.4-6.5) K/uL [place] # (Auto) 1.56 H (0.24-0.82) K/uL Eos # (Auto) 0.61 H (0-0.50) K/uL Immature Gran # (Auto) 0.03 H (0.00-0.02) K/uL Troponin I High Sens 145.7 H* (0-20) pg/ml Total Protein 8.4 H (6.0-8.3) gm/dl Diagnostic Findings Chest X-Ray 02/14/22 12:03 XR chest 1V portable CLINICAL HISTORY: Chest pain, nonspecific TECHNIQUE: Single frontal radiograph of the chest was obtained. Comparison: Comparison is made to chest radiograph 02/09/2022 FINDINGS: No lines and tubes are seen. Calcified aortic knob is seen. The lungs are clear. No evidence of pleural effusion or pneumothorax. IMPRESSION: No acute chest disease. ACT 112: Negative or not required by law. Electronically signed by: Herman Oakes M.D. 02/14/2022 2:07 PM ECG Additional Comments: Sinus bradycardia Septal infarct (cited on or before 14-FEB-2022) Abnormal ECG When compared with ECG of 04-FEB-2022 10:42, Questionable change in initial forces of Anterior leads Confirmed by Jose G Zamora ([id number]) on 02/14/2022 2:35:01 PM Supervising Physician Co-Signing Physician Notes Patient seen and examined, chart reviewed, case discussed with Elina Cobos and I agree with the assessment and plan as above except as otherwise noted Labs and images reviewed 66-year-old male with a history of CAD with PCI and recent history of C. difficile on treatment with oral vancomycin who presents with worsening intermittent chest pain associated with dyspnea normal with exertion but now which occurs also at rest concerning for unstable angina. At time of bedside assessment he is not having chest pain, fever, chills, lightheadedness, dizziness but endorses that he has had chest pain up until receiving nitro which improved his pain although caused slight headache. Reports that his chest pain has resolved with nitro, but has taken nitro several times overnight for recurrent pain. At bedside heart rate is regular, blood pressure is reasonably well controlled. Lungs are clear. EKG is without acute changes compared to prior, however given history concerning for unstable angina with change in quality and frequency of pain and now occurring at rest in addition to troponin cardiology/interventional cardiology were consulted. Was thought to be high risk and proceeded to cardiac catheterization, no new disease was noted. We will continue with maximal medical therapy at this time. Agree with assessment/treatment above PG Care Time/CCT Total # of Minutes Spent Total Time Spent with Patient: Total time spent is greater than 50% in coordination of care (as documented) at patient's floor/unit and/or counseling patient: Coding Level of Care Code 29183 Initial Inpt Care Lvl 3 Diagnoses Chest pain R07.9 PUD (peptic ulcer disease) K27.9 CAD (coronary artery disease) I25.10 PVD (peripheral vascular disease) I73.9 Recurrent Clostridioides difficile infection A49.8 Anxiety F41.9 Chronic back pain M54.9; G89.29
--- NOTE | 2022-02-14 14:35 | Electrocardiogram Report ---
Test Reason : Blood Pressure : / mmHG Vent. Rate : 054 BPM Atrial Rate : 054 BPM P-R Int : 152 ms QRS Dur : 070 ms QT Int : 430 ms P-R-T Axes : 037 -02 043 degrees QTc Int : 407 ms Sinus bradycardia Septal infarct (cited on or before 14-FEB-2022) Abnormal ECG When compared with ECG of 04-FEB-2022 10:42, Questionable change in initial forces of Anterior leads Confirmed by Jose G Zamora ([id number]) on 02/14/2022 2:35:01 PM Referred By: Confirmed By:Jose G Zamora
[2022-02-14] MEDS: NITROGLYCERIN 2% OINTMENT 30GM TUBE EXT SCH ×2 (14:44→19:49)
--- NOTE | 2022-02-14 14:55 | Emergency Department Note ---
Impression & Plan Chest pain, CAD (coronary artery disease), Hypertension ED Provider Note NAME: MARIANNA ARMAS AGE: 66 SEX: M : 1955 ARRIVES VIA: Ambulance INFORMANT: Patient ED PROVIDER(S): Imer Scott DO CHIEF COMPLAINT: chest pain HPI: Patient is a 66-year-old male with a past medical history of CAD, with a past medical history of CAD, CIERA, alcohol use, hypertension, pericarditis, and hyponatremia as well as hyperlipidemia that presents the ER for chest pain. He notes has been having chest pain persistently on the left side of his chest for the past 10 days. Recently over the past week he has been having it off and on on the right side of his chest going down the right arm worse with exertion but improves with rest. Admits to some mild shortness of breath with this. Story regards to his chest pain has changed multiple times. Initially said he has no chest pain at this time and then changed his mind. Left-sided chest pain which is constant for the past 2 weeks is still present but the right side that comes and goes with exertion is currently gone. Both feel like a pressure. He was referred in for further evaluation. ROS: See above HPI for pertinent positives & negatives. A total of 10 systems reviewed and were otherwise negative. PAST MEDICAL HISTORY:See Below PAST SURGICAL HISTORY:See Below FAMILY HISTORY:See Below SOCIAL HISTORY:See Below HOME MEDICATIONS:See Below ALLERGIES:See Below VITALS:See Below PHYSICAL EXAMINATION: GENERAL: Sitting up in bed, alert, well appearing, well nourished, no distress, non-toxic EYE EXAM: normal conjunctiva. OROPHARYNX: no exudate, no erythema, lips, buccal mucosa, and tongue normal and mucous membranes are moist NECK: supple, no nuchal rigidity, no adenopathy, non-tender LUNGS: Clear to auscultation. Normal chest wall mechanics HEART: no murmurs, S1 normal and S2 normal ABDOMEN: abdomen soft, non-tender, normo-active bowel sounds, no masses, no rebound or guarding. UPPER EXTREMITIES: upper extremities are grossly normal. LOWER EXTREMITIES: No pitting edema. Calves are equal bilateral NEURO EXAM: Normal sensorium, cranial nerves II-XII grossly intact, normal speech, no gross weakness of arms, no gross weakness of legs. MEDICAL DECISION MAKING: Patient is a 66-year-old male with a past medical history of CAD and pericarditis who presents the ER for chest pain which has been off and on for the past week as well as a persistent pain which has been present for the past 10 days. IV was established blood work was obtained. Labs were obtained in tri age and was called back once the positive troponin resulted. Labs show mild leukocytosis of 11,000. No significant anemia. INR unremarkable. BMP was remarkable for troponin of 1.45 which is significantly elevated. Alcohol was negative. Triage Nursing notes reviewed. Limited review of prior medical records performed Vital Signs: reviewed and remarkable for HTN Differential diagnosis: Cardiac ischemia, aortic dissection, pulmonary embolism, pneumothorax, pneumonia, pericarditis, myocarditis, esophageal rupture, GERD, cholecystitis, pancreatitis, musculoskeletal, as well as other pathologies. ER treatment provided: See below Diagnostics interpreted by me: ECG: Sinus rhythm rate 75 Normal axis No PVCs QTC 407 Septal Q waves No significant change from previous Cardiac Monitoring: An order was placed for continuous cardiac monitoring. The monitor shows a rate of 80 with sinus rhythm. Laboratory studies: As stated above and show below. Imaging studies: Portable AP upright 1 view chest unremarkable Consultation(s): Discussed with alda kowalski for further evaluation Procedures: none Critical Care: None Past Med/Surg History Medical History Alcohol use Anxiety BPH (benign prostatic hyperplasia) CAD (coronary artery disease) Chronic back pain Chronic prescription opiate use Diverticulosis Dupuytren's contracture of hand GERD (gastroesophageal reflux disease) History of Clostridioides difficile colitis Hx of gastric ulcer Hyperlipidemia Hypertension Left ventricular hypertrophy On anticoagulant therapy plavix d/t stents Peripheral neuropathy Surgical History History of cardiac cath x3 @ [facility] follow with Dr. Zamora History of hand surgery x6 (4 on right, 2 on left) d/t Dupuytren's History of heart artery stent 2009 x2, 2015 x1, 2017 x1--@ [facility] History of intravascular stent placement RIGHT LEG History of procedure for peripheral vascular disease 2012 Dr. Granger History of removal of cyst from groin History of surgery RIGHT LEG R/T TRAUMA [place] teeth removed Family History Sister Family history of reaction to anesthesia difficulty waking and nausea Mother Family history of reaction to anesthesia difficulty waking and nausea Peptic ulcer disease Father , in his 40s Cerebral aneurysm Social History Smoking Status: Former smoker packs per day: 1; Second Hand Exposure: No; Hx Alcohol Use: No Hx Substance Use: No Preferred Language: [place] Communication Ability: Effective Aerial Sprayer Required: No Beliefs That Will Affect Care: None marital status: Current Living Situation: Spouse current occupational status: retired 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 Feels Safe at Home: Yes Assistive Devices: None Allergies Allergies Allergy/AdvReac Type Severity Reaction Status Date / Time Penicillins Allergy Severe "CIRCULATORY Verified 02/06/22 09:55 SHUTDOWN" Home Meds Home Medications Medication Instructions Recorded Confirmed baclofen 10 mg tablet 20 mg PO TID 11/13/17 02/03/22 hydrocodone 10 mg-acetaminophen 1 tab PO BID PRN Pain 11/13/17 02/03/22 325 mg tablet cholecalciferol (vitamin D3) 125 5,000 unit PO QAM 02/18/18 02/03/22 mcg (5,000 unit) tablet (Vitamin D3) multivitamin 1 tab PO QAM 02/18/18 02/03/22 bupropion HCl 150 mg tablet,12 hr 150 mg PO BID 02/03/22 02/03/22 sustained-release Previous Rx's Medication Instructions Recorded pantoprazole 40 mg tablet,delayed 40 mg PO BID #60 tabs 07/17/19 release amlodipine 10 mg tablet 10 mg PO QPM #90 tabs 05/20/20 losartan 100 mg tablet 100 mg PO QAM #90 tabs 05/20/20 simvastatin 80 mg tablet 80 mg PO PM #90 tabs 05/20/20 clopidogrel 75 mg tablet (Plavix) 75 mg PO DAILY #90 tabs 05/29/21 metoprolol tartrate 100 mg tablet 50 mg PO BID #90 tabs 05/29/21 nitroglycerin 0.4 mg sublingual 0.4 mg sublingual UD PRN Angina 08/08/21 tablet #30 tabs vancomycin 250 mg capsule 250 mg PO Q6H 10 days #40 caps 02/06/22 Results & Data (ED) Vital Signs Vital Signs - 24 hr 02/14/22 11:59 02/14/22 13:25 02/14/22 13:33 Pulse Rate 94 H Pulse Rate [Apical] 75 Pulse Rhythm Regular Pulse Rhythm [Apical] Regular Pulse Strength Normal Respiratory Rate 20 15 Respiratory Effort / Characteristics Non-Labored Spontaneous Respiratory Depth Normal Normal Respiratory Pattern Regular Blood Pressure 133/75 Blood Pressure [Right Arm] 177/98 H Blood Pressure Mean 94 Blood Pressure Mean [Right Arm] 124 Blood Pressure Position Sitting Pulse Oximetry 96 97 Oxygen Delivery Method Room Air Room Air Sepsis Recent Fever Within 48 Hours No Sepsis New/Unexplained Change in Mental Status No Sepsis Action Taken by Nursing No Action Required 02/14/22 13:33 Pulse Rate Pulse Rate [Apical] Pulse Rhythm Pulse Rhythm [Apical] Pulse Strength Respiratory Rate Respiratory Effort / Characteristics Respiratory Depth Respiratory Pattern Blood Pressure Blood Pressure [Right Arm] Blood Pressure Mean Blood Pressure Mean [Right Arm] Blood Pressure Position Pulse Oximetry 97 Oxygen Delivery Method Sepsis Recent Fever Within 48 Hours Sepsis New/Unexplained Change in Mental Status Sepsis Action Taken by Nursing Laboratory Data Result diagrams: 02/14/22 12:20 02/14/22 12:20 Lab Results 02/14/22 02/14/22 02/14/22 Range/Units 12:20 12:20 12:20 WBC 11.23 H (4.8-10.8) K/ul RBC 4.43 L (4.63-6.08) M/uL Hgb 14.4 (14.0-18.0) g/dl Hct 42.6 (40.1-51.0) % MCV 96.2 (80.0-100.0) fL MCH 32.5 (25.0-34.0) pg MCHC 33.8 (32.0-36.0) g/dL RDW Std Deviation 44.9 (36.4-46.3) fL RDW Coeff of [place] 12.5 (11.5-14.5) % Plt Count 555 H (130-400) K/uL MPV 9.9 (9.4-12.4) fL Immature Gran % (Auto) 0.3 % Neut % (Auto) 62.9 % Lymph % (Auto) 16.6 % [place] % (Auto) 13.9 % Eos % (Auto) 5.4 % Baso % (Auto) 0.9 % Neut # (Auto) 7.07 H (1.4-6.5) K/uL Lymph # (Auto) 1.86 (1.2-3.4) K/uL [place] # (Auto) 1.56 H (0.24-0.82) K/uL Eos # (Auto) 0.61 H (0-0.50) K/uL Baso # (Auto) 0.10 (0-0.2) K/uL Immature Gran # (Auto) 0.03 H (0.00-0.02) K/uL PT 10.3 (9.0-12.0) Seconds INR 1.0 (0.9-1.1) APTT 26.8 (21.0-31.0) Seconds PTT Ratio 1.0 Sodium 136 (136-145) mmol/L Potassium 4.7 (3.5-5.1) mmol/L Chloride 99 (98-107) mmol/L Carbon Dioxide 29 (21-32) mmol/L Anion Gap 8 (3-11) BUN 15 (6-23) mg/dl Creatinine 0.92 (0.6-1.4) mg/dl Est Cr Clr Drug Dosing Not Reportable Est GFR ( Amer) 100.8 ml/min Est GFR (Non-Af Amer) 87.0 ml/min BUN/Creatinine Ratio 16.3 (10-20) Glucose 71 (70-99(Fasting)) mg/dl Calcium 10.1 (8.5-10.1) mg/dl Total Bilirubin 0.4 (0.2-1.0) mg/dl AST 25 (13-39) U/L ALT 26 (7-52) U/L Alkaline Phosphatase 103 (34-104) U/L Troponin I High Sens 145.7 H* (0-20) pg/ml Total Protein 8.4 H (6.0-8.3) gm/dl Albumin 4.4 (3.4-5.0) gm/dl Globulin 4.0 (2.5-4.0) gm/dl Albumin/Globulin Ratio 1.1 (0.9-2) Ethyl Alcohol mg/dL (<10.0) mg/dl 02/14/22 Range/Units 14:00 WBC (4.8-10.8) K/ul RBC (4.63-6.08) M/uL Hgb (14.0-18.0) g/dl Hct (40.1-51.0) % MCV (80.0-100.0) fL MCH (25.0-34.0) pg MCHC (32.0-36.0) g/dL RDW Std Deviation (36.4-46.3) fL RDW Coeff of [place] (11.5-14.5) % Plt Count (130-400) K/uL MPV (9.4-12.4) fL Immature Gran % (Auto) % Neut % (Auto) % Lymph % (Auto) % [place] % (Auto) % Eos % (Auto) % Baso % (Auto) % Neut # (Auto) (1.4-6.5) K/uL Lymph # (Auto) (1.2-3.4) K/uL [place] # (Auto) (0.24-0.82) K/uL Eos # (Auto) (0-0.50) K/uL Baso # (Auto) (0-0.2) K/uL Immature Gran # (Auto) (0.00-0.02) K/uL PT (9.0-12.0) Seconds INR (0.9-1.1) APTT (21.0-31.0) Seconds PTT Ratio Sodium (136-145) mmol/L Potassium (3.5-5.1) mmol/L Chloride (98-107) mmol/L Carbon Dioxide (21-32) mmol/L Anion Gap (3-11) BUN (6-23) mg/dl Creatinine (0.6-1.4) mg/dl Est Cr Clr Drug Dosing Est GFR ( Amer) ml/min Est GFR (Non-Af Amer) ml/min BUN/Creatinine Ratio (10-20) Glucose (70-99(Fasting)) mg/dl Calcium (8.5-10.1) mg/dl Total Bilirubin (0.2-1.0) mg/dl AST (13-39) U/L ALT (7-52) U/L Alkaline Phosphatase (34-104) U/L Troponin I High Sens (0-20) pg/ml Total Protein (6.0-8.3) gm/dl Albumin (3.4-5.0) gm/dl Globulin (2.5-4.0) gm/dl Albumin/Globulin Ratio (0.9-2) Ethyl Alcohol mg/dL < 10.0 (<10.0) mg/dl Administered Medications Nitroglycerin (Nitroglycerin 2% Ointment 30gm Tube) 2 inch EXT Q6H ALAN Stop: 03/16/22 13:59 Last Admin: 02/14/22 14:44 Dose: 2 inch Documented By: KV Discontinued Medications Aspirin (Aspirin Chew 324 Mg) 324 mg PO NOW STA Stop: 02/14/22 13:36 Last Admin: 02/14/22 13:54 Dose: 324 mg Documented By: KV Imaging Data Radiologist's Impression: Chest X-Ray 02/14/22 12:03 XR chest 1V portable CLINICAL HISTORY: Chest pain, nonspecific TECHNIQUE: Single frontal radiograph of the chest was obtained. Comparison: Comparison is made to chest radiograph 02/09/2022 FINDINGS: No lines and tubes are seen. Calcified aortic knob is seen. The lungs are clear. No evidence of pleural effusion or pneumothorax. IMPRESSION: No acute chest disease. ACT 112: Negative or not required by law. Electronically signed by: Herman Oakes M.D. 02/14/2022 2:07 PM Discharge Plan Visit Data Chief Complaint: Chest Pain ED Provider: Imer Scott Discharge Problem: Chest pain, CAD (coronary artery disease), Hypertension Forms Stand Alone Forms: My [facility] [employer] Prescriptions Prescriptions: No Action amlodipine 10 mg tablet 10 mg PO QPM Qty: 90 3RF losartan 100 mg tablet 100 mg PO QAM Qty: 90 3RF simvastatin 80 mg tablet 80 mg PO PM Qty: 90 3RF clopidogrel [Plavix] 75 mg tablet 75 mg PO DAILY Qty: 90 3RF metoprolol tartrate 100 mg tablet 50 mg PO BID Qty: 90 3RF nitroglycerin 0.4 mg tablet, sublingual 0.4 mg Sublingual UD PRN (Reason: Angina) Qty: 30 3RF cholecalciferol (vitamin D3) [Vitamin D3] 5,000 unit Tablet 5,000 unit PO QAM multivitamin Tablet 1 tab PO QAM baclofen 10 mg Tablet 20 mg PO TID hydrocodone-acetaminophen 10-325 mg Tablet 1 tab PO BID PRN (Reason: Pain) pantoprazole 40 mg tablet,delayed release (DR/EC) 40 mg PO BID Qty: 60 0RF bupropion HCl 150 mg tablet sustained-release 12 hr 150 mg PO BID vancomycin 250 mg capsule 250 mg PO Q6H 10 Days Qty: 40 0RF Referrals Referrals: Lloyd Rosenthal MD [Primary Care Provider] -
[2022-02-14] MEDS ORDERED: LACTATED RINGER'S 1,000 ML IV ONE (15:26)
[2022-02-14] MEDS ORDERED: RASPBERRY SYRUP 5 ML UDP PO STA (15:26)
[2022-02-14] MEDS ORDERED: VANCOMYCIN HCL 250 MG/5 ML SOLN PO ONE (15:30)
--- NOTE | 2022-02-14 15:54 | Cardiology Consultation ---
Date of Consultation February 14, 2022 Assessment & Plan (1) Unstable angina: -history notes increasing episodes of angina pectoris over the last 2 weeks. -at symptoms last evening while at rest, required 4 sublingual nitroglycerin tablets. -high sensitivity troponin elevated 145.7. -discussed with Dr. Uribe who will take the patient to the [facility] later today. . (2) CAD (coronary artery disease): -3 stents within the LCx as described above. -catheterization October 2016 noted a 40-50% in stent restenosis within the mid and proximal LCx stents. -known not 100% mid RCA stenosis with good distal collateralization. (3) Hypertension: -continue metoprolol tartrate, amlodipine, and losartan. -suggest 1 or 2 doses of metoprolol tartrate 5 mg IV for elevated blood pressure. (4) Hypercholesterolemia: -consider a change from simvastatin to atorvastatin 80 mg q.h.s.. History of Present Illness History of Present Illness Mr. Whitaker is a 66-year-old male admitted earlier today with crescendo angina pectoris. This consultation was ordered to assist in his cardiac management. Of note, the patient is well known to me from the outpatient setting. The patient was in his usual state of health until approximately 1-2 weeks ago. He began to note frequent episodes of his typical angina pectoris both at rest and with physical activity. He described a substernal chest heaviness that radiates to the shoulders and down his right arm. Occasionally, there was associated shortness of breath. No nausea, vomiting, or diaphoresis. His discomfort typically resolves after single nitroglycerin tablet. However, he had to take 4 nitroglycerin tablets last evening to resolve his discomfort. He does have a longstanding history of coronary artery disease. He underwent placement of a SERENE in the mid LCx in November 2009. He was found have a 100% mid RCA occlusion with good distal collateralization at that time. He did well until January 2016 when he again had an unstable syndrome and had a SERENE placed in the proximal LCx. In October 2016, he again experienced an unstable coronary syndrome. He had a SERENE placed in the ostial LCx and a POBA of the ramus intermedius. Other disease included a 40-50% in stent stenosis within the proximal and mid LCx stents. Currently, patient is resting comfortably in bed but complains of a 2-3/10 chest discomfort. Past medical and surgical history 1. Coronary artery disease-see above 2. Mid LCX SERENE-November 2009 3. Proximal LCX SERENE-January 2016 4. Ostial LCX SERENE-October 2016 5. POBA ramus intermedius-October 2016 6. Chronic stable angina pectoris 7. Hypertension 8. Left ventricle hypertrophy 9. Hypercholesterolemia 10. Peripheral vascular disease 11. GERD 12. Peripheral neuropathy 13. Diverticulitis 14. Chronic low back pain 15. BPH 16. Anxiety 17. Right common iliac stent-2012 18. Dupuytren's contracture release Social history and lives with his Quit tobacco 2017, 40 pack year history Occasional alcohol Family history Noncontributory Review of systems A 10 review systems was undertaken and negative except that described above. Allergies Allergy/AdvReac Type Severity Reaction Status Date / Time Penicillins Allergy Severe "CIRCULATORY Verified 02/06/22 09:55 SHUTDOWN" Home Medications Medication Instructions Recorded Confirmed Type baclofen 10 mg tablet 20 mg PO TID 11/13/17 02/03/22 History hydrocodone 10 mg-acetaminophen 1 tab PO BID PRN Pain 11/13/17 02/03/22 History 325 mg tablet cholecalciferol (vitamin D3) 125 5,000 unit PO QAM 02/18/18 02/03/22 History mcg (5,000 unit) tablet (Vitamin D3) multivitamin 1 tab PO QAM 02/18/18 02/03/22 History pantoprazole 40 mg tablet,delayed 40 mg PO BID #60 tabs 07/17/19 02/03/22 Rx release amlodipine 10 mg tablet 10 mg PO QPM #90 tabs 05/20/20 02/03/22 Rx losartan 100 mg tablet 100 mg PO QAM #90 tabs 05/20/20 02/03/22 Rx simvastatin 80 mg tablet 80 mg PO PM #90 tabs 05/20/20 02/03/22 Rx clopidogrel 75 mg tablet (Plavix) 75 mg PO DAILY #90 tabs 05/29/21 02/06/22 Rx metoprolol tartrate 100 mg tablet 50 mg PO BID #90 tabs 05/29/21 02/03/22 Rx nitroglycerin 0.4 mg sublingual 0.4 mg sublingual UD PRN Angina 08/08/21 02/03/22 Rx tablet #30 tabs bupropion HCl 150 mg tablet,12 hr 150 mg PO BID 02/03/22 02/03/22 History sustained-release vancomycin 250 mg capsule 250 mg PO Q6H 10 days #40 caps 02/06/22 Rx Patient History Medical History Alcohol use Anxiety BPH (benign prostatic hyperplasia) CAD (coronary artery disease) Chronic back pain Chronic prescription opiate use Diverticulosis Dupuytren's contracture of hand GERD (gastroesophageal reflux disease) History of Clostridioides difficile colitis Hx of gastric ulcer Hyperlipidemia Hypertension Left ventricular hypertrophy On anticoagulant therapy plavix d/t stents Peripheral neuropathy Surgical History History of cardiac cath x3 @ [facility] follow with Dr. Zamora History of hand surgery x6 (4 on right, 2 on left) d/t Dupuytren's History of heart artery stent 2009 x2, 2015 x1, 2017 x1--@ [facility] History of intravascular stent placement RIGHT LEG History of procedure for peripheral vascular disease 2012 Dr. Granger History of removal of cyst from groin History of surgery RIGHT LEG R/T TRAUMA [place] teeth removed Family History Sister Family history of reaction to anesthesia difficulty waking and nausea Mother Family history of reaction to anesthesia difficulty waking and nausea Peptic ulcer disease Father , in his 40s Cerebral aneurysm Social History Smoking Status: Former smoker packs per day: 1; Second Hand Exposure: No; Hx Alcohol Use: No Hx Substance Use: No Preferred Language: Slovak Communication Ability: Effective Fagot Maker Required: No Beliefs That Will Affect Care: None marital status: Current Living Situation: Spouse 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 HEENT exam is negative. Neck reveals jordan l carotid upstroke s without bruits. No jugular venous distension. There is no thyromegaly. Cardiovascular ex am reveals a regul ar rhythm with a n ormal S1 and S2. N o murmurs, S3, S4, or rubs are noted . Lungs are clear without rales, rho nchi, or wheezes. Abdomen is soft wi thout bruits. Extr emities reveal int act radial artery and posterior tibi al pulses bilatera lly. There is no p eripheral edema. Results & Data ([facility]) Vital Signs (Past 12 Hours) Vital Signs Pulse Pulse Resp BP BP Pulse Ox O2 Del Method 02/14/22 13:33 97 02/14/22 13:33 75 15 177/98 H 97 02/14/22 13:25 Room Air 02/14/22 11:59 94 H 20 133/75 96 Room Air Laboratory Results CBC notes hemoglobin 14.4, hematocrit 42.6, white count 11.2, a platelet count [id number]. Electrolytes note a sodium 136, potassium 4.7, chloride 99, bicarb 29, BUN 15, creatinine 0.92, glucose of 71. High sensitivity troponin 145.7. Diagnostic Findings EKG notes sinus bradycardia and an old anteroseptal myocardial infarction pattern. Chest x-ray shows no acute disease. PG Care Time/CCT Total # of Minutes Spent Total Time Spent with Patient: Total time spent is greater than 50% in coordination of care (as documented) at patient's floor/unit and/or counseling patient: Coding Level of Care Code 79626 Initial Inpt Care Lvl 3 Diagnoses Unstable angina I20.0 CAD (coronary artery disease) I25.10 Hypertension I10 Hypercholesterolemia E78.00
[2022-02-14] MEDS ORDERED: METOPROLOL TARTRATE 1 MG/ML VIAL IV STA (16:26)
[2022-02-14] MEDS ORDERED: LIDOCAINE 1% LOCAL 20 ML VIAL ONE (17:05)
--- NOTE | 2022-02-14 17:08 | Pre Anesthesia Assessment ---
Date of Service February 14, 2022 Pre Sedation Assessment Vital Signs Pulse Pulse Resp BP BP Pulse Ox O2 Del Method 02/14/22 16:38 67 18 169/103 H 95 Room Air 02/14/22 16:35 68 166/94 H 02/14/22 15:53 64 18 164/79 H 96 Room Air 02/14/22 13:33 97 02/14/22 13:33 75 15 177/98 H 97 02/14/22 13:25 Room Air 02/14/22 11:59 94 H 20 133/75 96 Room Air Cardiovascular RRR, no murmur, no edema Respiratory normal respiratory effort, lungs clear to auscultation Pre-Sedation Airway Assessment Smoking Status: Former smoker Thyromental Distance: < 3.5 Finger Breadths Oral Cavity: + WNL Mallampati Class: III ASA: ASA3 Procedure Planning Contraindications for Sedation: none Current Medications Reviewed: Yes Notes The planned sedation has been discussed with the patient. Informed Consent was obtained. I have identified the patient, determined the appropriateness of sedation and have assessed the patient immediately prior to the procedure. All medicine(s) and interventions are by my order.
--- NOTE | 2022-02-14 17:39 | Post Anesthesia Assessment ---
Date of Service February 14, 2022 Post Sedation Assessment Vital Signs Pulse Pulse Resp BP BP Pulse Ox O2 Del Method 02/14/22 16:38 67 18 169/103 H 95 Room Air 02/14/22 16:35 68 166/94 H 02/14/22 15:53 64 18 164/79 H 96 Room Air 02/14/22 13:33 97 02/14/22 13:33 75 15 177/98 H 97 02/14/22 13:25 Room Air 02/14/22 11:59 94 H 20 133/75 96 Room Air Recovery Score Activity: Moves 4 extremities Respiration: Deep Breath/Cough Circulation: +/-20% PreAnes Value Consciousness: Fully Awake Oxygen Saturation: O2 needed for >90% Discharge Sedation Level of Care: Fast Track Phase II Post Sedation Plan On clinical assessment, the patient appears to have tolerated the sedation without complications. Patient is recovering as anticipated. Patient will continue to be monitored by nursing and may be discharged when sedation discharge criteria are met per below protocol. Upon Completions of procedure up to 15 minutes continue every 5 minute vital signs and the P.A.R. score; then discharge to a Phase I or Fast Track to Phase II per the following guidelines: * Discharge Patient to appropriate Phase II area if PAR is 8 or greater or return to pre- procedure baseline. The post - procedure orders will be as directed. * If PAR score is less than 8 or not return to pre-procedure baseline then patient will follow Phase I monitoring till PAR is reached for Phase II. The Phase I may be done in procedure room or may call to secure a Phase I area. * If naloxone or flumazenil are used for reversal, hold in Phase I for continued monitoring from when last reversal dose was given for a minimum of 60 minutes or longer pending the nurse and/or physician discretion of patient condition before discharge to Phase II. Please call the Sedation Physician to re-evaluate and complete post-note for discharge to Phase II area. Do NOT discharge from procedure sedation or Phase 1 until post- sedation evaluation note is complete by procedure /sedation MD Sedation Discharge Instructions to be given to the patient at discharge to home.
--- NOTE | 2022-02-14 18:00 | Cardiac Catheterization ---
[facility] Data: Display Decorator Cardiac Status Clinical evaluation leading to the procedure CAD Presenation: Non STEMI Anginal Classification: CCS IV Diagnostic Physicians Name: Melecio Uribe MD Closure Device Recommendations: Medical Therapy and/or Counseling Cardiac Cath Procedure Full Procedure Date February 14, 2022 Pre-Procedure Diagnosis Pre-Procedure Diagnosis: Non STEMI AUC Score AUC Score: 8 Post-Procedure Diagnosis Post-Procedure Diagnosis: Severe CAD and Normal Intracardiac Pressures Procedure(s) Performed Procedure(s) Performed: Coronary Angiography and Left Heart Cath Herpetologist Melecio Uribe MD Housekeeper Home(s) [employer] Manager Estimated Blood Loss Estimated Blood Loss: 5 Medication(s) Medication(s): Fentanyl, Heparin, Lidocaine 1%, Nicardipine, Nitroglycerin and Versed Summary of Findings Indication: Suspected ACS. History of coronary disease post multiple stents to circumflex and known subtotal RCA occlusion Access: 6 Fr right radial artery Catheters: [place] Findings: LM -20% ostial stenosis, normal caliber LAD -medium caliber, calcified, 50% lateproximal stenosis at first septal, diffuse 40 to 50% mid segment disease prior to D2. Distal vessel without significant disease and tapers to apex. Small to medium D1, D2 without significant disease. Circumflex -medium caliber, ostial to mid stents widely patent without significant in-stent restenosis. Small OM1 with diffuse disease but DAYRON-3 flow. Medium OM 230% proximal stenosis. RCA -dominant, medium caliber, 80 to 90% proximal, diffuse 70% mid segment disease, subtotal distal RCA occlusion. DAYRON I flow at bifurcation of PDA/PLV with questionable thrombus. PLB's fill retrograde via [id number] collaterals. LVEDP -7 Arterial Closure: TR band Summary: 1. Multivessel coronary artery disease -90% proximal, 70% mid RCA. Chronic subtotal distal RCA occlusion with possible acute progression. Robust [id number] collaterals to right PLB's. 50% lateproximal LAD, diffuse 40 to 50% mid LAD Widely patent ostial to mid circumflex stents 2. Normal intracardiac filling pressure Recommendations: Compared to prior angiograms from 10/25/2016 some progression in distal RCA severe disease. May have some component of acute on chronic disease at bifurcation of PDA/PLB. Collaterals to right system have increased from 2017. Recommend medical management of diffusely diseased RCA. Continue Nitropatch overnight and transition to p.o. long-acting nitrate in a.m. Continue home metoprolol, amlodipine Continue prior clopidogrel If refractory exertional symptoms as an outpatient could consider further evaluation of moderate LAD disease with FFR. Hemodynamics Rest Ao:: 155/79/111 Final Ao: 183/81/123 LV: 162/7 Recommendations Recommendations: Medical Therapy and/or Counseling Specimens Specimens: None Radiation Exposure (mGy) 590 Contrast (mls) 35 Anesthesia Moderate 5730-2562 Procedural Complication(s) None Disposition Display Decorator Holding/Recovery I attest to the content of the Intraoperative Record and any orders documented therein. Any exceptions are noted below. [facility] Card Cath Procedure Codes Cardiac Catheterization Procedure 1: Cardiovascular Cath Procedures: 82516 Coronaries and LHC (+/-LV) Moderate Sedation Procedure 1: Sedation/Anesthesia: 94976 Mod Sedation by the same physician;Init15 Min Child Age 5 & Up PG Care Time/CCT Total # of Minutes Spent Total Time Spent with Patient: Total time spent is greater than 50% in coordination of care (as documented) at patient's floor/unit and/or counseling patient:
[2022-02-14] MEDS: SODIUM CHLORIDE 0.9% 1000ML 1,000 ML IV SCH (18:16)
[2022-02-14] MEDS: LACTATED RINGER'S 1,000 ML IV SCH (18:32)
[2022-02-14] MEDS ORDERED: MoRPHine SULFATE 2 MG/ML CARP IV PRN (18:48)
[2022-02-14] MEDS ORDERED: ALUMINUM/MAGNESIUM SUSP 30 ML UDC PO PRN (18:48)
[2022-02-14] MEDS ORDERED: ONDANSETRON INJ 2 MG/ML 2 ML VIAL IV PRN (18:48)
[2022-02-14] MEDS ORDERED: NITROGLYCERIN SL 0.4 MG/TAB TAB SL PRN (18:48)
[2022-02-14] MEDS ORDERED: POLYETHYLENE (MIRALAX) 17 GM PACK PO PRN (18:48)
[2022-02-14] MEDS ORDERED: HYDROcodone/ACETAMINOPHEN 10/325 TAB PO PRN (18:48)
[2022-02-14] MEDS: PANTOprazole 40 MG TAB PO SCH (19:46)
[2022-02-14] MEDS: RASPBERRY SYRUP 5 ML UDP PO SCH (19:46)
[2022-02-14] MEDS: VANCOMYCIN HCL 250 MG/5 ML SOLN PO SCH (19:46)
[2022-02-14] MEDS: METOPROLOL TARTRATE 50 MG TAB PO SCH (19:48)
[2022-02-14] MEDS: buPROPion SR 150 MG TABCR PO SCH (19:49)
[2022-02-14] MEDS: BACLOFEN 20 MG TAB PO SCH (19:49)
[2022-02-14] MEDS ORDERED: MELATONIN 3 MG TAB PO PRN (20:02)
[2022-02-14] MEDS ORDERED: amLODIPine BESYLATE 5 MG TAB PO SCH (21:00)
[2022-02-14] MEDS ORDERED: SIMVASTATIN 80 MG TAB PO SCH (21:00)
[2022-02-15 02:47] LABS: BUN Creatinine Ratio 17.7 (10-20); Calcium 8.4 mg/dl (8.5-10.1); Creatinine Clr Calc Pharmacy 66.7 ml/min; Est GFR (African American) 95.8 ml/min; Est GFR (Non-African American) 82.6 ml/min; Magnesium 1.8 mg/dl (1.7-2.4); Potassium 4.1 mmol/L (3.5-5.1)
[2022-02-15] MEDS: ACETAMINOPHEN 325 MG TAB PO PRN ×2 (02:56→09:03)
[2022-02-15] MEDS: NITROGLYCERIN 2% OINTMENT 30GM TUBE EXT SCH ×2 (04:45→08:53)
[2022-02-15] MEDS: VANCOMYCIN HCL 250 MG/5 ML SOLN PO SCH ×3 (04:45→14:11)
[2022-02-15] MEDS: RASPBERRY SYRUP 5 ML UDP PO SCH ×3 (04:45→14:11)
[2022-02-15] MEDS: LACTATED RINGER'S 1,000 ML IV SCH (04:46)
[2022-02-15] MEDS: SODIUM CHLORIDE 0.9% 1000ML 1,000 ML IV SCH (06:17)
[2022-02-15] MEDS: buPROPion SR 150 MG TABCR PO SCH (08:57)
[2022-02-15] MEDS: BACLOFEN 20 MG TAB PO SCH ×2 (08:57→14:11)
[2022-02-15] MEDS: METOPROLOL TARTRATE 50 MG TAB PO SCH (08:58)
[2022-02-15] MEDS: PANTOprazole 40 MG TAB PO SCH (08:58)
[2022-02-15] MEDS ORDERED: ISOSORBIDE MONO EXTENDED REL 30 MG TABCR PO SCH (09:00)
[2022-02-15] MEDS ORDERED: CLOPIDOGREL BISULFATE 75 MG TAB PO SCH ×2 (09:00)
[2022-02-15] MEDS ORDERED: ASPIRIN 81 MG ECTAB PO SCH (09:00)
[2022-02-15] MEDS ORDERED: CHOLECALCIFEROL 5,000 UNITS 125 MCG TAB PO SCH (09:00)
[2022-02-15] MEDS ORDERED: LOSARTAN POTASSIUM 50 MG TAB PO SCH (09:00)
--- NOTE | 2022-02-15 10:43 | Hospitalist Progress Note ---
Date of Service February 15, 2022 Assessment & Plan (1) NSTEMI (non-ST elevated myocardial infarction): Plan: Elevated troponin in the setting of chest pain and coronary artery disease with possible acute progression of chronic subtotal RCA occlusion consistent with NS JAIME s/p coronary catheterization 02/14: "Summary: 1. Multivessel coronary artery disease -90% proximal, 70% mid RCA. Chronic subtotal distal RCA occlusion with possible acute progression. Robust [id number] collaterals to right PLB's. 50% lateproximal LAD, diffuse 40 to 50% mid LAD Widely patent ostial to mid circumflex stents 2. Normal intracardiac filling pressure Recommendations: Compared to prior angiograms from 10/25/2016 some progression in distal RCA severe disease. May have some component of acute on chronic disease at bifurcation of PDA/PLB. Collaterals to right system have increased from 2017. Recommend medical management of diffusely diseased RCA." ASA + clopidogrel Metoprolol tartrate 50mg PO BID (home dose) + losartan 100mg PO daily (home dose) Will defer switching simvastatin to high intensity statin to cardiology as presumably there is some reason he is not already on this given known coronary artery disease Lipid profile and HbA1C with AM labs (2) PUD (peptic ulcer disease): Plan: EGD July 2019: Gastritis and nonbleeding gastric ulcers visualized. Ulcers at the time thought to be due to taking Motrin excessively alongside aspirin and Plavix. Remains on Protonix, Hgb stable today. History of alcohol use disorder, currently consumes 12 beers every few days, has gone several days without alcohol and has not withdrawn. On last admission he did not require any Ativan from SS protocol. (3) CAD (coronary artery disease): Plan: Multiple stents: mid LCx SERENE, 100% mid RCA September 2009, proximal LCx SERENE January 2016, ostial LCx SERENE October 2016 Continue aspirin and Plavix, losartan, metoprolol, statin. (4) PVD (peripheral vascular disease): (5) Recurrent Clostridioides difficile infection: Plan: Recently hospitalized for colitis, status gene toxin negative, however strongly felt by GI to be C. difficile. Continue vancomycin 250 mg every 6 hours. Contact precautions. (6) Anxiety: Plan: Continue Wellbutrin. (7) Chronic back pain: Plan: Continue baclofen TID, hydrocodone/Tylenol BID prn. Plan Admit to med/tle. SCDs for VTE ppx; hold on VTE ppx until decision made regarding heaprin gtt Full Code. Admission and Anticipated Discharge Date Admission Date: February 14, 2022 Results & Data Results & Data ([facility]) Vital Signs (Past 12 Hours) Vital Signs Temp Pulse Pulse Resp BP BP Pulse Ox 02/15/22 08:03 36.4 C L 76 19 151/88 H 97 02/15/22 07:28 64 02/15/22 03:23 36.7 C 61 18 121/68 95 02/14/22 23:03 36.7 C 60 16 138/62 97 O2 Del Method 02/15/22 08:03 Room Air 02/15/22 07:28 02/15/22 03:23 Room Air 02/14/22 23:03 Room Air PG Care Time/CCT Total # of Minutes Spent Total Time Spent with Patient: Total time spent is greater than 50% in coordination of care (as documented) at patient's floor/unit and/or counseling patient: Coding Diagnoses NSTEMI (non-ST elevated myocardial infarction) I21.4 PUD (peptic ulcer disease) K27.9 CAD (coronary artery disease) I25.10 PVD (peripheral vascular disease) I73.9 Recurrent Clostridioides difficile infection A49.8 Anxiety F41.9 Chronic back pain M54.9; G89.29
--- NOTE | 2022-02-15 13:04 | Cardiology Progress Note ---
Date of Service February 15, 2022 Assessment & Plan (1) CAD (coronary artery disease): Plan: -- stable multivessel disease, RCA subtotal occlusion with collaterals, 50% proximal/mid LAD, patent ostial to mid circumflex stents 2. Hypertension 3. Dyslipidemia 4. PUD 5. Recurrent Cdiff Stable from a cardiac standpoint No recurrent chest pain. Trop downtrending No apparent access site complications. -- Can stop nitropatch and transition to Imdur 30mg daily -- Continue clopidogrel -- Continue amlodipine, metoprolol and current statin. From a cardiac standpoint OK with discharge today. Follow-up with Dr. Zamora in 3-4 weeks. Admission and Anticipated Discharge Date Admission Date: February 14, 2022 Subjective Feeling well. No recurrent chest pain overnight. No new issues this morning. Telemetry reviewed -- no events. Review of Systems Review of Systems: All systems reviewed & are unremarkable except as noted in HPI & below Physical Exam Physical Exam: General: Comfortable HEENT: Sclerae anicteric Lungs: Clear to auscultation bilaterally Cardiac: Regular rate and rhythm, 2/6 systolic ejection murmur. Vascular: 2+ radial, no ecchymosis/hematoma Abdomen: Soft Extremities: Well perfused, no peripheral edema Neuro: Nonfocal Psych: Alert orient x3 Results & Data ([facility]) Vital Signs (Past 12 Hours) Vital Signs Temp Pulse Pulse Resp BP BP Pulse Ox 02/15/22 11:06 97.7 F 66 17 143/73 H 98 02/15/22 08:03 97.5 F L 76 19 151/88 H 97 02/15/22 07:28 64 02/15/22 03:23 98.1 F 61 18 121/68 95 O2 Del Method 02/15/22 11:06 Room Air 02/15/22 08:03 Room Air 02/15/22 07:28 02/15/22 03:23 Room Air PG Care Time/CCT Total # of Minutes Spent Total Time Spent with Patient: Total time spent is greater than 50% in coordination of care (as documented) at patient's floor/unit and/or counseling patient: Coding Level of Care Code 08795 Subseq Obs Care Lvl 3 Diagnoses CAD (coronary artery disease) I25.10
--- NOTE | 2022-02-15 14:22 | Discharge Summary ---
Date of Service February 15, 2022 Admission HPI Per Admitting Provider Deshawn Whitaker is a 66-year-old male with a past medical history of recurrent C. difficile, PUD, CAD, PVD, hyperlipidemia, hypertension, and anxiety who is presenting today with 5 days worth of right and left chest pain. He was recently hospitalized 02/03- for colitis, most likely to be related to C. difficile infection. He states for the first day or two after discharge he had been feeling well, however for the past 5 days had a right and left sided chest pain is more like a pressure sensation. It comes on both at rest and with activity, sometimes radiates down into his right arm. He also notes some associated shortness of breath. Earlier this week, he took nitro tabs on 2 separate occasions with alleviation of the pain, however last night had pain for several hours and had to take 4 doses of his nitro before the pain was resolved. Currently chest pain is a 3 out of 10, left-sided pressure-like without radiation. On presentation he did receive full dose aspirin and Nitropaste has been or dered. He is hypertensive 177/98, HR was 94 at presentation, otherwise vital signs are within normal limits. Labs remarkable for troponin of 145 and WBC of 11.23, platelets 555, may be due to dehydration, Hgb within normal limits. CXR shows no acute chest disease. Principal Diagnosis Demand myocardial ischemia Multivessel stable coronary artery disease Discharge Exam Constitutional WD/WN, vitals as above ENMT external ear and nose normal, oropharynx normal Neck trachea midline, no thyromegaly Respiratory normal respiratory effort, lungs clear to auscultation Cardiovascular RRR, no murmur, no edema Chest (Breasts) Chest: normal inspection of chest Gastrointestinal (Abdomen) normal bowel sounds, soft, nontender, no hepatosplenomegaly Skin no rashes, warm and dry Psychiatric A+Ox3, euthymic affect Discharge Data Allergies Allergy/AdvReac Type Severity Reaction Status Date / Time Penicillins Allergy Severe "CIRCULATORY Verified 03/01/22 10:26 SHUTDOWN" Consultations 02/14/22 14:03 ED Decision to Admit Stat 02/14/22 18:48 Consult Cardiology Routine Procedures Performed Operation Date: 02/14/22 17:00 Actual Procedures p Cath, Left with Cors and Vent - Lloyd Uribe MD s Cineradiography w/Routine Exam - Lloyd Urieb MD Ordered Studies 02/14/22 16:43 CL Cath Imgs for PACS use only Stat Hospital Course (1) NSTEMI (non-ST elevated myocardial infarction): Deshawn Whitaker is a 66 year old male admitted to [facility] from February 14 - 2021 due to chest pain. He was diagnosed with a demand-ischemia type angina likely exacerbated by recent colitis. Cardiac catheterization showed stable multivessel disease and cardiology recommended optimizing medical naveed gement with isosorbide mononitrate 40 mg PO daily. He will follow up with cardiology for his coronary artery disease and gastroenterology for his colitis. (2) PUD (peptic ulcer disease): (3) CAD (coronary artery disease): (4) PVD (peripheral vascular disease): (5) Recurrent Clostridioides difficile infection: (6) Anxiety: (7) Chronic back pain: Total Time Total Time Spent Total Time Spent (In Minutes): 45 Discharge Plan Discharge Items Patient Disposition: Home - Self-Care Reason For Visit: CHEST PAIN Discharge Diagnosis: Demand-ischemia angina Activity: Resume your previous activity Non-emergency contact: Cloth Carrier Call non-emergency contact if: you have any medication questions and your symptoms worsen Follow-up/Referrals: Rosy Patiño PADamarisC [Physician Chemical Mixer] - 03/08/22 9:00 am Ashley Sung MD [Resident] - 02/20/22 9:05 am Diet: Heart Healthy Addtl Attending Provider Instructions: You were admitted to [facility] from February 14 - 2021 due to cesar pain. You were diagnosed with a demand-ischemia type angina likely exacerbated by recent colitis. Cardiac catheterization showed stable multivessel disease and cardiology recommended optimizing medical management with isosorbide mononitrate as prescribed below. Please follow up with your psychotherapist social worker in 3-4 weeks. Continue management and follow up for your colitis with gastroenterology. Pending Studies at Discharge: No Stand-Alone Forms: My [facility], Smoking Cessation Medications and DC Order Prescriptions: Continued amlodipine 10 mg tablet 10 mg PO QPM Qty: 90 3RF losartan 100 mg tablet 100 mg PO QAM Qty: 90 3RF clopidogrel [Plavix] 75 mg tablet 75 mg PO DAILY Qty: 90 3RF metoprolol tartrate 100 mg tablet 50 mg PO BID Qty: 90 3RF nitroglycerin 0.4 mg tablet, sublingual 0.4 mg Sublingual UD PRN (Reason: Angina) Qty: 30 3RF cholecalciferol (vitamin D3) [Vitamin D3] 5,000 unit Tablet 5,000 unit PO QAM multivitamin Tablet 1 tab PO QAM baclofen 10 mg Tablet 20 mg PO TID hydrocodone-acetaminophen 10-325 mg Tablet 1 tab PO BID PRN (Reason: Pain) pantoprazole 40 mg tablet,delayed release (DR/EC) 40 mg PO BID Qty: 60 0RF bupropion HCl 150 mg tablet sustained-release 12 hr 150 mg PO BID No Action vancomycin 125 mg capsule 125 mg PO .COMPLEX Qty: 31 0RF Rx Instructions: 125 mg TAPER; TAKE ONE CAPSULE TWICE A DAY FOR ONE WEEK, DECREASE TO ONE CAPSULE DAILY FOR ONE WEEK, DECREASE TO EVERY OTHER DAY FOR ONE WEEK, THEN DECREASE TO ONE CAPSULE EVERY 3 DAYS FOR TWO WEEKS. ranolazine [Ranexa] 500 mg tablet extended release 12 hr 500 mg PO BID Qty: 60 5RF atorvastatin 40 mg tablet 40 mg PO DAILY Qty: 30 5RF Discharge Orders: Discharge Order (Routine); Ordered 02/15/22 Ordered By: Abner Pineda Admission Data Admit Date/Time: 02/14/22 15:07 Attending Provider: Abner Pineda Admit Provider: Sudeep Tejada Primary Care Provider: Lloyd Rosenthal Other Providers: Jose G Zamora Other Interventions: Discharge Summary Assessment (RN) Last Done: 02/15/22 15:08 Coding Level of Care Code D/C DAY MANAGEMENT >30 MINS Diagnoses NSTEMI (non-ST elevated myocardial infarction) I21.4 PUD (peptic ulcer disease) K27.9 CAD (coronary artery disease) I25.10 PVD (peripheral vascular disease) I73.9 Recurrent Clostridioides difficile infection A49.8 Anxiety F41.9 Chronic back pain M54.9; G89.29
--- NOTE | 2022-02-15 16:28 | XCELERA ---
[id number]
--- NOTE | 2022-02-15 21:28 | Electrocardiogram Report ---
Test Reason : Blood Pressure : / mmHG Vent. Rate : 058 BPM Atrial Rate : 058 BPM P-R Int : 146 ms QRS Dur : 072 ms QT Int : 428 ms P-R-T Axes : 036 017 055 degrees QTc Int : 420 ms Poor data quality, interpretation may be adversely affected Sinus bradycardia Possible Left atrial enlargement Septal infarct (cited on or before 14-FEB-2022) Abnormal ECG When compared with ECG of 14-FEB-2022 12:06, No significant change was found Confirmed by Yon Ellis ([id number]) on 02/15/2022 9:28:35 PM Referred By: REFERRED SELF Confirmed By:Yon Ellis
== END 2022-02-15 15:45 | disposition home or self-care (01) | DRG 281 ==
LOC: ED 11:59 → SUATTDRO 15:07 → 2E 15:07
DX: F41.9 Anxiety disorder, unspecified; I10 Essential (primary) hypertension; Z86.59 Personal history of other mental and behavioral disorders; K52.9 Noninfective gastroenteritis and colitis, unspecified; R93.3 Abnormal findings on diagnostic imaging of other parts of digestive tract; I25.110 Atherosclerotic heart disease of native coronary artery with unstable angina pectoris; Z88.0 Allergy status to penicillin; Z86.19 Personal history of other infectious and parasitic diseases; I21.4 Non-ST elevation (NSTEMI) myocardial infarction; Z87.891 Personal history of nicotine dependence; M54.9 Dorsalgia, unspecified; I70.8 Atherosclerosis of other arteries; Z79.899 Other long term (current) drug therapy; E78.00 Pure hypercholesterolemia, unspecified; K92.2 Gastrointestinal hemorrhage, unspecified; G89.29 Other chronic pain; Z79.82 Long term (current) use of aspirin; A04.71 Enterocolitis due to Clostridium difficile, recurrent; K27.9 Peptic ulcer, site unspecified, unspecified as acute or chronic, without hemorrhage or perforation; K55.1 Chronic vascular disorders of intestine; I73.9 Peripheral vascular disease, unspecified; Z79.02 Long term (current) use of antithrombotics/antiplatelets; Z20.822 Contact with and (suspected) exposure to COVID-19; Z95.5 Presence of coronary angioplasty implant and graft

== ENCOUNTER 2025-02-08 06:59 | Inpatient (IN) ==
[2025-02-08] MEDS: ASPIRIN CHEW 324 MG PO STA (07:12)
--- NOTE | 2025-02-08 07:32 | Emergency Department Note ---
Impression & Plan Unstable angina ED Provider Note NAME: MARIANNA ARMAS AGE: 69 SEX: M : 1955 ARRIVES VIA: Walk-In INFORMANT: Patient, ED PROVIDER(S): Homer Guerrier DO CHIEF COMPLAINT: chest pain HPI: This is a 69-year-old male with the PMHx of hypertension, hyperlipidemia, CAD s/p PCI (RCA 2009, LCx [id number]), PVD and chronic lower back pain presenting to [facility] for further evaluation of chest pain. Patient is accompanied by his who provide additional history. They report that they just returned from vacation. They were on a cruise in the [facility]. They did not fly to the airport but instead drove. This was reported as a long car ride to [place]. Patient reports that during the cruise he started getting chest pain at rest. He states this is relatively atypical for him. He does report stable angina. Happens during exertion typically. Sometimes happens at rest but this is worsened over the past few months. He did have a repeat cardiac catheterization approximately 2 years ago that showed patent Stents. Patient also reports worsening lower extremity swelling. He does report mild shortness of breath. Patient states his lower extremities are not normally swollen. Patient does have a history of a stent within his femoral artery on the right. They deny fever or chills. No cough or congestion. They deny abdominal pain, nausea and vomiting. No urinary complaints. No recent changes in bowel movements. Patient denies recent changes in medications or OTC supplements. Patient offers no other complaints, today. ADDITIONAL HISTORY OBTAINED: Per HPI Chronic Medical/Social Conditions Affecting Care: Per HPI PAST MEDICAL HISTORY: See Below PAST SURGICAL HISTORY: See Below FAMILY HISTORY: See Below SOCIAL HISTORY: See Below HOME MEDICATIONS: See Below ALLERGIES: See Below VITALS: See Below PHYSICAL EXAMINATION: GENERAL: Sitting up in bed, alert, well appearing, well nourished, no distress, non-toxic EYE EXAM: normal conjunctiva. OROPHARYNX: no exudate, no erythema, lips, buccal mucosa, and tongue normal and mucous membranes are moist NECK: supple, no nuchal rigidity, no adenopathy, non-tender LUNGS: Clear to auscultation. Normal chest wall mechanics HEART: no murmurs, regular rate, regular rhythm ABDOMEN: abdomen soft, non-tender, no masses, no rebound or guarding. BACK: Back is symmetrical on inspection and there is no deformity, no midline tenderness, no CVA tenderness. SKIN: no rashes and no bruising UPPER EXTREMITIES: upper extremities are grossly normal. LOWER EXTREMITIES: there is trace lower extremity edema. The right lower extremity is warm, slightly erythematous and slightly more swollen than the left. NEURO EXAM: Normal sensorium, GCS 15, normal speech, no gross weakness of arms, no weakness of legs. MEDICAL DECISION MAKING: Differential diagnoses includes but not limited to ACS, stable vs unstable angina, dysrhythmia, viral URI, pneumonia, pericarditis, pneumothorax, costochondritis, MSK strain, PE, hypertensive emergency, psychological causes, esophageal reflux, gastritis In summary, this is a 69 year old male who presented with chest pain. Differential as above. Nursing notes and pertinent past medical records reviewed. Vital signs reviewed and the patient is afebrile and hemodynamically stable. History and presentation revealed chest pain that has been worsening since recent travel. Findings suggestive of possible DVT in the lower extremity. I do feel the patient chest pain is more likely related to unstable angina and has been worsening over the past few months. Patient has dyspnea on exertion as well as chest pain at rest. This is slightly atypical to him. Some improvement some sublingual nitroglycerin prior to arrival. Physical examination revealed as above. As a result of my initial evaluation, IV access was established and the patient was placed on CCRM. Therapeutics ordered include loading dose of ASA. The patient is relatively low risk Wells criteria but cannot be PERCed out. I am concerned for possible pulmonary embolism but felt this is less likely. Will add D-dimer for further reassurance. Diagnostics interpreted by me include EKG and cardiac monitoring as listed below: -Cardiac Monitoring: An order was placed for continuous cardiac monitoring. The monitor shows a rate of 70-90s with regular rhythm. -ECG: Normal sinus rhythm at a ventricular rate of [address] segment changes to suggest STEMI. Intervals are within normal limits. Patient completed laboratory studies and imaging. CXR independently interpreted by me reveals no evidence of focal consolidation to suggest pna. No large pneumothorax or pleural effusion. No obvious displaced rib fracture. Results independently interpreted by me are normal troponin. No significant leukocytosis. Patient is electrolytes kidney function are normal. BNP is only mildly elevated. Patient's D-dimer is within normal limits given reassurance and doubt PE at this time. Again believe the patient symptoms are more likely related to unstable angina. Patient will need to be admitted on telemetry. The patient was managed with loading dose of aspirin. His chest pain resolved while in the emergency department and was felt safe to be admitted. Ultimately, the decision was made to admit the patient for unstable angina. I discussed the case with the hospitalist service via telephone/TigerText and they are agreeable to admit the patient to their services. Based on the above, including the patient's age, coexisting illnesses, labs, imaging, and exam findings the decision to treat as an inpatient. I discussed the patient with the hospitalist team who recommended admission to their services. They received the medications, treatments, interventions indicated above and their condition remained guarded. I discussed my findings with the patient and their family and they understand and agree with the treatment plan. All patient / family questions were answered to their satisfaction. Consults/Care Managements Discussions: Per [facility] ER treatment provided: See above Procedures:none Critical Care: None The chart was completed utilizing Wowo Speech voice recognition software. Grammatical errors, random word insertions, pronoun errors, and incomplete sentences are an occasional consequence of this system due to software limitations, ambient noise, and hardware issues. Any formal questions or concerns about the content, text, or information contained within the body of this dictation should be directly addressed to the physician for clarification. Past Med/Surg History Problem List (Updated 02/08/25 @ 16:43 by Homer Guerrier DO) Unstable angina (Acute) Dyspnea on exertion Salmonella Esophageal dysphagia Angina pectoris Hypertension (Chronic) Abnormal gallbladder ultrasound PVD (peripheral vascular disease) Acute hypotension (Acute) Gastric ulcer (Acute) EGD - Case - 07/11/2019 Recurrent Clostridioides difficile infection Hypercholesterolemia Acute hyponatremia (Acute) Anemia Atypical chest pain Acute pericarditis Pericarditis History of Clostridioides difficile infection Abdominal pain, lower (Acute) BRBPR (bright red blood per rectum) (Acute) CIERA (acute kidney injury) PUD (peptic ulcer disease) LGI bleed Colitis (Acute) Leukocytosis (Acute) Abnormal CT scan, colon Chest pain (Acute) NSTEMI (non-ST elevated myocardial infarction) Anxiety Hypertension (Acute) Alcohol use Chronic prescription opiate use History of heart artery stent (Acute) 2009 x2, 2015 x1, 2016 x1--@ [facility] Chronic back pain Hyperlipidemia CAD (coronary artery disease) (Acute) Medical History (Updated 02/08/25 @ 16:43 by Homer Guerrier DO) Unstable angina History of peptic ulcer disease Hx of non-ST elevation myocardial infarction (NSTEMI) 02/2022 History of pericarditis History of colitis Diverticulosis Hx of gastric ulcer History of Clostridioides difficile colitis Left ventricular hypertrophy Peripheral neuropathy BPH (benign prostatic hyperplasia) GERD (gastroesophageal reflux disease) On anticoagulant therapy plavix d/t stents Dupuytren's contracture of hand Surgical History [place] teeth removed History of surgery RIGHT LEG R/T TRAUMA History of intravascular stent placement RIGHT LEG History of removal of cyst from groin History of hand surgery x6 (4 on right, 2 on left) d/t Dupuytren's History of cardiac cath x3 @ [facility] follow with Dr. Zamora; last 02/2022 at [facility] History of procedure for peripheral vascular disease 2012 Dr. Granger Family History Sister Family history of reaction to anesthesia difficulty waking and nausea Mother Family history of reaction to anesthesia difficulty waking and nausea Peptic ulcer disease Father , in his 40s Cerebral aneurysm Social History Smoking Status: Current every day smoker Tobacco Type: Cigarettes packs per day: 1; Second Hand Exposure: No; Do You Dip or Chew Tobacco: No; Hx Alcohol Use: Yes Alcohol type: beer Alcohol Intake Frequency Comment: 6-pack every 1-2 weeks Hx Substance Use: No Preferred Language: Cuban Communication Ability: Effective Glass Setter Required: No Beliefs That Will Affect Care: None marital status: Current Living Situation: Spouse current occupational status: 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 Feels Safe at Home: Yes Assistive Devices: None Allergies Allergies Allergy/AdvReac Type Severity Reaction Status Date / Time Penicillins Allergy Severe "CIRCULATORY Verified 12/09/24 09:02 SHUTDOWN" Home Meds Home Medications Medication Instructions Recorded Confirmed baclofen 10 mg tablet 20 mg PO TID PRN Muscle Spasm 11/13/17 02/08/25 hydrocodone 10 mg-acetaminophen 1 tab PO BID 11/13/17 02/08/25 325 mg tablet cholecalciferol (vitamin D3) 125 5,000 unit PO QAM 02/18/18 02/08/25 mcg (5,000 unit) tablet (Vitamin D3) multivitamin 1 tab PO QAM 02/18/18 02/08/25 bupropion HCl 150 mg tablet,12 hr 150 mg PO BID 02/03/22 02/08/25 sustained-release atorvastatin 40 mg tablet 40 mg PO QAM 05/19/24 02/08/25 clopidogrel 75 mg tablet (Plavix) 75 mg PO QAM 05/19/24 02/08/25 Lactobacillus acidophilus 1 cap PO DAILY 06/08/24 02/08/25 [Probiotic] lidocaine 5 % topical patch 1 patch topical UD 07/22/24 02/08/25 metoprolol succinate 100 mg 100 mg PO DAILY 02/08/25 02/08/25 tablet,extended release 24 hr Previous Rx's Medication Instructions Recorded pantoprazole 40 mg tablet,delayed 40 mg PO BID #60 tabs 07/17/19 release amlodipine 10 mg tablet 10 mg PO QPM #90 tabs 05/20/20 losartan 100 mg tablet 100 mg PO QAM #90 tabs 05/20/20 nitroglycerin 0.4 mg sublingual See Rx Instructions .Route 01/28/25 tablet .COMPLEX #120 tabs Results & Data (ED) Vital Signs Vital Signs - 24 hr 02/08/25 07:00 02/08/25 07:04 02/08/25 07:13 Temperature 36.9 C Temperature Source Temporal Artery Scan Pulse Rate 93 H Pulse Rate [Apical] 90 Pulse Rhythm Pulse Rhythm [Apical] Regular Pulse Strength [Apical] Normal Respiratory Rate 18 15 Respiratory Effort / Characteristics Non-Labored Spontaneous Non-Labored Spontaneous Respiratory Depth Normal Normal Respiratory Pattern Regular Blood Pressure 152/83 H Blood Pressure [Right Arm] 172/101 H Blood Pressure Mean 106 Blood Pressure Mean [Right Arm] 124 Blood Pressure Position Sitting Blood Pressure Position [Right Arm] Sitting Pulse Oximetry 95 92 93 Oxygen Delivery Method Room Air Room Air Room Air Sepsis Recent Fever Within 48 Hours No Sepsis New/Unexplained Change in Mental Status No Sepsis Action Taken by Nursing No Action Required 02/08/25 07:13 02/08/25 08:25 Temperature Temperature Source Pulse Rate 89 80 Pulse Rate [Apical] Pulse Rhythm Regular Pulse Rhythm [Apical] Pulse Strength [Apical] Respiratory Rate 13 Respiratory Effort / Characteristics Respiratory Depth Respiratory Pattern Blood Pressure Blood Pressure [Right Arm] Blood Pressure Mean Blood Pressure Mean [Right Arm] Blood Pressure Position Blood Pressure Position [Right Arm] Pulse Oximetry 95 Oxygen Delivery Method Room Air Sepsis Recent Fever Within 48 Hours Sepsis New/Unexplained Change in Mental Status Sepsis Action Taken by Nursing Laboratory Data 02/08/25 07:30 02/08/25 07:30 Lab Results 02/08/25 02/08/25 Range/Units 07:30 08:51 WBC 12.29 H (4.8-10.8) K/ul RBC 3.90 L (4.70-6.10) M/uL Hgb 11.9 L (14.0-18.0) g/dL Hct 35.0 L (42.0-52.0) % MCV 89.7 (80.0-100.0) fL MCH 30.5 (25.0-34.0) pg MCHC 34.0 (32.0-36.0) g/dL RDW Std Deviation 44.5 (36.4-46.3) fL RDW Coeff of [place] 13.7 (11.5-14.5) % Plt Count 374 (130-400) K/uL MPV 10.3 (9.4-12.4) fL Immature Gran % (Auto) 0.2 % Neut % (Auto) 62.6 % Lymph % (Auto) 16.3 % [place] % (Auto) 14.9 % Eos % (Auto) 5.3 % Baso % (Auto) 0.7 % Neut # (Auto) 7.70 H (1.40-6.50) K/uL Lymph # (Auto) 2.00 (1.20-3.40) K/uL [place] # (Auto) 1.83 H (0.11-0.59) K/uL Eos # (Auto) 0.65 H (0.00-0.50) K/uL Baso # (Auto) 0.08 (0.00-0.20) K/uL Immature Gran # (Auto) 0.03 (0.01-0.20) K/uL D-Dimer 490 (0-500) ug/L FEU Sodium 139 (136-145) mmol/L Potassium 4.1 (3.5-5.1) mmol/L Chloride 103 (98-107) mmol/L Carbon Dioxide 29 (21-32) mmol/L Anion Gap 7 (3-11) BUN 27 H (6-23) mg/dl Creatinine 1.09 (0.6-1.4) mg/dl Est Cr Clr Drug Dosing 66.1 ml/min eGFR 73.93 BUN/Creatinine Ratio 24.8 H (10-20) Glucose 109 H (70-99(Fasting)) mg/dl Calcium 9.0 (8.6-10.3) mg/dl Total Bilirubin 0.3 (0.2-1.0) mg/dl AST 42 H (13-39) U/L ALT 39 (7-52) U/L Alkaline Phosphatase 114 H (34-104) U/L Troponin I High Sens 5.3 (0-20) pg/ml B-Natriuretic Peptide 132 H (0-100) pg/ml Total Protein 7.0 (6.0-8.3) gm/dl Albumin 4.0 (3.4-5.0) gm/dl Globulin 3.0 (2.5-4.0) gm/dl Albumin/Globulin Ratio 1.3 (0.9-2) Lipase 59 (11-82) U/L Urine Color Yellow Urine Appearance Clear (Clear) Urine pH 5.5 (4.5-7.5) Ur Specific [place] 1.009 (1.000-1.030) Urine Protein Trace H (Negative) Urine Glucose (UA) Negative (Negative) Urine Ketones Negative (Negative) Urine Blood Negative (Negative) Urine Nitrite Negative (Negative) Urine Bilirubin Negative (Negative) Urine Urobilinogen Negative (Negative) Ur Leukocyte Esterase Negative (Negative) Urine WBC (Auto) 0-5 (0-5) /hpf Urine RBC (Auto) 0-2 (0-2) /hpf U Hyaline Cast (Auto) 0-2 (0-2) /lpf U Epithel Cells (Auto) 0-2 (0-2) /hpf Urine Bacteria (Auto) None Seen (None Seen) Urine Comment Administered Medications Acetaminophen (Acetaminophen 325 Mg Tab) 650 mg PO Q4H PRN PRN Reason: Pain or Fever Stop: 03/10/25 10:29 Last Admin: 02/08/25 16:30 Dose: 650 mg Documented By: TAR Discontinued Medications Aspirin (Aspirin Chew 324 Mg) 324 mg PO NOW STA Stop: 02/08/25 07:10 Last Admin: 02/08/25 07:12 Dose: 324 mg Documented By: MAMTA Atorvastatin Calcium (Atorvastatin 40 Mg Tab) 40 mg PO NOW ONE Stop: 02/08/25 09:16 Last Admin: 02/08/25 09:52 Dose: 40 mg Documented By: ABHINAV Bupropion HCl (Bupropion Sr 150 Mg Tabcr) 150 mg PO NOW STA Stop: 02/08/25 09:16 Last Admin: 02/08/25 09:53 Dose: 150 mg Documented By: ABHINAV Clopidogrel Bisulfate (Clopidogrel Bisulfate 300 Mg Tab) Confirm Administered Dose 600 mg .ROUTE .STK-MED ONE Stop: 02/08/25 15:59 Last Admin: 02/08/25 16:02 Dose: 600 mg Documented By: MENDY Fentanyl Citrate (Fentanyl Citrate Pf 100 Mcg/2 Ml Vial) Confirm Administered Dose 100 mcg .ROUTE .STK-MED ONE Stop: 02/08/25 14:00 Last Increment: 02/08/25 16:00 Dose: 75 mcg Documented By: MENDY Furosemide (Furosemide 40 Mg/4 Ml Vial) 40 mg IV ONE ONE Stop: 02/08/25 08:56 Last Admin: 02/08/25 09:06 Dose: 40 mg Documented By: MAMTA Heparin Sodium (Porcine) (Heparin (Porcine) 1000 Unit/Ml 10 Ml (Pastoral Assistant Use Only)) Confirm Administered Dose 10,000 units .ROUTE .STK-MED ONE Stop: 02/08/25 14:00 Last Admin: 02/08/25 16:01 Dose: 10,000 units Documented By: MENDY Heparin Sodium (Porcine) (Heparin (Porcine) 1000 Unit/Ml 10 Ml (Pastoral Assistant Use Only)) Confirm Administered Dose 10,000 units .ROUTE .STK-MED ONE Stop: 02/08/25 15:26 Last Admin: 02/08/25 16:02 Dose: 2,000 units Documented By: MENDY Heparin Sodium/Sodium Chloride (Heparin In Nss Infusion 1000 Unit/500 Ml (2 U/Ml) Bag) Confirm Administered Dose 3,000 units IV .STK-MED ONE Stop: 02/08/25 14:00 Last Admin: 02/08/25 14:58 Dose: 3,000 units Documented By: MENDY Iodixanol (Iodixanol (Visipaque) 320 Mg/Ml 100ml) Confirm Administered Dose 1 ml IV .STK-MED ONE Stop: 02/08/25 14:01 Last Admin: 02/08/25 14:59 Dose: Not Given Documented By: MENDY Ioversol (Optiray 350) Confirm Administered Dose 1 ml .ROUTE .STK-MED ONE Stop: 02/08/25 14:01 Last Admin: 02/08/25 16:01 Dose: 110 ml Documented By: MENDY Losartan Potassium (Losartan Potassium 50 Mg Tab) 100 mg PO NOW STA Stop: 02/08/25 09:16 Last Admin: 02/08/25 09:52 Dose: 100 mg Documented By: ABHINAV Metoprolol Succinate (Metoprolol Succ 50mg Ext Rel Tab) 100 mg PO NOW STA Stop: 02/08/25 09:16 Last Admin: 02/08/25 09:52 Dose: 100 mg Documented By: ABHINAV Midazolam HCl (Midazolam Hcl 1 Mg/Ml 2ml Vial) Confirm Administered Dose 2 mg .ROUTE .ST-MED ONE Stop: 02/08/25 14:00 Last Admin: 02/08/25 16:01 Dose: 2 mg Documented By: MENDY Nicardipine HCl (Nicardipine 2,000 Mcg/20 Ml Syr) Confirm Administered Dose 2,000 mcg .ROUTE .ST-MED ONE Stop: 02/08/25 14:01 Last Admin: 02/08/25 14:59 Dose: 2,000 mcg Documented By: MENDY Nitroglycerin/Dextrose (Nitroglycerin/D5w 100mcg/Ml 20ml Syr) Confirm Administered Dose 2,000 mcg .ROUTE .ST-MED ONE Stop: 02/08/25 14:01 Last Admin: 02/08/25 14:59 Dose: 2,000 mcg Documented By: MENDY Imaging Data Radiologist's Impression: Chest X-Ray 02/08/25 07:09 EXAM: XR chest 1V portable CLINICAL HISTORY: Chest pain, nonspecific. TECHNIQUE: An X-ray image of the chest was obtained in AP projection. COMPARISON: A comparison is made with the previous CR study dated 02/25/2024. FINDINGS: Pulmonary Parenchyma: There is a lobular opacity noted at the right para-hilar region, which appears progressive in size since prior. There is a predominance of bronchovascular shadows with congested upper lung lobes and vascular markings. No evidence of pleural effusion or pleural thickening. Heart and Mediastinum: Heart size is mildly enlarged. There is a faint atheromatous calcification of the thoracic aorta. Bony Thorax: Bony thorax appears intact without fractures or deformities. Soft Tissues: Soft tissues overlying the chest wall are unremarkable. There is a mild elevation of both diaphragmatic copulae. IMPRESSION: 1. Interval size progressive right para-hilar opacity, which may be of vascular origin or enlarged lymph nodes; to be clinically assessed pablo CT study performed if clinically needed. 2. There is a predominance of bronchovascular shadows with congested upper lung lobes and vascular markings, most likely pulmonary congestion versus infection. Electronically signed by Brannon Bradshaw 02-08-2025 08:52 AM Discharge Plan Visit Data Chief Complaint: Chest Pain Stated Complaint: CHEST PAINS ED Provider: Homer Guerrier Discharge Problem: Unstable angina Patient Disposition: Admitted As Inpatient Condition: Serious Discharge Instructions Interventions: ED Discharge Assessment Last Done: 02/08/25 13:36
[2025-02-08 07:46] LABS: Hematocrit (blood only) 35.0 % (42.0-52.0); Hemoglobin 11.9 g/dL (14.0-18.0); Immature Granulocytes # (auto) 0.03 K/uL (0.01-0.20); Immature Granulocytes % (auto) 0.2 %; Mean Corpuscular Hemoglobin 30.5 pg (25.0-34.0); Mean Corpuscular Volume 89.7 fL (80.0-100.0); Platelet Count 374 K/uL (130-400); RDW Standard Deviation 44.5 fL (36.4-46.3); Red Blood Count 3.90 M/uL (4.70-6.10); White Blood Count 12.29 K/ul (4.8-10.8)
[2025-02-08 08:05] LABS: Alanine Aminotransferase 39.0 U/L (7-52); Albumin Globulin Ratio 1.3 (0.9-2); Albumin Level 4.0 gm/dl (3.4-5.0); Alkaline Phosphatase 114.0 U/L (34-104); Anion Gap 7.0 (3-11); Bilirubin,Total 0.3 mg/dl (0.2-1.0); Blood Urea Nitrogen 27.0 mg/dl (6-23); Calcium 9.0 mg/dl (8.6-10.3); Carbon Dioxide 29.0 mmol/L (21-32); Chloride 103.0 mmol/L (98-107); Creatinine Clr Calc Pharmacy 66.1 ml/min; Globulin 3.0 gm/dl (2.5-4.0); Glucose 109.0 mg/dl (70-99(Fasting)); Lipase 59.0 U/L (11-82); Potassium 4.1 mmol/L (3.5-5.1); Sodium 139.0 mmol/L (136-145); Total Protein 7.0 gm/dl (6.0-8.3)
--- NOTE | 2025-02-08 08:52 | XRay Report ---
EXAM: XR chest 1V portable CLINICAL HISTORY: Chest pain, nonspecific. TECHNIQUE: An X-ray image of the chest was obtained in AP projection. COMPARISON: A comparison is made with the previous CR study dated 02/25/2024. FINDINGS: Pulmonary Parenchyma: There is a lobular opacity noted at the right para-hilar region, which appears progressive in size since prior. There is a predominance of bronchovascular shadows with congested upper lung lobes and vascular markings. No evidence of pleural effusion or pleural thickening. Heart and Mediastinum: Heart size is mildly enlarged. There is a faint atheromatous calcification of the thoracic aorta. Bony Thorax: Bony thorax appears intact without fractures or deformities. Soft Tissues: Soft tissues overlying the chest wall are unremarkable. There is a mild elevation of both diaphragmatic copulae. IMPRESSION: 1. Interval size progressive right para-hilar opacity, which may be of vascular origin or enlarged lymph nodes; to be clinically assessed pablo CT study performed if clinically needed. 2. There is a predominance of bronchovascular shadows with congested upper lung lobes and vascular markings, most likely pulmonary congestion versus infection. Electronically signed by Brannon Bradshaw 02-08-2025 08:52 AM
[2025-02-08] MEDS: FUROSEMIDE 40 MG/4 ML VIAL IV ONE (09:06)
[2025-02-08 09:12] LABS: Appearance Urine Clear (Clear); Bacteria Urine Automated None Seen (None Seen); Cast Urine Automated 0-2 /lpf (0-2); Epithelial Cell Urine Auto 0-2 /hpf (0-2); Glucose Urine UA Negative (Negative); RBC Urine Automated 0-2 /hpf (0-2); WBC Urine Automated 0-5 /hpf (0-5)
--- NOTE | 2025-02-08 09:14 | History & Physical Report ---
Date of Service February 08, 2025 Assessment & Plan (1) Unstable angina: (2) Dyspnea on exertion: (3) Hypertension: Plan Deshawn is a 69M with a PMHx of CAD with multiple stents in place, hypertension, HLD, stable angina, history of gastric ulcer, history of cdiff, who presents to the hospital with concerns of worsening chest pain x 5 days. Inital evaluation with negative trop and no acute EKG changes, ddimer negative. Concern for unstable angina and possible HF. Admitted for cardiology evaluation and further workup. #CAD/CP | MILLER/acute on chronic HFpEF- with a history of stable angina with multiple stents in place. Follows with [facility] (Dr. Zamora). Chest pain over the last 5 days, with MILLER with walking on flat surfaces which is new and difficulty lying flat. Recent travel on a cruise, D-dimer negative. Troponin neg x 2. ASA load in ED. Suspect HF component - lasix 40mg IV now Check Echo Daily weights Consult cardiology - plan for cath 02/08 Continue PLavix, ASA, statin AM BMP, mag #HTN - BP elevated on admission, but did not take medications this morning Home meds now Continue amlodipine, losartan, metoprolol #GERD/PUD- -Continue Protonix #Anxiety-no acute issues - Continue home bupropion #Current smoker- -Encourage smoking cessation - Nicotine patch as needed #Leukocytosis-unknown cause, has been elevated consistently over the last 3 years on labs with mild normocytic anemia. Differential with neutrophilia. Could be reactive - Follow CBC - Check peripheral smear, iron studies in the a.m. #Abnormal chest x-ray-with interval size progressive of a right perihilar opacity which may be a vascular origin or enlarged lymph nodes - Check CT chest in the a.m. Dispo: admit to PCU DVT proph: pending cath results History of Present Illness Chief Complaint: chest pain Primary Care Provider: Melecio Rosenthal MD Deshawn is a 69M with a PMHx of CAD with multiple stents in place, hypertension, HLD, stable angina, history of gastric ulcer, history of cdiff, who presents to the hospital with concerns of worsening chest pain x 5 days. Recently on a cruise (drove to the port) and noticed worsening CP with activity and also MILLER when walking on flat ground which is abnormal for him. Did not seek medical care while on the ship. ALso noticed swelling in his legs and difficulty sleeping as breathing worse when lying flat. The chest pain awoke him from sleep this morning - he took nitroglycerin with some relief but then presented to the ED Report ETOH and smoking but not everyday no recent medication changes wishes to be a full code ED course: ASA 324mg Allergies Allergy/AdvReac Type Severity Reaction Status Date / Time Penicillins Allergy Severe "CIRCULATORY Verified 12/09/24 09:02 SHUTDOWN" Home Medications Medication Instructions Recorded Confirmed Type baclofen 10 mg tablet 20 mg PO TID PRN Muscle Spasm 11/13/17 02/08/25 History hydrocodone 10 mg-acetaminophen 1 tab PO BID 11/13/17 02/08/25 History 325 mg tablet cholecalciferol (vitamin D3) 125 5,000 unit PO QAM 02/18/18 02/08/25 History mcg (5,000 unit) tablet (Vitamin D3) multivitamin 1 tab PO QAM 02/18/18 02/08/25 History pantoprazole 40 mg tablet,delayed 40 mg PO BID #60 tabs 07/17/19 02/08/25 Rx release amlodipine 10 mg tablet 10 mg PO QPM #90 tabs 05/20/20 02/08/25 Rx losartan 100 mg tablet 100 mg PO QAM #90 tabs 05/20/20 02/08/25 Rx bupropion HCl 150 mg tablet,12 hr 150 mg PO BID 02/03/22 02/08/25 History sustained-release atorvastatin 40 mg tablet 40 mg PO QAM 05/19/24 02/08/25 History clopidogrel 75 mg tablet (Plavix) 75 mg PO QAM 05/19/24 02/08/25 History Lactobacillus acidophilus 1 cap PO DAILY 06/08/24 02/08/25 History [Probiotic] lidocaine 5 % topical patch 1 patch topical UD 07/22/24 02/08/25 History nitroglycerin 0.4 mg sublingual See Rx Instructions .Route 01/28/25 02/08/25 Rx tablet .COMPLEX #120 tabs metoprolol succinate 100 mg 100 mg PO DAILY 02/08/25 02/08/25 History tablet,extended release 24 hr Past Med/Surg History Problem List (Updated 02/08/25 @ 16:43 by Homer Guerrier DO) Unstable angina (Acute) Dyspnea on exertion Salmonella Esophageal dysphagia Angina pectoris Hypertension (Chronic) Abnormal gallbladder ultrasound PVD (peripheral vascular disease) Acute hypotension (Acute) Gastric ulcer (Acute) EGD - Dr Evans - 07/11/2019 Recurrent Clostridioides difficile infection Hypercholesterolemia Acute hyponatremia (Acute) Anemia Atypical chest pain Acute pericarditis Pericarditis History of Clostridioides difficile infection Abdominal pain, lower (Acute) BRBPR (bright red blood per rectum) (Acute) CIERA (acute kidney injury) PUD (peptic ulcer disease) LGI bleed Colitis (Acute) Leukocytosis (Acute) Abnormal CT scan, colon Chest pain (Acute) NSTEMI (non-ST elevated myocardial infarction) Anxiety Hypertension (Acute) Alcohol use Chronic prescription opiate use History of heart artery stent (Acute) 2009 x2, 2015 x1, 2017 x1--@ [facility] Chronic back pain Hyperlipidemia CAD (coronary artery disease) (Acute) Medical History (Updated 02/08/25 @ 16:43 by Homer Guerrier DO) Unstable angina History of peptic ulcer disease Hx of non-ST elevation myocardial infarction (NSTEMI) 02/2022 History of pericarditis History of colitis Diverticulosis Hx of gastric ulcer History of Clostridioides difficile colitis Left ventricular hypertrophy Peripheral neuropathy BPH (benign prostatic hyperplasia) GERD (gastroesophageal reflux disease) On anticoagulant therapy plavix d/t stents Dupuytren's contracture of hand Surgical History [place] teeth removed History of surgery RIGHT LEG R/T TRAUMA History of intravascular stent placement RIGHT LEG History of removal of cyst from groin History of hand surgery x6 (4 on right, 2 on left) d/t Dupuytren's History of cardiac cath x3 @ [facility] follow with Dr. Zamora; last 02/2022 at [facility] History of procedure for peripheral vascular disease 2012 Dr. Granger Family History Sister Family history of reaction to anesthesia difficulty waking and nausea Mother Family history of reaction to anesthesia difficulty waking and nausea Peptic ulcer disease Father , in his 40s Cerebral aneurysm Social History Smoking Status: Current some day smoker Tobacco Type: Cigarettes packs per day: 1; Second Hand Exposure: No; Do You Dip or Chew Tobacco: No; Hx Alcohol Use: Yes Alcohol type: beer Alcohol Intake Frequency Comment: 6-pack every 1-2 weeks Hx Substance Use: Yes Last Used Substance: Days (ago) Last Used Substance Other:: Does not abuse, just has a prescription for med. 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 Other Information That Helps Us Care for You: No Feels Safe at Home: Yes Safety Concerns: Feels Safe At This Time Assistive Devices: Denture - Upper, Denture - Lower and Glasses Review of Systems Review of Systems: All systems reviewed & are unremarkable except as noted in Subjective Physical Exam Physical Exam: General: NAD, VS as above Resp: normal respiratory effort, crackles in the bases CV: RRR, no murmur, Abd: normal bowel sounds, non tender, soft Extremities: Moves all extremities, 1+ LE edema with mild eyrthema bilaterally Neuro: A&O x3, Skin: intact, no lesions noted Results & Data Results & Data Vital Signs (Past 12 Hours) Vital Signs Temp Pulse Pulse Resp BP BP Pulse Ox 02/08/25 08:25 80 02/08/25 07:13 89 13 95 02/08/25 07:13 90 15 172/101 H 93 02/08/25 07:04 98.4 F 93 H 18 152/83 H 92 02/08/25 07:00 95 O2 Del Method 02/08/25 08:25 02/08/25 07:13 Room Air 02/08/25 07:13 Room Air 02/08/25 07:04 Room Air 02/08/25 07:00 Room Air Laboratory Results cbc, chemistry, UA and BNP reviewed troponin reviewed lipase reviewed Code Status & VTE Plan VTE Prophylaxis Plan VTE Prophylaxis will be ordered: Yes Supervising Physician Co-Signing Physician Notes PA Supervision Note: I personally saw and examined the patient. I verified all oden points and agree with MIGUEL Bentley with the following exceptions and/or additions: S-patient presents with increasing leg swelling, chest pain with exertion while on a recent vacation followed by chest pain at rest on the morning of admission. It was somewhat relieved with nitroglycerin. ECG and troponin negative on arrival. BNP elevated. Patient seen after return from cardiac catheterization and denied any further chest pain or shortness of breath. O- Vitals reviewed Gen: AAOx3, NAD HEENT: Anicteric sclerae, EOMI CV: RRR no mgr nl S1S2 Pulm: CTAB no wcr Abd: +BS soft NT ND no masses or hernias Ext: Trace lower extremity edema, right wrist with TR band in place Skin: No rashes, warm/dry Neuro: Full strength throughout CBC, BMP, troponin, LFTs, lipase, BNP reviewed A/P-this patient is a 69-year-old male with a history of severe CAD s/p SERENE, PAD, HLD, HTN, current smoker, PUD, here with acute on chronic HFpEF and unstable angina - Now status post LAD stent - Continue dual antiplatelet therapy, statin, BP control - No further Lasix as LVEDP 15 on cath - Check CT of the chest for right hilar enlargement PG Care Time/CCT Total # of Minutes Spent Total Time Spent with Patient: Total time spent is greater than 50% in coordination of care (as documented) at patient's floor/unit and/or counseling patient: Coding Level of Care Code 38202 INT INP/OBS CARE 3/75MIN Diagnoses Unstable angina I20.0 Dyspnea on exertion R06.09 Essential hypertension I10 Hypertension type: essential hypertension (3) Hypertension Hypertension type: essential hypertension Qualified Code(s): I10 - Essential (primary) hypertension
[2025-02-08] MEDS: LOSARTAN POTASSIUM 50 MG TAB PO STA (09:52)
[2025-02-08] MEDS: METOPROLOL SUCC 50MG EXT REL TAB PO STA (09:52)
[2025-02-08] MEDS: ATORVASTATIN 40 MG TAB PO ONE (09:52)
--- NOTE | 2025-02-08 10:07 | Electrocardiogram Report ---
Test Reason : Blood Pressure : */* mmHG Vent. Rate : 90 BPM Atrial Rate : 90 BPM P-R Int : 158 ms QRS Dur : 76 ms QT Int : 350 ms P-R-T Axes : 33 0 25 degrees QTcB Int : 428 ms Normal sinus rhythm Septal infarct (cited on or before 03-Feb-2022) Abnormal ECG When compared with ECG of 14-Feb-2022 13:45, Vent. rate has increased by 32 bpm Confirmed by Jose G Zamora ([id number]) on 02/08/2025 10:07:03 AM Referred By: Confirmed By: Jose G Zamora
--- NOTE | 2025-02-08 10:28 | XCELERA ---
[id number]
[2025-02-08] MEDS ORDERED: BACLOFEN 20 MG TAB PO PRN (10:30)
[2025-02-08] MEDS ORDERED: ONDANSETRON INJ 2 MG/ML 2 ML VIAL IV PRN (10:30)
[2025-02-08] MEDS ORDERED: POLYETHYLENE (MIRALAX) 17 GM PACK PO PRN (10:30)
--- NOTE | 2025-02-08 11:57 | Cardiology Consultation ---
Date of Consultation February 08, 2025 Assessment & Plan (1) Unstable angina: -The patient experienced typical symptoms that awoke him from sleep this morning. -Has had several days of exertional angina pectoris. -EKG unremarkable and echocardiogram notes normal systolic function without wall motion abnormality. -Initial high-sensitivity troponin is normal. -Would proceed with a cardiac catheterization later today. Dr. Uribe is aware. (2) CAD (coronary artery disease): -s/p 3 SERENE within the LCx. -Known complex disease within the RCA. -Cardiac catheterization as above. (3) Hypertension: -Adequate control on current regimen. (4) Hypercholesterolemia: -Continue atorvastatin. History of Present Illness Attending Physician: Mely Vanessa MD History of Present Illness Mr. Whitaker is a 69-year-old male admitted earlier today with a chest pain syndrome. This consultation was ordered to assist in his cardiac management. Of note, the patient is well-known to me from the outpatient setting. The patient was in his usual state of health until approximately 4 days prior to presentation. While on a cruise in the [place], he began to notice exertional left-sided chest discomfort which radiated to the right chest and have assoc iated shortness of breath. His symptoms would resolve with 5 to 10 minutes of rest or 1 sublingual nitroglycerin tablet. He arrived home from his trip yesterday. At approximately 3 AM this morning, the patient awoke from a sound sleep with left-sided chest discomfort as described above. He became quite concerned, and therefore, presented to the emergency room for further care. His symptoms resolved with sublingual nitroglycerin. Currently, patient is resting comfortably in bed without complaints. He does carry a history of a mid LCx SEERNE which was deployed in September 2009. Other disease at that time included subtotally occluded mid to distal right coronary artery. He had a proximal LCx stent placed in January 2016. He had an ostial LCx stent placed in October 2016. He underwent a cardiac catheterization in February 2022. This revealed patent stents within the LCx. The right coronary artery had a 90% proximal and a 70% mid stenosis. There was a chronic subtotal distal RCA stenosis with robust [id number] sided collaterals. The LAD had a 50% mid and 50% proximal stenosis. Medical management was recommended at that time. The patient has experienced chronic exertional angina pectoris, however, this typically takes a great deal of physical activity to uncover. He currently, patient is resting comfortably in bed without complaints. Past medical and surgical history 1. Coronary artery diseasesee above 2. Mid LCx DESJuly 2009 3. Proximal LCx DESNovember 2015 4. Ostial LCx DESAugust 2016 5. Patent stentsDecember 2021 6. Hypertension 7. LVH 8. Hypercholesterolemia 9. Peripheral vascular disease 10. Right lower extremity [id number] 11. Peptic ulcer disease 12. Diverticulosis 13. BPH 14. 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 Allergies Allergy/AdvReac Type Severity Reaction Status Date / Time Penicillins Allergy Severe "CIRCULATORY Verified 12/09/24 09:02 SHUTDOWN" Home Medications Medication Instructions Recorded Confirmed Type baclofen 10 mg tablet 20 mg PO TID PRN Muscle Spasm 11/13/17 02/08/25 History hydrocodone 10 mg-acetaminophen 1 tab PO BID 11/13/17 02/08/25 History 325 mg tablet cholecalciferol (vitamin D3) 125 5,000 unit PO QAM 02/18/18 02/08/25 History mcg (5,000 unit) tablet (Vitamin D3) multivitamin 1 tab PO QAM 02/18/18 02/08/25 History pantoprazole 40 mg tablet,delayed 40 mg PO BID #60 tabs 07/17/19 02/08/25 Rx release amlodipine 10 mg tablet 10 mg PO QPM #90 tabs 05/20/20 02/08/25 Rx losartan 100 mg tablet 100 mg PO QAM #90 tabs 05/20/20 02/08/25 Rx bupropion HCl 150 mg tablet,12 hr 150 mg PO BID 02/03/22 02/08/25 History sustained-release atorvastatin 40 mg tablet 40 mg PO QAM 05/19/24 02/08/25 History clopidogrel 75 mg tablet (Plavix) 75 mg PO QAM 05/19/24 02/08/25 History Lactobacillus acidophilus 1 cap PO DAILY 06/08/24 02/08/25 History [Probiotic] lidocaine 5 % topical patch 1 patch topical UD 07/22/24 02/08/25 History nitroglycerin 0.4 mg sublingual See Rx Instructions .Route 01/28/25 02/08/25 Rx tablet .COMPLEX #120 tabs metoprolol succinate 100 mg 100 mg PO DAILY 02/08/25 02/08/25 History tablet,extended release 24 hr Patient History Medical History (Updated 02/08/25 @ 11:53 by Jose G Zamora MD) Unstable angina History of peptic ulcer disease Hx of non-ST elevation myocardial infarction (NSTEMI) 02/2022 History of pericarditis History of colitis Diverticulosis Hx of gastric ulcer History of Clostridioides difficile colitis Left ventricular hypertrophy Peripheral neuropathy BPH (benign prostatic hyperplasia) GERD (gastroesophageal reflux disease) On anticoagulant therapy plavix d/t stents Dupuytren's contracture of hand Surgical History [place] teeth removed History of surgery RIGHT LEG R/T TRAUMA History of intravascular stent placement RIGHT LEG History of removal of cyst from groin History of hand surgery x6 (4 on right, 2 on left) d/t Dupuytren's History of cardiac cath x3 @ [facility] follow with Dr. Zamora; last 02/2022 at [facility] History of procedure for peripheral vascular disease 2012 Dr. Granger Family History Sister Family history of reaction to anesthesia difficulty waking and nausea Mother Family history of reaction to anesthesia difficulty waking and nausea Peptic ulcer disease Father , in his 40s Cerebral aneurysm Social History Smoking Status: Current every day smoker Tobacco Type: Cigarettes packs per day: 1; Second Hand Exposure: No; Do You Dip or Chew Tobacco: No; Hx Alcohol Use: Yes Alcohol type: beer Alcohol Intake Frequency Comment: 6-pack every 1-2 weeks Hx Substance Use: No Preferred Language: Australian Communication Ability: Effective Language Therapist Required: No Beliefs That Will Affect Care: None marital status: Current Living Situation: Spouse 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 HEENT exam is negative. Neck is supple with full carotid upstrokes. There are no carotid bruits. No jugular venous distention. There is no thyromegaly. Cardiovascular exam reveals a regular rhythm with normal S1 and S2. Heart sounds are distant. No obvious murmurs. Lungs are clear without rales, rhonchi, or wheezes. Abdomen is soft without bruits. Extremities reveal intact radial artery pulses bilaterally. There is no peripheral edema. Results & Data Vital Signs (Past 12 Hours) Vital Signs Temp Pulse Pulse Resp BP BP Pulse Ox 02/08/25 10:00 79 18 165/87 H 93 02/08/25 09:48 76 16 138/64 93 02/08/25 08:25 80 02/08/25 07:13 89 13 95 02/08/25 07:13 90 15 172/101 H 93 02/08/25 07:04 36.9 C 93 H 18 152/83 H 92 02/08/25 07:00 95 O2 Del Method 02/08/25 10:00 Room Air 02/08/25 09:48 Room Air 02/08/25 08:25 02/08/25 07:13 Room Air 02/08/25 07:13 Room Air 02/08/25 07:04 Room Air 02/08/25 07:00 Room Air Laboratory Results CBC notes hemoglobin 11.9, hematocrit 35.0, white count 12.3, platelet count of 374,000. Electrolytes are unremarkable. High-sensitivity troponin is normal at 5.3. Diagnostic Findings Echocardiogram notes normal left ventricular systolic function with ejection fraction of 65 to 70%. There is mild LVH and no significant valvular pathology. Compared with the study performed in February 2022, no significant change. Results personally reviewed and discussed in detail. EKG notes sinus rhythm without abnormalities. Chest x-ray shows no acute disease. PG Care Time/CCT Total # of Minutes Spent Total Time Spent with Patient: Total time spent is greater than 50% in coordination of care (as documented) at patient's floor/unit and/or counseling patient: Coding Level of Care Code 88509 INT INP/OBS CARE 3/75MIN Diagnoses Unstable angina I20.0 Coronary artery disease involving [place] heart with angina pectoris, unspecified vessel or lesion type I25.10 Hypertension I10 Hypercholesterolemia E78.00
--- NOTE | 2025-02-08 14:47 | Pre Anesthesia Assessment ---
Date of Service February 08, 2025 Pre Sedation Assessment Vital Signs Temp Pulse Pulse Resp BP BP Pulse Ox 02/08/25 14:15 79 18 94 02/08/25 13:38 85 16 124/89 97 02/08/25 10:00 79 18 165/87 H 93 02/08/25 09:48 76 16 138/64 93 02/08/25 08:25 80 02/08/25 07:13 89 13 95 02/08/25 07:13 90 15 172/101 H 93 02/08/25 07:04 98.4 F 93 H 18 152/83 H 92 02/08/25 07:00 95 O2 Del Method 02/08/25 14:15 Room Air 02/08/25 13:38 Room Air 02/08/25 10:00 Room Air 02/08/25 09:48 Room Air 02/08/25 08:25 02/08/25 07:13 Room Air 02/08/25 07:13 Room Air 02/08/25 07:04 Room Air 02/08/25 07:00 Room Air Cardiovascular + regular rate Respiratory + respiratory effort normal Pre-Sedation Airway Assessment Smoking Status: Current every day smoker Hx Sleep Apnea: No Hx Difficult Intubation: No Short, Thick Neck: No Thyromental Distance: > or= 3.5 Finger Breadths Oral Cavity: + WNL Mallampati Class: III ASA: ASA3E NPO Status Date of Last Intake of Fluids: 02/07/25 Time of Last Intake of Fluids: 18:00 Date of Last Intake of Solid Food: 02/07/25 Time of Last Intake of Solid Foods: 18:00 Procedure Planning Contraindications for Sedation: none Current Medications Reviewed: Yes Notes The planned sedation has been discussed with the patient. Informed Consent was obtained. I have identified the patient, determined the appropriateness of sedation and have assessed the patient immediately prior to the procedure. All medicine(s) and interventions are by my order.
[2025-02-08] MEDS: NITROGLYCERIN/D5W 100MCG/ML 20ML SYR ONE (14:59)
[2025-02-08] MEDS: niCARdipine 2,000 MCG/20 ML SYR ONE (14:59)
[2025-02-08] MEDS: IODIXANOL (VISIPAQUE) 320 MG/ML 100ML IV ONE (14:59)
[2025-02-08] MEDS: OPTIRAY 350 ONE (16:01)
[2025-02-08] MEDS: HEPARIN (PORCINE) 1000 UNIT/ML 10 ML (CATH LAB USE ONLY) ONE ×2 (16:01→16:02)
[2025-02-08] MEDS: MIDAZOLAM HCL 1 MG/ML 2ML VIAL ONE (16:01)
[2025-02-08] MEDS: CLOPIDOGREL BISULFATE 300 MG TAB ONE (16:02)
--- NOTE | 2025-02-08 16:14 | Post Anesthesia Assessment ---
Date of Service February 08, 2025 Post Sedation Assessment Vital Signs Temp Pulse Pulse Resp BP BP Pulse Ox 02/08/25 14:15 79 18 94 02/08/25 13:38 85 16 124/89 97 02/08/25 10:00 79 18 165/87 H 93 02/08/25 09:48 76 16 138/64 93 02/08/25 08:25 80 02/08/25 07:13 89 13 95 02/08/25 07:13 90 15 172/101 H 93 02/08/25 07:04 98.4 F 93 H 18 152/83 H 92 02/08/25 07:00 95 O2 Del Method 02/08/25 14:15 Room Air 02/08/25 13:38 Room Air 02/08/25 10:00 Room Air 02/08/25 09:48 Room Air 02/08/25 08:25 02/08/25 07:13 Room Air 02/08/25 07:13 Room Air 02/08/25 07:04 Room Air 02/08/25 07:00 Room Air Recovery Score Activity: Moves 4 extremities Respiration: Deep Breath/Cough Circulation: +/-20% PreAnes Value Consciousness: Fully Awake Oxygen Saturation: O2 needed for >90% Discharge Sedation Level of Care: Fast Track Phase II
--- NOTE | 2025-02-08 16:17 | Cardiac Catheterization ---
[facility] Data: [employer] Cardiac Status Clinical evaluation leading to the procedure CAD Presenation: Unstable angina Anginal Classification: CCS IV Diagnostic Physicians Name: Melecio Uribe MD Closure Device Recommendations: PCI without planned CABG Cardiac Cath Procedure Full Procedure Date February 08, 2025 Pre-Procedure Diagnosis Pre-Procedure Diagnosis: Angina AUC Score AUC Score: 8 Post-Procedure Diagnosis Post-Procedure Diagnosis: Severe CAD, Successful PCI and Normal Intracardiac Pressures Procedure(s) Performed Procedure(s) Performed: Coronary Angiography, Left Heart Cath, Drug Eluting Stent and Fractional Flow [place] Director Of Transportation Melecio Uribe MD Acute Care Nurse Practitioner(s) Esha Estimated Blood Loss Estimated Blood Loss: 30 Medication(s) Medication(s): Clopidogrel, Fentanyl, Heparin, Lidocaine 1%, Nicardipine, Nitroglycerin and Versed Summary of Findings Indication: Suspected ACS. History of coronary disease post multiple stents to circumflex and known total RCA occlusion Access: 6 Fr right radial artery Catheters: [place] Findings: LM -20% ostial stenosis, normal caliber LAD -medium caliber, calcified, 50% lateproximal stenosis at first septal, diffuse, calcified, 60% mid segment disease beginning at takeoff of very small D2. Distal vessel without significant disease and tapers to apex. Small to medium D1 with 90% ostial stenosis, D3 without significant disease. Circumflex -medium caliber, ostial to mid stents patent with 30% in-stent restenosis. 40% mid stenosis at takeoff of OM2. Small OM1 with diffuse disease but DAYRON-3 flow. Medium OM2 30% proximal stenosis. Distal vessel into OM3 with mild disease. RCA -dominant, medium caliber, 80 to 90% proximal to mid diffuse disease, 100% chronic mid RCA occlusion after RV branch. DAYRON I flow at bifurcation of PDA/PLV from right to right collaterals from RV branch. PLB's fill retrograde via [id number] collaterals. LVEDP -15 -- PCI -- Antithrombotic therapy: Heparin, clopidogrel Procedure: Left main cannulated with EBU 3.5 guide Pre-procedure flow DAYRON 3 [place] Omniwire normalized and navigated across mid LAD stenosis IFR 0.82 Decision to proceed with PCI of mid LAD disease [facility] Respiratory Therapist 50 wire passed across lesion into distal vessel Mid LAD lesion predilated with 2.5 compliant balloon Dilated lesion stented with 2.5 x 22 mm Lequire drug-eluting stent Stent post-dilated with 3.0 noncompliant balloon IC vasodilators administered for spasm Post procedure DAYRON 3 flow, stent well expanded with minimal residual stenosis and no apparent cardiac complications. Rhodes IFR Omniwire reinserted and directed across proximal circumflex in- stent restenosis iFR 0.95 Post wire removal no apparent complications. Arterial Closure: TR band Summary: 1. Multivessel coronary artery disease - 50% lateproximal LAD stenosis, diffuse calcified 60% mid LAD (obstructive by IFR 0.82) Patent ostial to mid circumflex stents with 30% ISR proximally, 40% mid (nonobstructive by IFR 0.95) 100% mid RCA chronic total occlusion with right to right and [id number]-[id number] collaterals 2. Normal intracardiac filling pressure 3. Successful PCI of mid LAD with single drug-eluting stent (2.5 x 22 mm Tito; postdilated with 3.0 NC) Recommendations: To PCU for continued monitoring Loaded with clopidogrel 600 mg in [employer] Continue dual-antiplatelet therapy for at least 6 months Continue statin, and ASCVD risk factor modification Hemodynamics Rest Ao:: 139/85/110 Final Ao: 145/65/103 LV: 141/15 Recommendations Recommendations: PCI without planned CABG Radiation Exposure (mGy) 2341 Contrast (mls) 110 Anesthesia Moderate 7366-7919 Procedural Complication(s) None Disposition PCU I attest to the content of the Intraoperative Record and any orders documented therein. Any exceptions are noted below. [facility] Card Cath Procedure Codes Cardiac Catheterization Procedure 1: Cardiovascular Cath Procedures: 61807 Coronaries and LHC (+/-LV) Procedure 2: Cardiovascular Cath Procedures: 63703 (Doppler) Pressure Wire Procedure 3: Cardiovascular Cath Procedures: 90217 (Doppler) Pressure Wire Addl vessel Moderate Sedation Procedure 1: Sedation/Anesthesia: 11092 Mod Sedation by the same physician;Init15 Min Child Age 5 & Up Procedure 2: Sedation/Anesthesia: 23602 Mod Sedation by the same physician; Ea [id number] Minutes Stenting Procedure 1: Cardiovascular Stent Procedures: 79705 Perc transcatheter placement of intracoronary stent(s), with ang PG Care Time/CCT Total # of Minutes Spent Total Time Spent with Patient: Total time spent is greater than 50% in coordination of care (as documented) at patient's floor/unit and/or counseling patient:
[2025-02-08] MEDS: ACETAMINOPHEN 325 MG TAB PO PRN (16:30)
[2025-02-09 06:47] LABS: Hematocrit (blood only) 36.0 % (42.0-52.0); Hemoglobin 12.0 g/dL (14.0-18.0); Immature Granulocytes # (auto) 0.02 K/uL (0.01-0.20); Immature Granulocytes % (auto) 0.2 %; Mean Corpuscular Hemoglobin 29.7 pg (25.0-34.0); Mean Corpuscular Volume 89.1 fL (80.0-100.0); Platelet Count 351 K/uL (130-400); RDW Standard Deviation 43.8 fL (36.4-46.3); Red Blood Count 4.04 M/uL (4.70-6.10); White Blood Count 8.41 K/ul (4.8-10.8)
[2025-02-09 07:04] LABS: Anion Gap 8.0 (3-11); Blood Urea Nitrogen 28.0 mg/dl (6-23); Calcium 8.6 mg/dl (8.6-10.3); Carbon Dioxide 29.0 mmol/L (21-32); Chloride 103.0 mmol/L (98-107); Creatinine Clr Calc Pharmacy 63.6 ml/min; Glucose 102.0 mg/dl (70-99(Fasting)); Iron 47.0 mcg/dl (35-175); Magnesium 2.0 mg/dl (1.7-2.4); Potassium 3.5 mmol/L (3.5-5.1); Sodium 140.0 mmol/L (136-145); Total Iron Binding Cap Calc 412.0 mcg/dl (250-450); Transferrin 294.0 mg/dl (200-360); Transferrin (FE) Percent Satur 11.0 % (20-50)
[2025-02-09 07:16] VITALS: RESP 18
[2025-02-09 07:17] LABS: Polychromasia 1+
[2025-02-09 07:25] LABS: Ferritin 14.3 ng/ml (8-388)
[2025-02-09] MEDS: ASPIRIN 81 MG ECTAB PO SCH (08:02)
[2025-02-09] MEDS: METOPROLOL SUCC 50MG EXT REL TAB PO SCH (08:02)
[2025-02-09] MEDS: CLOPIDOGREL BISULFATE 75 MG TAB PO SCH (08:02)
[2025-02-09] MEDS: LOSARTAN POTASSIUM 50 MG TAB PO SCH (08:03)
[2025-02-09] MEDS: ATORVASTATIN 40 MG TAB PO SCH (08:03)
--- NOTE | 2025-02-09 09:05 | CT Scan Report ---
CT chest diagnostic wo con CT DOSE: 379.89 mGy.cm CLINICAL HISTORY: 69 years-old Male with Abnormal right hilum on CXR. Possible right hilar opacity o n comparison chest radiograph TECHNIQUE: Multiaxial CT images of the chest were performed without contrast. A dose lowering techni que was utilized adhering to the principles of ALARA. COMPARISON: Chest radiograph 02/08/2025, CTA chest 08/30/2021 FINDINGS: Unremarkable thyroid. No pathologically enlarged lymph nodes. Heart is upper limits of norm al in size. Extensive coronary artery calcifications. Atherosclerosis of the aorta without aneurysm. No pneumothorax, pleural effusion, airspace consolidation, pulmonary edema, or suspicious pulmonary n odule or mass. Specifically, no right hilar lesion is seen. There is mild pulmonary emphysema. 6 mm s olid nodule in the right lower lobe on image 126 series 4 previously measured 5 mm in 202. Central a irways are patent. No acute upper abdominal abnormality. Soft tissues are within normal limits. No acute fracture is see n. IMPRESSION: 1. Mild emphysema without acute intrathoracic abnormality. 2. No hilar mass is present, therefore the radiographic finding was secondary to summation density. 3. 6 mm solid nodule of the right lower lobe is likely benign and has slightly increased in size from 202. 1 year follow-up chest CT recommended. 4. No lymphadenopathy. ACT 112: Negative or not required by law. Electronically signed by: Lorenzo Martinez M.D. 02/09/2025 9:03 AM
--- NOTE | 2025-02-09 10:05 | Electrocardiogram Report ---
Test Reason : Blood Pressure : */* mmHG Vent. Rate : 73 BPM Atrial Rate : 73 BPM P-R Int : 162 ms QRS Dur : 78 ms QT Int : 402 ms P-R-T Axes : 43 18 26 degrees QTcB Int : 442 ms Normal sinus rhythm Normal ECG When compared with ECG of 08-Feb-2025 07:12, Criteria for Septal infarct are no longer Present Confirmed by JoseG Zamora ([id number]) on 02/09/2025 10:05:52 AM Referred By: REFERRED SELF Confirmed By: Jose G Zamora
[2025-02-09 11:13] VITALS: PULSE 68; TEMP 97.9; O2SAT 97
--- NOTE | 2025-02-09 12:27 | Discharge Summary ---
"Discharge Summary Date of Service February 09, 2025 Principal Dx & Hospital Course #1 = Principal Diagnosis (1) Unstable angina: (2) Dyspnea on exertion: (3) Hypertension: Plan #CAD/CP | MILLER/acute on chronic HFpEF- Deshawn is a 69M with a PMHx of CAD with multiple stents in place, hypertension, HLD, stable angina, history of gastric ulcer, history of cdiff, who presents to the hospital with concerns of worsening chest pain x 5 days. Initial evaluation with negative trop and no acute EKG changes, ddimer negative. Concern for unstable angina and possible HF. Troponin neg x 2. ASA load in ED. Given 40mg IV lasix. Cardiology consulted - echo with no significant change from 02/2022, EF 65-70%. S/p cath with SERENE to mid LAD 02/[address] Uribe. Chest pain free since. DAPT with aspirin and plavix x 6 months. Outpatient cardiology follow up. #HTN - Continue amlodipine, losartan, metoprolol. Adequate control during inpatient stay #GERD/PUD-Continue Protonix #Anxiety- Continue home bupropion #Current smoker--Encourage smoking cessation #Leukocytosis-unknown cause, has been elevated consistently over the last 3 years on labs with mild normocytic anemia. Differential with neutrophilia. Leukocytosis has resolved, but peripheral smear noting chronic monocytes over the last 7 years. Concerns for CMML, outpatient heme referral placed. #Abnormal Chest CT -obtained secondary to interval size progressive of a right perihilar opacity on CXR, this was not redomenstrated on chest CT, but did show slight increase in right base nodule from 5mm to 6mm in 3 years. recommend follow up CT in one year, smoking cessation Dispo: discharge to home today Notes For Next Care Provider heme referall - dr Mitchell needs repeat CT in one year Medication Changes From Visit 81mg Aspirin added daily Admission HPI Per Admitting Provider Deshawn is a 69M with a PMHx of CAD with multiple stents in place, hypertension, HLD, stable angina, history of gastric ulcer, history of cdiff, who presents to the hospital with concerns of worsening chest pain x 5 days. Recently on a cruise (drove to the port) and noticed worsening CP with activity and also MILLER when walking on flat ground which is abnormal for him. Did not seek medical care while on the ship. ALso noticed swelling in his legs and difficulty sleeping as breathing worse when lying flat. The chest pain awoke him from sleep this morning - he took nitroglycerin with some relief but then presented to the ED Report ETOH and smoking but not everyday no recent medication changes wishes to be a full code ED course: ASA 324mg Discharge Exam General: NAD, VS as above Resp: normal respiratory effort, clear to ascultation CV: RRR, no murmur, Abd: normal bowel sounds, non tender, soft Extremities: Moves all extremities, no LE edema Neuro: A&O x3, Skin: intact, no lesions noted Discharge Plan Discharge Items Patient Disposition: Home - Self-Care Reason For Visit: CP, MILLER Discharge Diagnosis: Chest pain - new heart stent placed Condition on Discharge: Fair Activity: Resume your previous activity Weightbearing: Full weightbearing Non-emergency contact: Primary Care Provider Call non-emergency contact if: you have any medication questions, your symptoms worsen, your pain is not controlled and your temperature is above 101 Follow-up/Referrals: Jose G Zamora MD [Physician] - 03/16/25 3:40 pm (follow up 4-6 weeks ) Melecio Rosenthal MD [Primary Care Provider] - 02/12/25 10:25 am (Follow up within one week ) Fauzia Mitchell MD [Physician] - (new patient - concern for CMML on peripheral smear Spoke with office, they will call Pt to schedule appointment) Diet: Heart Healthy Addtl Attending Provider Instructions: Mr. Whitaker, You were hospitalized after having worsening Chest pain at rest and with acti vity. You were seen by cardiology and had a cardiac cath done with another stent placed. You will be continued on aspirin 81mg and plavix everyday for at least the next 6 months. Continue to take your cholesterol medication, eat a heart healthy diet and exercise when able to help improve your heart health. It is also recommended that you stop smoking to help your heart and your lungs. There was also concerns about a spot on your chest xray - we did a chest CT the did not reveal anything in the right upper area but did show a nodule in the right lower area has increased from 5mm to 6mm in the last 3 years. Recommendation is to get a follow up CT in one year. There was also concerns about persistent elevated white blood cell count over the last 7+ years. You had a peripheral smear done that showed elevated monocytes chronically and recommended that you been seen by a research environmental scientist (blood doctor). A referral has been placed to Dr. Mitchell through [facility], if you do not hear from them by next Saturday, please call the office at the number above. Follow-up appointments: Make an appointment with your primary care physician within one week of discharge. A copy of this summary will be sent to them. Every time you see your primary care physician, or any other doctor, bring your medication list, and a list of questions. CONTACT YOUR PRIMARY CARE PROVIDER if you experience any of the following: Shortness of breath or difficulty breathing Fevers or chills Feeling tired with normal activity or experiencing dizziness or fainting Difficulty following your treatment plan, or difficulty taking medications CALL 911 OR GO TO THE EMERGENCY DEPARTMENT if you experience any of the following: Severe abdominal pain or nausea/vomiting Severe chest pain, or chest pain that radiates (moves) to your jaw or arm Sudden, severe shortness of breath or difficulty breathing Thank you for allowing us to participate in your care. Post cath instructions: ACTIVITY RECOMMENDATIONS: Excess manipulation of the wrist should be avoided for the next 24-48 hours. * No lifting over 2 pounds (approximately a 1/2 gallon of milk) with the utilized arm for 24 hours. * No strenuous activity such as bowling or tennis for 3 days. * Keep the site of the procedure covered with a bandage for 24 hours. *You may shower the day after the procedure. Do not take a tub bath or submerge the puncture site in water for the next 3 days. *Do not operate any motorized equipment for 3 days. SPECIAL CARE INSTRUCTIONS: The site may be slightly bruised and sore following your procedure. Should any of the following occur, contact the DrBob who performed your procedure. 1. Redness/inflammation, swelling, chills, or fever, or colored drainage at procedure site within 3-7 days after your procedure. 2. Coldness, discoloration, ongoing numbness, severe pain, or swelling. Expect mild tingling of hand and tenderness at the puncture site for up to three days. If this persists beyond three days, or other symptoms develop, notify the Dr. who performed your procedure. BLEEDING: If the procedure site on your wrist begins to bleed, do not panic 1. Place 1 or 2 fingers firmly just slightly above the insertion site to stop the bleeding. You may be able to feel your pulse as you hold pressure. 2. Lift your finger after 5 minutes to see if the bleeding has stopped. 3. Once the bleeding has stopped, gently wipe the wrist area clean with a bandage. * If the bleeding from your wrist does not stop after 10 minutes, or if there is a large amount of bleeding or spurting, call 911 (do not drive yourself to the hospital). SKIN IRRITATION: * You may experience some redness and/or swelling in the area where radiation was administered. If any skin irritation occurs, please contact your family physician. FOLLOW UP VISIT: Keep any scheduled doctor appointments. Pending Studies at Discharge: No Stand-Alone Forms: My [facility] Insurity, Smoking Cessation Medications and DC Order Prescriptions: New aspirin 81 mg Tablet,Delayed Release (Dr/Ec) 81 mg PO QAM Qty: 30 0RF Continued amlodipine 10 mg tablet 10 mg PO QPM Qty: 90 3RF losartan 100 mg tablet 100 mg PO QAM Qty: 90 3RF nitroglycerin 0.4 mg tablet, sublingual See Rx Instructions .ROUTE .COMPLEX Qty: 120 2RF Dose Instruction: TAKE 1 TABLET EVERY 5 MINUTES FOR 3 DOSES, IF NEEDED CALL 911 AFTER 3RD DOSE Rx Instructions: TAKE 1 TABLET EVERY 5 MINUTES FOR 3 DOSES, IF NEEDED CALL 911 AFTER 3RD DOSE Lactobacillus acidophilus [Probiotic] 1 cap PO DAILY lidocaine 5 % adhesive patch,medicated 1 patch topical UD Rx Instructions: original: 1 patch topical daily. leave on most painful area for up to 12 hrs 08/27-otc unable to verify cholecalciferol (vitamin D3) [Vitamin D3] 5,000 unit Tablet 5,000 unit PO QAM multivitamin Tablet 1 tab PO QAM baclofen 10 mg Tablet 20 mg PO TID PRN (Reason: Muscle Spasm) hydrocodone-acetaminophen 10-325 mg Tablet 1 tab PO BID pantoprazole 40 mg tablet,delayed release (DR/EC) 40 mg PO BID Qty: 60 0RF bupropion HCl 150 mg tablet sustained-release 12 hr 150 mg PO BID metoprolol succinate 100 mg tablet extended release 24 hr 100 mg PO DAILY atorvastatin 40 mg tablet 40 mg PO QAM clopidogrel [Plavix] 75 mg tablet 75 mg PO QAM Discharge Orders: Discharge Order (Routine); Ordered 02/09/25 Ordered By: Blossom Wise/Other Patient Handouts: Coronary Angioplasty Stenting Dc Admission Data Admit Date/Time: 02/08/25 09:15 Attending Provider: Mely Vansesa Admit Provider: Mely Vanessa Primary Care Provider: Melecio Rosenthal Other Providers: Mely Vanessa; Jose G Zamora Other Interventions: Discharge Summary Assessment (RN) Last Done: 02/09/25 13:01 Hospital Stay Data Consultations 02/08/25 08:28 ED Decision to Admit Stat 02/08/25 08:55 Consult Cardiology Routine 02/09/25 12:27 Consult Cardiac Rehabilitation Routine Procedures Performed Operation Date: 02/08/25 13:30 Actual Procedures p Cineradiography w/Routine Exam - Melecio Uribe MD p Cath, Left with Cors and Vent - Melecio Uribe MD p Drug Eluting Stent SGl Vessel - Melecio Uribe MD Diagnostic Imagining Performed Chest X-Ray 02/08/25 07:09 EXAM: XR chest 1V portable CLINICAL HISTORY: Chest pain, nonspecific. TECHNIQUE: An X-ray image of the chest was obtained in AP projection. COMPARISON: A comparison is made with the previous CR study dated 02/25/2024. FINDINGS: Pulmonary Parenchyma: There is a lobular opacity noted at the right para-hilar region, which appears progressive in size since prior. There is a predominance of bronchovascular shadows with congested upper lung lobes and vascular markings. No evidence of pleural effusion or pleural thickening. Heart and Mediastinum: Heart size is mildly enlarged. There is a faint atheromatous calcification of the thoracic aorta. Bony Thorax: Bony thorax appears intact without fractures or deformities. Soft Tissues: Soft tissues overlying the chest wall are unremarkable. There is a mild elevation of both diaphragmatic copulae. IMPRESSION: 1. Interval size progressive right para-hilar opacity, which may be of vascular origin or enlarged lymph nodes; to be clinically assessed pablo CT study performed if clinically needed. 2. There is a predominance of bronchovascular shadows with congested upper lung lobes and vascular markings, most likely pulmonary congestion versus infection. Electronically signed by Brannon Bradshaw 02-08-2025 08:[address] 02/09/25 07:00 CT chest diagnostic wo con CT DOSE: 379.89 mGy.cm CLINICAL HISTORY: 69 years-old Male with Abnormal right hilum on CXR. Possible right hilar opacity on comparison chest radiograph TECHNIQUE: Multiaxial CT images of the chest were performed without contrast. A dose lowering technique was utilized adhering to the principles of ALARA. COMPARISON: Chest radiograph 02/08/2025, CTA chest 08/30/2021 FINDINGS: Unremarkable thyroid. No pathologically enlarged lymph nodes. Heart is upper limits of normal in size. Extensive coronary artery calcifications. Atherosclerosis of the aorta without aneurysm. No pneumothorax, pleural effusion, airspace consolidation, pulmonary edema, or suspicious pulmonary nodule or mass. Specifically, no right hilar lesion is seen. There is mild pulmonary emphysema. 6 mm solid nodule in the right lower lobe on image 126 series 4 previously measured 5 mm in 2021. Central airways are patent. No acute upper abdominal abnormality. Soft tissues are within normal limits. No acute fracture is seen. IMPRESSION: 1. Mild emphysema without acute intrathoracic abnormality. 2. No hilar mass is present, therefore the radiographic finding was secondary to summation density. 3. 6 mm solid nodule of the right lower lobe is likely benign and has slightly increased in size from 2021. 1 year follow-up chest CT recommended. 4. No lymphadenopathy. ACT 112: Negative or not required by law. Electronically signed by: Lorenzo Martinez M.D. 02/09/2025 9:03 AM Pending Results Patient Have Any Pending Studies at Discharge: No Discharge Instructions Given to Patient (Per Discharging Provider) Mr. Whitaker, You were hospitalized after having worsening Chest pain at rest and with activity. You were seen by cardiology and had a cardiac cath done with another stent placed. You will be continued on aspirin 81mg and plavix everyday for at least the next 6 months. Continue to take your cholesterol medication, eat a heart healthy diet and exercise when able to help improve your heart health. It is also recommend ed that you stop smoking to help your heart and your lungs. There was also concerns about a spot on your chest xray - we did a chest CT the did not reveal anything in the right upper area but did show a nodule in the right lower area has increased from 5mm to 6mm in the last 3 years. Recommendation is to get a follow up CT in one year. There was also concerns about persistent elevated white blood cell count over the last 7+ years. You had a peripheral smear done that showed elevated monocytes chronically and recommended that you been seen by a research environmental scientist (blood doctor). A referral has been placed to Dr. Mitchell through [facility], if you do not hear from them by next Saturday, please call the office at the number above. Follow-up appointments: Make an appointment with your primary care physician within one week of discharge. A copy of this summary will be sent to them. Every time you see your primary care physician, or any other doctor, bring your medication list, and a list of questions. CONTACT YOUR PRIMARY CARE PROVIDER if you experience any of the following: Shortness of breath or difficulty breathing Fevers or chills Feeling tired with normal activity or experiencing dizziness or fainting Difficulty following your treatment plan, or difficulty taking medications CALL 911 OR GO TO THE EMERGENCY DEPARTMENT if you experience any of the following: Severe abdominal pain or nausea/vomiting Severe chest pain, or chest pain that radiates (moves) to your jaw or arm Sudden, severe shortness of breath or difficulty breathing Thank you for allowing us to participate in your care. Post cath instructions: ACTIVITY RECOMMENDATIONS: Excess manipulation of the wrist should be avoided for the next 24-48 hours. * No lifting over 2 pounds (approximately a 1/2 gallon of milk) with the utilized arm for 24 hours. * No strenuous activity such as bowling or tennis for 3 days. * Keep the site of the procedure covered with a bandage for 24 hours. *You may shower the day after the procedure. Do not take a tub bath or submerge the puncture site in water for the next 3 days. *Do not operate any motorized equipment for 3 days. SPECIAL CARE INSTRUCTIONS: The site may be slightly bruised and sore following your procedure. Should any of the following occur, contact the DrBob who performed your procedure. 1. Redness/inflammation, swelling, chills, or fever, or colored drainage at procedure site within 3-7 days after your procedure. 2. Coldness, discoloration, ongoing numbness, severe pain, or swelling. Expect mild tingling of hand and tenderness at the puncture site for up to three days. If this persists beyond three days, or other symptoms develop, notify the Dr. who performed your procedure. BLEEDING: If the procedure site on your wrist begins to bleed, do not panic 1. Place 1 or 2 fingers firmly just slightly above the insertion site to stop the bleeding. You may be able to feel your pulse as you hold pressure. 2. Lift your finger after 5 minutes to see if the bleeding has stopped. 3. Once the bleeding has stopped, gently wipe the wrist area clean with a bandage. * If the bleeding from your wrist does not stop after 10 minutes, or if there is a large amount of bleeding or spurting, call 911 (do not drive yourself to the hospital). SKIN IRRITATION: * You may experience some redness and/or swelling in the area where radiation was administered. If any skin irritation occurs, please contact your family physician. FOLLOW UP VISIT: Keep any scheduled doctor appointments. Supervising Physician Co-Signing Physician Notes PA Supervision Note: I did not personally see or examine the patient today, but I verified all odne points of MIGUEL Bentley's assessment and plan with the following exceptions/additions: None Total Time Total Time Spent Total Time Spent (In Minutes): Time spent day of discharge 40 minutes including direct patient care, medication reconciliation, documentation, review of labs and images, and coordination of care. Coding Level of Care Code 45679 INP/OBS DISCH >30 MIN Diagnoses Unstable angina I20.0 Dyspnea on exertion R06.09 Essential hypertension I10 Hypertension type: essential hypertension"
--- NOTE | 2025-02-09 12:53 | Cardiology Progress Note ---
Date of Service February 09, 2025 Assessment & Plan (1) Unstable angina: Plan: -Underwent placement of a SERENE in the mid LAD (2.5 x 22 mm NATHAN). -Aspirin was added to his clopidogrel following the procedure. (2) CAD (coronary artery disease): Plan: -LCx SERENE with a 30% in-stent restenosis. -Totally occluded mid RCA with good distal collateralization. -s/p mid LAD SERENE yesterday. -Continue metoprolol, losartan, amlodipine, Plavix, aspirin, and atorvastatin. -Stable for hospital discharge. (3) Hypertension: Plan: -Adequate control on current regimen. (4) Hypercholesterolemia: Plan: -Continue atorvastatin. Admission and Anticipated Discharge Date Admission Date: February 08, 2025 Subjective The patient is resting comfortably in bed without complaints of chest pain or dyspnea. He is anxious for hospital discharge. Physical Exam Physical Exam: In general this is a well-developed well-nourished white male in no acute distress. HEENT exam is negative. Neck is supple with full carotid upstrokes. There are no carotid bruits. No jugular venous distention. There is no thyromegaly. Cardiovascular exam reveals a regular rhythm with normal S1 and S2. Heart sounds are distant. No obvious murmurs. Lungs are clear without rales, rhonchi, or wheezes. Abdomen is soft without bruits. Extremities noted a dry dressing over the right radial artery at the wrist. There are no bruits. There is no peripheral edema. Results & Data Vital Signs (Past 12 Hours) Vital Signs Temp Pulse Pulse Resp BP Pulse Ox O2 Del Method 02/09/25 11:13 36.6 C 68 18 137/78 97 Room Air 02/09/25 08:28 74 02/09/25 08:14 Room Air 02/09/25 07:16 36.5 C 85 18 140/80 95 Room Air 02/09/25 03:27 36.5 C 80 16 149/81 H 96 Room Air Diagnostic Findings personnel monitor is benign. PG Care Time/CCT Total # of Minutes Spent Total Time Spent with Patient: Total time spent is greater than 50% in coordination of care (as documented) at patient's floor/unit and/or counseling patient: Coding Level of Care Code 82735 SUB INP/OBS CARE 3/50MIN Diagnoses Unstable angina I20.0 Coronary artery disease involving teller heart with angina pectoris, unspecified vessel or lesion type I25.10 Hypertension I10 Hypercholesterolemia E78.00
[2025-02-09 13:01] VITALS: BP 107/77
== END 2025-02-09 14:03 | disposition home or self-care (01) | DRG 321 ==
LOC: ED 06:59 → EDINP 09:15 → 2S 16:55